=== PATIENT | female | born 1930 | race Caucasian/White ===

== ENCOUNTER 2016-12-29 10:20 | Inpatient (IN) | payer OTHER, BC ==
[2016-12-29 10:37] VITALS: BMI 30.2
[2016-12-29] MEDS ORDERED: SODIUM CHLORIDE 500 ML IV STA ×2 (10:42→16:30)
--- NOTE | 2016-12-29 10:50 | PDOC ---
History of Present Illness - General History Source: Family Exam Limitations: Dementia <NazarioJero - Last Filed: 12/29/16 14:11> <Carmita Wilson - Last Filed: 12/29/16 15:12> - General Chief Complaint: CVA/TIA Stated Complaint: AMS Time Seen by Provider: 12/29/16 10:33 Past History - Past Medical History Cardiac Disorders: Yes CVA: Yes Dementia: Yes HTN: Yes Hypercholesterolemia: Yes - Immunization History Immunization Up to Date: Yes - Psycho/Social/Smoking Cessation Hx Anxiety: No Suicidal Ideation: No Smoking Status: Yes Smoking History: Never smoked Have you smoked in the past 12 months: No Number of Cigarettes Smoked Daily: 0 If you are a former smoker, when did you quit?: long time ago Hx Alcohol Use: No Drug/Substance Use Hx: No Substance Use Type: None <Jero Lange - Last Filed: 12/29/16 14:11> <Carmita Wilson - Last Filed: 12/29/16 15:12> - Past Medical History Allergies/Adverse Reactions: Allergies Allergy/AdvReac Type Severity Reaction Status Date / Time Penicillins Allergy Intermediate Verified 03/16/16 22:35 methylprednisolone acetate Allergy Swelling Verified 03/16/16 22:35 [From Depo-Medrol] ofloxacin [From Floxin] Allergy Verified 03/16/16 22:35 Home Medications: Ambulatory Orders Metoprolol Tartrate [Lopressor -] 25 mg PO BID tablet 04/10/15 Warfarin Na [Coumadin -] 5 mg PO ASDIR 07/26/15 Acetaminophen [Tylenol .Regular Strength -] 650 mg PO Q4H PRN #0 tablet Docusate Sodium [Colace -] 100 mg PO BID PRN #0 capsule 07/31/15 Donepezil HCl [Aricept] 5 mg PO DAILY 30 Days 07/31/15 Olanzapine [Zyprexa -] 5 mg PO HS tablet 07/31/15 Tramadol HCl [Ultram -] 50 mg PO Q6H PRN #20 tablet MDD 400mg 03/19/16 Losartan Potassium 50 mg PO HS 12/29/16 Review of Systems - Review of Systems Able to Perform ROS?: No (dementia) <Jero Lange Last Filed: 12/29/16 14:11> *Physical Exam - Vital Signs Last Vital Signs Temp Pulse Resp BP Pulse Ox 99.3 F 70 20 130/61 98 12/29/16 10:20 12/29/16 10:20 12/29/16 10:20 12/29/16 10:20 12/29/16 10:20 - Physical Exam General Appearance: Yes: Appropriately Dressed. No: Apparent Distress HEENT: positive: Normal Voice Neck: positive: Supple Respiratory/Chest: positive: Lungs Clear. negative: Respiratory Distress Cardiovascular: positive: Regular Rate, S1, S2 Gastrointestinal/Abdominal: positive: Soft. negative: Tender Integumentary: positive: Dry, Warm Neurologic: positive: Alert, Normal Mood/Affect, Other (oriented x 1 and moving all extremities but not following any commands (baseline as per family)) <Jero Lange - Last Filed: 12/29/16 14:11> - Vital Signs Last Vital Signs Temp Pulse Resp BP Pulse Ox 98.2 F 72 16 159/64 99 12/29/16 13:29 12/29/16 13:29 12/29/16 13:29 12/29/16 13:29 12/29/16 13:29 <Carmita Wilson - Last Filed: 12/29/16 15:12> Heart Score/ECG Review - ECG Intrepretation Comment:: 12/29/16 11:16 NSR w/ RBBB, no acute ST-T wave changes <Jero Lange - Last Filed: 12/29/16 14:11> ED Treatment Course - LABORATORY CBC & Chemistry Diagram: 12/29/16 10:53 12/29/16 10:53 - RADIOLOGY Radiology Studies Ordered: Category Date Time Status HEAD CT WITHOUT CONTRAST [CT] Stat CT Scan 12/29/16 10:41 Ordered CHEST X-RAY PORTABLE* [RAD] Stat Radiology 12/29/16 10:41 Ordered <Jero Lange - Last Filed: 12/29/16 14:11> - LABORATORY CBC & Chemistry Diagram: 12/29/16 10:53 12/29/16 10:53 - ADDITIONAL ORDERS Additional order review: Laboratory Results 12/29/16 12/29/16 12:19 10:53 Sodium 139 Potassium 5.0 D Chloride 104 Carbon Dioxide 29 Anion Gap 6 L BUN 20 H D Creatinine 0.8 D Creat Clearance w eGFR > 60 Random Glucose 106 D Calcium 9.2 Total Bilirubin 0.6 D AST 38 H D ALT 21 D Alkaline Phosphatase 84 Creatine Kinase 187 Creatine Kinase Index 0.5 CK-MB (CK-2) < 1.000 Troponin I < 0.02 B-Natriuretic Peptide 2195.43 H Total Protein 7.1 Albumin 3.3 L Lipase 120 Urine Color Yellow Urine Appearance Slcloudy Urine pH 5.0 Ur Specific Preemption 1.025 Urine Protein Negative Urine Glucose (UA) Negative Urine Ketones Negative Urine Blood 2+ H Urine Nitrite Negative Urine Bilirubin Negative Urine Urobilinogen Negative Ur Leukocyte Esterase Negative Urine RBC 8 Urine WBC 2 Ur Epithelial Cells Rare Urine Mucus Rare 12/29/16 10:53 RBC 4.20 MCV 89.4 MCHC 32.8 RDW 14.3 MPV 10.1 Neutrophils % 79.2 D Lymphocytes % 12.1 D Monocytes % 7.2 Eosinophils % 1.0 Basophils % 0.5 - Medications Given in the ED: ED Medications Discontinued Medications Generic Name Dose Route Start Last Admin Trade Name Freq PRN Reason Stop Dose Admin Sodium Chloride 500 mls @ 1,000 mls/hr 12/29/16 10:42 12/29/16 10:45 Normal Saline - IV 12/29/16 11:11 1,000 mls/hr ASDIR STA Administration <Carmita Wilson - Last Filed: 12/29/16 15:12> Medical Decision Making - Medical Decision Making 12/29/16 10:43 86 yo F, history of dementia on Aricept, on zyprexa, oriented to people only, hypertension, heart murmurs, CVA with residual aphasia, afib on coumadin (told last week supratherapeutic on labs and told to reduce dose), PNA, UTI, brought in by family for dizziness with near syncope this am. 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 Pt unable to give hx in ED. Patient moving all extremities in ED but not following any specific commands, which is baseline per family. See exam Near syncope this am Unable to give hx 2/2 dementia Stable w/ clear chest/lungs Moving all extremities but not following commands (baseline per family) Unlikely CVA, r/o ACS vs metabolic vs infectious -ekg -cxr -CT head -labs -anticipate admission 12/29/16 12:16 CT with old L infarct, no acute pathology. CXr unremarkable w/ neg trop. BNP > 2K but no clinical e/o fluid overload. XR w/ atelectatic changes to bases, L>R, unable to r/o small underlying infiltrate. Clinically no concern for PNA as no cough, SOB, CP or fever. Labs wnl. Pt remains stable in ED. Will discus dispo w / PMD 12/29/16 12:19 12/29/16 13:38 Pt well appearing and currently eating. Will discuss case w/ PMD and admit to tele obs for near syncope 12/29/16 14:11 Case d/w hospitalist (covering for hiogi) and pt admitted <Jero Lange - Last Filed: 12/29/16 14:11> *DC/Admit/Observation/Transfer - Discharge Dispostion Admit: Yes <Jero Lange - Last Filed: 12/29/16 14:11> - Attestations Physician Attestion: I reviewed the case with the mid-level practitioner and agree with the mid- level practitioner's assessment, diagnosis and disposition. <Carmita Wilson - Last Filed: 12/29/16 15:12> Diagnosis at time of Disposition: Near syncope - Discharge Dispostion Condition at time of disposition: Stable - Referrals Referrals: Thony Reed MD [Primary Care Provider] -
[2016-12-29 11:06] LABS: MCHC 32.8 g/dl (32.0-36.0)
[2016-12-29 11:11] LABS: BASOPHIL 0.5 % (0-2.0); MCH 29.3 pg (25.7-33.7); MEAN CELL VOLUME 89.4 fl (80-96); MEAN PLT VOLUME 10.1 fl (7.5-11.1); NEUTROPHILS 79.2 % (42.8-82.8); PLATELET COUNT 261 K/MM3 (134-434); RDW 14.3 % (11.6-15.6); WHITE BLOOD COUNT 10.8 K/mm3 (4.0-10.0)
[2016-12-29 11:31] LABS: ALBUMIN 3.3 g/dl (3.4-5.0); ANION GAP 6 (8-16); BILIRUBIN,TOTAL 0.6 mg/dL (0.2-1.0); CALCIUM 9.2 mg/dL (8.5-10.1); CO2 29 mmol/L (21-32); CREATININE 0.8 mg/dL (0.55-1.02); GLUCOSE,RANDOM 106 mg/dL (74-106); SGPT/ALT 21 U/L (12-78); TOT PROT 7.1 g/dl (6.4-8.2)
[2016-12-29 11:32] LABS: ALK PHOS 84 U/L (45-117)
[2016-12-29 11:34] LABS: TROPONIN I < 0.02 ng/ml (0.00-0.05)
[2016-12-29 11:42] LABS: CPK 187 IU/L (26-192); SGOT/AST 38 U/L (15-37)
[2016-12-29 12:34] LABS: URINE APPEARANCE SLCLOUDY; URINE BILIRUBIN NEGATIVE (NEGATIVE); URINE BLOOD 2+ (NEGATIVE); URINE COLOR YELLOW; URINE GLUCOSE (UA) NEGATIVE (NEGATIVE); URINE KETONE NEGATIVE (NEGATIVE); URINE LEUK ESTERASE NEGATIVE (NEGATIVE); URINE NITRITE NEGATIVE (NEGATIVE); URINE PROTEIN NEGATIVE (NEGATIVE); URINE UROBILINOGEN NEGATIVE mg/dL (0.2-1.0)
[2016-12-29 12:36] LABS: URINE MUCUS RARE; URINE RBC 8 /hpf (0-3); URINE WBC 2 /hpf (3-5)
[2016-12-29] MEDS ORDERED: traMADol HCL 50 MG TABLET PO PRN (15:14)
[2016-12-29] MEDS ORDERED: DOCUSATE SODIUM 100 MG CAPSULE (FP) PO PRN (15:14)
[2016-12-29] MEDS ORDERED: DONEPEZIL HCL 10 MG TABLET (FP) PO SCH (15:15)
[2016-12-29] MEDS ORDERED: WARFARIN NA 5 MG TABLET (UD) PO SCH (15:15)
[2016-12-29] MEDS ORDERED: DONEPEZIL HCL 5 MG TABLET (FP) ONE (15:35)
--- NOTE | 2016-12-29 16:16 | HP ---
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 Per daughter and nursing aid at bedside, the patient said she's dizzy and seeing dark while the aid was bathing her. Patient was standing at the sink at that time and the aid immediately sat her on the toilet and the symptom resolved. Per family and aid, patient has trouble finding the right word and residual weakness in all extremities after stroke 2 years ago. Denies chest pain, shortness of breath, body shaking, fever, chills, worsening speech or extremities weakness, facial droop. ER course was notable for: (1) CT shows old infarct (2) Positive orthostatic BP (3) Elevated BNP but clinically euvolumic Recent Travel: Denies PAST MEDICAL HISTORY: As above PAST SURGICAL HISTORY: NONE Social History: Smoking: Denies Alcohol: Denies Drugs: Denies Family History: Non-contributory Allergies Penicillins Allergy (Intermediate, Verified 03/16/16 22:35) methylprednisolone acetate [From Depo-Medrol] Allergy (Verified 03/16/16 22:35) Swelling ofloxacin [From Floxin] Allergy (Verified 03/16/16 22:35) RAPID HEARTBEAT HOME MEDICATIONS: Home Medications Medication Instructions Recorded Metoprolol Tartrate [Lopressor -] 25 mg PO BID tablet 04/10/15 Warfarin Na [Coumadin -] 5 mg PO ASDIR 07/26/15 Acetaminophen [Tylenol .Regular 650 mg PO Q4H PRN #0 tablet 07/31/15 Strength -] Docusate Sodium [Colace -] 100 mg PO BID PRN #0 capsule 07/31/15 Donepezil HCl [Aricept] 5 mg PO DAILY 30 Days 07/31/15 Olanzapine [Zyprexa -] 5 mg PO HS tablet 07/31/15 Tramadol HCl [Ultram -] 50 mg PO Q6H PRN #20 tablet MDD 03/19/16 400mg Losartan Potassium 50 mg PO HS 12/29/16 REVIEW OF SYSTEMS CONSTITUTIONAL: Absent: fever, chills, diaphoresis, generalized weakness, malaise, loss of appetite, weight change HEENT: Absent: rhinorrhea, nasal congestion, throat pain, throat swelling, difficulty swallowing, mouth swelling, ear pain, eye pain, visual changes CARDIOVASCULAR: Absent: chest pain, syncope, palpitations, irregular heart rate, lightheadedness , peripheral edema RESPIRATORY: Absent: cough, shortness of breath, dyspnea with exertion, orthopnea, wheezing, stridor, hemoptysis GASTROINTESTINAL: Absent: abdominal pain, abdominal distension, nausea, vomiting, diarrhea, constipation, melena, hematochezia GENITOURINARY: Absent: dysuria, frequency, urgency, hesitancy, hematuria, flank pain, genital pain MUSCULOSKELETAL: Absent: myalgia, arthralgia, joint swelling, back pain, neck pain SKIN: Absent: rash, itching, pallor HEMATOLOGIC/IMMUNOLOGIC: Absent: easy bleeding, easy bruising, lymphadenopathy, frequent infections ENDOCRINE: Absent: unexplained weight gain, unexplained weight loss, heat intolerance, cold intolerance NEUROLOGIC: dizziness, unsteady gait Absent: headache, focal weakness or paresthesias, , seizure, mental status changes, bladder or bowel incontinence PSYCHIATRIC: Absent: anxiety, depression, suicidal or homicidal ideation, hallucinations. PHYSICAL EXAMINATION Last Vital Signs Temp Pulse Resp BP Pulse Ox 98.2 F 72 16 159/64 99 12/29/16 13:29 12/29/16 13:29 12/29/16 13:29 12/29/16 13:29 12/29/16 13:29 Orthostatic: Supine 147/95, Standing 89/52 GENERAL: Sitting up in bed and smiling, oriented to person only, at baseline mental status, in no acute distress. HEAD: Normal with no signs of trauma. EYES: Pupils equal, round and reactive to light, sclera anicteric, conjunctiva clear. EARS, NOSE, THROAT: oropharynx clear without exudates. Moist mucous membranes. NECK: No JVD, or masses. LUNGS: Poor air entry and diminished breath sounds HEART: RRR, normal S1 and S2 with high grade ejection murmur ABDOMEN: Soft, nontender, not distended, normoactive bowel sounds, no guarding, no rebound, no masses. MUSCULOSKELETAL: Normal range of motion at all joints. No bony deformities or tenderness. No CVA tenderness. EXTREMITIES: warm, No peripheral edema. R heel stage 1 pressure ulcer NEUROLOGICAL: Dyaphasia and unsteady gait. No facial droop. Unable to complete full neuroexam due to pt does not follow commands. 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 Syncope - Likely 2/2 orthostatic hypotension in the setting of severe - Clinically euvolumic - Received 500ml NS bolus * will give addition 500ml NS at slower rate * repeat orthostatic BP after hydration - Fall precaution - PT evaluation - Cardiology consult A-fib - Rate and rythm controlled - Cont. coumadin daily 5mg (half dose on Tuesdays) - Cont. Metoprolol - f/u INR HTN - Positive orthostatic hypotension - Hold cozaar Dementia - Cont. aricept and olanzapine FEN - IVF 72ml/cc - Normal lytes - Soft diet Prophylaxis - DVT: on coumadin - GI: not indicated Dispo - Tele obs Holden Griffiths, Medicine PGY2 Pager: [phone] Visit type - Emergency Visit Emergency Visit: Yes ED Registration Date: 12/29/16 Care time: The patient presented to the Emergency Department on the above date and was hospitalized for further evaluation of their emergent condition. - New Patient This patient is new to me today: Yes Date on this admission: 12/29/16 - Critical Care Critical Care patient: No
[2016-12-29 17:05] LABS: INR 3.88 (0.82-1.09); PROTHROMBIN TIME (PATIENT) 43.9 SEC (9.98-11.88)
--- NOTE | 2016-12-29 18:56 | PN ---
Teaching Attending Note Name of Resident: Holden Griffiths ATTENDING PHYSICIAN STATEMENT I saw and evaluated the patient. I reviewed the resident's note and discussed the case with the resident. I agree with the resident's findings and plan as documented. HPI obtained from daughter present at bedside as pt is a poor historian SUBJECTIVE:86yo F wtih PMH dementia, HTN, severe , CVA with residual expressive aphasia, afib on coumadin presented after pt was c/o dizzyness after taking a bath and pt stepped out of the tub. she sat down at the toilet and symptoms resolved. episode happened again several minutes later while walking which quickly resolved. as per aid she did not fall or hit her head, no LOC, no CP, SOB, fever, chills, weakness, slurrged speech or facial droop unknown when last echo was done OBJECTIVE: Last Vital Signs Temp Pulse Resp BP Pulse Ox 98.4 F 78 16 132/78 98 12/29/16 16:11 12/29/16 16:11 12/29/16 16:11 12/29/16 16:11 12/29/16 16:11 General NAD A&O x1 (self only) CV S1 S2 + 5/6 systolic murmur radiating to the carotids LUngs CTA B/L no wheezing/rales/rhonchi Abdomen soft NT/ND Extremities no pedal edema Neuro CN grossly intact, +expressive apahasia. follows some simple commands. moves all 4 extremities. sensation grossly intact ASSESSMENT AND PLAN: 86yo F wtih PMH dementia, HTN, severe , CVA with residual expressive aphasia, afib on coumadin presented to the ER with near-syncope 1. Near syncope- tele observation. likely due to orthostatic hypotension vs severe . orthostatics +. after 500 cc NS. will give additional 500cc and repeat orthostatics. as per daughter pt opted not to have TAVR procedure as she was asymptomatic. continuous cardiac montoring. cardiac markers Q8H x2 to r/o cardiac etiology although unlikely. check echo and carotid dopplers. Head CT negative for acute pathology. UA negative. cardio consulted 2. dementia- at baseline per daughter. alert, pleasantly confused. does not respond appropriately to questioning. cont aricept and olanzapine 3. Supratherapeutic INR- coumadin 5mg was given here prior to obtaining labs. will hold for now. no signs of bleeding. check INR tomorrow. cont metoprolol 4. HTN- currently normotensive. hold oral antihypertensives. 5. DVT ppx- supratherapeutic INR 6. pt will be transferred under Dr Branch's service in the AM.
[2016-12-29] MEDS: METOPROLOL TARTRATE 25 MG TABLET (FP) PO SCH (21:21)
[2016-12-29] MEDS: OLANZapine 5 MG TABLET PO SCH (21:21)
[2016-12-30 07:10] LABS: MCH 29.5 pg (25.7-33.7); MCHC 33.3 g/dl (32.0-36.0); MEAN CELL VOLUME 88.7 fl (80-96); MEAN PLT VOLUME 9.9 fl (7.5-11.1); PLATELET COUNT 209 K/MM3 (134-434); RDW 13.9 % (11.6-15.6); WHITE BLOOD COUNT 7.4 K/mm3 (4.0-10.0)
[2016-12-30 07:34] LABS: PROTHROMBIN TIME (PATIENT) 49.4 SEC (9.98-11.88)
[2016-12-30 07:37] LABS: ANION GAP 8 (8-16); CALCIUM 9.3 mg/dL (8.5-10.1); CO2 28 mmol/L (21-32)
[2016-12-30 07:41] LABS: CREATININE 0.8 mg/dL (0.55-1.02); GLUCOSE,RANDOM 87 mg/dL (74-106); MAGNESIUM 1.9 mg/dL (1.8-2.4)
[2016-12-30 07:47] LABS: INR 4.36 (0.82-1.09)
[2016-12-30] MEDS ORDERED: PT OWN MED DRAWER 7, Y5N ONE (09:47)
[2016-12-30] MEDS ORDERED: ENOXAPARIN NA (PORCINE) 40 MG/0.4 ML DISP.SYRIN SQ SCH (10:00)
--- NOTE | 2016-12-30 10:38 | CON.CARD ---
Consult Consult Specialty:: Cardiology Referred by:: Dr. Branch Reason for Consultation:: Cardiac evaluation - History of Present Illness History of Present Illness: Patient is an 86 year old female who is well known to our service with underlying history of hypertension, hypercholesterolemia, aortic stenosis, cerebrovascular disease, atrial fibrillation on Coumadin therapy and underlying dementia who presents with episodes of multiple falls and dizziness according to her family. She denies chest pain or palpitations. She denies paroxysmal nocturnal dyspnea or orthopnea. She denies fever or chills. She denies headache or lightheadedness. Patient has trouble finding the right word and complains of generalized weakness. 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 Cardio/Vascular: Yes: AFIB, Aortic Stenosis, HTN, Hyperlipdemia - Past Surgical History Past Surgical History: Yes: None - Alcohol/Substance Use Hx Alcohol Use: No History of Substance Use: reports: None - Smoking History Smoking history: Never smoked Have you smoked in the past 12 months: No Aproximately how many cigarettes per day: 0 If you are a former smoker, when did you quit?: long time ago - Social History Usual Living Arrangement: Alone ADL: Support Services (lives alone) History of Recent Travel: No Home Medications - Allergies Allergies/Adverse Reactions: Allergies Allergy/AdvReac Type Severity Reaction Status Date / Time Penicillins Allergy Intermediate Verified 03/16/16 22:35 methylprednisolone acetate Allergy Swelling Verified 03/16/16 22:35 [From Depo-Medrol] ofloxacin [From Floxin] Allergy Verified 03/16/16 22:35 - Home Medications Home Medications: Ambulatory Orders Metoprolol Tartrate [Lopressor -] 25 mg PO BID tablet 04/10/15 Warfarin Na [Coumadin -] 5 mg PO SUMOWEFRSA 07/26/15 Acetaminophen [Tylenol .Regular Strength -] 650 mg PO Q4H PRN #0 tablet Docusate Sodium [Colace -] 100 mg PO BID PRN #0 capsule 07/31/15 Donepezil HCl [Aricept] 5 mg PO DAILY 30 Days 07/31/15 Olanzapine [Zyprexa -] 5 mg PO HS tablet 07/31/15 Tramadol HCl [Ultram -] 50 mg PO Q6H PRN #20 tablet MDD 400mg 03/19/16 Losartan Potassium 25 mg PO HS 12/29/16 Warfarin Na [Coumadin] 2.5 mg PO TUFR 12/29/16 Review of Systems Unable to obtain ROS, reason: Unable to obtaine Vital Signs: Vital Signs Temperature 98.5 F 12/30/16 06:00 Pulse Rate 72 12/30/16 06:00 Respiratory Rate 18 12/30/16 06:00 Blood Pressure 151/65 12/30/16 06:00 O2 Sat by Pulse Oximetry (%) 95 12/30/16 06:51 Neck: Yes: Supple Respiratory: Yes: Diminished Gastrointestinal: Yes: Normal Bowel Sounds, Soft. No: Tenderness Cardiovascular: Yes: Pulse Irregular JVD: No Carotid Bruit: No PMI: Non-Displaced Heart Sounds: Yes: S1, S2. No: Gallop Murmur: Yes: Systolic Murmur (2-3/6 DAMIEN right intercostal space with mid systolic peaking), Grade 2 Edema: No - Other Data Labs, Other Data: CBC, BMP 12/30/16 05:35 12/30/16 05:35 INR, PTT INR 4.36 (0.82-1.09) H* 12/30/16 05:35 Laboratory Results - last 24 hr 12/30/16 12/30/16 12/30/16 05:35 05:35 05:35 WBC 7.4 D RBC 3.73 Hgb 11.0 D Hct 33.1 MCV 88.7 MCH 29.5 MCHC 33.3 RDW 13.9 Plt Count 209 MPV 9.9 INR 4.36 H* Sodium 143 Potassium 3.7 D Chloride 107 Carbon Dioxide 28 Anion Gap 8 BUN 16 Creatinine 0.8 Random Glucose 87 Calcium 9.3 Magnesium 1.9 Normal sinus rhythm with RBBB Problem List - Problems (1) Atrial fibrillation Code(s): I48.91 - UNSPECIFIED ATRIAL FIBRILLATION Qualifiers: Atrial fibrillation type: paroxysmal Qualified Code(s): I48.0 - Paroxysmal atrial fibrillation (2) CHF (congestive heart failure) Code(s): I50.9 - HEART FAILURE, UNSPECIFIED Qualifiers: Congestive heart failure type: diastolic Congestive heart failure chronicity: acute on chronic Qualified Code(s): I50.33 - Acute on chronic diastolic (congestive) heart failure (3) Cerebrovascular accident (CVA) Code(s): I63.9 - CEREBRAL INFARCTION, UNSPECIFIED Qualifiers: CVA mechanism: unspecified Qualified Code(s): I63.9 - Cerebral infarction, unspecified (4) Coronary artery disease Code(s): I25.10 - ATHSCL HEART DISEASE OF [place] CORONARY ARTERY W/O ANG PCTRS Qualifiers: Coronary Disease-Associated Artery/Lesion type: [place] artery [place] vs. transplanted heart: [place] heart Associated angina: without angina Qualified Code(s): I25.10 - Atherosclerotic heart disease of [place] coronary artery without angina pectoris (5) Diastolic dysfunction without heart failure Code(s): I51.9 - HEART DISEASE, UNSPECIFIED (6) Hyperlipidemia Code(s): E78.5 - HYPERLIPIDEMIA, UNSPECIFIED Qualifiers: Hyperlipidemia type: pure hypercholesterolemia Qualified Code(s): E78.00 - Pure hypercholesterolemia, unspecified; E78.0 - Pure hypercholesterolemia (7) Hypertension Code(s): I10 - ESSENTIAL (PRIMARY) HYPERTENSION Qualifiers: Hypertension type: essential hypertension Qualified Code(s): I10 - Essential (primary) hypertension (8) Severe aortic valve stenosis Code(s): I35.0 - NONRHEUMATIC AORTIC (VALVE) STENOSIS (9) Dementia Code(s): F03.90 - UNSPECIFIED DEMENTIA WITHOUT BEHAVIORAL DISTURBANCE Qualifiers: Dementia type: unspecified type Dementia behavioral disturbance: without behavioral disturbance Qualified Code(s): F03.90 - Unspecified dementia without behavioral disturbance Assessment/Plan 1. Severe aortic valve stenosis - previously had declined TAVR 2. Cerebrovascular disease with history of stroke resulting in right side weakness, expressive aphasia and facial droop 3. Paroxysmal atrial fibrillation now remains in sinus rhythm 4. Hypertension/hypertensive cardiovascular disease 5. Hypercholesterolemia 6. CAD 7. LV diastolic dysfunction PLAN: 1. Continue Metoprolol and Losartan as tolerated 2. Warfarin is held due to supratherapeutic INR - keep INR 2-3 3. Patient had refused TAVR. Repeat transthoracic echocardiography to assess LV/ RV and valvular function 4. Continue Aricept 5. Previously was on Statin - will determine whether she needs lipid lowering therapy Further plans are to follow João Heck MD
[2016-12-30] MEDS: DONEPEZIL HCL 5 MG TABLET (FP) PO SCH (10:48)
[2016-12-30] MEDS: METOPROLOL TARTRATE 25 MG TABLET (FP) PO SCH ×2 (10:48→22:00)
--- NOTE | 2016-12-30 12:09 | PN ---
Progress Note, Physician Chief Complaint: Unable to obtain secondary to dysphasia. Family at bedside and saying Ms Emanuel is looking better. - Current Medication List Current Medications: Active Medications Acetaminophen (Tylenol -) 650 mg PO Q4H PRN PRN Reason: FEVER OR PAIN Docusate Sodium (Colace -) 100 mg PO BID PRN PRN Reason: CONSTIPATION Donepezil HCl (Aricept -) 5 mg PO DAILY [facility] Last Admin: 12/30/16 10:48 Dose: 5 mg Losartan Potassium (Cozaar -) 50 mg PO HS [facility] Metoprolol Tartrate (Lopressor -) 25 mg PO BID [facility] Last Admin: 12/30/16 10:48 Dose: 25 mg Olanzapine (Zyprexa -) 5 mg PO HS [facility] Last Admin: 12/29/16 21:21 Dose: 5 mg Tramadol HCl (Ultram -) 50 mg PO Q6H PRN PRN Reason: PAIN Warfarin Sodium (Coumadin -) 2.5 mg PO Tu@18 ANGIE Warfarin Sodium (Coumadin -) 5 mg PO [email or web address] [facility] - Objective Vital Signs: Vital Signs Temperature 36.9 C 12/30/16 06:00 Pulse Rate 72 12/30/16 06:00 Respiratory Rate 18 12/30/16 06:00 Blood Pressure 151/65 12/30/16 06:00 O2 Sat by Pulse Oximetry (%) 95 12/30/16 06:51 Constitutional: Yes: Well Nourished, No Distress, Calm Cardiovascular: Yes: Regular Rate and Rhythm, Murmur. No: Gallop, Rub Respiratory: Yes: Regular, CTA Bilaterally. No: Rales, Rhonchi, Wheezes Gastrointestinal: Yes: Normal Bowel Sounds, Soft. No: Distention, Tenderness Extremities: Yes: WNL Edema: No Labs: CBC, BMP 12/30/16 05:35 12/30/16 05:35 INR, PTT INR 4.36 (0.82-1.09) H* 12/30/16 05:35 Problem List - Problems (1) Near syncope Assessment/Plan: -patient with near syncope at home -possible orthostatics, but with history of severe could be progression to end stage -carotid ultrasound reviewed -cardiology consulted -s/p rehydration -PT consult Code(s): R55 - SYNCOPE AND COLLAPSE (2) Atrial fibrillation Assessment/Plan: -rate controlled, sounds in sinus rhythm on exam -INR supratherapeutic -hold coumadin, recheck tomorrow Code(s): I48.91 - UNSPECIFIED ATRIAL FIBRILLATION Qualifiers: Atrial fibrillation type: paroxysmal Qualified Code(s): I48.0 - Paroxysmal atrial fibrillation (3) Cerebrovascular accident (CVA) Assessment/Plan: -history of CVA -not acute -continue home regimen Code(s): I63.9 - CEREBRAL INFARCTION, UNSPECIFIED (4) Coronary artery disease Assessment/Plan: -cardiology following -quiescent Code(s): I25.10 - ATHSCL HEART DISEASE OF [place] CORONARY ARTERY W/O ANG PCTRS Qualifiers: (5) Hypertension Assessment/Plan: -continue current regimen -SBP 150s, considering presentation with syncope do not need tight blood pressure control Code(s): I10 - ESSENTIAL (PRIMARY) HYPERTENSION (6) Severe aortic valve stenosis Assessment/Plan: -patient declined TAVR or intervention in the past -d/w family at bedside that syncope may be secondary to progression -if so, can expect this to occur more frequently -also this means end stage which without intervention life expectancy is 6-12 months Code(s): I35.0 - NONRHEUMATIC AORTIC (VALVE) STENOSIS
[2016-12-30] MEDS ORDERED: WARFARIN NA 5 MG TABLET (UD) PO SCH ×2 (18:00)
--- NOTE | 2016-12-30 21:53 | EKG ---
Test Reason : Blood Pressure : / mmHG Vent. Rate : 072 BPM Atrial Rate : 072 BPM P-R Int : 128 ms QRS Dur : 120 ms QT Int : 412 ms P-R-T Axes : 006 -12 -06 degrees QTc Int : 451 ms NORMAL SINUS RHYTHM RIGHT BUNDLE BRANCH BLOCK ABNORMAL ECG WHEN COMPARED WITH ECG OF 17-MAR-2016 00:39, PREMATURE ATRIAL COMPLEXES ARE NO LONGER PRESENT RIGHT BUNDLE BRANCH BLOCK IS NOW PRESENT Confirmed by NICHELLE POZO, DEENA ([id number]) on 12/30/2016 9:52:54 PM Referred By: Confirmed By:DEENA STEWARD MD
[2016-12-30] MEDS: LOSARTAN POTASSIUM 50 MG TABLET (FP) PO SCH (22:00)
[2016-12-30] MEDS: OLANZapine 5 MG TABLET PO SCH (22:00)
[2016-12-30] MEDS: ACETAMINOPHEN 325 MG TABLET (FP) PO PRN (22:00)
[2016-12-31 00:23] LABS: URINE APPEARANCE CLEAR; URINE BILIRUBIN NEGATIVE (NEGATIVE); URINE BLOOD 2+ (NEGATIVE); URINE COLOR LT. YELLOW; URINE GLUCOSE (UA) NEGATIVE (NEGATIVE); URINE KETONE NEGATIVE (NEGATIVE); URINE PROTEIN NEGATIVE (NEGATIVE); URINE UROBILINOGEN 0.2 mg/dL (0.2-1.0)
[2016-12-31 00:39] LABS: URINE NITRITE POSITIVE (NEGATIVE)
[2016-12-31 01:11] LABS: URINE BACTERIA FEW /hpf (NONE SEEN); URINE HYALINE CAST 3 /lpf; URINE MUCUS RARE; URINE RBC 2 /hpf (0-3); URINE WBC 30 /hpf (3-5)
[2016-12-31 08:39] LABS: BASOPHIL 0.6 % (0-2.0); EOSINOPHIL 2.3 % (0-4.5); MCH 29.3 pg (25.7-33.7); MCHC 32.8 g/dl (32.0-36.0); MEAN CELL VOLUME 89.1 fl (80-96); MEAN PLT VOLUME 10.2 fl (7.5-11.1); NEUTROPHILS 67.1 % (42.8-82.8); PLATELET COUNT 219 K/MM3 (134-434); RDW 13.6 % (11.6-15.6); WHITE BLOOD COUNT 9.6 K/mm3 (4.0-10.0)
--- NOTE | 2016-12-31 08:56 | PN ---
Progress Note (short form) - Note Progress Note: Patient seen and examined. Chart reviewed. Patient well known to me from outpatient care. Admitted with pre-syncope in setting of severe and previous embolic CVA. Currently sitting up in bed at baseline mental status with likely mild dementia complicated by expressive aphasia. Denies new chest discomfort or increased dyspnea. Fever noted last PM and O2 saturation fell to the 80s earlier this AM. Currently has O2 saturation of 94 on 2.5l/min nc. Labs, radiologic procedures, informatics consultant and progress notes reviewed. Medications Acetaminophen (Tylenol -) 650 mg PO Q4H PRN PRN Reason: FEVER OR PAIN Last Admin: 12/30/16 22:00 Dose: 650 mg Losartan Potassium (Cozaar -) 50 mg PO HS [facility] Last Admin: 12/30/16 22:00 Dose: 50 mg Olanzapine (Zyprexa -) 5 mg PO HS [facility] Last Admin: 12/30/16 22:00 Dose: 5 mg Metoprolol Tartrate (Lopressor -) 25 mg PO BID [facility] Last Admin: 12/30/16 22:00 Dose: 25 mg Docusate Sodium (Colace -) 100 mg PO BID PRN PRN Reason: CONSTIPATION Tramadol HCl (Ultram -) 50 mg PO Q6H PRN PRN Reason: PAIN Donepezil HCl (Aricept -) 5 mg PO DAILY [facility] Last Admin: 12/30/16 10:48 Dose: 5 mg Selected Entries 12/31/16 12/31/16 06:00 06:43 Temperature 98.5 F Pulse Rate 54 L Respiratory 18 Rate Blood Pressure 157/56 O2 Sat by Pulse 95 Oximetry (%) Oxygen Delivery Room Air Method Laboratory Tests 12/29/16 12/30/16 12/30/16 10:53 05:35 05:35 WBC 7.4 D Hgb 11.0 D Hct 33.1 Plt Count 209 INR Sodium 143 Potassium 3.7 D Chloride 107 Carbon Dioxide 28 BUN 16 Creatinine 0.8 Random Glucose 87 Calcium 9.3 Magnesium 1.9 CK-MB (CK-2) < 1.000 Troponin I < 0.02 B-Natriuretic Peptide 2195.43 H Albumin 3.3 L 12/30/16 12/31/16 05:35 07:00 WBC Hgb Hct Plt Count INR 4.36 H* Pending Sodium Potassium Chloride Carbon Dioxide BUN Creatinine Random Glucose Calcium Magnesium CK-MB (CK-2) Troponin I B-Natriuretic Peptide Albumin Chest Clear No wheeze or rhonchi Cor Slow regular rhythm 3/6 systolic murmur LUSB/RUSB Abd Soft No mass or tenderness BS positive Ext No new edema No phlebitis Neuro Expressive aphasia persists No new focal deficit Telemetry Sinus bradycardia with sinus arrhythmia ECHO Normal LV size and systolic function Mild concentric LVH No WMA Severe with calculated aortic valve area 0.6 cm2 and mean pressure gradient of 54mm Hg Carotid duplex with atherosclerotic disease but no hemodynamically significant stenoses Assessment and Plan Near Syncope Continue assessment Monitor vital signs with orthostatic BPs Increase activity as tolerated Fever Recheck UA with C+S Severe Has refused TAVR in the past Bradyarrhythmia Monitor Remains on metoprolol HTN H/O Monitor HPL Has recently been able to tolerate statins. 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 Expressive aphasia, although improved overall, persists ASHD Stable Cardiologic follow-up Diastolic CHF Stable Elevated INR Etiology unclear Reassess dosage of warfarin Monitor for right sided CHF with passive congestion of the liver Hypoalbuminemia 3.3 Monitor Dementia Mild Diagnosis and progression difficcult to assess in the setting of expressive aphasia Increase activity as tolerated Assess fever.
[2016-12-31 09:16] LABS: ANION GAP 6 (8-16); CO2 32 mmol/L (21-32); CREATININE 0.8 mg/dL (0.55-1.02); GLUCOSE,RANDOM 82 mg/dL (74-106); PHOSPHOROUS 3.2 mg/dL (2.5-4.9)
[2016-12-31 10:16] LABS: INR 3.57 (0.82-1.09); PROTHROMBIN TIME (PATIENT) 40.3 SEC (9.98-11.88)
[2016-12-31] MEDS: DONEPEZIL HCL 5 MG TABLET (FP) PO SCH (10:30)
[2016-12-31] MEDS: METOPROLOL TARTRATE 25 MG TABLET (FP) PO SCH ×2 (10:31→22:41)
--- NOTE | 2016-12-31 10:45 | PN ---
Progress Note, Physician Chief Complaint: Not in distress History of Present Illness: Patient was seen and examined. Awake. Confused. Chart was reviewed - Current Medication List Current Medications: Active Medications Acetaminophen (Tylenol -) 650 mg PO Q4H PRN PRN Reason: FEVER OR PAIN Last Admin: 12/30/16 22:00 Dose: 650 mg Docusate Sodium (Colace -) 100 mg PO BID PRN PRN Reason: CONSTIPATION Donepezil HCl (Aricept -) 5 mg PO DAILY [facility] Last Admin: 12/31/16 10:30 Dose: 5 mg Losartan Potassium (Cozaar -) 50 mg PO HS [facility] Last Admin: 12/30/16 22:00 Dose: 50 mg Metoprolol Tartrate (Lopressor -) 25 mg PO BID [facility] Last Admin: 12/31/16 10:31 Dose: 25 mg Olanzapine (Zyprexa -) 5 mg PO HS [facility] Last Admin: 12/30/16 22:00 Dose: 5 mg Tramadol HCl (Ultram -) 50 mg PO Q6H PRN PRN Reason: PAIN - Objective Vital Signs: Vital Signs Temperature 98.5 F 12/31/16 06:00 Pulse Rate 54 L 12/31/16 06:00 Respiratory Rate 18 12/31/16 06:43 Blood Pressure 157/56 12/31/16 06:00 O2 Sat by Pulse Oximetry (%) 95 12/31/16 06:43 Cardiovascular: Yes: Pulse Irregular, Murmur (2-3/6 DAMIEN right intercostal space and 2/6 SM apex), S1, S2 Respiratory: Yes: Diminished Gastrointestinal: Yes: Normal Bowel Sounds, Soft. No: Tenderness Edema: No Labs: INR, PTT INR 3.57 (0.82-1.09) H 12/31/16 07:00 Problem List - Problems (1) Atrial fibrillation Code(s): I48.91 - UNSPECIFIED ATRIAL FIBRILLATION Qualifiers: Atrial fibrillation type: paroxysmal Qualified Code(s): I48.0 - Paroxysmal atrial fibrillation (2) CHF (congestive heart failure) Code(s): I50.9 - HEART FAILURE, UNSPECIFIED Qualifiers: Congestive heart failure type: diastolic Congestive heart failure chronicity: acute on chronic Qualified Code(s): I50.33 - Acute on chronic diastolic (congestive) heart failure (3) Cerebrovascular accident (CVA) Code(s): I63.9 - CEREBRAL INFARCTION, UNSPECIFIED Qualifiers: CVA mechanism: unspecified Qualified Code(s): I63.9 - Cerebral infarction, unspecified (4) Coronary artery disease Code(s): I25.10 - ATHSCL HEART DISEASE OF [place] CORONARY ARTERY W/O ANG PCTRS Qualifiers: Coronary Disease-Associated Artery/Lesion type: [place] artery [place] vs. transplanted heart: [place] heart Associated angina: without angina Qualified Code(s): I25.10 - Atherosclerotic heart disease of [place] coronary artery without angina pectoris (5) Diastolic dysfunction without heart failure Code(s): I51.9 - HEART DISEASE, UNSPECIFIED (6) Hyperlipidemia Code(s): E78.5 - HYPERLIPIDEMIA, UNSPECIFIED Qualifiers: Hyperlipidemia type: pure hypercholesterolemia Qualified Code(s): E78.00 - Pure hypercholesterolemia, unspecified; E78.0 - Pure hypercholesterolemia (7) Hypertension Code(s): I10 - ESSENTIAL (PRIMARY) HYPERTENSION Qualifiers: Hypertension type: essential hypertension Qualified Code(s): I10 - Essential (primary) hypertension (8) Severe aortic valve stenosis Code(s): I35.0 - NONRHEUMATIC AORTIC (VALVE) STENOSIS (9) Dementia Code(s): F03.90 - UNSPECIFIED DEMENTIA WITHOUT BEHAVIORAL DISTURBANCE Qualifiers: Dementia type: unspecified type Dementia behavioral disturbance: without behavioral disturbance Qualified Code(s): F03.90 - Unspecified dementia without behavioral disturbance Assessment/Plan 1. Severe aortic valve stenosis - previously had declined TAVR 2. Cerebrovascular disease with history of stroke resulting in right side weakness, expressive aphasia and facial droop 3. Paroxysmal atrial fibrillation now remains in sinus rhythm 4. Hypertension/hypertensive cardiovascular disease 5. Hypercholesterolemia 6. CAD 7. LV diastolic dysfunction PLAN: 1. Continue Metoprolol and Losartan as tolerated 2. Warfarin is held due to supratherapeutic INR - keep INR 2-3 3. Patient had refused TAVR. Repeat transthoracic echocardiography to assess LV/ RV and valvular function 4. Continue Aricept 5. Previously was on Statin - will determine whether she needs lipid lowering therapy Further plans are to follow João Heck MD
[2016-12-31] MEDS: ACETAMINOPHEN 325 MG TABLET (FP) PO PRN (15:23)
[2016-12-31] MEDS ORDERED: VANCOMYCIN 1,000 MG in DEXTROSE 5%-WATER - 250 ML IVPB ONE (16:48)
[2016-12-31] MEDS ORDERED: WARFARIN NA 2.5 MG TABLET (FP) PO SCH (18:00)
[2016-12-31] MEDS: AZTREONAM 1 GM in DEXTROSE 5%-WATER - 50 ML IVPB SCH (22:40)
[2016-12-31] MEDS: OLANZapine 5 MG TABLET PO SCH (22:40)
[2016-12-31] MEDS: LOSARTAN POTASSIUM 50 MG TABLET (FP) PO SCH (22:41)
[2017-01-01 07:30] LABS: BASOPHIL 0.3 % (0-2.0); EOSINOPHIL 2.7 % (0-4.5); MCH 29.7 pg (25.7-33.7); MCHC 33.4 g/dl (32.0-36.0); MEAN CELL VOLUME 88.8 fl (80-96); MEAN PLT VOLUME 10.1 fl (7.5-11.1); NEUTROPHILS 65.1 % (42.8-82.8); PLATELET COUNT 205 K/MM3 (134-434); RDW 13.6 % (11.6-15.6); WHITE BLOOD COUNT 8.9 K/mm3 (4.0-10.0)
[2017-01-01 07:45] LABS: INR 2.52 (0.82-1.09); PROTHROMBIN TIME (PATIENT) 28.2 SEC (9.98-11.88)
[2017-01-01 07:56] LABS: ALBUMIN 2.5 g/dl (3.4-5.0); ANION GAP 5 (8-16); CO2 30 mmol/L (21-32); GLUCOSE,RANDOM 92 mg/dL (74-106); MAGNESIUM 1.8 mg/dL (1.8-2.4)
[2017-01-01 07:58] LABS: ALK PHOS 66 U/L (45-117); BILIRUBIN,TOTAL 0.5 mg/dL (0.2-1.0); CREATININE 0.7 mg/dL (0.55-1.02); SGOT/AST 15 U/L (15-37); SGPT/ALT 15 U/L (12-78); TOT PROT 5.8 g/dl (6.4-8.2)
--- NOTE | 2017-01-01 08:56 | PN ---
Progress Note (short form) - Note Progress Note: Patient seen and examined. Chart reviewed. Patient well known to me from outpatient care. Admitted with pre-syncope in setting of severe and previous embolic CVA. Currently sitting up in bed alert and responsive at baseline mental status with likely mild dementia complicated by expressive aphasia. Denies new chest discomfort or increased dyspnea. Fever spike to 102.1 12/30 2200 and 101 yesterday 12/31 at 1400. O2 saturation had fallen to the 80s earlier yesterday AM. Currently has O2 saturation of 95 on Room Air. Labs, radiologic procedures, labor relations consultant and progress notes reviewed. Blood cultures are negative. Urine culture pending. Urinalysis reviewed. Started on Aztreonam for GNR coverage. One dose of Vancomycin also ordered For ID follow-up. Right heel ulcer re-examined. Telemetry reviewed. Remains in sinus rhythm with evidence of sinus arrhythmia. Medications Losartan Potassium (Cozaar -) 50 mg PO HS [facility] Last Admin: 12/31/16 22:41 Dose: 50 mg Donepezil HCl (Aricept -) 5 mg PO DAILY [facility] Last Admin: 12/31/16 10:30 Dose: 5 mg Acetaminophen (Tylenol -) 650 mg PO Q4H PRN PRN Reason: FEVER OR PAIN Last Admin: 12/31/16 15:23 Dose: 650 mg Aztreonam 1 gm/ Dextrose 50 mls @ 100 mls/hr IVPB BID [facility] PRN Reason: Protocol Last Admin: 12/31/16 22:40 Dose: 100 mls/hr Olanzapine (Zyprexa -) 5 mg PO HS [facility] Last Admin: 12/31/16 22:40 Dose: 5 mg Metoprolol Tartrate (Lopressor -) 25 mg PO BID [facility] Last Admin: 12/31/16 22:41 Dose: 25 mg Docusate Sodium (Colace -) 100 mg PO BID PRN PRN Reason: CONSTIPATION Tramadol HCl (Ultram -) 50 mg PO Q6H PRN PRN Reason: PAIN Microbiology 12/30/16 23:30 Blood - Peripheral Venous Blood Culture - Preliminary NO GROWTH OBTAINED AFTER 24 HOURS, INCUBATION TO CONTINUE FOR 4 DAYS. Selected Entries 01/01/17 01/01/17 01:37 05:00 Temperature 98.7 F Pulse Rate 83 Respiratory 18 Rate Blood Pressure 131/55 O2 Sat by Pulse 95 Oximetry (%) Oxygen Delivery Room Air Method Laboratory Tests 01/01/17 01/01/17 01/01/17 05:35 05:35 05:35 WBC 8.9 Hgb 10.9 Hct 32.7 Plt Count 205 INR 2.52 H Sodium 139 Potassium 3.8 Chloride 104 Carbon Dioxide 30 BUN 20 H Creatinine 0.7 Random Glucose 92 Calcium 9.0 Magnesium 1.8 Total Bilirubin 0.5 AST 15 D ALT 15 D Alkaline Phosphatase 66 D Total Protein 5.8 L Albumin 2.5 L D Chest Clear No wheeze or rhonchi Cor Slow regular rhythm 3/6 systolic murmur RUSB Abd Soft No mass or tenderness BS positive Ext No new edema No phlebitis Right heel ulcer with protective dressing Neuro Expressive aphasia persists No new focal deficit Telemetry Sinus bradycardia with sinus arrhythmia ECHO Normal LV size and systolic function Mild concentric LVH No WMA Severe with calculated aortic valve area 0.6 cm2 and mean pressure gradient of 54mm Hg Carotid duplex with atherosclerotic disease but no hemodynamically significant stenoses Assessment and Plan Near Syncope Continue assessment Monitor vital signs with orthostatic BPs Increase activity as tolerated Fever Recheck UA with C+S Empiric antibiotic therapy as ordered Severe Has refused TAVR in the past Bradyarrhythmia Monitor Remains on metoprolol HTN H/O Monitor HPL Has recently been able to tolerate statins. 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 Expressive aphasia, although improved overall, persists ASHD Stable Cardiologic follow-up Diastolic CHF Stable Elevated INR Etiology unclear Reassess dosage of warfarin Monitor for right sided CHF with passive congestion of the liver Level 2.52 today Resume Rx Anemia 10.9/32.7 Monitor Check Fe studies Hypoalbuminemia 3.3>>2.5 Likely multifactorial related to acute/ chronic disease as well as nutritional factors. Monitor Dementia Mild Diagnosis and progression difficult to assess in the setting of expressive aphasia Right Heel Ulcer Local care Increase activity as tolerated Monitor fever.
--- NOTE | 2017-01-01 09:01 | PN ---
Progress Note, Physician Chief Complaint: Not in distress History of Present Illness: Patient was seen and examined. Awake. Confused. Chart was reviewed - Current Medication List Current Medications: Active Medications Acetaminophen (Tylenol -) 650 mg PO Q4H PRN PRN Reason: FEVER OR PAIN Last Admin: 12/31/16 15:23 Dose: 650 mg Bacitracin (Bacitracin -) 1 applic TP BID [facility] Docusate Sodium (Colace -) 100 mg PO BID PRN PRN Reason: CONSTIPATION Donepezil HCl (Aricept -) 5 mg PO DAILY [facility] Last Admin: 12/31/16 10:30 Dose: 5 mg Aztreonam 1 gm/ Dextrose 50 mls @ 100 mls/hr IVPB BID [facility] PRN Reason: Protocol Last Admin: 12/31/16 22:40 Dose: 100 mls/hr Losartan Potassium (Cozaar -) 50 mg PO HS [facility] Last Admin: 12/31/16 22:41 Dose: 50 mg Metoprolol Tartrate (Lopressor -) 25 mg PO BID [facility] Last Admin: 12/31/16 22:41 Dose: 25 mg Olanzapine (Zyprexa -) 5 mg PO HS [facility] Last Admin: 12/31/16 22:40 Dose: 5 mg Tramadol HCl (Ultram -) 50 mg PO Q6H PRN PRN Reason: PAIN - Objective Vital Signs: Vital Signs Temperature 98.7 F 01/01/17 05:00 Pulse Rate 83 01/01/17 05:00 Respiratory Rate 18 01/01/17 05:00 Blood Pressure 131/55 01/01/17 05:00 O2 Sat by Pulse Oximetry (%) 95 01/01/17 01:37 Neck: Yes: Supple Cardiovascular: Yes: Regular Rate and Rhythm, Murmur (2/6 DAMIEN), S1, S2 Respiratory: Yes: Diminished Gastrointestinal: Yes: Normal Bowel Sounds, Soft. No: Tenderness Edema: No Labs: CBC, BMP 01/01/17 05:35 01/01/17 05:35 INR, PTT INR 2.52 (0.82-1.09) H 01/01/17 05:35 Problem List - Problems (1) Atrial fibrillation Code(s): I48.91 - UNSPECIFIED ATRIAL FIBRILLATION Qualifiers: Atrial fibrillation type: paroxysmal Qualified Code(s): I48.0 - Paroxysmal atrial fibrillation (2) CHF (congestive heart failure) Code(s): I50.9 - HEART FAILURE, UNSPECIFIED Qualifiers: Congestive heart failure type: diastolic Congestive heart failure chronicity: acute on chronic Qualified Code(s): I50.33 - Acute on chronic diastolic (congestive) heart failure (3) Cerebrovascular accident (CVA) Code(s): I63.9 - CEREBRAL INFARCTION, UNSPECIFIED Qualifiers: CVA mechanism: unspecified Qualified Code(s): I63.9 - Cerebral infarction, unspecified (4) Coronary artery disease Code(s): I25.10 - ATHSCL HEART DISEASE OF [place] CORONARY ARTERY W/O ANG PCTRS Qualifiers: Coronary Disease-Associated Artery/Lesion type: [place] artery [place] vs. transplanted heart: [place] heart Associated angina: without angina Qualified Code(s): I25.10 - Atherosclerotic heart disease of [place] coronary artery without angina pectoris (5) Diastolic dysfunction without heart failure Code(s): I51.9 - HEART DISEASE, UNSPECIFIED (6) Hyperlipidemia Code(s): E78.5 - HYPERLIPIDEMIA, UNSPECIFIED Qualifiers: Hyperlipidemia type: pure hypercholesterolemia Qualified Code(s): E78.00 - Pure hypercholesterolemia, unspecified; E78.0 - Pure hypercholesterolemia (7) Hypertension Code(s): I10 - ESSENTIAL (PRIMARY) HYPERTENSION Qualifiers: Hypertension type: essential hypertension Qualified Code(s): I10 - Essential (primary) hypertension (8) Severe aortic valve stenosis Code(s): I35.0 - NONRHEUMATIC AORTIC (VALVE) STENOSIS (9) Dementia Code(s): F03.90 - UNSPECIFIED DEMENTIA WITHOUT BEHAVIORAL DISTURBANCE Qualifiers: Dementia type: unspecified type Dementia behavioral disturbance: without behavioral disturbance Qualified Code(s): F03.90 - Unspecified dementia without behavioral disturbance Assessment/Plan 1. Severe aortic valve stenosis - previously had declined TAVR 2. Cerebrovascular disease with history of stroke resulting in right side weakness, expressive aphasia and facial droop 3. Paroxysmal atrial fibrillation now remains in sinus rhythm 4. Hypertension/hypertensive cardiovascular disease 5. Hypercholesterolemia 6. CAD 7. LV diastolic dysfunction PLAN: 1. Continue Metoprolol and Losartan as tolerated 2. Continue Warfarin - keep INR 2-3 3. Patient had refused TAVR. Transthoracic echocardiography with severe noted 4. Continue Aricept 5. Previously was on Statin - will determine whether she needs lipid lowering therapy Further plans are to follow João Heck MD
[2017-01-01] MEDS: DONEPEZIL HCL 5 MG TABLET (FP) PO SCH (09:25)
[2017-01-01] MEDS: METOPROLOL TARTRATE 25 MG TABLET (FP) PO SCH ×2 (09:25→23:01)
[2017-01-01] MEDS: BACITRACIN 15 GM TUBE TOPICAL OINTMENT TP SCH ×2 (09:25→22:55)
[2017-01-01] MEDS: AZTREONAM 1 GM in DEXTROSE 5%-WATER - 50 ML IVPB SCH ×2 (09:25→23:00)
--- NOTE | 2017-01-01 09:34 | PN ---
Progress Note (short form) - Note Progress Note: ID consult dictated 86 year old female pmh dementia, CVA lives at home, brought to ED 12/29 for near syncope has had intermittent fever as high as 102 since admission she is a poor historian she was started on vancomycin and azactam last night (penicillin, quinolone allergy) fever suspected UTI multiple antibiotics allergies continue azactam (urine culture with GNR) superficial heel ulcer- no associated cellulitis dementia CVA near syncope severe aortic stenosis f/u cultures Problem List - Problems (1) Fever Code(s): R50.9 - FEVER, UNSPECIFIED (2) UTI (urinary tract infection) Code(s): N39.0 - URINARY TRACT INFECTION, SITE NOT SPECIFIED (3) Allergy to multiple antibiotics Code(s): Z88.1 - ALLERGY STATUS TO OTHER ANTIBIOTIC AGENTS STATUS (4) Near syncope Code(s): R55 - SYNCOPE AND COLLAPSE (5) Severe aortic valve stenosis Code(s): I35.0 - NONRHEUMATIC AORTIC (VALVE) STENOSIS (6) Dementia Code(s): F03.90 - UNSPECIFIED DEMENTIA WITHOUT BEHAVIORAL DISTURBANCE Qualifiers: Dementia type: unspecified type Dementia behavioral disturbance: without behavioral disturbance Qualified Code(s): F03.90 - Unspecified dementia without behavioral disturbance
[2017-01-01] MEDS: ACETAMINOPHEN 325 MG TABLET (FP) PO PRN (14:49)
[2017-01-01] MEDS: WARFARIN NA 2 MG TABLET (UD) PO SCH ×2 (18:15→18:42)
--- NOTE | 2017-01-01 18:53 | CONS ---
DATE OF CONSULTATION: DATE OF DICTATION: 01/01/2017 INFECTIOUS DISEASE CONSULTATION REQUESTING PHYSICIAN: Rangel Branch M.D. CONSULTING PHYSICIAN: Nory Horn M.D. HISTORY OF PRESENT ILLNESS: This is an 86-year-old woman with past medical history of dementia. She has had a stroke with weakness and expressive aphasia. She has a history of severe aortic stenosis as well. She was admitted from home with dizziness and near syncope. After admission, she had fever as high as 102 in the hospital, and we were asked to see her for fever evaluation. She had labs drawn that showed an admission white count of 10.8, a urinalysis with 30 white cells, a chest x-ray that shows no active pulmonary disease. She is a very poor historian and is resting comfortably with no complaints. PAST MEDICAL HISTORY: Notable for dementia. She has a history of hypertension. She has had a CVA in the past. She has a history of severe aortic stenosis. She has never had surgery before and per cardiology notes has declined TAVR. She is allergic to PENICILLIN, DEPO-MEDROL, OFLOXACIN, nature of the allergies is not known, and patient is unable to elucidate. SOCIAL HISTORY: She lives at home. 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 Again, it is unclear how ambulatory she is or whether she uses any assist devices. FAMILY HISTORY: Not available. MEDICATION: At home include metoprolol, Coumadin, Colace, Aricept, Zyprexa, Ultram, and losartan. She has a history of atrial fibrillation as well and is on Coumadin. REVIEW OF SYSTEMS: She denies chest pain, nausea, vomiting, diarrhea, dysuria, abdominal pains, but as stated before, she is a poor historian. PHYSICAL EXAMINATION: Vital signs: Temperature 98.7, T-max was 101 yesterday, her pulse is 83, blood pressure is 131/55, respiratory rate 18. HEENT: Normocephalic. Eyes are anicteric. Neck: Supple. Lungs: Diminished breath sounds at the bases. Heart: Regular rate and rhythm. She has a 3/6 systolic ejection murmur. Abdomen: Soft, nontender. No CVA or suprapubic discomfort. Extremities: Without edema. She has no phlebitis. Neurologic: She is alert. She has expressive aphasia. LABORATORY: Notable for white count of 8.9, hemoglobin 10.9, platelets 205, INR 2.5, BUN and creatinine are 20 and 0.7 with normal LFTs. Urinalysis has 30 white cells, nitrite positive, and urine culture is growing lactose fermenting gram negative. Blood cultures drawn on admission are pending. She was given a dose of vancomycin and started on Azactam last night. IMPRESSION: In summary, this is an 86-year-old woman with fevers, suspected urinary tract infection, multiple antibiotic allergies. I would recommended we continue Azactam if the urine culture has gram-negative rods. She has a superficial heel ulcer on her right foot with no associated cellulitis. I doubt this is the source of her infection. She has stable dementia, history of CVA, near syncope with severe aortic stenosis. Would follow up her cultures and continue Azactam at this time. Further recommendations to follow. Adelina [id number]
[2017-01-01] MEDS ORDERED: PT OWN MED DRAWER 7, Y5N ONE (22:58)
[2017-01-01] MEDS: LOSARTAN POTASSIUM 50 MG TABLET (FP) PO SCH (23:01)
[2017-01-01] MEDS: OLANZapine 5 MG TABLET PO SCH (23:01)
[2017-01-02 07:26] LABS: BASOPHIL 0.7 % (0-2.0); EOSINOPHIL 3.1 % (0-4.5); MCH 29.3 pg (25.7-33.7); MCHC 33.1 g/dl (32.0-36.0); MEAN CELL VOLUME 88.7 fl (80-96); MEAN PLT VOLUME 10.2 fl (7.5-11.1); NEUTROPHILS 61.9 % (42.8-82.8); PLATELET COUNT 214 K/MM3 (134-434); RDW 13.6 % (11.6-15.6); WHITE BLOOD COUNT 8.7 K/mm3 (4.0-10.0)
[2017-01-02 07:34] LABS: INR 1.79 (0.82-1.09); PROTHROMBIN TIME (PATIENT) 19.9 SEC (9.98-11.88)
[2017-01-02 07:57] LABS: ALBUMIN 2.4 g/dl (3.4-5.0); ANION GAP 6 (8-16); CALCIUM 8.8 mg/dL (8.5-10.1); CO2 30 mmol/L (21-32); GLUCOSE,RANDOM 89 mg/dL (74-106)
[2017-01-02 08:05] LABS: ALK PHOS 72 U/L (45-117); BILIRUBIN,TOTAL 0.5 mg/dL (0.2-1.0); CREATININE 0.7 mg/dL (0.55-1.02); FERRITIN 155.681 ng/ml (6.9-282.5); SGOT/AST 20 U/L (15-37); SGPT/ALT 19 U/L (12-78); TOT PROT 5.7 g/dl (6.4-8.2)
--- NOTE | 2017-01-02 08:24 | PN ---
Progress Note (short form) - Note Progress Note: ID Afebrile now IN NAD Aler confused Antibiotics: AZTREONAM Selected Entries 01/02/17 05:00 Temperature 98.7 F Pulse Rate 67 Respiratory 18 Rate Blood Pressure 141/64 Laboratory Tests 01/02/17 01/02/17 05:35 05:35 WBC 8.7 Hgb 10.5 L Hct 31.9 L Plt Count 214 BUN 25 H D Creatinine 0.7 Microbiology 12/29/16 12:19 Urine - Urine - Catheterized Urine Culture - Final Contaminated: Please Repeat 12/30/16 23:30 Urine - Urine Clean Catch Urine Culture - Preliminary Lactose Fermenting Neg Bacilli Lactose Fermenting Neg Bacilli#2 12/30/16 23:30 Blood - Peripheral Venous Blood Culture - Preliminary NO GROWTH OBTAINED AFTER 48 HOURS, INCUBATION TO CONTINUE FOR 3 DAYS. Assessment Fever with GNB urinary infection and history of many drug allergies Plan Continue current antibiotic for now pending c/s [place] POZO
[2017-01-02] MEDS: AZTREONAM 1 GM in DEXTROSE 5%-WATER - 50 ML IVPB SCH ×2 (09:59→22:59)
[2017-01-02] MEDS: DONEPEZIL HCL 5 MG TABLET (FP) PO SCH (09:59)
[2017-01-02] MEDS: BACITRACIN 15 GM TUBE TOPICAL OINTMENT TP SCH ×2 (10:00→22:59)
[2017-01-02] MEDS: METOPROLOL TARTRATE 25 MG TABLET (FP) PO SCH ×2 (10:00→22:59)
--- NOTE | 2017-01-02 10:25 | PN ---
Progress Note, Physician Chief Complaint: Not in distress Confused with underlying organic brain syndrome/dementia History of Present Illness: Patient was seen and examined. Awake. Confused. Chart was reviewed - Current Medication List Current Medications: Active Medications Acetaminophen (Tylenol -) 650 mg PO Q4H PRN PRN Reason: FEVER OR PAIN Last Admin: 01/01/17 14:49 Dose: 650 mg Bacitracin (Bacitracin -) 1 applic TP BID [facility] Last Admin: 01/02/17 10:00 Dose: 1 applic Docusate Sodium (Colace -) 100 mg PO BID PRN PRN Reason: CONSTIPATION Donepezil HCl (Aricept -) 5 mg PO DAILY [facility] Last Admin: 01/02/17 09:59 Dose: 5 mg Aztreonam 1 gm/ Dextrose 50 mls @ 100 mls/hr IVPB BID [facility] PRN Reason: Protocol Last Admin: 01/02/17 09:59 Dose: 100 mls/hr Losartan Potassium (Cozaar -) 50 mg PO HS [facility] Last Admin: 01/01/17 23:01 Dose: 50 mg Metoprolol Tartrate (Lopressor -) 25 mg PO BID [facility] Last Admin: 01/02/17 10:00 Dose: 25 mg Olanzapine (Zyprexa -) 5 mg PO HS [facility] Last Admin: 01/01/17 23:01 Dose: 5 mg Warfarin Sodium (Coumadin -) 4 mg PO DAILY@1800 [facility] Last Admin: 01/01/17 18:42 Dose: Not Given - Objective Vital Signs: Vital Signs Temperature 98.7 F 01/02/17 05:00 Pulse Rate 67 01/02/17 05:00 Respiratory Rate 18 01/02/17 05:00 Blood Pressure 141/64 01/02/17 05:00 O2 Sat by Pulse Oximetry (%) 95 01/02/17 05:00 Neck: Yes: Supple Cardiovascular: Yes: Regular Rate and Rhythm, Murmur (2/6 DAMIEN right intercostal space and 2/6 SM LSB and apex), S1, S2 Respiratory: Yes: Diminished Gastrointestinal: Yes: Normal Bowel Sounds, Soft. No: Tenderness Edema: No Labs: CBC, BMP 01/02/17 05:35 01/02/17 05:35 INR, PTT INR 1.79 (0.82-1.09) H 01/02/17 05:35 Problem List - Problems (1) Atrial fibrillation Code(s): I48.91 - UNSPECIFIED ATRIAL FIBRILLATION Qualifiers: Atrial fibrillation type: paroxysmal Qualified Code(s): I48.0 - Paroxysmal atrial fibrillation (2) CHF (congestive heart failure) Code(s): I50.9 - HEART FAILURE, UNSPECIFIED Qualifiers: Congestive heart failure type: diastolic Congestive heart failure chronicity: acute on chronic Qualified Code(s): I50.33 - Acute on chronic diastolic (congestive) heart failure (3) Cerebrovascular accident (CVA) Code(s): I63.9 - CEREBRAL INFARCTION, UNSPECIFIED Qualifiers: CVA mechanism: unspecified Qualified Code(s): I63.9 - Cerebral infarction, unspecified (4) Coronary artery disease Code(s): I25.10 - ATHSCL HEART DISEASE OF [place] CORONARY ARTERY W/O ANG PCTRS Qualifiers: Coronary Disease-Associated Artery/Lesion type: [place] artery [place] vs. transplanted heart: [place] heart Associated angina: without angina Qualified Code(s): I25.10 - Atherosclerotic heart disease of [place] coronary artery without angina pectoris (5) Diastolic dysfunction without heart failure Code(s): I51.9 - HEART DISEASE, UNSPECIFIED (6) Hyperlipidemia Code(s): E78.5 - HYPERLIPIDEMIA, UNSPECIFIED Qualifiers: Hyperlipidemia type: pure hypercholesterolemia Qualified Code(s): E78.00 - Pure hypercholesterolemia, unspecified; E78.0 - Pure hypercholesterolemia (7) Hypertension Code(s): I10 - ESSENTIAL (PRIMARY) HYPERTENSION Qualifiers: Hypertension type: essential hypertension Qualified Code(s): I10 - Essential (primary) hypertension (8) Severe aortic valve stenosis Code(s): I35.0 - NONRHEUMATIC AORTIC (VALVE) STENOSIS (9) Dementia Code(s): F03.90 - UNSPECIFIED DEMENTIA WITHOUT BEHAVIORAL DISTURBANCE Qualifiers: Dementia type: unspecified type Dementia behavioral disturbance: without behavioral disturbance Qualified Code(s): F03.90 - Unspecified dementia without behavioral disturbance Assessment/Plan 1. Severe aortic valve stenosis - previously had declined TAVR 2. Cerebrovascular disease with history of stroke resulting in right side weakness, expressive aphasia and facial droop 3. Paroxysmal atrial fibrillation now remains in sinus rhythm [id number] score of 8 4. Hypertension/hypertensive cardiovascular disease 5. Hypercholesterolemia 6. CAD 7. 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 Continue Metoprolol and Losartan as tolerated 2. Continue Warfarin - keep INR 2-3 3. Patient had refused TAVR. Transthoracic echocardiography with severe noted 4. Continue Aricept 5. Previously was on Statin - will determine whether she needs lipid lowering therapy 6. Continue to optimize medical therapy Further plans are to follow. She may be transferred to floor care João Heck MD
--- NOTE | 2017-01-02 12:05 | PN ---
Progress Note, Physician Chief Complaint: Unable to obtain secondary to dysphasia. Patient appears lethargic on exam. RN states patient was moved yesterday and decompensated, became agitated and confused. Appears better today. - Current Medication List Current Medications: Active Medications Acetaminophen (Tylenol -) 650 mg PO Q4H PRN PRN Reason: FEVER OR PAIN Last Admin: 01/01/17 14:49 Dose: 650 mg Bacitracin (Bacitracin -) 1 applic TP BID [facility] Last Admin: 01/02/17 10:00 Dose: 1 applic Docusate Sodium (Colace -) 100 mg PO BID PRN PRN Reason: CONSTIPATION Donepezil HCl (Aricept -) 5 mg PO DAILY [facility] Last Admin: 01/02/17 09:59 Dose: 5 mg Aztreonam 1 gm/ Dextrose 50 mls @ 100 mls/hr IVPB BID [facility] PRN Reason: Protocol Last Admin: 01/02/17 09:59 Dose: 100 mls/hr Losartan Potassium (Cozaar -) 50 mg PO [facility] Last Admin: 01/01/17 23:01 Dose: 50 mg Metoprolol Tartrate (Lopressor -) 25 mg PO BID [facility] Last Admin: 01/02/17 10:00 Dose: 25 mg Olanzapine (Zyprexa -) 5 mg PO HS [facility] Last Admin: 01/01/17 23:01 Dose: 5 mg Warfarin Sodium (Coumadin -) 4 mg PO DAILY@1800 [facility] Last Admin: 01/01/17 18:42 Dose: Not Given - Objective Vital Signs: Vital Signs Temperature 36.6 C 01/02/17 09:00 Pulse Rate 69 01/02/17 09:00 Respiratory Rate 18 01/02/17 09:00 Blood Pressure 144/64 01/02/17 09:00 O2 Sat by Pulse Oximetry (%) 95 01/02/17 10:00 Constitutional: Yes: Well Nourished, No Distress, Calm Cardiovascular: Yes: Pulse Irregular. No: Tachycardia, Gallop, Murmur, Rub Respiratory: Yes: Regular, CTA Bilaterally. No: Rales, Rhonchi, Wheezes Gastrointestinal: Yes: Normal Bowel Sounds, Soft. No: Distention, Tenderness Extremities: Yes: WNL Edema: No Labs: CBC, BMP 01/02/17 05:35 01/02/17 05:35 INR, PTT INR 1.79 (0.82-1.09) H 01/02/17 05:35 Problem List - Problems (1) Near syncope Code(s): R55 - SYNCOPE AND COLLAPSE (2) Atrial fibrillation Code(s): I48.91 - UNSPECIFIED ATRIAL FIBRILLATION Qualifiers: Atrial fibrillation type: paroxysmal Qualified Code(s): I48.0 - Paroxysmal atrial fibrillation (3) Cerebrovascular accident (CVA) Code(s): I63.9 - CEREBRAL INFARCTION, UNSPECIFIED Qualifiers: CVA mechanism: unspecified Qualified Code(s): I63.9 - Cerebral infarction, unspecified (4) Coronary artery disease Code(s): I25.10 - ATHSCL HEART DISEASE OF [place] CORONARY ARTERY W/O ANG PCTRS Qualifiers: Coronary Disease-Associated Artery/Lesion type: [place] artery [place] vs. transplanted heart: [place] heart Associated angina: without angina Qualified Code(s): I25.10 - Atherosclerotic heart disease of [place] coronary artery without angina pectoris (5) Hypertension Code(s): I10 - ESSENTIAL (PRIMARY) HYPERTENSION Qualifiers: Hypertension type: essential hypertension Qualified Code(s): I10 - Essential (primary) hypertension (6) Severe aortic valve stenosis Code(s): I35.0 - NONRHEUMATIC AORTIC (VALVE) STENOSIS (7) UTI (urinary tract infection) Code(s): N39.0 - URINARY TRACT INFECTION, SITE NOT SPECIFIED Assessment/Plan (1) Near syncope Assessment/Plan: -PT following -currently resolved Code(s): R55 - SYNCOPE AND COLLAPSE (2) Atrial fibrillation Assessment/Plan: -INR subtherapeutic, unable to give coumadin yesterday secondary to agitation -give coumadin today -recheck INR in am Code(s): I48.91 - UNSPECIFIED ATRIAL FIBRILLATION Qualifiers: Atrial fibrillation type: paroxysmal Qualified Code(s): I48.0 - Paroxysmal atrial fibrillation (3) Cerebrovascular accident (CVA) Assessment/Plan: -history of CVA -not acute -continue home regimen -had decompensation of mental status secondary to room change -will not transfer off telemetry today secondary to mental status is stable Code(s): I63.9 - CEREBRAL INFARCTION, UNSPECIFIED (4) Coronary artery disease Assessment/Plan: -cardiology following -quiescent Code(s): I25.10 - ATHSCL HEART DISEASE OF [place] CORONARY ARTERY W/O ANG PCTRS Qualifiers: (5) Hypertension Assessment/Plan: -continue current regimen Code(s): I10 - ESSENTIAL (PRIMARY) HYPERTENSION (6) Severe aortic valve stenosis Assessment/Plan: -cardiology following -patient refused TAVR Code(s): I35.0 - NONRHEUMATIC AORTIC (VALVE) STENOSIS (7) UTI -appreciate ID assistance -continue aztreonam, sensitive -defer duration to ID
[2017-01-02] MEDS: WARFARIN NA 2 MG TABLET (UD) PO SCH (17:34)
[2017-01-02] MEDS ORDERED: PT OWN MED DRAWER 7, Y5N ONE (22:29)
[2017-01-02] MEDS: OLANZapine 5 MG TABLET PO SCH (22:58)
[2017-01-02] MEDS: LOSARTAN POTASSIUM 50 MG TABLET (FP) PO SCH (22:59)
[2017-01-03 06:06] LABS: SERUM IRON 20 ug/dL (27-139); TOTAL IRON BINDING CAPACITY 187 ug/dL (250-450); UIBC 167 ug/dL (118-369)
[2017-01-03 08:13] LABS: BASOPHIL 0.6 % (0-2.0); EOSINOPHIL 2.9 % (0-4.5); MCH 29.8 pg (25.7-33.7); MCHC 33.5 g/dl (32.0-36.0); MEAN CELL VOLUME 88.9 fl (80-96); MEAN PLT VOLUME 10.3 fl (7.5-11.1); NEUTROPHILS 56.2 % (42.8-82.8); PLATELET COUNT 215 K/MM3 (134-434); RDW 13.6 % (11.6-15.6); WHITE BLOOD COUNT 8.7 K/mm3 (4.0-10.0)
[2017-01-03 08:42] LABS: ANION GAP 5 (8-16); CALCIUM 9.5 mg/dL (8.5-10.1); CO2 30 mmol/L (21-32); GLUCOSE,RANDOM 86 mg/dL (74-106); MAGNESIUM 2.2 mg/dL (1.8-2.4)
[2017-01-03 08:44] LABS: CREATININE 0.9 mg/dL (0.55-1.02); PHOSPHOROUS 3.8 mg/dL (2.5-4.9)
[2017-01-03 08:47] LABS: INR 1.5 (0.82-1.09); PROTHROMBIN TIME (PATIENT) 16.6 SEC (9.98-11.88)
[2017-01-03] MEDS: METOPROLOL TARTRATE 25 MG TABLET (FP) PO SCH ×2 (09:38→21:17)
[2017-01-03] MEDS: DONEPEZIL HCL 5 MG TABLET (FP) PO SCH (09:39)
[2017-01-03] MEDS: BACITRACIN 15 GM TUBE TOPICAL OINTMENT TP SCH ×2 (09:39→21:17)
[2017-01-03] MEDS: AZTREONAM 1 GM in DEXTROSE 5%-WATER - 50 ML IVPB SCH ×2 (09:39→21:18)
--- NOTE | 2017-01-03 10:01 | CONSULT ---
Consult - text type - Consultation Consultation Note: Neurology History of Present Illness 86 yo F, history of dementia on Aricept, on zyprexa, oriented to people only per notes as her baseline, hypertension, heart murmurs, CVA with residual aphasia, afib on coumadin (told last week supratherapeutic on labs and told to reduce dose), PNA, UTI, brought in by family for dizziness with near syncope. cloak room attendant reported that patient awoke and was at baseline until shortly after 9 AM of morning of admission when while given patient a bath, patient complained of feeling "faint" and appeared "to be falling backwards" but did not fall, hit head or had loss of consciousness. She was brought to the hospital and admitted. CT head completed and did not show acute changes. Carotid Doppler also reviewed and with moderate disease but no hemodynamically significant stenosis. On admission found to have urinary tract infection and I was consulted for altered mental status and evaluate her cognition given her ongoing Dementia diagnosis. The patient is limited in her responses and is not able to tell me location, date, name of President. It seems her baseline is of already progressed Dementia and superimposed UTI also may be playing a role. Past History - Past Medical History Cardiac Disorders: Yes CVA: Yes Dementia: Yes HTN: Yes Hypercholesterolemia: Yes - Immunization History Immunization Up to Date: Yes - Psycho/Social/Smoking Cessation Hx Anxiety: No Suicidal Ideation: No Smoking Status: Yes Smoking History: Never smoked Have you smoked in the past 12 months: No Number of Cigarettes Smoked Daily: 0 If you are a former smoker, when did you quit?: long time ago Hx Alcohol Use: No Drug/Substance Use Hx: No Substance Use Type: None - Past Medical History Allergies/Adverse Reactions: Allergies Allergy/AdvReac Type Severity Reaction Status Date / Time Penicillins Allergy Intermediate Verified 03/16/16 22:35 methylprednisolone acetate Allergy Swelling Verified 03/16/16 22:35 [From Depo-Medrol] ofloxacin [From Floxin] Allergy Verified 03/16/16 22:35 Active Medications Acetaminophen (Tylenol -) 650 mg PO Q4H PRN PRN Reason: FEVER OR PAIN Last Admin: 01/01/17 14:49 Dose: 650 mg Bacitracin (Bacitracin -) 1 applic TP BID [facility] Last Admin: 01/03/17 09:39 Dose: 1 applic Docusate Sodium (Colace -) 100 mg PO BID PRN PRN Reason: CONSTIPATION Donepezil HCl (Aricept -) 5 mg PO DAILY [facility] Last Admin: 01/03/17 09:39 Dose: 5 mg Aztreonam 1 gm/ Dextrose 50 mls @ 100 mls/hr IVPB BID [facility] PRN Reason: Protocol Last Admin: 01/03/17 09:39 Dose: 100 mls/hr Losartan Potassium (Cozaar -) 50 mg PO HS [facility] Last Admin: 01/02/17 22:59 Dose: 50 mg Metoprolol Tartrate (Lopressor -) 25 mg PO BID [facility] Last Admin: 01/03/17 09:38 Dose: 25 mg Olanzapine (Zyprexa -) 5 mg PO HS [facility] Last Admin: 01/02/17 22:58 Dose: 5 mg Warfarin Sodium (Coumadin -) 6 mg PO DAILY@1800 [facility] REVIEW OF SYSTEMS CONSTITUTIONAL: Absent: fever, chills, diaphoresis, generalized weakness, malaise, loss of appetite, weight change HEENT: Absent: rhinorrhea, nasal congestion, throat pain, throat swelling, difficulty swallowing, mouth swelling, ear pain, eye pain, visual changes CARDIOVASCULAR: Absent: chest pain, syncope, palpitations, irregular heart rate, lightheadedness , peripheral edema RESPIRATORY: Absent: cough, shortness of breath, dyspnea with exertion, orthopnea, wheezing, stridor, hemoptysis GASTROINTESTINAL: Absent: abdominal pain, abdominal distension, nausea, vomiting, diarrhea, constipation, melena, hematochezia GENITOURINARY: Absent: dysuria, frequency, urgency, hesitancy, hematuria, flank pain, genital pain MUSCULOSKELETAL: Absent: myalgia, arthralgia, joint swelling, back pain, neck pain SKIN: Absent: rash, itching, pallor HEMATOLOGIC/IMMUNOLOGIC: Absent: easy bleeding, easy bruising, lymphadenopathy, frequent infections ENDOCRINE: Absent: unexplained weight gain, unexplained weight loss, heat intolerance, cold intolerance NEUROLOGIC: dizziness, unsteady gait Absent: headache, focal weakness or paresthesias, , seizure, mental status changes, bladder or bowel incontinence PSYCHIATRIC: Absent: anxiety, depression, suicidal or homicidal ideation, hallucinations. *Physical Exam Vital Signs Temperature 98.2 F 01/03/17 09:00 Pulse Rate 62 01/03/17 09:00 Respiratory Rate 16 01/03/17 09:00 Blood Pressure 158/56 01/03/17 09:00 O2 Sat by Pulse Oximetry (%) 94 L 01/02/17 22:00 - Physical Exam GENERAL: Sitting up in bed and smiling, oriented to person only, at baseline mental status, in no acute distress. HEAD: Normal with no signs of trauma. EYES: Pupils equal, round and reactive to light, sclera anicteric, conjunctiva clear. EARS, NOSE, THROAT: oropharynx clear without exudates. Moist mucous membranes. NECK: No JVD, or masses. LUNGS: Poor air entry and diminished breath sounds HEART: RRR, normal S1 and S2 with high grade ejection murmur ABDOMEN: Soft, nontender, not distended, normoactive bowel sounds, no guarding, no rebound, no masses. MUSCULOSKELETAL: Normal range of motion at all joints. No bony deformities or tenderness. No CVA tenderness. EXTREMITIES: warm, No peripheral edema. R heel stage 1 pressure ulcer NEUROLOGICAL: Dyaphasia and tangential speech. CN grossly intact, No facial droop. Unable to complete confrontation testing, but moving ext grossly, sensory intact. Gait deferred CBCD WBC 8.7 K/mm3 (4.0-10.0) 01/03/17 06:00 RBC 3.50 M/mm3 (3.60-5.2) L 01/03/17 06:00 Hgb 10.4 GM/dL (10.7-15.3) L 01/03/17 06:00 Hct 31.2 % (32.4-45.2) L 01/03/17 06:00 MCV 88.9 fl (80-96) 01/03/17 06:00 MCHC 33.5 g/dl (32.0-36.0) 01/03/17 06:00 RDW 13.6 % (11.6-15.6) 01/03/17 06:00 Plt Count 215 K/MM3 (134-434) 01/03/17 06:00 MPV 10.3 fl (7.5-11.1) 01/03/17 06:00 CMP Sodium 139 mmol/L (136-145) 01/03/17 06:00 Potassium 4.0 mmol/L (3.5-5.1) 01/03/17 06:00 Chloride 104 mmol/L (98-107) 01/03/17 06:00 Carbon Dioxide 30 mmol/L (21-32) 01/03/17 06:00 Anion Gap 5 (8-16) L 01/03/17 06:00 BUN 33 mg/dL (7-18) H D 01/03/17 06:00 Creatinine 0.9 mg/dL (0.55-1.02) D 01/03/17 06:00 Creat Clearance w eGFR > 60 (>60) 01/02/17 05:35 Calcium 9.5 mg/dL (8.5-10.1) 01/03/17 06:00 Total Bilirubin 0.5 mg/dL (0.2-1.0) 01/02/17 05:35 AST 20 U/L (15-37) D 01/02/17 05:35 ALT 19 U/L (12-78) D 01/02/17 05:35 Alkaline Phosphatase 72 U/L (45-117) 01/02/17 05:35 Total Protein 5.7 g/dl (6.4-8.2) L 01/02/17 05:35 Albumin 2.4 g/dl (3.4-5.0) L 01/02/17 05:35 Medical Decision Making 86 yo F, history of dementia on Aricept, on zyprexa, oriented to people only per notes as her baseline, hypertension, heart murmurs, CVA with residual aphasia, afib on coumadin (told last week supratherapeutic on labs and told to reduce dose), PNA, UTI, brought in by family for dizziness with near syncope. cloak room attendant reported that patient awoke and was at baseline until shortly after 9 AM of morning of admission when while given patient a bath, patient complained of feeling "faint" and appeared "to be falling backwards" but did not fall, hit head or had loss of consciousness. She was brought to the hospital and admitted. CT head completed and did not show acute changes. Carotid Doppler also reviewed and with moderate disease but no hemodynamically significant stenosis. Baseline is of already progressed Dementia and superimposed UTI also may be playing a role. Can continue aricept, would not want to change medication regiment now considering superimposed infection Would be good to see patient in office after stabilization and discharge and closer to baseline Continue ongoing mgmt of infection Monitor BP, maintain normotensive range Monitor Lytes, continue hydration DVT ppx
--- NOTE | 2017-01-03 10:55 | PN ---
Progress Note (short form) - Note Progress Note: alert, less confused resting comfortably expressive aphasia Vital Signs Period Temp Pulse Resp BP Sys/Maynard Pulse Ox Last 24 Hr 98 F-101.3 F 50-97 16-20 118-160/48-82 94 cor-rrr llungs clear abd soft,nt ext no edema heel ulcer no erythema CBC, BMP 01/03/17 06:00 01/03/17 06:00 Microbiology 12/30/16 23:30 Blood - Peripheral Venous Blood Culture - Preliminary NO GROWTH OBTAINED AFTER 72 HOURS, INCUBATION TO CONTINUE FOR 2 DAYS. 12/30/16 23:30 Urine - Urine Clean Catch Urine Culture - Final Escherichia Coli Klebsiella Pneumoniae 12/29/16 12:19 Urine - Urine - Catheterized Urine Culture - Final Contaminated: Please Repeat a/p fever-recurrent, would reculture for fever greater then 100.5 renal/bladder sonogram UTI- continue azactaim day #3 multiple antibiotics allergies superficial heel ulcer- no associated cellulitis dementia CVA near syncope severe aortic stenosis Problem List - Problems (1) Fever Code(s): R50.9 - FEVER, UNSPECIFIED (2) UTI (urinary tract infection) Code(s): N39.0 - URINARY TRACT INFECTION, SITE NOT SPECIFIED (3) Allergy to multiple antibiotics Code(s): Z88.1 - ALLERGY STATUS TO OTHER ANTIBIOTIC AGENTS STATUS (4) Near syncope Code(s): R55 - SYNCOPE AND COLLAPSE (5) Severe aortic valve stenosis Code(s): I35.0 - NONRHEUMATIC AORTIC (VALVE) STENOSIS (6) Dementia Code(s): F03.90 - UNSPECIFIED DEMENTIA WITHOUT BEHAVIORAL DISTURBANCE Qualifiers: Dementia type: unspecified type Dementia behavioral disturbance: without behavioral disturbance Qualified Code(s): F03.90 - Unspecified dementia without behavioral disturbance
--- NOTE | 2017-01-03 11:33 | PN ---
Progress Note, Physician History of Present Illness: Sensorium improved, more interactive. - Current Medication List Current Medications: Active Medications Acetaminophen (Tylenol -) 650 mg PO Q4H PRN PRN Reason: FEVER OR PAIN Last Admin: 01/01/17 14:49 Dose: 650 mg Bacitracin (Bacitracin -) 1 applic TP BID [facility] Last Admin: 01/03/17 09:39 Dose: 1 applic Docusate Sodium (Colace -) 100 mg PO BID PRN PRN Reason: CONSTIPATION Donepezil HCl (Aricept -) 5 mg PO DAILY [facility] Last Admin: 01/03/17 09:39 Dose: 5 mg Aztreonam 1 gm/ Dextrose 50 mls @ 100 mls/hr IVPB BID [facility] PRN Reason: Protocol Last Admin: 01/03/17 09:39 Dose: 100 mls/hr Losartan Potassium (Cozaar -) 50 mg PO HS [facility] Last Admin: 01/02/17 22:59 Dose: 50 mg Metoprolol Tartrate (Lopressor -) 25 mg PO BID [facility] Last Admin: 01/03/17 09:38 Dose: 25 mg Olanzapine (Zyprexa -) 5 mg PO HS [facility] Last Admin: 01/02/17 22:58 Dose: 5 mg Warfarin Sodium (Coumadin -) 6 mg PO DAILY@1800 [facility] - Objective Vital Signs: Vital Signs Temperature 98.2 F 01/03/17 09:00 Pulse Rate 62 01/03/17 09:00 Respiratory Rate 16 01/03/17 09:00 Blood Pressure 158/56 01/03/17 09:00 O2 Sat by Pulse Oximetry (%) 94 L 01/02/17 22:00 Constitutional: Yes: No Distress, Calm, Thin Neck: Yes: Supple Cardiovascular: Yes: Regular Rate and Rhythm, Murmur (2/6 SM) Respiratory: Yes: Regular, Diminished Gastrointestinal: Yes: Normal Bowel Sounds, Soft Edema: No Labs: CBC, BMP 01/03/17 06:00 01/03/17 06:00 INR, PTT INR 1.50 (0.82-1.09) H 01/03/17 06:00 Problem List - Problems (1) Allergy to multiple antibiotics Code(s): Z88.1 - ALLERGY STATUS TO OTHER ANTIBIOTIC AGENTS STATUS (2) Dementia Code(s): F03.90 - UNSPECIFIED DEMENTIA WITHOUT BEHAVIORAL DISTURBANCE Qualifiers: Dementia type: unspecified type Dementia behavioral disturbance: without behavioral disturbance Qualified Code(s): F03.90 - Unspecified dementia without behavioral disturbance (3) Near syncope Code(s): R55 - SYNCOPE AND COLLAPSE (4) Anticoagulated on Coumadin Code(s): Z51.81 - ENCOUNTER FOR THERAPEUTIC DRUG LEVEL MONITORING Z79.01 - TELEPHONE APPOINTMENT CLERK (CURRENT) USE OF ANTICOAGULANTS (5) Atrial fibrillation Code(s): I48.91 - UNSPECIFIED ATRIAL FIBRILLATION Qualifiers: Atrial fibrillation type: paroxysmal Qualified Code(s): I48.0 - Paroxysmal atrial fibrillation (6) Cerebrovascular accident (CVA) Code(s): I63.9 - CEREBRAL INFARCTION, UNSPECIFIED Qualifiers: CVA mechanism: unspecified Qualified Code(s): I63.9 - Cerebral infarction, unspecified (7) Coronary artery disease Code(s): I25.10 - ATHSCL HEART DISEASE OF [place] CORONARY ARTERY W/O ANG PCTRS Qualifiers: Coronary Disease-Associated Artery/Lesion type: [place] artery [place] vs. transplanted heart: [place] heart Associated angina: without angina Qualified Code(s): I25.10 - Atherosclerotic heart disease of [place] coronary artery without angina pectoris (8) Diastolic dysfunction without heart failure Code(s): I51.9 - HEART DISEASE, UNSPECIFIED (9) Fever Code(s): R50.9 - FEVER, UNSPECIFIED (10) Hyperlipidemia Code(s): E78.5 - HYPERLIPIDEMIA, UNSPECIFIED Qualifiers: Hyperlipidemia type: pure hypercholesterolemia Qualified Code(s): E78.00 - Pure hypercholesterolemia, unspecified; E78.0 - Pure hypercholesterolemia (11) Hypertension Code(s): I10 - ESSENTIAL (PRIMARY) HYPERTENSION Qualifiers: Hypertension type: essential hypertension Qualified Code(s): I10 - Essential (primary) hypertension (12) Severe aortic valve stenosis Code(s): I35.0 - NONRHEUMATIC AORTIC (VALVE) STENOSIS (13) UTI (urinary tract infection) Code(s): N39.0 - URINARY TRACT INFECTION, SITE NOT SPECIFIED Qualifiers: Urinary tract infection type: site unspecified Hematuria presence: without hematuria Qualified Code(s): N39.0 - Urinary tract infection, site not specified Assessment/Plan 1. Severe aortic valve stenosis - previously had declined TAVR 2. Cerebrovascular disease with history of stroke resulting in right side weakness, expressive aphasia and facial droop 3. Paroxysmal atrial fibrillation now remains in sinus rhythm [id number] score of 8 4. Hypertension/hypertensive cardiovascular disease 5. Hypercholesterolemia 6. CAD 7. LV diastolic dysfunction 8. Organic brain syndrome and dementia 9. Polymicrobial UTI PLAN: 1. Continue Metoprolol 25 bid and Losartan 50 qhs as tolerated 2. Continue Warfarin - keep INR 2-3 3. Patient had refused TAVR. Transthoracic echocardiography with severe noted 4. Continue Aricept 5 qhs 5. Previously was on Statin - check lipid panel 6. Continue to optimize medical therapy 7. Complete abx course per ID, f/u renal u/s
--- NOTE | 2017-01-03 11:34 | PN ---
Progress Note, Physician - Current Medication List Current Medications: Active Medications Acetaminophen (Tylenol -) 650 mg PO Q4H PRN PRN Reason: FEVER OR PAIN Last Admin: 01/01/17 14:49 Dose: 650 mg Bacitracin (Bacitracin -) 1 applic TP BID [facility] Last Admin: 01/03/17 09:39 Dose: 1 applic Docusate Sodium (Colace -) 100 mg PO BID PRN PRN Reason: CONSTIPATION Donepezil HCl (Aricept -) 5 mg PO DAILY [facility] Last Admin: 01/03/17 09:39 Dose: 5 mg Aztreonam 1 gm/ Dextrose 50 mls @ 100 mls/hr IVPB BID [facility] PRN Reason: Protocol Last Admin: 01/03/17 09:39 Dose: 100 mls/hr Losartan Potassium (Cozaar -) 50 mg PO HS [facility] Last Admin: 01/02/17 22:59 Dose: 50 mg Metoprolol Tartrate (Lopressor -) 25 mg PO BID [facility] Last Admin: 01/03/17 09:38 Dose: 25 mg Olanzapine (Zyprexa -) 5 mg PO HS [facility] Last Admin: 01/02/17 22:58 Dose: 5 mg Warfarin Sodium (Coumadin -) 6 mg PO DAILY@1800 [facility] - Objective Vital Signs: Vital Signs Temperature 36.8 C 01/03/17 09:00 Pulse Rate 62 01/03/17 09:00 Respiratory Rate 16 01/03/17 09:00 Blood Pressure 158/56 01/03/17 09:00 O2 Sat by Pulse Oximetry (%) 94 L 01/02/17 22:00 Labs: CBC, BMP 01/03/17 06:00 01/03/17 06:00 INR, PTT INR 1.50 (0.82-1.09) H 01/03/17 06:00 Problem List - Problems (1) Near syncope Code(s): R55 - SYNCOPE AND COLLAPSE (2) Atrial fibrillation Code(s): I48.91 - UNSPECIFIED ATRIAL FIBRILLATION Qualifiers: Atrial fibrillation type: paroxysmal Qualified Code(s): I48.0 - Paroxysmal atrial fibrillation (3) Cerebrovascular accident (CVA) Code(s): I63.9 - CEREBRAL INFARCTION, UNSPECIFIED Qualifiers: CVA mechanism: unspecified Qualified Code(s): I63.9 - Cerebral infarction, unspecified (4) Coronary artery disease Code(s): I25.10 - ATHSCL HEART DISEASE OF [place] CORONARY ARTERY W/O ANG PCTRS Qualifiers: Coronary Disease-Associated Artery/Lesion type: [place] artery [place] vs. transplanted heart: [place] heart Associated angina: without angina Qualified Code(s): I25.10 - Atherosclerotic heart disease of [place] coronary artery without angina pectoris (5) Hypertension Code(s): I10 - ESSENTIAL (PRIMARY) HYPERTENSION Qualifiers: Hypertension type: essential hypertension Qualified Code(s): I10 - Essential (primary) hypertension (6) Severe aortic valve stenosis Code(s): I35.0 - NONRHEUMATIC AORTIC (VALVE) STENOSIS (7) UTI (urinary tract infection) Code(s): N39.0 - URINARY TRACT INFECTION, SITE NOT SPECIFIED
--- NOTE | 2017-01-03 11:37 | PN ---
Progress Note, Physician Chief Complaint: Patient much more alert today. Unable to obtain subjective but awake and conversing. - Current Medication List Current Medications: Active Medications Acetaminophen (Tylenol -) 650 mg PO Q4H PRN PRN Reason: FEVER OR PAIN Last Admin: 01/01/17 14:49 Dose: 650 mg Bacitracin (Bacitracin -) 1 applic TP BID [facility] Last Admin: 01/03/17 09:39 Dose: 1 applic Docusate Sodium (Colace -) 100 mg PO BID PRN PRN Reason: CONSTIPATION Donepezil HCl (Aricept -) 5 mg PO DAILY [facility] Last Admin: 01/03/17 09:39 Dose: 5 mg Aztreonam 1 gm/ Dextrose 50 mls @ 100 mls/hr IVPB BID [facility] PRN Reason: Protocol Last Admin: 01/03/17 09:39 Dose: 100 mls/hr Losartan Potassium (Cozaar -) 50 mg PO HS [facility] Last Admin: 01/02/17 22:59 Dose: 50 mg Metoprolol Tartrate (Lopressor -) 25 mg PO BID [facility] Last Admin: 01/03/17 09:38 Dose: 25 mg Olanzapine (Zyprexa -) 5 mg PO HS [facility] Last Admin: 01/02/17 22:58 Dose: 5 mg Warfarin Sodium (Coumadin -) 6 mg PO DAILY@1800 [facility] - Objective Vital Signs: Vital Signs Temperature 36.8 C 01/03/17 09:00 Pulse Rate 62 01/03/17 09:00 Respiratory Rate 16 01/03/17 09:00 Blood Pressure 158/56 01/03/17 09:00 O2 Sat by Pulse Oximetry (%) 94 L 01/02/17 22:00 Constitutional: Yes: Well Nourished, No Distress, Calm Cardiovascular: Yes: Pulse Irregular, Murmur. No: Gallop, Rub Respiratory: Yes: Regular, CTA Bilaterally. No: Rales, Rhonchi, Wheezes Gastrointestinal: Yes: Normal Bowel Sounds, Soft. No: Distention, Tenderness Extremities: Yes: WNL Edema: No Labs: CBC, BMP 01/03/17 06:00 01/03/17 06:00 INR, PTT INR 1.50 (0.82-1.09) H 01/03/17 06:00 Problem List - Problems (1) Near syncope Code(s): R55 - SYNCOPE AND COLLAPSE (2) Atrial fibrillation Code(s): I48.91 - UNSPECIFIED ATRIAL FIBRILLATION Qualifiers: Qualified Code(s): I48.0 - Paroxysmal atrial fibrillation (3) Cerebrovascular accident (CVA) Code(s): I63.9 - CEREBRAL INFARCTION, UNSPECIFIED Qualifiers: Qualified Code(s): I63.9 - Cerebral infarction, unspecified (4) Coronary artery disease Code(s): I25.10 - ATHSCL HEART DISEASE OF [place] CORONARY ARTERY W/O ANG PCTRS Qualifiers: Qualified Code(s): I25.10 - Atherosclerotic heart disease of [place] coronary artery without angina pectoris (5) Hypertension Code(s): I10 - ESSENTIAL (PRIMARY) HYPERTENSION Qualifiers: Qualified Code(s): I10 - Essential (primary) hypertension (6) Severe aortic valve stenosis Code(s): I35.0 - NONRHEUMATIC AORTIC (VALVE) STENOSIS (7) UTI (urinary tract infection) Code(s): N39.0 - URINARY TRACT INFECTION, SITE NOT SPECIFIED Assessment/Plan (1) Near syncope Assessment/Plan: -PT following -currently resolved Code(s): R55 - SYNCOPE AND COLLAPSE (2) Atrial fibrillation Assessment/Plan: -INR remains subtherapeutic -increase coumadin today -recheck in am -rate controlled Code(s): I48.91 - UNSPECIFIED ATRIAL FIBRILLATION Qualifiers: Atrial fibrillation type: paroxysmal Qualified Code(s): I48.0 - Paroxysmal atrial fibrillation (3) Cerebrovascular accident (CVA) Assessment/Plan: -history of CVA -not acute -continue home regimen -mental status much improved, with delirium yesterday -recommend not moving rooms secondary to decompensation of mental status Code(s): I63.9 - CEREBRAL INFARCTION, UNSPECIFIED (4) Coronary artery disease Assessment/Plan: -cardiology following -quiescent Code(s): I25.10 - ATHSCL HEART DISEASE OF [place] CORONARY ARTERY W/O ANG PCTRS Qualifiers: (5) Hypertension Assessment/Plan: -continue current regimen Code(s): I10 - ESSENTIAL (PRIMARY) HYPERTENSION (6) Severe aortic valve stenosis Assessment/Plan: -cardiology following -patient refused TAVR Code(s): I35.0 - NONRHEUMATIC AORTIC (VALVE) STENOSIS (7) UTI -ID following -continue aztreonam -had fever last night -follow up renal ultrasound Dispo -when ready for discharge, will need SNF
[2017-01-03] MEDS: WARFARIN NA 3 MG TABLET PO SCH (17:20)
[2017-01-03] MEDS ORDERED: PT OWN MED DRAWER 7, Y5N ONE (21:12)
[2017-01-03] MEDS: OLANZapine 5 MG TABLET PO SCH (21:17)
[2017-01-03] MEDS: LOSARTAN POTASSIUM 50 MG TABLET (FP) PO SCH (21:17)
[2017-01-04 07:33] LABS: BASOPHIL 0.9 % (0-2.0); EOSINOPHIL 3.4 % (0-4.5); MCH 29.5 pg (25.7-33.7); MCHC 33.2 g/dl (32.0-36.0); MEAN CELL VOLUME 88.8 fl (80-96); MEAN PLT VOLUME 10.2 fl (7.5-11.1); NEUTROPHILS 55.4 % (42.8-82.8); PLATELET COUNT 238 K/MM3 (134-434); RDW 13.7 % (11.6-15.6); WHITE BLOOD COUNT 6.9 K/mm3 (4.0-10.0)
[2017-01-04 07:59] LABS: ANION GAP 9 (8-16); CALCIUM 8.9 mg/dL (8.5-10.1); CO2 28 mmol/L (21-32); GLUCOSE,RANDOM 94 mg/dL (74-106); MAGNESIUM 2.2 mg/dL (1.8-2.4)
[2017-01-04 08:00] LABS: CREATININE 0.7 mg/dL (0.55-1.02); PHOSPHOROUS 2.4 mg/dL (2.5-4.9)
[2017-01-04 08:04] LABS: CHOLESTEROL 175 mg/dL (50-200); INR 1.94 (0.82-1.09); PROTHROMBIN TIME (PATIENT) 21.6 SEC (9.98-11.88)
[2017-01-04] MEDS ORDERED: PT OWN MED DRAWER 7, Y5N ONE ×2 (09:56→22:05)
[2017-01-04] MEDS: METOPROLOL TARTRATE 25 MG TABLET (FP) PO SCH ×2 (10:02→22:14)
[2017-01-04] MEDS: AZTREONAM 1 GM in DEXTROSE 5%-WATER - 50 ML IVPB SCH ×2 (10:02→22:13)
[2017-01-04] MEDS: BACITRACIN 15 GM TUBE TOPICAL OINTMENT TP SCH ×2 (10:02→22:13)
[2017-01-04] MEDS: DONEPEZIL HCL 5 MG TABLET (FP) PO SCH (10:02)
--- NOTE | 2017-01-04 11:59 | PN ---
Progress Note (short form) - Note Progress Note: Neurology History of Present Illness 86 yo F, history of dementia on Aricept, on zyprexa, oriented to people only per notes as her baseline, hypertension, heart murmurs, CVA with residual aphasia, afib on coumadin (told last week supratherapeutic on labs and told to reduce dose), PNA, UTI, brought in by family for dizziness with near syncope. lounge car attendant reported that patient awoke and was at baseline until shortly after 9 AM of morning of admission when while given patient a bath, patient complained of feeling "faint" and appeared "to be falling backwards" but did not fall, hit head or had loss of consciousness. She was brought to the hospital and admitted. CT head completed and did not show acute changes. Carotid Doppler also reviewed and with moderate disease but no hemodynamically significant stenosis. On admission found to have urinary tract infection and I was consulted for altered mental status and evaluate her cognition given her ongoing Dementia diagnosis. The patient is limited in her responses and is not able to tell me location, date, name of President. It seems her baseline is of already progressed Dementia and superimposed UTI also may be playing a role. No significant neurologic events overnight and patient resting in bed comfortably. On Aztreonam and slightly more responsive today. Donepezil was continued at 5mg dose, did not make adjustment to this. Active Medications Acetaminophen (Tylenol -) 650 mg PO Q4H PRN PRN Reason: FEVER OR PAIN Last Admin: 01/01/17 14:49 Dose: 650 mg Bacitracin (Bacitracin -) 1 applic TP BID [facility] Last Admin: 01/04/17 10:02 Dose: 1 applic Docusate Sodium (Colace -) 100 mg PO BID PRN PRN Reason: CONSTIPATION Donepezil HCl (Aricept -) 5 mg PO DAILY [facility] Last Admin: 01/04/17 10:02 Dose: 5 mg Aztreonam 1 gm/ Dextrose 50 mls @ 100 mls/hr IVPB BID [facility] PRN Reason: Protocol Last Admin: 01/04/17 10:02 Dose: 100 mls/hr Losartan Potassium (Cozaar -) 50 mg PO HS [facility] Last Admin: 01/03/17 21:17 Dose: 50 mg Metoprolol Tartrate (Lopressor -) 25 mg PO BID [facility] Last Admin: 01/04/17 10:02 Dose: 25 mg Olanzapine (Zyprexa -) 5 mg PO HS [facility] Last Admin: 01/03/17 21:17 Dose: 5 mg Warfarin Sodium (Coumadin -) 6 mg PO DAILY@1800 [facility] Last Admin: 01/03/17 17:20 Dose: 6 mg *Physical Exam Last Vital Signs Temp Pulse Resp BP Pulse Ox 98.6 F 89 18 139/56 98 01/04/17 10:00 01/04/17 10:00 01/04/17 10:00 01/04/17 10:00 01/04/17 09:00 - Physical Exam GENERAL: Sitting up in bed and smiling, oriented to person only, at baseline mental status, in no acute distress. HEAD: Normal with no signs of trauma. EYES: Pupils equal, round and reactive to light, sclera anicteric, conjunctiva clear. EARS, NOSE, THROAT: oropharynx clear without exudates. Moist mucous membranes. NECK: No JVD, or masses. LUNGS: Poor air entry and diminished breath sounds HEART: RRR, normal S1 and S2 with high grade ejection murmur ABDOMEN: Soft, nontender, not distended, normoactive bowel sounds, no guarding, no rebound, no masses. MUSCULOSKELETAL: Normal range of motion at all joints. No bony deformities or tenderness. No CVA tenderness. EXTREMITIES: warm, No peripheral edema. R heel stage 1 pressure ulcer NEUROLOGICAL: Dyaphasia and tangential speech. CN grossly intact, No facial droop. Unable to complete confrontation testing, but moving ext grossly, sensory intact. Gait deferred CBCD WBC 6.9 K/mm3 (4.0-10.0) 01/04/17 05:48 RBC 3.49 M/mm3 (3.60-5.2) L 01/04/17 05:48 Hgb 10.3 GM/dL (10.7-15.3) L 01/04/17 05:48 Hct 31.0 % (32.4-45.2) L 01/04/17 05:48 MCV 88.8 fl (80-96) 01/04/17 05:48 MCHC 33.2 g/dl (32.0-36.0) 01/04/17 05:48 RDW 13.7 % (11.6-15.6) 01/04/17 05:48 Plt Count 238 K/MM3 (134-434) 01/04/17 05:48 MPV 10.2 fl (7.5-11.1) 01/04/17 05:48 CMP Sodium 141 mmol/L (136-145) 01/04/17 05:48 Potassium 4.0 mmol/L (3.5-5.1) 01/04/17 05:48 Chloride 104 mmol/L (98-107) 01/04/17 05:48 Carbon Dioxide 28 mmol/L (21-32) 01/04/17 05:48 Anion Gap 9 (8-16) 01/04/17 05:48 BUN 32 mg/dL (7-18) H 01/04/17 05:48 Creatinine 0.7 mg/dL (0.55-1.02) D 01/04/17 05:48 Creat Clearance w eGFR > 60 (>60) 01/02/17 05:35 Calcium 8.9 mg/dL (8.5-10.1) 01/04/17 05:48 Total Bilirubin 0.5 mg/dL (0.2-1.0) 01/02/17 05:35 AST 20 U/L (15-37) D 01/02/17 05:35 ALT 19 U/L (12-78) D 01/02/17 05:35 Alkaline Phosphatase 72 U/L (45-117) 01/02/17 05:35 Total Protein 5.7 g/dl (6.4-8.2) L 01/02/17 05:35 Albumin 2.4 g/dl (3.4-5.0) L 01/02/17 05:35 Medical Decision Making 86 yo F, history of dementia on Aricept, on zyprexa, oriented to people only per notes as her baseline, hypertension, heart murmurs, CVA with residual aphasia, afib on coumadin (told last week supratherapeutic on labs and told to reduce dose), PNA, UTI, brought in by family for dizziness with near syncope. lounge car attendant reported that patient awoke and was at baseline until shortly after 9 AM of morning of admission when while given patient a bath, patient complained of feeling "faint" and appeared "to be falling backwards" but did not fall, hit head or had loss of consciousness. She was brought to the hospital and admitted. CT head completed and did not show acute changes. Carotid Doppler also reviewed and with moderate disease but no hemodynamically significant stenosis. Baseline is of already progressed Dementia and superimposed UTI also may be playing a role. Can continue aricept, would not want to change medication regiment now considering superimposed infection Would be good to see patient in office after stabilization and discharge and closer to baseline Continue ongoing mgmt of infection Monitor BP, maintain normotensive range Monitor Lytes, continue hydration Continue monitoring mental status IV/PO hydration DVT ppx
--- NOTE | 2017-01-04 15:06 | PN ---
Progress Note (short form) - Note Progress Note: alert, less confused resting comfortably expressive aphasia Vital Signs Period Temp Pulse Resp BP Sys/Maynard Pulse Ox Last 24 Hr 97.5 F-99.5 F 67-101 18-20 118-143/56-80 93-98 cor-rrr lung clear abd soft,nt ext no edema heel ulcer is clean CBC, BMP 01/04/17 05:48 01/04/17 05:48 Microbiology 12/30/16 23:30 Blood - Peripheral Venous Blood Culture - Preliminary NO GROWTH OBTAINED AFTER 96 HOURS, INCUBATION TO CONTINUE FOR 1 DAYS. 12/30/16 23:30 Urine - Urine Clean Catch Urine Culture - Final Escherichia Coli Klebsiella Pneumoniae 12/29/16 12:19 Urine - Urine - Catheterized Urine Culture - Final Contaminated: Please Repeat a/p fever-recurrent, would reculture for fever greater then 100.5 renal/bladder sonogram-with left hydornephrosis UTI- continue azactaim day #4 multiple antibiotics allergies superficial heel ulcer- no associated cellulitis dementia CVA near syncope severe aortic stenosis suggest urology consult for hydronephrosis Problem List - Problems (1) Fever Code(s): R50.9 - FEVER, UNSPECIFIED (2) UTI (urinary tract infection) Code(s): N39.0 - URINARY TRACT INFECTION, SITE NOT SPECIFIED Qualifiers: Urinary tract infection type: site unspecified Hematuria presence: without hematuria Qualified Code(s): N39.0 - Urinary tract infection, site not specified; R31.9 - Hematuria, unspecified (3) Allergy to multiple antibiotics Code(s): Z88.1 - ALLERGY STATUS TO OTHER ANTIBIOTIC AGENTS STATUS (4) Near syncope Code(s): R55 - SYNCOPE AND COLLAPSE (5) Severe aortic valve stenosis Code(s): I35.0 - NONRHEUMATIC AORTIC (VALVE) STENOSIS (6) Dementia Code(s): F03.90 - UNSPECIFIED DEMENTIA WITHOUT BEHAVIORAL DISTURBANCE Qualifiers: Dementia type: unspecified type Dementia behavioral disturbance: without behavioral disturbance Qualified Code(s): F03.90 - Unspecified dementia without behavioral disturbance
--- NOTE | 2017-01-04 16:06 | PN ---
Physical Exam: SUBJECTIVE: Patient seen and examined. Her mentation has improved throughout the day per senior staff specialized employment. OBJECTIVE: Vital Signs Period Temp Pulse Resp BP Sys/Maynard Pulse Ox Last 24 Hr 97.5 F-99.5 F 67-101 18-20 116-143/49-80 93-98 PE Neuro: alert, awake, cn 2-12 Pulm: Clear anteriorly CV: s1 s2 regular rate, 3/6 systolic murmur Abd: s nd nt +bs Ext: R heel wound, dressed, no edema noted Laboratory Results - last 24 hr 01/04/17 01/04/17 01/04/17 05:48 05:48 05:48 WBC 6.9 RBC 3.49 L Hgb 10.3 L Hct 31.0 L MCV 88.8 MCH 29.5 MCHC 33.2 RDW 13.7 Plt Count 238 MPV 10.2 Neutrophils % 55.4 Lymphocytes % 25.7 Monocytes % 14.6 H Eosinophils % 3.4 Basophils % 0.9 PT with INR 21.60 H INR 1.94 H Sodium 141 Potassium 4.0 Chloride 104 Carbon Dioxide 28 Anion Gap 9 BUN 32 H Creatinine 0.7 D Random Glucose 94 Calcium 8.9 Phosphorus 2.4 L D Magnesium 2.2 Triglycerides Cholesterol Total LDL Cholesterol HDL Cholesterol 01/04/17 05:48 WBC RBC Hgb Hct MCV MCH MCHC RDW Plt Count MPV Neutrophils % Lymphocytes % Monocytes % Eosinophils % Basophils % PT with INR INR Sodium Potassium Chloride Carbon Dioxide Anion Gap BUN Creatinine Random Glucose Calcium Phosphorus Magnesium Triglycerides 79 D Cholesterol 175 Total LDL Cholesterol 105 H HDL Cholesterol 47 D Active Medications Generic Name Dose Route Start Last Admin Trade Name Aquilesq PRN Reason Stop Dose Admin Acetaminophen 650 mg 12/29/16 15:14 01/01/17 14:49 Tylenol - PO 650 mg Q4H PRN Administration FEVER OR PAIN Bacitracin 1 applic 01/01/17 10:00 01/04/17 10:02 Bacitracin - TP 1 applic BID [facility] Administration Docusate Sodium 100 mg 12/29/16 15:14 Colace - PO BID PRN CONSTIPATION Donepezil HCl 5 mg 12/29/16 15:39 01/04/17 10:02 Aricept - PO 5 mg DAILY [facility] Administration Aztreonam 1 gm/ Dextrose 50 mls @ 100 mls/hr 12/31/16 22:00 01/04/17 10:02 IVPB 100 mls/hr BID [facility] Administration Protocol Losartan Potassium 50 mg 12/29/16 22:00 01/03/17 21:17 Cozaar - PO 50 mg HS [facility] Administration Metoprolol Tartrate 25 mg 12/29/16 22:00 01/04/17 10:02 Lopressor - PO 25 mg BID [facility] Administration Olanzapine 5 mg 12/29/16 22:00 01/03/17 21:17 Zyprexa - PO 5 mg HS [facility] Administration Warfarin Sodium 6 mg 01/03/17 18:00 01/03/17 17:20 Coumadin - PO 6 mg DAILY@1800 [facility] Administration Assessment: 86 year old female with PMH dementia, HTN, severe , CVA with residual expressive aphasia, afib on coumadin admitted with near-syncope episode Plan: 1. UTI - Continue aztreonam day 4 - Renal US mod L renal hydronephrosis - Urology consult placed 2. Near syncope - Resolved - PT following 3. Atrial fibrillation - INR nearing therapeutic level - Dose coumadin 6mg today - INR in AM 4. Cerebrovascular accident (CVA), chronic - History of CVA - Continue home regimen - Recommend not moving rooms secondary to decompensation of mental status 5. Coronary artery disease - Metoprolol 25mg BID - Cozaar 50mg HS 6. Hypertension - At goal - Meds above 7. Severe aortic valve stenosis -Cardiology following - Patient refused TAVR Dispo - Discharge to [facility] possibly Friday Visit type - Emergency Visit Emergency Visit: Yes ED Registration Date: 12/31/16 Care time: The patient presented to the Emergency Department on the above date and was hospitalized for further evaluation of their emergent condition. - New Patient This patient is new to me today: Yes Date on this admission: 01/04/17 - Critical Care Critical Care patient: No
[2017-01-04] MEDS: WARFARIN NA 3 MG TABLET PO SCH (17:15)
[2017-01-04] MEDS: FERROUS SO4 325 MG TABLET (FP) PO SCH (17:15)
[2017-01-04] MEDS: DOCUSATE SODIUM 100 MG CAPSULE (FP) PO SCH (22:14)
[2017-01-04] MEDS: LOSARTAN POTASSIUM 50 MG TABLET (FP) PO SCH (22:14)
[2017-01-04] MEDS: OLANZapine 5 MG TABLET PO SCH (22:14)
[2017-01-04] MEDS: NAPH,MB-DB/K PH,MBDB POWDER PACKET PO SCH (22:15)
[2017-01-05 08:23] LABS: ANION GAP 5 (8-16); CO2 32 mmol/L (21-32); GLUCOSE,RANDOM 88 mg/dL (74-106)
[2017-01-05 08:24] LABS: CREATININE 0.6 mg/dL (0.55-1.02); PHOSPHOROUS 3.2 mg/dL (2.5-4.9)
[2017-01-05] MEDS ORDERED: PT OWN MED DRAWER 7, Y5N ONE ×3 (09:37→21:09)
--- NOTE | 2017-01-05 09:39 | CON.GU ---
Consult Consult Specialty:: Referred by:: medicine Reason for Consultation:: hydronephrosis - History of Present Illness Chief Complaint: hydronephrosis History of Present Illness: 86 year old female with incidentally found left hydronephrosis on US. She denies any prior history. She has generalized back pain. Overall renal function is normal - History Source History Provided By: Patient, Medical Record - Past Medical History [employer]: Yes: CVA Cardio/Vascular: Yes: AFIB, Aortic Stenosis, HTN, Hyperlipdemia Renal/: No: Renal Failure, Renal Inusuff, BPH, Cancer, Hematuria, Hemodialysis , Neurogenic Bladder, Renal Calculi, UTI, Other - Past Surgical History Past Surgical History: Yes: None - Alcohol/Substance Use Hx Alcohol Use: No History of Substance Use: reports: None - Smoking History Smoking history: Never smoked Have you smoked in the past 12 months: No Aproximately how many cigarettes per day: 0 If you are a former smoker, when did you quit?: long time ago - Social History Usual Living Arrangement: Alone ADL: Support Services (lives alone) History of Recent Travel: No Home Medications - Allergies Allergies/Adverse Reactions: Allergies Allergy/AdvReac Type Severity Reaction Status Date / Time Penicillins Allergy Intermediate Verified 03/16/16 22:35 methylprednisolone acetate Allergy Swelling Verified 03/16/16 22:35 [From Depo-Medrol] ofloxacin [From Floxin] Allergy Verified 03/16/16 22:35 - Home Medications Home Medications: Ambulatory Orders Metoprolol Tartrate [Lopressor -] 25 mg PO BID tablet 04/10/15 Warfarin Na [Coumadin -] 5 mg PO SUMOWEFRSA 07/26/15 Acetaminophen [Tylenol .Regular Strength -] 650 mg PO Q4H PRN #0 tablet Docusate Sodium [Colace -] 100 mg PO BID PRN #0 capsule 07/31/15 Donepezil HCl [Aricept] 5 mg PO DAILY 30 Days 07/31/15 Olanzapine [Zyprexa -] 5 mg PO HS tablet 07/31/15 Tramadol HCl [Ultram -] 50 mg PO Q6H PRN #20 tablet MDD 400mg 03/19/16 Losartan Potassium 25 mg PO HS 12/29/16 Warfarin Na [Coumadin] 2.5 mg PO TUFR 12/29/16 Review of Systems - Review of Systems Genitourinary: reports: Flank Pain Physical Exam- Vital Signs: Vital Signs Temperature 98.4 F 01/05/17 05:54 Pulse Rate 75 01/05/17 05:54 Respiratory Rate 18 01/05/17 05:54 Blood Pressure 126/75 01/05/17 05:54 O2 Sat by Pulse Oximetry (%) 96 01/04/17 22:00 Renal/: No: Bladder Distention, CVA Tenderness - Left, CVA Tenderness - Right , [place] Present, Hematuria Labs: CBC, BMP 01/04/17 05:48 01/05/17 05:45 Imaging - Results Ultrasound: Report Reviewed Problem List - Problems (1) Hydronephrosis, left Assessment/Plan: recommend CT scan to evaluate for distal ureteral obstruction Code(s): N13.30 - UNSPECIFIED HYDRONEPHROSIS
--- NOTE | 2017-01-05 09:55 | PN ---
Progress Note, Physician History of Present Illness: Lethargic yet arousable. - Current Medication List Current Medications: Active Medications Acetaminophen (Tylenol -) 650 mg PO Q4H PRN PRN Reason: FEVER OR PAIN Last Admin: 01/01/17 14:49 Dose: 650 mg Ascorbic Acid (Vitamin C -) 500 mg PO DAILY [facility] Bacitracin (Bacitracin -) 1 applic TP BID [facility] Last Admin: 01/04/17 22:13 Dose: 1 applic Docusate Sodium (Colace -) 100 mg PO BID [facility] Last Admin: 01/04/17 22:14 Dose: 100 mg Donepezil HCl (Aricept -) 5 mg PO DAILY [facility] Last Admin: 01/04/17 10:02 Dose: 5 mg Ferrous Sulfate (Feosol -) 325 mg PO TIDCM [facility] Last Admin: 01/04/17 17:15 Dose: 325 mg Aztreonam 1 gm/ Dextrose 50 mls @ 100 mls/hr IVPB BID [facility] PRN Reason: Protocol Last Admin: 01/04/17 22:13 Dose: 100 mls/hr Losartan Potassium (Cozaar -) 50 mg PO [facility] Last Admin: 01/04/17 22:14 Dose: 50 mg Metoprolol Tartrate (Lopressor -) 25 mg PO BID [facility] Last Admin: 01/04/17 22:14 Dose: 25 mg Olanzapine (Zyprexa -) 5 mg PO HS [facility] Last Admin: 01/04/17 22:14 Dose: 5 mg Potassium Phos/Sodium Phos (Phos-Nak Packet -) 1 packet PO BID [facility] Last Admin: 01/04/17 22:15 Dose: 1 packet Warfarin Sodium (Coumadin -) 6 mg PO DAILY@1800 [facility] Last Admin: 01/04/17 17:15 Dose: 6 mg - Objective Vital Signs: Vital Signs Temperature 98.4 F 01/05/17 05:54 Pulse Rate 75 01/05/17 05:54 Respiratory Rate 18 01/05/17 05:54 Blood Pressure 126/75 01/05/17 05:54 O2 Sat by Pulse Oximetry (%) 96 01/04/17 22:00 Constitutional: Yes: No Distress, Calm Neck: Yes: Supple Cardiovascular: Yes: Regular Rate and Rhythm, Murmur (2/6 SM) Respiratory: Yes: Regular, Diminished Gastrointestinal: Yes: Normal Bowel Sounds, Soft Edema: No Labs: CBC, BMP 01/04/17 05:48 01/05/17 05:45 INR, PTT INR 1.94 (0.82-1.09) H 01/04/17 05:48 - ....Imaging Ultrasound: Report Reviewed (Mild-moderate left hydronephrosis) EKG: Report Reviewed (Tele: SR) Problem List - Problems (1) Allergy to multiple antibiotics Code(s): Z88.1 - ALLERGY STATUS TO OTHER ANTIBIOTIC AGENTS STATUS (2) Dementia Code(s): F03.90 - UNSPECIFIED DEMENTIA WITHOUT BEHAVIORAL DISTURBANCE Qualifiers: Dementia type: unspecified type Dementia behavioral disturbance: without behavioral disturbance Qualified Code(s): F03.90 - Unspecified dementia without behavioral disturbance (3) Near syncope Code(s): R55 - SYNCOPE AND COLLAPSE (4) Anticoagulated on Coumadin Code(s): Z51.81 - ENCOUNTER FOR THERAPEUTIC DRUG LEVEL MONITORING Z79.01 - CUSTODIAL (CURRENT) USE OF ANTICOAGULANTS (5) Atrial fibrillation Code(s): I48.91 - UNSPECIFIED ATRIAL FIBRILLATION Qualifiers: Atrial fibrillation type: paroxysmal Qualified Code(s): I48.0 - Paroxysmal atrial fibrillation (6) Cerebrovascular accident (CVA) Code(s): I63.9 - CEREBRAL INFARCTION, UNSPECIFIED Qualifiers: CVA mechanism: unspecified Qualified Code(s): I63.9 - Cerebral infarction, unspecified (7) Coronary artery disease Code(s): I25.10 - ATHSCL HEART DISEASE OF [place] CORONARY ARTERY W/O ANG PCTRS Qualifiers: Coronary Disease-Associated Artery/Lesion type: [place] artery [place] vs. transplanted heart: [place] heart Associated angina: without angina Qualified Code(s): I25.10 - Atherosclerotic heart disease of [place] coronary artery without angina pectoris (8) Diastolic dysfunction without heart failure Code(s): I51.9 - HEART DISEASE, UNSPECIFIED (9) Fever Code(s): R50.9 - FEVER, UNSPECIFIED (10) Hyperlipidemia Code(s): E78.5 - HYPERLIPIDEMIA, UNSPECIFIED Qualifiers: Hyperlipidemia type: pure hypercholesterolemia Qualified Code(s): E78.00 - Pure hypercholesterolemia, unspecified; E78.0 - Pure hypercholesterolemia (11) Hypertension Code(s): I10 - ESSENTIAL (PRIMARY) HYPERTENSION Qualifiers: Hypertension type: essential hypertension Qualified Code(s): I10 - Essential (primary) hypertension (12) Severe aortic valve stenosis Code(s): I35.0 - NONRHEUMATIC AORTIC (VALVE) STENOSIS (13) UTI (urinary tract infection) Code(s): N39.0 - URINARY TRACT INFECTION, SITE NOT SPECIFIED Qualifiers: Urinary tract infection type: site unspecified Hematuria presence: without hematuria Qualified Code(s): N39.0 - Urinary tract infection, site not specified; R31.9 - Hematuria, unspecified Assessment/Plan 1. Severe aortic valve stenosis - previously had declined TAVR 2. Cerebrovascular disease with history of stroke resulting in right side weakness, expressive aphasia and facial droop 3. Paroxysmal atrial fibrillation now remains in sinus rhythm [id number] score of 8 4. Hypertension/hypertensive cardiovascular disease 5. Hypercholesterolemia 6. CAD 7. LV diastolic dysfunction 8. Organic brain syndrome and dementia 9. Polymicrobial UTI 10. Left hydronephrosis PLAN: 1. Continue Metoprolol 25 bid and Losartan 50 qhs as tolerated 2. Continue Warfarin - keep INR 2-3 3. Patient had refused TAVR. Transthoracic echocardiography with severe noted 4. Continue Aricept 5 qhs 5. Start Crestor 5 qd 6. Complete abx course per ID, f/u pelvic CT to r/o distal ureteral obstruction
--- NOTE | 2017-01-05 10:00 | PN ---
Physical Exam: SUBJECTIVE: Patient seen and examined. She is confused today with incomprehensible speech, mostly sleeping. Family at bedside, no fevers recorded. OBJECTIVE: Vital Signs Period Temp Pulse Resp BP Sys/Maynard Pulse Ox Last 24 Hr 98.2 F-99.0 F 72-108 18-18 103-141/49-88 96 PE Neuro: alert, awake, cn 2-12 Pulm: Clear anteriorly CV: s1 s2 regular rate, 3/6 systolic murmur Abd: s nd nt +bs Ext: R heel wound, dressed, no edema noted Laboratory Results - last 24 hr 01/05/17 05:45 Sodium 139 Potassium 4.1 Chloride 102 Carbon Dioxide 32 Anion Gap 5 L BUN 27 H Creatinine 0.6 Random Glucose 88 Calcium 9.0 Phosphorus 3.2 D Active Medications Generic Name Dose Route Start Last Admin Trade Name Freq PRN Reason Stop Dose Admin Acetaminophen 650 mg 12/29/16 15:14 01/01/17 14:49 Tylenol - PO 650 mg Q4H PRN Administration FEVER OR PAIN Ascorbic Acid 500 mg 01/05/17 10:00 Vitamin C - PO DAILY ANGIE Bacitracin 1 applic 01/01/17 10:00 01/04/17 22:13 Bacitracin - TP 1 applic BID [facility] Administration Docusate Sodium 100 mg 01/04/17 22:00 01/04/17 22:14 Colace - PO 100 mg BID [facility] Administration Donepezil HCl 5 mg 12/29/16 15:39 01/04/17 10:02 Aricept - PO 5 mg DAILY [facility] Administration Ferrous Sulfate 325 mg 01/04/17 17:30 01/04/17 17:15 Feosol - PO 325 mg TIDCM ANGIE Administration Aztreonam 1 gm/ Dextrose 50 mls @ 100 mls/hr 12/31/16 22:00 01/04/17 22:13 IVPB 100 mls/hr BID [facility]GIE Administration Protocol Losartan Potassium 50 mg 12/29/16 22:00 01/04/17 22:14 Cozaar - PO 50 mg HS [facility]IE Administration Metoprolol Tartrate 25 mg 12/29/16 22:00 01/04/17 22:14 Lopressor - PO 25 mg BID [facility] Administration Olanzapine 5 mg 12/29/16 22:00 01/04/17 22:14 Zyprexa - PO 5 mg HS [facility]GIE Administration Potassium Phos/Sodium Phos 1 packet 01/04/17 22:00 01/04/17 22:15 Phos-Nak Packet - PO 1 packet BID [facility] Administration Rosuvastatin Calcium 5 mg 01/05/17 22:00 Crestor - PO HS ANGIE Warfarin Sodium 6 mg 01/03/17 18:00 01/04/17 17:15 Coumadin - PO 6 mg DAILY@1800 ANGIE Administration Microbiology 12/30/16 23:30 Blood - Peripheral Venous Blood Culture - Final NO GROWTH AFTER 5 DAYS INCUBATION 12/30/16 23:30 Urine - Urine Clean Catch Urine Culture - Final Escherichia Coli Klebsiella Pneumoniae 12/29/16 12:19 Urine - Urine - Catheterized Urine Culture - Final Contaminated: Please Repeat Assessment: 86 year old female with PMH dementia, HTN, severe , CVA with residual expressive aphasia, afib on coumadin admitted with near-syncope episode Plan: 1. Polymicrobial UTI - Continue aztreonam day 5 - CTAP to eval for distal ureteral obstruction 2. Near syncope - Resolved 3. Atrial fibrillation, rate controlled - INR therapeutic today - Decrease coumadin 5mg tonight 4. Cerebrovascular accident (CVA), chronic - History of CVA - Continue home regimen - Recommend not moving rooms secondary to decompensation of mental status 5. Coronary artery disease - Metoprolol 25mg BID - Cozaar 50mg HS 6. HLD - Lipid panel noted - Start low dose crestor 5mg HS 7. Hypertension - At goal - Meds above 8. Severe aortic valve stenosis - Cardiology following - Patient refused TAVR 9. Iron deficiency anemia - Started ferrous sulfate TID; continue - Vit C daily 10. Hypophosphatemia - Resolved, stop k phos Dispo - Accepted to [facility] Visit type - Emergency Visit Emergency Visit: Yes ED Registration Date: 12/31/16 Care time: The patient presented to the Emergency Department on the above date and was hospitalized for further evaluation of their emergent condition. - New Patient This patient is new to me today: No - Critical Care Critical Care patient: No
[2017-01-05] MEDS: METOPROLOL TARTRATE 25 MG TABLET (FP) PO SCH ×3 (10:23→21:07)
[2017-01-05] MEDS: ASCORBIC ACID 500 MG TABLET (FP) PO SCH ×2 (10:23→10:41)
[2017-01-05] MEDS: DONEPEZIL HCL 5 MG TABLET (FP) PO SCH ×2 (10:23→10:40)
[2017-01-05] MEDS: DOCUSATE SODIUM 100 MG CAPSULE (FP) PO SCH ×3 (10:23→21:07)
[2017-01-05] MEDS: FERROUS SO4 325 MG TABLET (FP) PO SCH ×4 (10:24→18:25)
[2017-01-05] MEDS: NAPH,MB-DB/K PH,MBDB POWDER PACKET PO SCH ×2 (10:24→10:41)
[2017-01-05 10:31] LABS: BASOPHIL 0.5 % (0-2.0); EOSINOPHIL 2.4 % (0-4.5); MCH 29.3 pg (25.7-33.7); MCHC 33.1 g/dl (32.0-36.0); MEAN CELL VOLUME 88.6 fl (80-96); MEAN PLT VOLUME 10.1 fl (7.5-11.1); NEUTROPHILS 55.6 % (42.8-82.8); PLATELET COUNT 240 K/MM3 (134-434); RDW 13.7 % (11.6-15.6); WHITE BLOOD COUNT 7.2 K/mm3 (4.0-10.0)
[2017-01-05 10:48] LABS: INR 2.44 (0.82-1.09); PROTHROMBIN TIME (PATIENT) 27.3 SEC (9.98-11.88)
[2017-01-05] MEDS ORDERED: WARFARIN NA 5 MG TABLET (UD) PO SCH (12:12)
[2017-01-05] MEDS: AZTREONAM 1 GM in DEXTROSE 5%-WATER - 50 ML IVPB SCH ×2 (12:13→21:10)
[2017-01-05] MEDS: BACITRACIN 15 GM TUBE TOPICAL OINTMENT TP SCH ×3 (13:09→21:07)
--- NOTE | 2017-01-05 14:45 | PN ---
Progress Note (short form) - Note Progress Note: alert, less confused NAD expressive aphasia Vital Signs Period Temp Pulse Resp BP Sys/Maynard Pulse Ox Last 24 Hr 97.9 F-99.0 F 74-108 18-18 103-141/62-88 96 cor-rrr lungs clear abd soft,nt ext no edema CBC, BMP 01/05/17 06:18 01/05/17 05:45 Microbiology 12/30/16 23:30 Blood - Peripheral Venous Blood Culture - Final NO GROWTH AFTER 5 DAYS INCUBATION 12/30/16 23:30 Urine - Urine Clean Catch Urine Culture - Final Escherichia Coli Klebsiella Pneumoniae 12/29/16 12:19 Urine - Urine - Catheterized Urine Culture - Final Contaminated: Please Repeat a/p fever-recurrent, would reculture for fever greater then 100.5 renal/bladder sonogram-with left hydornephrosis-for ct scan UTI- continue azactaim day #5 multiple antibiotics allergies superficial heel ulcer- no associated cellulitis dementia CVA near syncope severe aortic stenosis Problem List - Problems (1) Fever Code(s): R50.9 - FEVER, UNSPECIFIED (2) UTI (urinary tract infection) Code(s): N39.0 - URINARY TRACT INFECTION, SITE NOT SPECIFIED Qualifiers: Urinary tract infection type: site unspecified Hematuria presence: without hematuria Qualified Code(s): N39.0 - Urinary tract infection, site not specified; R31.9 - Hematuria, unspecified (3) Allergy to multiple antibiotics Code(s): Z88.1 - ALLERGY STATUS TO OTHER ANTIBIOTIC AGENTS STATUS (4) Near syncope Code(s): R55 - SYNCOPE AND COLLAPSE (5) Severe aortic valve stenosis Code(s): I35.0 - NONRHEUMATIC AORTIC (VALVE) STENOSIS (6) Dementia Code(s): F03.90 - UNSPECIFIED DEMENTIA WITHOUT BEHAVIORAL DISTURBANCE Qualifiers: Dementia type: unspecified type Dementia behavioral disturbance: without behavioral disturbance Qualified Code(s): F03.90 - Unspecified dementia without behavioral disturbance
[2017-01-05] MEDS: OLANZapine 5 MG TABLET PO SCH (21:07)
[2017-01-05] MEDS: LOSARTAN POTASSIUM 50 MG TABLET (FP) PO SCH (21:07)
[2017-01-05] MEDS: ROSUVASTATIN CA 5 MG TABLET (FP) PO SCH (21:10)
[2017-01-06 07:27] LABS: BASOPHIL 0.6 % (0-2.0); EOSINOPHIL 2.4 % (0-4.5); MCH 29.3 pg (25.7-33.7); MCHC 32.9 g/dl (32.0-36.0); MEAN CELL VOLUME 89.2 fl (80-96); MEAN PLT VOLUME 9.8 fl (7.5-11.1); NEUTROPHILS 52.9 % (42.8-82.8); PLATELET COUNT 296 K/MM3 (134-434); RDW 13.5 % (11.6-15.6); WHITE BLOOD COUNT 7.3 K/mm3 (4.0-10.0)
[2017-01-06 07:36] LABS: INR 3.12 (0.82-1.09); PROTHROMBIN TIME (PATIENT) 35.1 SEC (9.98-11.88)
[2017-01-06 07:59] LABS: ANION GAP 5 (8-16); CALCIUM 9.2 mg/dL (8.5-10.1); CO2 31 mmol/L (21-32); CREATININE 0.7 mg/dL (0.55-1.02); GLUCOSE,RANDOM 87 mg/dL (74-106)
[2017-01-06] MEDS: FERROUS SO4 325 MG TABLET (FP) PO SCH ×2 (08:01→10:19)
--- NOTE | 2017-01-06 08:45 | PN ---
Progress Note (short form) - Note Progress Note: Patient seen and examined. Chart reviewed. Patient well known to me from outpatient care. Admitted with pre-syncope in setting of severe and previous embolic CVA. Currently sitting up in bed alert and responsive at baseline mental status with likely mild dementia complicated by expressive aphasia, and previously this admission by systemic effects of UTI with associated "Toxic- Metabolic" encephalopathy Currently denies new chest discomfort or increased dyspnea. No recent fever spike or O2 desaturation Labs, radiologic procedures , data integrity consultant and progress notes reviewed. Blood cultures are negative. Urine culture with 2 GNRs (see below) Continues on Aztreonam. Right heel ulcer bandaged No associated cellulitis. Telemetry reviewed. Remains in sinus rhythm with evidence of sinus arrhythmia. Left sided hydronephrosis to be evaluated with CT scan as per urology suggestion. Continue Physical Therapy for strengthening. Medications Losartan Potassium (Cozaar -) 50 mg PO HS [facility] Last Admin: 01/05/17 21:07 Dose: 50 mg Warfarin Sodium (Coumadin -) 5 mg PO DAILY@1800 [facility] Last Admin: 01/05/17 18:25 Dose: 5 mg Acetaminophen (Tylenol -) 650 mg PO Q4H PRN PRN Reason: FEVER OR PAIN Last Admin: 01/01/17 14:49 Dose: 650 mg Aztreonam 1 gm/ Dextrose 50 mls @ 100 mls/hr IVPB BID [facility] PRN Reason: Protocol Last Admin: 01/05/17 21:10 Dose: 100 mls/hr Bacitracin (Bacitracin -) 1 applic TP BID [facility] Last Admin: 01/05/17 21:07 Dose: 1 applic Olanzapine (Zyprexa -) 5 mg PO [facility] Last Admin: 01/05/17 21:07 Dose: 5 mg Metoprolol Tartrate (Lopressor -) 25 mg PO BID [facility] Last Admin: 01/05/17 21:07 Dose: 25 mg Docusate Sodium (Colace -) 100 mg PO BID [facility] Last Admin: 01/05/17 21:07 Dose: 100 mg Rosuvastatin Calcium (Crestor -) 5 mg PO HS [facility] Last Admin: 01/05/17 21:10 Dose: 5 mg Ferrous Sulfate (Feosol -) 325 mg PO TIDCM [facility] Last Admin: 01/06/17 08:01 Dose: 325 mg Donepezil HCl (Aricept -) 5 mg PO DAILY [facility] Last Admin: 01/05/17 10:40 Dose: Not Given Ascorbic Acid (Vitamin C -) 500 mg PO DAILY [facility] Last Admin: 01/05/17 10:41 Dose: Not Given Microbiology 12/30/16 23:30 Urine - Urine Clean Catch Urine Culture - Final Escherichia Coli Klebsiella Pneumoniae Selected Entries 01/05/17 01/06/17 22:00 06:00 Temperature 98.6 F Pulse Rate 94 H Respiratory 18 Rate Blood Pressure 137/60 O2 Sat by Pulse 96 Oximetry (%) Oxygen Delivery Room Air Method Laboratory Tests 01/02/17 01/02/17 01/06/17 05:35 05:35 05:35 WBC 7.3 Hgb 11.3 Hct 34.5 Plt Count 296 D INR Sodium Potassium Chloride Carbon Dioxide Anion Gap BUN Creatinine Random Glucose Calcium Iron 20 L TIBC 187 L Iron Saturation 11 L Ferritin 155.681 Albumin 2.4 L 01/06/17 01/06/17 05:35 05:35 WBC Hgb Hct Plt Count INR 3.12 H Sodium 137 Potassium 4.3 Chloride 101 Carbon Dioxide 31 Anion Gap 5 L BUN 23 H Creatinine 0.7 Random Glucose 87 Calcium 9.2 Iron TIBC Iron Saturation Ferritin Albumin Chest Clear No wheeze or rhonchi Cor Slow regular rhythm 3/6 systolic murmur RUSB Abd Soft No mass or tenderness BS positive Ext No new edema No phlebitis Right heel ulcer with gauze dressing Neuro Expressive aphasia persists No new focal deficit Telemetry Sinus bradycardia with sinus arrhythmia ECHO Normal LV size and systolic function Mild concentric LVH No WMA Severe with calculated aortic valve area 0.6 cm2 and mean pressure gradient of 54mm Hg Carotid duplex with atherosclerotic disease but no hemodynamically significant stenoses Assessment and Plan Near Syncope Continue assessment Monitor vital signs with orthostatic BPs Increase activity as tolerated Fever/UTI with E Coli and Klebsiella species Continue antibiotic therapy as ordered ID follow-up Severe Has refused TAVR in the past Weakness Continue Physical Therapy for gait training and strengthening Bradyarrhythmia Monitor Remains on metoprolol HTN H/O Monitor HPL Has recently been able to tolerate statins. Long h/o hypercholesterolemia and intolerance of therapy AFIb By history Currently remains in a sinus rhythm/sinus arrhythmia Continue warfarin CVA Likely previous embolic left cerebral CVA, occurring along with newly diagnosed AFib Right sided weakness has improved. Expressive aphasia, although improved overall, persists ASHD Stable Cardiologic follow-up Diastolic CHF Stable Elevated INR Reassess dosage of warfarin Anemia 10.9/32.7>>11.3/34.5 Fe studies are consistent with an anemia of chronic/acute disease with inappropriately low TIBC. Cannot rule out concomitant Fe deficiency in this setting Hypoalbuminemia 3.3>>2.5>>2.4 Likely multifactorial related to acute/ chronic disease as well as nutritional factors. Monitor Dementia Mild Diagnosis and progression difficult to assess in the setting of expressive aphasia Right Heel Ulcer Local care Hydronephrosis Left sided For CT scan Urologic follow-up Increase activity as tolerated with physical therapy SNF/Rehab transfer when stable
--- NOTE | 2017-01-06 09:43 | PN ---
Progress Note, Physician History of Present Illness: Episodes of rapid paroxysmal afib, denies chest pain or dyspnea. - Current Medication List Current Medications: Active Medications Acetaminophen (Tylenol -) 650 mg PO Q4H PRN PRN Reason: FEVER OR PAIN Last Admin: 01/01/17 14:49 Dose: 650 mg Ascorbic Acid (Vitamin C -) 500 mg PO DAILY [facility] Last Admin: 01/05/17 10:41 Dose: Not Given Bacitracin (Bacitracin -) 1 applic TP BID [facility] Last Admin: 01/05/17 21:07 Dose: 1 applic Docusate Sodium (Colace -) 100 mg PO BID [facility] Last Admin: 01/05/17 21:07 Dose: 100 mg Donepezil HCl (Aricept -) 5 mg PO DAILY [facility] Last Admin: 01/05/17 10:40 Dose: Not Given Ferrous Sulfate (Feosol -) 325 mg PO DAILY [facility] Aztreonam 1 gm/ Dextrose 50 mls @ 100 mls/hr IVPB BID [facility] PRN Reason: Protocol Last Admin: 01/05/17 21:10 Dose: 100 mls/hr Losartan Potassium (Cozaar -) 50 mg PO [facility] Last Admin: 01/05/17 21:07 Dose: 50 mg Metoprolol Tartrate (Lopressor -) 25 mg PO BID [facility] Last Admin: 01/05/17 21:07 Dose: 25 mg Olanzapine (Zyprexa -) 5 mg PO HS [facility] Last Admin: 01/05/17 21:07 Dose: 5 mg Rosuvastatin Calcium (Crestor -) 5 mg PO [facility] Last Admin: 01/05/17 21:10 Dose: 5 mg Warfarin Sodium (Coumadin -) 4 mg PO DAILY@1800 [facility] - Objective Vital Signs: Vital Signs Temperature 98.6 F 01/06/17 06:00 Pulse Rate 94 H 01/06/17 06:00 Respiratory Rate 18 01/06/17 06:00 Blood Pressure 137/60 01/06/17 06:00 O2 Sat by Pulse Oximetry (%) 96 01/05/17 22:00 Constitutional: Yes: No Distress, Calm, Thin Neck: Yes: Supple Cardiovascular: Yes: Regular Rate and Rhythm, Murmur (2/6 SM) Respiratory: Yes: Regular, Diminished Gastrointestinal: Yes: Normal Bowel Sounds, Soft Edema: No Labs: CBC, BMP 01/06/17 05:35 01/06/17 05:35 INR, PTT INR 3.12 (0.82-1.09) H 01/06/17 05:35 - ....Imaging EKG: Report Reviewed (Tele: Rapid JOSE ANGEL) Problem List - Problems (1) Allergy to multiple antibiotics Code(s): Z88.1 - ALLERGY STATUS TO OTHER ANTIBIOTIC AGENTS STATUS (2) Dementia Code(s): F03.90 - UNSPECIFIED DEMENTIA WITHOUT BEHAVIORAL DISTURBANCE Qualifiers: Dementia type: unspecified type Dementia behavioral disturbance: without behavioral disturbance Qualified Code(s): F03.90 - Unspecified dementia without behavioral disturbance (3) Near syncope Code(s): R55 - SYNCOPE AND COLLAPSE (4) Anticoagulated on Coumadin Code(s): Z51.81 - ENCOUNTER FOR THERAPEUTIC DRUG LEVEL MONITORING Z79.01 - SHELTER (CURRENT) USE OF ANTICOAGULANTS (5) Atrial fibrillation Code(s): I48.91 - UNSPECIFIED ATRIAL FIBRILLATION Qualifiers: Atrial fibrillation type: paroxysmal Qualified Code(s): I48.0 - Paroxysmal atrial fibrillation (6) Cerebrovascular accident (CVA) Code(s): I63.9 - CEREBRAL INFARCTION, UNSPECIFIED Qualifiers: CVA mechanism: unspecified Qualified Code(s): I63.9 - Cerebral infarction, unspecified (7) Coronary artery disease Code(s): I25.10 - ATHSCL HEART DISEASE OF [place] CORONARY ARTERY W/O ANG PCTRS Qualifiers: Coronary Disease-Associated Artery/Lesion type: [place] artery [place] vs. transplanted heart: [place] heart Associated angina: without angina Qualified Code(s): I25.10 - Atherosclerotic heart disease of [place] coronary artery without angina pectoris (8) Diastolic dysfunction without heart failure Code(s): I51.9 - HEART DISEASE, UNSPECIFIED (9) Hyperlipidemia Code(s): E78.5 - HYPERLIPIDEMIA, UNSPECIFIED Qualifiers: Hyperlipidemia type: pure hypercholesterolemia Qualified Code(s): E78.00 - Pure hypercholesterolemia, unspecified; E78.0 - Pure hypercholesterolemia (10) Hypertension Code(s): I10 - ESSENTIAL (PRIMARY) HYPERTENSION Qualifiers: Hypertension type: essential hypertension Qualified Code(s): I10 - Essential (primary) hypertension (11) Severe aortic valve stenosis Code(s): I35.0 - NONRHEUMATIC AORTIC (VALVE) STENOSIS (12) UTI (urinary tract infection) Code(s): N39.0 - URINARY TRACT INFECTION, SITE NOT SPECIFIED Qualifiers: Urinary tract infection type: site unspecified Hematuria presence: without hematuria Qualified Code(s): N39.0 - Urinary tract infection, site not specified; R31.9 - Hematuria, unspecified Assessment/Plan 1. Severe aortic valve stenosis - previously had declined TAVR 2. Cerebrovascular disease with history of stroke resulting in right side weakness, expressive aphasia and facial droop 3. Paroxysmal atrial fibrillation now remains in sinus rhythm [id number] score of 8 4. Hypertension/hypertensive cardiovascular disease 5. Hypercholesterolemia 6. CAD 7. LV diastolic dysfunction 8. Organic brain syndrome and dementia 9. Polymicrobial UTI 10. Left hydronephrosis PLAN: 1. Increase Metoprolol 50 bid and continue Losartan 50 qhs and Crestor 5 qhs as tolerated 2. Continue Warfarin - keep INR 2-3 3. Patient had refused TAVR. Transthoracic echocardiography with severe noted 4. Continue Aricept 5 qhs 5. Complete abx course per ID, f/u pelvic CT to r/o distal ureteral obstruction
--- NOTE | 2017-01-06 09:57 | PN ---
Progress Note (short form) - Note Progress Note: Neurology History of Present Illness 86 yo F, history of dementia on Aricept, on zyprexa, oriented to people only per notes as her baseline, hypertension, heart murmurs, CVA with residual aphasia, afib on coumadin (told last week supratherapeutic on labs and told to reduce dose), PNA, UTI, brought in by family for dizziness with near syncope. popped corn oven attendant reported that patient awoke and was at baseline until shortly after 9 AM of morning of admission when while given patient a bath, patient complained of feeling "faint" and appeared "to be falling backwards" but did not fall, hit head or had loss of consciousness. She was brought to the hospital and admitted. CT head completed and did not show acute changes. Carotid Doppler also reviewed and with moderate disease but no hemodynamically significant stenosis. On admission found to have urinary tract infection and I was consulted for altered mental status and evaluate her cognition given her ongoing Dementia diagnosis. The patient remains limited in her responses and is not able to tell me location , date, name of President. It seems her baseline is of already progressed Dementia and superimposed UTI also may be playing a role. No significant neurologic improvement with treatment of UTI. On Aztreonam without new neurologic events. Active Medications Acetaminophen (Tylenol -) 650 mg PO Q4H PRN PRN Reason: FEVER OR PAIN Last Admin: 01/01/17 14:49 Dose: 650 mg Ascorbic Acid (Vitamin C -) 500 mg PO DAILY [facility] Last Admin: 01/05/17 10:41 Dose: Not Given Bacitracin (Bacitracin -) 1 applic TP BID [facility] Last Admin: 01/05/17 21:07 Dose: 1 applic Docusate Sodium (Colace -) 100 mg PO BID [facility] Last Admin: 01/05/17 21:07 Dose: 100 mg Donepezil HCl (Aricept -) 5 mg PO DAILY [facility] Last Admin: 01/05/17 10:40 Dose: Not Given Ferrous Sulfate (Feosol -) 325 mg PO DAILY [facility] Aztreonam 1 gm/ Dextrose 50 mls @ 100 mls/hr IVPB BID [facility] PRN Reason: Protocol Last Admin: 01/05/17 21:10 Dose: 100 mls/hr Losartan Potassium (Cozaar -) 50 mg PO HS [facility] Last Admin: 01/05/17 21:07 Dose: 50 mg Metoprolol Tartrate (Lopressor -) 50 mg PO BID [facility] Olanzapine (Zyprexa -) 5 mg PO HS [facility] Last Admin: 01/05/17 21:07 Dose: 5 mg Rosuvastatin Calcium (Crestor -) 5 mg PO HS [facility] Last Admin: 01/05/17 21:10 Dose: 5 mg Warfarin Sodium (Coumadin -) 4 mg PO DAILY@1800 [facility] *Physical Exam Last Vital Signs Temp Pulse Resp BP Pulse Ox 98.6 F 94 H 18 137/60 96 01/06/17 06:00 01/06/17 06:00 01/06/17 06:00 01/06/17 06:00 01/05/17 22:00 - Physical Exam GENERAL: Sitting up in bed and smiling, oriented to person only, at baseline mental status, in no acute distress. HEAD: Normal with no signs of trauma. EYES: Pupils equal, round and reactive to light, sclera anicteric, conjunctiva clear. EARS, NOSE, THROAT: oropharynx clear without exudates. Moist mucous membranes. NECK: No JVD, or masses. LUNGS: Poor air entry and diminished breath sounds HEART: RRR, normal S1 and S2 with high grade ejection murmur ABDOMEN: Soft, nontender, not distended, normoactive bowel sounds, no guarding, no rebound, no masses. MUSCULOSKELETAL: Normal range of motion at all joints. No bony deformities or tenderness. No CVA tenderness. EXTREMITIES: warm, No peripheral edema. R heel stage 1 pressure ulcer NEUROLOGICAL: Dyaphasia and tangential speech. CN grossly intact, No facial droop. Unable to complete confrontation testing, but moving ext grossly, sensory intact. Gait deferred CBCD WBC 7.3 K/mm3 (4.0-10.0) 01/06/17 05:35 RBC 3.86 M/mm3 (3.60-5.2) 01/06/17 05:35 Hgb 11.3 GM/dL (10.7-15.3) 01/06/17 05:35 Hct 34.5 % (32.4-45.2) 01/06/17 05:35 MCV 89.2 fl (80-96) 01/06/17 05:35 MCHC 32.9 g/dl (32.0-36.0) 01/06/17 05:35 RDW 13.5 % (11.6-15.6) 01/06/17 05:35 Plt Count 296 K/MM3 (134-434) D 01/06/17 05:35 MPV 9.8 fl (7.5-11.1) 01/06/17 05:35 CMP Sodium 137 mmol/L (136-145) 01/06/17 05:35 Potassium 4.3 mmol/L (3.5-5.1) 01/06/17 05:35 Chloride 101 mmol/L (98-107) 01/06/17 05:35 Carbon Dioxide 31 mmol/L (21-32) 01/06/17 05:35 Anion Gap 5 (8-16) L 01/06/17 05:35 BUN 23 mg/dL (7-18) H 01/06/17 05:35 Creatinine 0.7 mg/dL (0.55-1.02) 01/06/17 05:35 Creat Clearance w eGFR > 60 (>60) 01/02/17 05:35 Calcium 9.2 mg/dL (8.5-10.1) 01/06/17 05:35 Total Bilirubin 0.5 mg/dL (0.2-1.0) 01/02/17 05:35 AST 20 U/L (15-37) D 01/02/17 05:35 ALT 19 U/L (12-78) D 01/02/17 05:35 Alkaline Phosphatase 72 U/L (45-117) 01/02/17 05:35 Total Protein 5.7 g/dl (6.4-8.2) L 01/02/17 05:35 Albumin 2.4 g/dl (3.4-5.0) L 01/02/17 05:35 Medical Decision Making 86 yo F, history of dementia on Aricept, on zyprexa, oriented to people only per notes as her baseline, hypertension, heart murmurs, CVA with residual aphasia, afib on coumadin (told last week supratherapeutic on labs and told to reduce dose), PNA, UTI, brought in by family for dizziness with near syncope. popped corn oven attendant reported that patient awoke and was at baseline until shortly after 9 AM of morning of admission when while given patient a bath, patient complained of feeling "faint" and appeared "to be falling backwards" but did not fall, hit head or had loss of consciousness. She was brought to the hospital and admitted. CT head completed and did not show acute changes. Carotid Doppler also reviewed and with moderate disease but no hemodynamically significant stenosis. Baseline is of already progressed Dementia and superimposed UTI also may be playing a role. Can continue aricept, would not want to change medication regiment now considering superimposed infection Would be good to see patient in office after stabilization and discharge and closer to baseline Continue ongoing mgmt of infection Monitor BP, maintain normotensive range Monitor Lytes, continue hydration Continue monitoring mental status IV/PO hydration DVT ppx
[2017-01-06] MEDS ORDERED: PT OWN MED DRAWER 7, Y5N ONE ×2 (10:17→22:24)
[2017-01-06] MEDS: ASCORBIC ACID 500 MG TABLET (FP) PO SCH (10:18)
[2017-01-06] MEDS: DONEPEZIL HCL 5 MG TABLET (FP) PO SCH (10:18)
[2017-01-06] MEDS: DOCUSATE SODIUM 100 MG CAPSULE (FP) PO SCH ×2 (10:18→22:29)
[2017-01-06] MEDS: METOPROLOL TARTRATE 50 MG TABLET (FP) PO SCH ×2 (10:18→22:48)
[2017-01-06] MEDS: BACITRACIN 15 GM TUBE TOPICAL OINTMENT TP SCH ×2 (10:22→22:29)
[2017-01-06] MEDS: AZTREONAM 1 GM in DEXTROSE 5%-WATER - 50 ML IVPB SCH ×2 (10:32→22:29)
--- NOTE | 2017-01-06 13:36 | PN ---
Progress Note (short form) - Note Progress Note: alert, sitting in solarium with daughter NAD expressive aphasia Vital Signs Period Temp Pulse Resp BP Sys/Maynard Pulse Ox Last 24 Hr 98.1 F-99 F 80-109 18-18 115-156/60-77 96-97 cor-rrr lungs clear abd soft,nt ext no edema CBC, BMP 01/06/17 05:35 01/06/17 05:35 Microbiology 12/30/16 23:30 Blood - Peripheral Venous Blood Culture - Final NO GROWTH AFTER 5 DAYS INCUBATION 12/30/16 23:30 Urine - Urine Clean Catch Urine Culture - Final Escherichia Coli Klebsiella Pneumoniae 12/29/16 12:19 Urine - Urine - Catheterized Urine Culture - Final Contaminated: Please Repeat a/p fever-resolved would reculture for fever greater then 100.5 renal/bladder sonogram-with left hyrornephrosis-for ct scan UTI- continue azactaim day #6 multiple antibiotics allergies superficial heel ulcer- no associated cellulitis dementia CVA near syncope severe aortic stenosis if ct unremarkable would complete 7 days azactaim and d/c antiibiotics d/w daughter at bedside Problem List - Problems (1) Fever Code(s): R50.9 - FEVER, UNSPECIFIED (2) UTI (urinary tract infection) Code(s): N39.0 - URINARY TRACT INFECTION, SITE NOT SPECIFIED Qualifiers: Urinary tract infection type: site unspecified Hematuria presence: without hematuria Qualified Code(s): N39.0 - Urinary tract infection, site not specified; R31.9 - Hematuria, unspecified (3) Allergy to multiple antibiotics Code(s): Z88.1 - ALLERGY STATUS TO OTHER ANTIBIOTIC AGENTS STATUS (4) Near syncope Code(s): R55 - SYNCOPE AND COLLAPSE (5) Severe aortic valve stenosis Code(s): I35.0 - NONRHEUMATIC AORTIC (VALVE) STENOSIS (6) Dementia Code(s): F03.90 - UNSPECIFIED DEMENTIA WITHOUT BEHAVIORAL DISTURBANCE Qualifiers: Dementia type: unspecified type Dementia behavioral disturbance: without behavioral disturbance Qualified Code(s): F03.90 - Unspecified dementia without behavioral disturbance
[2017-01-06] MEDS ORDERED: WARFARIN NA 2 MG TABLET (UD) PO SCH (18:00)
[2017-01-06] MEDS: OLANZapine 5 MG TABLET PO SCH (22:29)
[2017-01-06] MEDS: LOSARTAN POTASSIUM 50 MG TABLET (FP) PO SCH (22:29)
[2017-01-06] MEDS: ROSUVASTATIN CA 5 MG TABLET (FP) PO SCH ×2 (22:47→22:50)
[2017-01-07 08:01] LABS: BASOPHIL 0.8 % (0-2.0); EOSINOPHIL 3.4 % (0-4.5); MCH 29.4 pg (25.7-33.7); MCHC 33.1 g/dl (32.0-36.0); MEAN CELL VOLUME 88.6 fl (80-96); MEAN PLT VOLUME 9.7 fl (7.5-11.1); NEUTROPHILS 56.8 % (42.8-82.8); PLATELET COUNT 295 K/MM3 (134-434); RDW 13.4 % (11.6-15.6)
[2017-01-07 08:05] LABS: INR 2.94 (0.82-1.09); PROTHROMBIN TIME (PATIENT) 33.1 SEC (9.98-11.88)
[2017-01-07 08:08] LABS: ALBUMIN 2.3 g/dl (3.4-5.0); ANION GAP 5 (8-16); BILIRUBIN,TOTAL 0.3 mg/dL (0.2-1.0); CALCIUM 9.1 mg/dL (8.5-10.1); CO2 33 mmol/L (21-32); CREATININE 0.7 mg/dL (0.55-1.02); GLUCOSE,RANDOM 86 mg/dL (74-106); SGOT/AST 26 U/L (15-37); SGPT/ALT 33 U/L (12-78); TOT PROT 6.2 g/dl (6.4-8.2)
[2017-01-07 08:09] LABS: ALK PHOS 97 U/L (45-117)
--- NOTE | 2017-01-07 08:37 | PN ---
Progress Note (short form) - Note Progress Note: CT scan shows parapelvic cysts, no evidence of hydronephrosis or obstruction No intervention necessary reconsult prn
[2017-01-07 09:42] VITALS: BP 134/61; PULSE 97; TEMP 97.9
[2017-01-07] MEDS: ASCORBIC ACID 500 MG TABLET (FP) PO SCH (10:19)
[2017-01-07] MEDS: DOCUSATE SODIUM 100 MG CAPSULE (FP) PO SCH (10:19)
[2017-01-07] MEDS: METOPROLOL TARTRATE 50 MG TABLET (FP) PO SCH (10:19)
[2017-01-07] MEDS: AZTREONAM 1 GM in DEXTROSE 5%-WATER - 50 ML IVPB SCH (10:19)
[2017-01-07] MEDS: DONEPEZIL HCL 5 MG TABLET (FP) PO SCH (10:19)
[2017-01-07] MEDS: FERROUS SO4 325 MG TABLET (FP) PO SCH (10:19)
[2017-01-07] MEDS: BACITRACIN 15 GM TUBE TOPICAL OINTMENT TP SCH (10:19)
--- NOTE | 2017-01-07 10:48 | PN ---
Progress Note, Physician Chief Complaint: Not in distress Confused with underlying organic brain syndrome/dementia Monitor reveals sinus rhythm History of Present Illness: Patient was seen and examined. Awake. Confused. Chart was reviewed Denies chest pain or SOB - Current Medication List Current Medications: Active Medications Acetaminophen (Tylenol -) 650 mg PO Q4H PRN PRN Reason: FEVER OR PAIN Last Admin: 01/01/17 14:49 Dose: 650 mg Ascorbic Acid (Vitamin C -) 500 mg PO DAILY [facility] Last Admin: 01/07/17 10:19 Dose: 500 mg Bacitracin (Bacitracin -) 1 applic TP BID [facility] Last Admin: 01/07/17 10:19 Dose: 1 applic Docusate Sodium (Colace -) 100 mg PO BID [facility] Last Admin: 01/07/17 10:19 Dose: 100 mg Donepezil HCl (Aricept -) 5 mg PO DAILY [facility] Last Admin: 01/07/17 10:19 Dose: 5 mg Ferrous Sulfate (Feosol -) 325 mg PO DAILY [facility] Last Admin: 01/07/17 10:19 Dose: 325 mg Aztreonam 1 gm/ Dextrose 50 mls @ 100 mls/hr IVPB BID [facility] PRN Reason: Protocol Last Admin: 01/07/17 10:19 Dose: 100 mls/hr Losartan Potassium (Cozaar -) 50 mg PO HS [facility] Last Admin: 01/06/17 22:29 Dose: 50 mg Metoprolol Tartrate (Lopressor -) 50 mg PO BID [facility] Last Admin: 01/07/17 10:19 Dose: 50 mg Olanzapine (Zyprexa -) 5 mg PO HS [facility] Last Admin: 01/06/17 22:29 Dose: 5 mg Rosuvastatin Calcium (Crestor -) 5 mg PO HS [facility] Last Admin: 01/06/17 22:50 Dose: Not Given Warfarin Sodium (Coumadin -) 4 mg PO DAILY@1800 [facility] Last Admin: 01/06/17 17:25 Dose: Not Given - Objective Vital Signs: Vital Signs Temperature 97.9 F 01/07/17 09:42 Pulse Rate 97 H 01/07/17 09:42 Respiratory Rate 20 01/07/17 09:42 Blood Pressure 134/61 01/07/17 09:42 O2 Sat by Pulse Oximetry (%) 95 01/06/17 22:00 Neck: Yes: Supple Cardiovascular: Yes: Regular Rate and Rhythm, Murmur (2/6 DAMIEN), S1, S2 Respiratory: Yes: CTA Bilaterally Gastrointestinal: Yes: Normal Bowel Sounds, Soft. No: Tenderness Edema: No Labs: CBC, BMP 01/07/17 05:35 01/07/17 05:35 INR, PTT INR 2.94 (0.82-1.09) H 01/07/17 05:35 Problem List - Problems (1) Atrial fibrillation Code(s): I48.91 - UNSPECIFIED ATRIAL FIBRILLATION Qualifiers: Atrial fibrillation type: paroxysmal Qualified Code(s): I48.0 - Paroxysmal atrial fibrillation (2) CHF (congestive heart failure) Code(s): I50.9 - HEART FAILURE, UNSPECIFIED Qualifiers: Congestive heart failure type: diastolic Congestive heart failure chronicity: acute on chronic Qualified Code(s): I50.33 - Acute on chronic diastolic (congestive) heart failure (3) Cerebrovascular accident (CVA) Code(s): I63.9 - CEREBRAL INFARCTION, UNSPECIFIED Qualifiers: CVA mechanism: unspecified Qualified Code(s): I63.9 - Cerebral infarction, unspecified (4) Coronary artery disease Code(s): I25.10 - ATHSCL HEART DISEASE OF [place] CORONARY ARTERY W/O ANG PCTRS Qualifiers: Coronary Disease-Associated Artery/Lesion type: [place] artery [place] vs. transplanted heart: [place] heart Associated angina: without angina Qualified Code(s): I25.10 - Atherosclerotic heart disease of [place] coronary artery without angina pectoris (5) Diastolic dysfunction without heart failure Code(s): I51.9 - HEART DISEASE, UNSPECIFIED (6) Hyperlipidemia Code(s): E78.5 - HYPERLIPIDEMIA, UNSPECIFIED Qualifiers: Hyperlipidemia type: pure hypercholesterolemia Qualified Code(s): E78.00 - Pure hypercholesterolemia, unspecified; E78.0 - Pure hypercholesterolemia (7) Hypertension Code(s): I10 - ESSENTIAL (PRIMARY) HYPERTENSION Qualifiers: Hypertension type: essential hypertension Qualified Code(s): I10 - Essential (primary) hypertension (8) Severe aortic valve stenosis Code(s): I35.0 - NONRHEUMATIC AORTIC (VALVE) STENOSIS (9) Dementia Code(s): F03.90 - UNSPECIFIED DEMENTIA WITHOUT BEHAVIORAL DISTURBANCE Qualifiers: Dementia type: unspecified type Dementia behavioral disturbance: without behavioral disturbance Qualified Code(s): F03.90 - Unspecified dementia without behavioral disturbance Assessment/Plan 1. Severe aortic valve stenosis - previously had declined TAVR 2. Cerebrovascular disease with history of stroke resulting in right side weakness, expressive aphasia and facial droop 3. Paroxysmal atrial fibrillation now remains in sinus rhythm [id number] score of 8 4. Hypertension/hypertensive cardiovascular disease 5. Hypercholesterolemia 6. CAD 7. 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 Continue Metoprolol and Losartan as tolerated 2. Continue Warfarin - keep INR 2-3 3. Patient had refused TAVR. Transthoracic echocardiography with severe noted 4. Continue Aricept 5. Continue Crestor 6. Continue to optimize medical therapy Further plans are to follow. João Heck MD
--- NOTE | 2017-01-07 11:43 | DS ---
Physical Examination Vital Signs: Vital Signs Temperature 36.6 C 01/07/17 09:42 Pulse Rate 97 H 01/07/17 09:42 Respiratory Rate 20 01/07/17 09:42 Blood Pressure 134/61 01/07/17 09:42 O2 Sat by Pulse Oximetry (%) 95 01/06/17 22:00 Constitutional: Yes: Well Nourished, No Distress, Calm Cardiovascular: Yes: Pulse Irregular, Murmur. No: Tachycardia, Gallop, Rub Respiratory: Yes: Regular, CTA Bilaterally. No: Rales, Rhonchi, Wheezes Gastrointestinal: Yes: Normal Bowel Sounds, Soft. No: Distention, Tenderness Extremities: Yes: WNL Edema: No Labs: CBC, BMP 01/07/17 05:35 01/07/17 05:35 Discharge Summary Reason For Visit: NEAR SYNCOPE Current Active Problems Allergy to multiple antibiotics (Acute) Dementia (Acute) Hydronephrosis, left (Acute) Near syncope (Acute) Hospital Course: (1) Near syncope Code(s): R55 - SYNCOPE AND COLLAPSE (2) Atrial fibrillation Code(s): I48.91 - UNSPECIFIED ATRIAL FIBRILLATION Qualifiers: Qualified Code(s): I48.0 - Paroxysmal atrial fibrillation (3) Cerebrovascular accident (CVA) Code(s): I63.9 - CEREBRAL INFARCTION, UNSPECIFIED Qualifiers: Qualified Code(s): I63.9 - Cerebral infarction, unspecified (4) Coronary artery disease Code(s): I25.10 - ATHSCL HEART DISEASE OF [place] CORONARY ARTERY W/O ANG PCTRS Qualifiers: Qualified Code(s): I25.10 - Atherosclerotic heart disease of [place] coronary artery without angina pectoris (5) Hypertension Code(s): I10 - ESSENTIAL (PRIMARY) HYPERTENSION Qualifiers: Qualified Code(s): I10 - Essential (primary) hypertension (6) Severe aortic valve stenosis Code(s): I35.0 - NONRHEUMATIC AORTIC (VALVE) STENOSIS (7) UTI (urinary tract infection) Code(s): N39.0 - URINARY TRACT INFECTION, SITE NOT SPECIFIED Ms Emanuel is a very pleasant 86 year old female with history of aphasia secondary to CVA who comes in with near syncope and was found to have a UTI. She was first admitted under observation for near syncope, this is most likely secondary to her severe aortic stenosis. However she made her wishes known prior to her CVA that she did not desire to have a TAVR and her family was made aware this hospital stay that she could be entering end stage aortic stenosis. While here she was found to have a UTI but has multiple drug allergies. She was seen by ID and started on aztreonam. She received a full course of aztreonam while here. She had afib with tachycardia and was followed by cardiology. Her metoprolol was increased and this controlled her heart rate. She is therapeutic on her coumadin and safe for discharge to SNF for PT 38 minutes spent in preparation of this discharge Condition: Stable - Instructions Diet, Activity, Other Instructions: soft diet. Up with assistance, further activity per PT at SNF. FALL RISK PRECAUTIONS AT SNF SINCE PATIENT IS THERAPEUTIC ON COUMADIN AND AT RISK FOR FALLS/SYNCOPE SECONDARY TO AORTIC STENOSIS. Referrals: Thony Reed MD [Primary Care Provider] - Disposition: [facility] - Home Medications Comprehensive Discharge Medication List: Ambulatory Orders Warfarin Na [Coumadin -] 5 mg PO SUMOWEFRSA 07/26/15 Acetaminophen [Tylenol .Regular Strength -] 650 mg PO Q4H PRN #0 tablet Docusate Sodium [Colace -] 100 mg PO BID PRN #0 capsule 07/31/15 Olanzapine [Zyprexa -] 5 mg PO HS tablet 07/31/15 Warfarin Na [Coumadin -] 2.5 mg PO TUFR 12/29/16 Ascorbic Acid [Vitamin C -] 500 mg PO DAILY tablet 01/07/17 Bacitracin - [Bacitracin Topical Ointment -] 1 applic TP BID tube 01/07/17 Donepezil HCl [Aricept -] 5 mg PO DAILY tablet 01/07/17 Ferrous Sulfate [Feosol] 325 mg PO DAILY tablet 01/07/17 Losartan Potassium [Cozaar -] 50 mg PO HS tablet 01/07/17 Metoprolol Tartrate [Lopressor -] 50 mg PO BID tablet 01/07/17 Rosuvastatin [Crestor -] 5 mg PO HS tablet 01/07/17
== END 2017-01-07 15:03 | DRG 307 ==
LOC: JER 10:20 → JERBED 14:10 → J4W 18:12 → OBSVTOIN 12-31 09:21 → J4W 01-01 18:15
PROVIDERS: ADMIT Internal Medicine; ATTEND Internal Medicine
DX: I35.0 Nonrheumatic aortic (valve) stenosis (principal); J98.11 Atelectasis; N39.0 Urinary tract infection, site not specified; N13.30 Unspecified hydronephrosis; R47.01 Aphasia; F03.90 Unspecified dementia, unspecified severity, without behavioral disturbance, psychotic disturbance, mood disturbance, and anxiety; E78.00 Pure hypercholesterolemia, unspecified; I69.320 Aphasia following cerebral infarction; R55 Syncope and collapse; I95.1 Orthostatic hypotension; R50.9 Fever, unspecified; I48.0 Paroxysmal atrial fibrillation; I11.0 Hypertensive heart disease with heart failure; I50.9 Heart failure, unspecified; D50.8 Other iron deficiency anemias; B96.89 Other specified bacterial agents as the cause of diseases classified elsewhere; I25.10 Atherosclerotic heart disease of native coronary artery without angina pectoris; E88.09 Other disorders of plasma-protein metabolism, not elsewhere classified; I35.1 Nonrheumatic aortic (valve) insufficiency; L89.612 Pressure ulcer of right heel, stage 2; Z88.1 Allergy status to other antibiotic agents; E83.39 Other disorders of phosphorus metabolism; N94.89 Other specified conditions associated with female genital organs and menstrual cycle; Z79.01 Long term (current) use of anticoagulants
CPT/HCPCS: 36415; 70450-TC; 71010-TC; 74176-TC; 76775-TC; 80048; 80053; 80061; 81003; 81015; 82553; 82728; 83540; 83550; 83690; 83721; 83735; 83880; 84100; 84484; 85025; 85027; 85610; 87040; 87086; 87186; 93005; 93010; 93306-TC; 93880-TC; 97116-GP; 97161-GP; 99285-25; G0378

== ENCOUNTER 2017-02-06 08:40 | Inpatient (IN) | payer OTHER, BC ==
[2017-02-06] MEDS ORDERED: SODIUM CHLORIDE 1,000 ML IV STA (09:13)
[2017-02-06 09:20] VITALS: BMI 27.1
[2017-02-06 09:47] LABS: BASOPHIL 0.3 % (0-2.0); EOSINOPHIL 0.3 % (0-4.5); MCH 28.8 pg (25.7-33.7); MCHC 32.9 g/dl (32.0-36.0); MEAN CELL VOLUME 87.5 fl (80-96); MEAN PLT VOLUME 10.2 fl (7.5-11.1); NEUTROPHILS 78.8 % (42.8-82.8); PLATELET COUNT 199 K/MM3 (134-434); RDW 14.2 % (11.6-15.6); WHITE BLOOD COUNT 9.9 K/mm3 (4.0-10.0)
[2017-02-06 09:49] LABS: URINE APPEARANCE TURBID; URINE BILIRUBIN NEGATIVE (NEGATIVE); URINE BLOOD 2+ (NEGATIVE); URINE COLOR YELLOW; URINE GLUCOSE (UA) NEGATIVE (NEGATIVE); URINE KETONE TRACE (NEGATIVE); URINE NITRITE POSITIVE (NEGATIVE); URINE UROBILINOGEN NEGATIVE mg/dL (0.2-1.0)
[2017-02-06 09:51] LABS: URINE PROTEIN 2+ (NEGATIVE)
[2017-02-06 09:55] LABS: URINE BACTERIA MODERATE /hpf (NONE SEEN); URINE MUCUS RARE; URINE RBC 21 /hpf (0-3); URINE WBC 3353 /hpf (3-5)
[2017-02-06] MEDS ORDERED: AZTREONAM 1 GM in DEXTROSE 5%-WATER - 50 ML IVPB ONE (09:56)
[2017-02-06 10:06] LABS: INR 2.88 (0.82-1.09); PROTHROMBIN TIME (PATIENT) 32.5 SEC (9.98-11.88)
[2017-02-06 10:09] LABS: ACTIVATED PTT 44.3 SECONDS (26.9-34.4)
[2017-02-06 10:15] LABS: ALBUMIN 2.7 g/dl (3.4-5.0); ANION GAP 9 (8-16); BILIRUBIN,TOTAL 0.5 mg/dL (0.2-1.0); CALCIUM 8.6 mg/dL (8.5-10.1); CO2 26 mmol/L (21-32); CREATININE 0.8 mg/dL (0.55-1.02); GLUCOSE,RANDOM 102 mg/dL (74-106); SGOT/AST 30 U/L (15-37); SGPT/ALT 30 U/L (12-78); TOT PROT 6.4 g/dl (6.4-8.2)
[2017-02-06 10:19] LABS: ALK PHOS 93 U/L (45-117); CPK 34 IU/L (26-192); TROPONIN I 0.06 ng/ml (0.00-0.05)
--- NOTE | 2017-02-06 10:24 | PDOC ---
*Physical Exam - Vital Signs Last Vital Signs Temp Pulse Resp BP Pulse Ox 101.4 F H 134 H 16 112/69 96 02/06/17 09:00 02/06/17 09:52 02/06/17 09:52 02/06/17 09:52 02/06/17 09:52 02/06/17 11:05 Vitals: Triage Vital signs reviewed General Appearance: no acute distress, well nourished well developed, Head: Atraumatic, Neck: Supple;No Nucal rigidity Chest Wall: Nontender Cardiac: Regular rate and rhythym Lungs: Clear to auscultation bilateral, good air movement bilaterally, Abdomen: Soft, non distended, normal bowel sounds, non tender to palpation Extremities: Full range of motion to all extremities, no cyanosis, clubbing, or edema Skin: Warm and dry, no rashes or lesions, no rash, no petechiae] - Physical Exam Comments: 02/06/17 10:23 Vitals: Triage Vital signs reviewed General Appearance: no acute distress, well nourished well developed, Head: Atraumatic, Neck: Supple;No Nucal rigidity Chest Wall: Nontender Cardiac: Regular rate and rhythym Lungs: Clear to auscultation bilateral, good air movement bilaterally, Abdomen: Soft, non distended, normal bowel sounds, non tender to palpation Extremities: Full range of motion to all extremities, no cyanosis, clubbing, or edema Skin: Warm and dry, no rashes or lesions, no rash, no petechiae Psych: normal mood, normal affect ED Treatment Course - LABORATORY CBC & Chemistry Diagram: 02/06/17 09:00 02/06/17 09:00 - ADDITIONAL ORDERS Additional order review: Laboratory Results 02/06/17 02/06/17 02/06/17 09:13 09:00 09:00 Sodium 138 Potassium 3.8 Chloride 103 Carbon Dioxide 26 D Anion Gap 9 BUN 28 H Creatinine 0.8 Creat Clearance w eGFR > 60 Random Glucose 102 Lactic Acid 1.2 Calcium 8.6 Total Bilirubin 0.5 D AST 30 ALT 30 Alkaline Phosphatase 93 Creatine Kinase 34 Troponin I 0.06 H Total Protein 6.4 Albumin 2.7 L Urine Color Yellow Urine Appearance Turbid Urine pH 5.0 Urine Protein 2+ H Urine Glucose (UA) Negative Urine Ketones Trace H Urine Blood 2+ H Urine Nitrite Positive Urine Bilirubin Negative Urine Urobilinogen Negative Urine RBC 21 Urine WBC 3353 Urine Bacteria Moderate Urine Mucus Rare 02/06/17 09:00 Influenza Types A,B Antigen ([place]) - Final Nasopharyngeal Swab - Final 02/06/17 09:00 RBC 3.59 L MCV 87.5 MCHC 32.9 RDW 14.2 MPV 10.2 Neutrophils % 78.8 D Lymphocytes % 9.2 D Monocytes % 11.4 H Eosinophils % 0.3 D Basophils % 0.3 - Medications Given in the ED: ED Medications Discontinued Medications Generic Name Dose Route Start Last Admin Trade Name Freq PRN Reason Stop Dose Admin Sodium Chloride 1,000 mls @ 1,000 mls/hr 02/06/17 09:13 02/06/17 09:40 Normal Saline - IV 02/06/17 10:12 1,000 mls/hr ASDIR STA Administration Progress Note - Progress Note Progress Note: 86 years POSITIVE urinalysis for UTI with Sirs criteria. We will hydrate antibiotics and admit for further management Medical Decision Making - Medical Decision Making 02/06/17 11:05 86 years old presents to the emergency department with fever A. fib with RVR borderline low blood pressure. IV fluids ordered. On laboratory analysis urinalysis positive. Given multiple ALLERGIES Aztreonam ordered. *DC/Admit/Observation/Transfer Diagnosis at time of Disposition: Sepsis, UTI (urinary tract infection) - Referrals Referrals: Thony Reed MD [Primary Care Provider] -
--- NOTE | 2017-02-06 10:53 | PDOC ---
History of Present Illness - General Chief Complaint: SIRS, Suspected/Possible Stated Complaint: FEVER Time Seen by Provider: 02/06/17 09:06 History Source: Patient, Detention Records, Other (daughter) Exam Limitations: No Limitations - History of Present Illness Initial Comments: 02/06/17 10:05 86 yr old female presents to ED with complaints of fever, chills and weakness. Patient is a [facility] a [facility] who had a recorded temperature of 102.2 and administer Tylenol. Patient arrives tachycardic and a blood pressure of 104/57. Patient had septic workup initiated. Patient has no complaints at this time. Patient does have history of A. fib currently on Coumadin. Patient also with recent UTI last month. 02/06/17 10:57 Timing/Duration: unsure Severity: moderate Associated Symptoms: reports: fever/chills, weakness Past History - Travel Traveled outside of the country in the last 30 days: No Close contact w/someone who was outside of country & ill: No - Past Medical History Allergies/Adverse Reactions: Allergies Allergy/AdvReac Type Severity Reaction Status Date / Time Penicillins Allergy Intermediate Verified 02/06/17 09:22 methylprednisolone acetate Allergy Swelling Verified 02/06/17 09:22 [From Depo-Medrol] ofloxacin [From Floxin] Allergy Verified 02/06/17 09:22 Home Medications: Ambulatory Orders Olanzapine [Zyprexa -] 5 mg PO HS tablet 07/31/15 Ascorbic Acid [Vitamin C -] 500 mg PO DAILY tablet 01/07/17 Donepezil HCl [Aricept -] 5 mg PO DAILY tablet 01/07/17 Ferrous Sulfate [Feosol] 325 mg PO DAILY tablet 01/07/17 Metoprolol Tartrate [Lopressor -] 50 mg PO BID tablet 01/07/17 Acetaminophen [Tylenol .Regular Strength -] 650 mg PO BID 02/06/17 Acetaminophen [Tylenol] 650 mg PO QID PRN 02/06/17 Docusate Sodium [Colace -] 200 mg PO BID 02/06/17 Escitalopram Oxalate [Lexapro -] 5 mg PO DAILY 02/06/17 Hypromellose 0.5% Opth Soln [Artificial Tears] 1 drop OU BID 02/06/17 Losartan Potassium [Cozaar] 50 mg PO HS 02/06/17 Polyethylene Glycol 3350 [Miralax (For Daily Use) -] 17 gm PO DAILY 02/06/17 Simvastatin [Zocor -] 20 mg PO HS 02/06/17 Warfarin Sodium [Coumadin] 3 mg PO DAILY 02/06/17 Cardiac Disorders: Yes CVA: Yes Dementia: Yes HTN: Yes Hypercholesterolemia: Yes - Immunization History Immunization Up to Date: Yes - Suicide/Smoking/Psychosocial Hx Smoking Status: Yes Smoking History: Never smoked Have you smoked in the past 12 months: No Number of Cigarettes Smoked Daily: 0 If you are a former smoker, when did you quit?: long time ago Hx Alcohol Use: No Drug/Substance Use Hx: No Substance Use Type: None Patient Lives Alone: No Lives with[facility]in: [facility] Review of Systems - Review of Systems Able to Perform ROS?: No Is the patient limited Bulgarian proficient: No Constitutional: Yes: Fever, Weakness HEENTM: No: Symptoms Reported Respiratory: No: Symptoms reported Cardiac (ROS): No: Symptoms Reported ABD/GI: No: Symptoms Reported : No: Symptoms Reported Musculoskeletal: No: Symptoms Reported Integumentary: No: Symptoms Reported Neurological: No: Symptoms reported Hematologic/Lymphatic: No: Symptoms Reported *Physical Exam - Vital Signs Last Vital Signs Temp Pulse Resp BP Pulse Ox 101.4 F H 134 H 16 112/69 96 02/06/17 09:00 02/06/17 09:52 02/06/17 09:52 02/06/17 09:52 02/06/17 09:52 - Physical Exam General Appearance: Yes: Nourished, Appropriately Dressed. No: Apparent Distress HEENT: positive: EOMI, JONNA, Pharynx Normal. negative: Pale Conjunctivae Neck: positive: Supple Respiratory/Chest: positive: Lungs Clear, Normal Breath Sounds. negative: Respiratory Distress, Accessory Muscle Use Cardiovascular: positive: Regular Rhythm, Tachycardia. negative: Murmur Gastrointestinal/Abdominal: positive: Soft. negative: Tenderness Extremity: positive: Normal Capillary Refill. negative: Pedal Edema Integumentary: positive: Normal Color, Dry, Warm Neurologic: positive: Motor Strength 5/5 Heart Score/ECG Review - ECG Impressions Tachycardia: Afib w/rapid Vent rate (Rate 136.) ED Treatment Course - LABORATORY CBC & Chemistry Diagram: 02/06/17 09:00 02/06/17 09:00 - ADDITIONAL ORDERS Additional order review: Laboratory Results 02/06/17 02/06/17 02/06/17 09:13 09:00 09:00 WBC RBC Hgb Hct MCV MCH MCHC RDW Plt Count MPV Neutrophils % Lymphocytes % Monocytes % Eosinophils % Basophils % PT with INR INR PTT (Actin FS) Sodium 138 Potassium 3.8 Chloride 103 Carbon Dioxide 26 D Anion Gap 9 BUN 28 H Creatinine 0.8 Creat Clearance w eGFR > 60 Random Glucose 102 Lactic Acid 1.2 Calcium 8.6 Total Bilirubin 0.5 D AST 30 ALT 30 Alkaline Phosphatase 93 Creatine Kinase 34 Troponin I 0.06 H Total Protein 6.4 Albumin 2.7 L Urine Color Yellow Urine Appearance Turbid Urine pH 5.0 Urine Protein 2+ H Urine Glucose (UA) Negative Urine Ketones Trace H Urine Blood 2+ H Urine Nitrite Positive Urine Bilirubin Negative Urine Urobilinogen Negative Urine RBC 21 Urine WBC 3353 Urine Bacteria Moderate Urine Mucus Rare 02/06/17 02/06/17 09:00 09:00 WBC 9.9 D RBC 3.59 L Hgb 10.3 L Hct 31.4 L MCV 87.5 MCH 28.8 MCHC 32.9 RDW 14.2 Plt Count 199 D MPV 10.2 Neutrophils % 78.8 D Lymphocytes % 9.2 D Monocytes % 11.4 H Eosinophils % 0.3 D Basophils % 0.3 PT with INR 32.50 H INR 2.88 H PTT (Actin FS) 44.3 H Sodium Potassium Chloride Carbon Dioxide Anion Gap BUN Creatinine Creat Clearance w eGFR Random Glucose Lactic Acid Calcium Total Bilirubin AST ALT Alkaline Phosphatase Creatine Kinase Troponin I Total Protein Albumin Urine Color Urine Appearance Urine pH Urine Protein Urine Glucose (UA) Urine Ketones Urine Blood Urine Nitrite Urine Bilirubin Urine Urobilinogen Urine RBC Urine WBC Urine Bacteria Urine Mucus 02/06/17 09:00 Influenza Types A,B Antigen ([place]) - Final Nasopharyngeal Swab - Final 02/06/17 09:00 RBC 3.59 L MCV 87.5 MCHC 32.9 RDW 14.2 MPV 10.2 Neutrophils % 78.8 D Lymphocytes % 9.2 D Monocytes % 11.4 H Eosinophils % 0.3 D Basophils % 0.3 - RADIOLOGY Radiology Studies Ordered: Category Date Time Status CHEST X-RAY PORTABLE* [RAD] Stat Radiology 02/06/17 09:13 Completed - Medications Given in the ED: ED Medications Discontinued Medications Generic Name Dose Route Start Last Admin Trade Name Freq PRN Reason Stop Dose Admin Sodium Chloride 1,000 mls @ 1,000 mls/hr 02/06/17 09:13 02/06/17 09:40 Normal Saline - IV 02/06/17 10:12 1,000 mls/hr ASDIR STA Administration Medical Decision Making - Medical Decision Making 02/06/17 10:00 Patient here for evaluation of fever, weakness and was tachycardic upon arrival. Patient ordered for septic workup. Urine was obtained via straight catheterization. Influenza ordered. Patient last month was admitted for urinary tract infection and was treated with azactam as recommendations from Dr. Horn. 02/06/17 11:02 Laboratory Tests 02/06/17 02/06/17 02/06/17 09:00 09:00 09:00 WBC 9.9 D Hgb 10.3 L Hct 31.4 L MCV 87.5 Plt Count 199 D Neutrophils % 78.8 D Monocytes % 11.4 H PT with INR 32.50 H INR 2.88 H PTT (Actin FS) 44.3 H Sodium 138 Potassium 3.8 Chloride 103 Carbon Dioxide 26 D Anion Gap 9 BUN 28 H Creatinine 0.8 Random Glucose 102 Lactic Acid Calcium 8.6 Total Bilirubin 0.5 D AST 30 ALT 30 Troponin I 0.06 H Albumin 2.7 L Urine Ketones Urine Blood Urine Nitrite Ur Leukocyte Esterase Urine RBC Urine WBC 02/06/17 02/06/17 09:00 09:13 WBC Hgb Hct MCV Plt Count Neutrophils % Monocytes % PT with INR INR PTT (Actin FS) Sodium Potassium Chloride Carbon Dioxide Anion Gap BUN Creatinine Random Glucose Lactic Acid 1.2 Calcium Total Bilirubin AST ALT Troponin I Albumin Urine Ketones Trace H Urine Blood 2+ H Urine Nitrite Positive Ur Leukocyte Esterase Pending Urine RBC 21 Urine WBC 3353 influenza negative. patient admitted to Dr. Branch, med surg unit *DC/Admit/Observation/Transfer Diagnosis at time of Disposition: Sepsis, UTI (urinary tract infection) - Discharge Dispostion Admit: Yes - Referrals Referrals: Thony Reed MD [Primary Care Provider] -
[2017-02-06] MEDS ORDERED: ONDANSETRON 4 MG/2 ML VIAL IVPUSH PRN (10:58)
--- NOTE | 2017-02-06 11:02 | HP ---
Admitting History and Physical - Primary Care Physician PCP: Thony Reed - Admission Chief Complaint: unable to obtain History of Present Illness: Ms Emanuel is a very pleasant 86 year old female who [facility] with [facility]vers and concern for sepsis. She is s/p stroke with aphasia, and while she can communicate she cannot give a history. She complains of her back hurting secondary to the bed and that she wants to get up. Otherwise history and review of systems is unobtainable. However daughter is at the bedside and gives history. She says that Ms Emanuel was doing well at the SNF. She was walking with a walker with the hopes that she would be released this week. However earlier this week she began to get very weak. She also began to have fevers and because of this she was brought in for further evaluation. 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 Cardiovascular: Yes: AFIB, Aortic Stenosis, HTN, Hyperlipdemia - Past Surgical History Past Surgical History: Yes: None - Smoking History Smoking history: Never smoked Have you smoked in the past 12 months: No Aproximately how many cigarettes per day: 0 If you are a former smoker, when did you quit?: long time ago - Alcohol/Substance Use Hx Alcohol Use: No History of Substance Use: reports: None - Social History Usual Living Arrangement: Yes: With Child ADL: Support Services (lives alone) History of Recent Travel: No Home Medications - Allergies Allergies/Adverse Reactions: Allergies Allergy/AdvReac Type Severity Reaction Status Date / Time Penicillins Allergy Intermediate Verified 02/06/17 09:22 methylprednisolone acetate Allergy Swelling Verified 02/06/17 09:22 [From Depo-Medrol] ofloxacin [From Floxin] Allergy Verified 02/06/17 09:22 - Home Medications Home Medications: Ambulatory Orders Olanzapine [Zyprexa -] 5 mg PO HS tablet 07/31/15 Ascorbic Acid [Vitamin C -] 500 mg PO DAILY tablet 01/07/17 Donepezil HCl [Aricept -] 5 mg PO DAILY tablet 01/07/17 Ferrous Sulfate [Feosol] 325 mg PO DAILY tablet 01/07/17 Metoprolol Tartrate [Lopressor -] 50 mg PO BID tablet 01/07/17 Acetaminophen [Tylenol .Regular Strength -] 650 mg PO BID 02/06/17 Acetaminophen [Tylenol] 650 mg PO QID PRN 02/06/17 Docusate Sodium [Colace -] 200 mg PO BID 02/06/17 Escitalopram Oxalate [Lexapro -] 5 mg PO DAILY 02/06/17 Hypromellose 0.5% Opth Soln [Artificial Tears] 1 drop OU BID 02/06/17 Losartan Potassium [Cozaar] 50 mg PO HS 02/06/17 Polyethylene Glycol 3350 [Miralax (For Daily Use) -] 17 gm PO DAILY 02/06/17 Simvastatin [Zocor -] 20 mg PO HS 02/06/17 Warfarin Sodium [Coumadin] 3 mg PO DAILY 02/06/17 Family Disease History - Family Disease History Family History: Unremarkable Review of Systems Unable to obtain ROS, reason: old CVA Physical Examination Vital Signs: Vital Signs Temperature 38.6 C H 02/06/17 09:00 Pulse Rate 134 H 02/06/17 09:52 Respiratory Rate 16 02/06/17 09:52 Blood Pressure 112/69 02/06/17 09:52 O2 Sat by Pulse Oximetry (%) 96 02/06/17 09:52 Constitutional: Yes: Well Nourished, No Distress, Calm Eyes: Yes: Conjunctiva Clear, EOM Intact, PERRL HENT: Yes: Atraumatic, Normocephalic Cardiovascular: Yes: Tachycardia, Pulse Irregular, Murmur. No: Gallop, Rub Respiratory: Yes: Regular, CTA Bilaterally. No: Rales, Rhonchi, Wheezes Gastrointestinal: Yes: Normal Bowel Sounds, Soft. No: Distention, Tenderness Extremities: Yes: Other (R heel ulcer) Edema: No Labs: CBC, BMP 02/06/17 09:00 02/06/17 09:00 Imaging - Results Chest X-ray: Report Reviewed, Image Reviewed Problem List - Problems (1) Sepsis Assessment/Plan: -secondary to UTI, bacteria pending -admit to telemetry secondary to tachycardia -hydration for sepsis -received aztreonam in the ED, was on last time -ID consulted for antibiotics Code(s): A41.9 - SEPSIS, UNSPECIFIED ORGANISM (2) UTI (urinary tract infection) Assessment/Plan: -recurrent -? secondary to wearing diapers -admit to telemetry -follow up blood and urine cultures -ID as above Code(s): N39.0 - URINARY TRACT INFECTION, SITE NOT SPECIFIED Qualifiers: Urinary tract infection type: acute cystitis Hematuria presence: without hematuria Qualified Code(s): N30.00 - Acute cystitis without hematuria; N30.00 - Acute cystitis without hematuria (3) Atrial fibrillation Assessment/Plan: -with rvr -secondary to sepsis -will continue metoprolol at this time -hydration -cardiology consult -continue coumadin, daily INR Code(s): I48.91 - UNSPECIFIED ATRIAL FIBRILLATION Qualifiers: Atrial fibrillation type: chronic Qualified Code(s): I48.2 - Chronic atrial fibrillation; I48.2 - Chronic atrial fibrillation; I48.2 - Chronic atrial fibrillation; I48.2 - Chronic atrial fibrillation (4) Cerebrovascular accident (CVA) Assessment/Plan: -chronic -with aphasia Code(s): I63.9 - CEREBRAL INFARCTION, UNSPECIFIED Qualifiers: CVA mechanism: unspecified Qualified Code(s): I63.9 - Cerebral infarction, unspecified; I63.9 - Cerebral infarction, unspecified; I63.9 - Cerebral infarction, unspecified; I63.9 - Cerebral infarction, unspecified (5) Diastolic dysfunction without heart failure Assessment/Plan: -not in exacerbation -holding diuretics currently Code(s): I51.9 - HEART DISEASE, UNSPECIFIED (6) Hyperlipidemia Assessment/Plan: -continue lipitor Code(s): E78.5 - HYPERLIPIDEMIA, UNSPECIFIED Qualifiers: Hyperlipidemia type: pure hypercholesterolemia Qualified Code(s): E78.00 - Pure hypercholesterolemia, unspecified; E78.00 - Pure hypercholesterolemia, unspecified; E78.00 - Pure hypercholesterolemia, unspecified; E78.0 - Pure hypercholesterolemia (7) Hypertension Assessment/Plan: -continue cozaar with hold parameters Code(s): I10 - ESSENTIAL (PRIMARY) HYPERTENSION Qualifiers: Hypertension type: essential hypertension Qualified Code(s): I10 - Essential (primary) hypertension; I10 - Essential (primary) hypertension; I10 - Essential (primary) hypertension (8) Severe aortic valve stenosis Assessment/Plan: -patient declined TAVR in past -at risk for sudden , patient and family aware Code(s): I35.0 - NONRHEUMATIC AORTIC (VALVE) STENOSIS
[2017-02-06] MEDS: SODIUM CHLORIDE 1,000 ML IV SCH (11:06)
--- NOTE | 2017-02-06 11:31 | CON.CARD ---
Consult Consult Specialty:: Cardiology Referred by:: Salvador Branch MD Reason for Consultation:: , Afib - History of Present Illness Chief Complaint: Fever History of Present Illness: Patient is an 86 year old female with history of hypertension, hypercholesterolemia, aortic stenosis declining TAVR, cerebrovascular disease, atrial fibrillation on Coumadin therapy and underlying dementia, recent e. coli and Klebsiella UTI who presents with complaints of fever, chills and weakness, temperature of 102.2 and tachycardia, septic workup initiated. Patient has no complaints at this time. 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 Cardio/Vascular: Yes: AFIB, Aortic Stenosis, HTN, Hyperlipdemia - Past Surgical History Past Surgical History: Yes: None - Alcohol/Substance Use Hx Alcohol Use: No History of Substance Use: reports: None - Smoking History Smoking history: Never smoked Have you smoked in the past 12 months: No Aproximately how many cigarettes per day: 0 If you are a former smoker, when did you quit?: long time ago - Social History Usual Living Arrangement: Alone ADL: Support Services (lives alone) History of Recent Travel: No Home Medications - Allergies Allergies/Adverse Reactions: Allergies Allergy/AdvReac Type Severity Reaction Status Date / Time Penicillins Allergy Intermediate Verified 02/06/17 09:22 methylprednisolone acetate Allergy Swelling Verified 02/06/17 09:22 [From Depo-Medrol] ofloxacin [From Floxin] Allergy Verified 02/06/17 09:22 - Home Medications Home Medications: Ambulatory Orders Olanzapine [Zyprexa -] 5 mg PO HS tablet 07/31/15 Ascorbic Acid [Vitamin C -] 500 mg PO DAILY tablet 01/07/17 Donepezil HCl [Aricept -] 5 mg PO DAILY tablet 01/07/17 Ferrous Sulfate [Feosol] 325 mg PO DAILY tablet 01/07/17 Metoprolol Tartrate [Lopressor -] 50 mg PO BID tablet 01/07/17 Acetaminophen [Tylenol .Regular Strength -] 650 mg PO BID 02/06/17 Acetaminophen [Tylenol] 650 mg PO QID PRN 02/06/17 Docusate Sodium [Colace -] 200 mg PO BID 02/06/17 Escitalopram Oxalate [Lexapro -] 5 mg PO DAILY 02/06/17 Hypromellose 0.5% Opth Soln [Artificial Tears] 1 drop OU BID 02/06/17 Losartan Potassium [Cozaar] 50 mg PO HS 02/06/17 Polyethylene Glycol 3350 [Miralax (For Daily Use) -] 17 gm PO DAILY 02/06/17 Simvastatin [Zocor -] 20 mg PO HS 02/06/17 Warfarin Sodium [Coumadin] 3 mg PO DAILY 02/06/17 Review of Systems Unable to obtain ROS, reason: Dementia Vital Signs: Vital Signs Temperature 101.4 F H 02/06/17 09:00 Pulse Rate 116 H 02/06/17 11:12 Respiratory Rate 18 02/06/17 11:12 Blood Pressure 103/63 02/06/17 11:12 O2 Sat by Pulse Oximetry (%) 100 02/06/17 11:12 Constitutional: Yes: No Distress, Calm Neck: Yes: Supple Respiratory: Yes: Regular, Diminished Gastrointestinal: Yes: Normal Bowel Sounds, Soft Cardiovascular: Yes: Tachycardia JVD: No Carotid Bruit: No Heart Sounds: Yes: S1, S2 Murmur: Yes: Systolic Murmur, Grade 2 Edema: No - Other Data Labs, Other Data: INR, PTT INR 2.88 (0.82-1.09) H 02/06/17 09:00 ST @ 104 RBBB Ejection Fraction %: LVEF > or = 40 % Imaging - Results Chest X-ray: Report Reviewed (NAD) Problem List - Problems (1) Dementia Code(s): F03.90 - UNSPECIFIED DEMENTIA WITHOUT BEHAVIORAL DISTURBANCE Qualifiers: Dementia type: unspecified type Dementia behavioral disturbance: without behavioral disturbance Qualified Code(s): F03.90 - Unspecified dementia without behavioral disturbance; F03.90 - Unspecified dementia without behavioral disturbance; F03.90 - Unspecified dementia without behavioral disturbance (2) UTI (urinary tract infection) Code(s): N39.0 - URINARY TRACT INFECTION, SITE NOT SPECIFIED Qualifiers: Urinary tract infection type: site unspecified Hematuria presence: without hematuria Qualified Code(s): N39.0 - Urinary tract infection, site not specified; N39.0 - Urinary tract infection, site not specified; R31.9 - Hematuria, unspecified; R31.9 - Hematuria, unspecified (3) Anticoagulated on Coumadin Code(s): Z51.81 - ENCOUNTER FOR THERAPEUTIC DRUG LEVEL MONITORING Z79.01 - 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 (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) USE OF ANTICOAGULANTS (4) Atrial fibrillation Code(s): I48.91 - UNSPECIFIED ATRIAL FIBRILLATION Qualifiers: Atrial fibrillation type: paroxysmal Qualified Code(s): I48.0 - Paroxysmal atrial fibrillation; I48.0 - Paroxysmal atrial fibrillation; I48.0 - Paroxysmal atrial fibrillation; I48.0 - Paroxysmal atrial fibrillation (5) Cerebrovascular accident (CVA) Code(s): I63.9 - CEREBRAL INFARCTION, UNSPECIFIED Qualifiers: CVA mechanism: unspecified Qualified Code(s): I63.9 - Cerebral infarction, unspecified; I63.9 - Cerebral infarction, unspecified; I63.9 - Cerebral infarction, unspecified; I63.9 - Cerebral infarction, unspecified (6) Coronary artery disease Code(s): I25.10 - ATHSCL HEART DISEASE OF [place] CORONARY ARTERY W/O ANG PCTRS Qualifiers: Coronary Disease-Associated Artery/Lesion type: [place] artery [place] vs. transplanted heart: [place] heart Associated angina: without angina Qualified Code(s): I25.10 - Atherosclerotic heart disease of [place] coronary artery without angina pectoris; I25.10 - Atherosclerotic heart disease of [place] coronary artery without angina pectoris; I25.10 - Atherosclerotic heart disease of [place] coronary artery without angina pectoris (7) Diastolic dysfunction without heart failure Code(s): I51.9 - HEART DISEASE, UNSPECIFIED (8) Fever Code(s): R50.9 - FEVER, UNSPECIFIED Qualifiers: Fever type: unspecified Qualified Code(s): R50.9 - Fever, unspecified; R50.9 - Fever, unspecified (9) Hyperlipidemia Code(s): E78.5 - HYPERLIPIDEMIA, UNSPECIFIED Qualifiers: Hyperlipidemia type: pure hypercholesterolemia Qualified Code(s): E78.00 - Pure hypercholesterolemia, unspecified; E78.00 - Pure hypercholesterolemia, unspecified; E78.00 - Pure hypercholesterolemia, unspecified; E78.0 - Pure hypercholesterolemia (10) Hypertension Code(s): I10 - ESSENTIAL (PRIMARY) HYPERTENSION Qualifiers: Hypertension type: essential hypertension Qualified Code(s): I10 - Essential (primary) hypertension; I10 - Essential (primary) hypertension; I10 - Essential (primary) hypertension (11) Severe aortic valve stenosis Code(s): I35.0 - NONRHEUMATIC AORTIC (VALVE) STENOSIS Assessment/Plan 12/20/2016 Echo: Normal LV size and fxn with mild cLVH, mild LAE, mild MR, TR, AR , OR severe MG 54 mmHg, HERLINDA 0.6 cm^2 1. Fever, sepsis source 2. Severe aortic valve stenosis - previously had declined TAVR 3. Cerebrovascular disease with history of stroke resulting in right side weakness, expressive aphasia and facial droop 4. Paroxysmal atrial fibrillation now remains in sinus rhythm [id number] score of 8 with therapeutic INR 5. Hypertension/hypertensive cardiovascular disease 6. Hypercholesterolemia 7. CAD 8. 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 Empiric abx course per C&S 2. Continue Metoprolol 50 bid and Losartan 50 qd as tolerated 3. Continue Warfarin - keep INR 2-3 4. Patient had previously refused TAVR. Transthoracic echocardiography with severe noted 5. Change Zocor 20 qhs to Lipitor 20 qhs formulary compliance 6. Thank you for consultative opportunity
--- NOTE | 2017-02-06 12:31 | CONSULT ---
Consultation: CONSULT REQUEST: INFECTIOUS DISEASE HISTORY OF PRESENT ILLNESS: Pt is an 86yo F with PMHx of Afib (on Coumadin), Severe Aortic Stenosis, CVA with expressive aphasia, prior UTI treated in [facility] last month, who presented to the ER from [facility] due to fevers/chills. Much of the history was obtained from her daughter who is at bedside. Pt is at [facility] at [facility] [[email or web address] receiving physical therapy and daughter notes that she had been weak and more confused for the past couple of days. Today the NH noted rigors and fevers (T 102.2). The patient denies headaches, URI sx, CP, SOB, cough, diarrhea, constipation, but attests to dysuria (unable to say how long). Pt was last seen in the hospital 1 month ago for near syncopal episode and found to have UTI (earl-sensitive E.coli and Klebsiella) at that time, treated with Aztreonam (due to Penicillin allergy) . She denies recent instrumentation or incontinence. Daughter states that patient uses diaper in the [place], and not allowed to walk to bathroom on her own. In the ER, the patient was febrile (T 101.4), normotensive, in rapid Afib (HR 134). UA showed >3,000 WBC and moderate bacteria. In addition to rate controlling medications, she was given Aztreonam 1g x1. Home Medication List Medication Instructions Recorded Confirmed Type Acetaminophen [Tylenol .Regular 650 mg PO BID 02/06/17 02/06/17 History Strength -] Acetaminophen [Tylenol] 650 mg PO QID PRN 02/06/17 02/06/17 History Docusate Sodium [Colace -] 200 mg PO BID 02/06/17 02/06/17 History Escitalopram Oxalate [Lexapro -] 5 mg PO DAILY 02/06/17 02/06/17 History Hypromellose 0.5% Opth Soln 1 drop OU BID 02/06/17 02/06/17 History [Artificial Tears] Losartan Potassium [Cozaar] 50 mg PO HS 02/06/17 02/06/17 History Polyethylene Glycol 3350 [Miralax 17 gm PO DAILY 02/06/17 02/06/17 History (For Daily Use) -] Simvastatin [Zocor -] 20 mg PO HS 02/06/17 02/06/17 History Warfarin Sodium [Coumadin] 3 mg PO DAILY 02/06/17 02/06/17 History REVIEW OF SYSTEMS: See HPI, difficult to assess due to expressive aphasia and dementia PHYSICAL EXAMINATION Vital Signs Temperature 101.4 F H 02/06/17 09:00 Pulse Rate 116 H 02/06/17 11:12 Respiratory Rate 18 02/06/17 11:12 Blood Pressure 103/63 02/06/17 11:12 O2 Sat by Pulse Oximetry (%) 100 02/06/17 11:12 GEN: Awake, alert, expressive aphasia, difficult to assess orientation due to daughter filling in answers HEENT: CHERYLRRENITA EOMi CV: S1, S2, irregularly irregular rhythm, 4/6 systolic murmur best herd in RUSB LUNG: Bibasilar crackles ABD: Soft, uncomfortable to palpation in suprapubic region, no flank tenderness MSK: No edema, no erythema Active Medications Generic Name Dose Route Start Last Admin Trade Name Freq PRN Reason Stop Dose Admin Acetaminophen 650 mg 02/06/17 10:58 Tylenol - PO Q4H PRN FEVER OR PAIN Ascorbic Acid 500 mg 02/07/17 10:00 Vitamin C - PO DAILY ANGIE Donepezil HCl 5 mg 02/07/17 10:00 Aricept - PO DAILY ANGIE Ferrous Sulfate 325 mg 02/07/17 10:00 Feosol - PO DAILY ANGIE Sodium Chloride 1,000 mls @ 75 mls/hr 02/06/17 11:00 02/06/17 11:06 Normal Saline - IV 75 mls/hr ASDIR ANGIE Administration Lactobacillus Acidophilus 1 tab 02/07/17 10:00 Bacid - PO DAILY ANGIE Losartan Potassium 50 mg 02/06/17 22:00 Cozaar - PO HS ANGIE Metoprolol Tartrate 50 mg 02/06/17 22:00 Lopressor - PO BID ANGIE Non-Formulary Medication 5 mg 02/07/17 10:00 Escitalopram Oxalate [Lexapro -] PO DAILY ANGIE Non-Formulary Medication 1 drop 02/06/17 22:00 Hypromellose 0.5% Opth Soln [Artificial Tears] OU BID ANGIE Non-Formulary Medication 20 mg 02/06/17 22:00 Simvastatin PO HS ANGIE Olanzapine 5 mg 02/06/17 22:00 Zyprexa - PO HS ANGIE Ondansetron HCl 4 mg 02/06/17 10:58 Zofran Injection IVPUSH Q6H PRN NAUSEA Polyethylene Glycol 17 gm 02/07/17 10:00 Miralax (For Daily Use) - PO DAILY [facility] Warfarin Sodium 3 mg 02/07/17 10:00 Coumadin - PO DAILY ANGIE CBC, BMP 02/06/17 09:00 02/06/17 09:00 Microbiology 02/06/17 09:00 Nasopharyngeal Swab Influenza Types A,B Antigen ([place]) - Final NEGATIVE 12/30/16 23:30 Urine - Urine Clean Catch Urine Culture - Final (PRIOR CULTURES) Escherichia Coli Klebsiella Pneumoniae ASSESSMENT/PLAN: Pt is an 86yo F with PMHx of Afib (on Coumadin), Severe Aortic Stenosis, CVA with expressive aphasia, prior UTI treated in [facility] last month, who presented to the ER from [facility] due to fevers/chills. She was found to have +UA and suprapubic tenderness, consistent with UTI. #UTI - Likely contributed by wearing diaper in [place] - S/p Aztreonam 1g, though pen allergic, has taken Cephalosporin in past with no reaction, will start Cefepime 1g Q8H - F/u urine culture - No concern for pyelo ethan Discussed w/ Dr Horn. Will follow. Igor Gallo MD - PGY1 Infectious Disease Visit type - Emergency Visit Emergency Visit: No - New Patient This patient is new to me today: No - Critical Care Critical Care patient: No
--- NOTE | 2017-02-06 12:59 | EKG ---
Test Reason : Blood Pressure : / mmHG Vent. Rate : 136 BPM Atrial Rate : 166 BPM P-R Int : 000 ms QRS Dur : 120 ms QT Int : 326 ms P-R-T Axes : 000 019 -22 degrees QTc Int : 490 ms ATRIAL FIBRILLATION WITH RAPID VENTRICULAR RESPONSE RIGHT BUNDLE BRANCH BLOCK T WAVE ABNORMALITY, CONSIDER INFERIOR ISCHEMIA ABNORMAL ECG WHEN COMPARED WITH ECG OF 29-DEC-2016 10:38, ATRIAL FIBRILLATION HAS REPLACED SINUS RHYTHM VENT. RATE HAS INCREASED BY [address] NOW DEPRESSED IN ANTEROLATERAL LEADS Confirmed by CATALINA GIBBS MD ([id number]) on 02/06/2017 12:58:41 PM Referred By: Confirmed By:CATALINA GIBBS MD
[2017-02-06 13:36] LABS: VENOUS BLOOD GAS HCO3 22.9 meq/L (19-25); VENOUS PH 7.49 (7.32-7.42)
[2017-02-06] MEDS ORDERED: CEFEPIME HCL 1 GM VIAL (RESTRICTED TO ID) IVPB SCH (15:15)
--- NOTE | 2017-02-06 15:17 | PN ---
Teaching Attending Note Name of Resident: Igor Gallo ATTENDING PHYSICIAN STATEMENT I saw and evaluated the patient. I reviewed the resident's note and discussed the case with the resident. I agree with the resident's findings and plan as documented. SUBJECTIVE: sent with fever from SNF +pyuria OBJECTIVE: Vital Signs Period Temp Pulse Resp BP Sys/Maynard Pulse Ox Last 24 Hr 101.4 F 116-135 16-18 103-112/57-69 96-100 cor-rrr lungs clear abd soft, nt right heel with soft callus CBC, BMP 02/06/17 09:00 02/06/17 09:00 ASSESSMENT AND PLAN: fever uti pen /quinolone allergies recent azactam Problem List - Problems (1) Fever Code(s): R50.9 - FEVER, UNSPECIFIED Qualifiers: Fever type: unspecified Qualified Code(s): R50.9 - Fever, unspecified; R50.9 - Fever, unspecified (2) UTI (urinary tract infection) Code(s): N39.0 - URINARY TRACT INFECTION, SITE NOT SPECIFIED Qualifiers: Urinary tract infection type: acute cystitis Hematuria presence: without hematuria Qualified Code(s): N30.00 - Acute cystitis without hematuria; N30.00 - Acute cystitis without hematuria (3) Allergy to multiple antibiotics Code(s): Z88.1 - ALLERGY STATUS TO OTHER ANTIBIOTIC AGENTS STATUS
[2017-02-06 15:31] LABS: URINE LEUK ESTERASE 3+ (NEGATIVE)
[2017-02-06] MEDS ORDERED: CEFEPIME 100 ML IVPB ONE ×2 (16:45→16:51)
[2017-02-06] MEDS ORDERED: CEFEPIME 1 GM in DEXTROSE 5%-WATER - 100 ML IVPB SCH ×2 (16:45→17:00)
[2017-02-06] MEDS ORDERED: VANCOMYCIN 1 GRAM (PRE-DOCKED) 1,000 MG/250 ML BAG IVPB SCH ×2 (17:00)
[2017-02-06] MEDS: ATORVASTATIN CA 10 MG TABLET (FP) PO SCH (22:02)
[2017-02-06] MEDS: LOSARTAN POTASSIUM 50 MG TABLET (FP) PO SCH (22:02)
[2017-02-06] MEDS: METOPROLOL TARTRATE 50 MG TABLET (FP) PO SCH (22:02)
[2017-02-06] MEDS: ARTIFICIAL TEARS (POLYVINYL ALCOHOL 1.4%) OPTH DROPS OU SCH (22:02)
[2017-02-06] MEDS: OLANZapine 5 MG TABLET PO SCH (22:40)
[2017-02-07] MEDS: SODIUM CHLORIDE 1,000 ML IV SCH ×2 (03:11→16:30)
[2017-02-07] MEDS: CEFEPIME 1 GM in DEXTROSE 5%-WATER - 100 ML IVPB SCH ×2 (05:35→17:06)
[2017-02-07 06:51] LABS: MCH 28.9 pg (25.7-33.7); MCHC 33.2 g/dl (32.0-36.0); MEAN CELL VOLUME 87.1 fl (80-96); MEAN PLT VOLUME 10.3 fl (7.5-11.1); PLATELET COUNT 175 K/MM3 (134-434); RDW 13.8 % (11.6-15.6); WHITE BLOOD COUNT 10.8 K/mm3 (4.0-10.0)
[2017-02-07 07:01] LABS: ANION GAP 8 (8-16); CO2 27 mmol/L (21-32); CREATININE 0.6 mg/dL (0.55-1.02); GLUCOSE,RANDOM 106 mg/dL (74-106); MAGNESIUM 1.8 mg/dL (1.8-2.4); PHOSPHOROUS 2.5 mg/dL (2.5-4.9)
[2017-02-07 07:02] LABS: INR 2.8 (0.82-1.09); PROTHROMBIN TIME (PATIENT) 31.6 SEC (9.98-11.88)
[2017-02-07] MEDS ORDERED: PT OWN MED DRAWER 7, Y5N ONE ×3 (09:37→21:22)
[2017-02-07] MEDS: ARTIFICIAL TEARS (POLYVINYL ALCOHOL 1.4%) OPTH DROPS OU SCH ×2 (09:40→21:24)
[2017-02-07] MEDS: DONEPEZIL HCL 5 MG TABLET (FP) PO SCH (09:40)
[2017-02-07] MEDS: ASCORBIC ACID 500 MG TABLET (FP) PO SCH (09:40)
[2017-02-07] MEDS: METOPROLOL TARTRATE 50 MG TABLET (FP) PO SCH ×2 (09:40→21:25)
[2017-02-07] MEDS: FERROUS SO4 325 MG TABLET (FP) PO SCH (09:40)
[2017-02-07] MEDS: LACTOBACILLUS ACIDOPHILUS 1 EACH TAB (FP) PO SCH (09:40)
[2017-02-07] MEDS: ESCITALOPRAM OXALATE 10 MG TABLET (FP) PO SCH (09:40)
[2017-02-07] MEDS: POLYETHYLENE GLYCOL 3350 119 GM BTL PO SCH (09:41)
--- NOTE | 2017-02-07 10:41 | PN ---
Progress Note, Physician History of Present Illness: Afebrile, tachycardia resolved, sensorium improved. - Current Medication List Current Medications: Active Medications Acetaminophen (Tylenol -) 650 mg PO Q4H PRN PRN Reason: FEVER OR PAIN Artificial Tears (Artificial Tears) 1 drop OU BID [facility] Last Admin: 02/07/17 09:40 Dose: 1 drop Ascorbic Acid (Vitamin C -) 500 mg PO DAILY [facility] Last Admin: 02/07/17 09:40 Dose: 500 mg Atorvastatin Calcium (Lipitor -) 10 mg PO HS [facility] Last Admin: 02/06/17 22:02 Dose: 10 mg Donepezil HCl (Aricept -) 5 mg PO DAILY [facility] Last Admin: 02/07/17 09:40 Dose: 5 mg Escitalopram Oxalate (Lexapro -) 5 mg PO DAILY [facility] Last Admin: 02/07/17 09:40 Dose: 5 mg Ferrous Sulfate (Feosol -) 325 mg PO DAILY [facility] Last Admin: 02/07/17 09:40 Dose: 325 mg Sodium Chloride (Normal Saline -) 1,000 mls @ 75 mls/hr IV ASDIR [facility] Last Admin: 02/07/17 03:11 Dose: 75 mls/hr Cefepime HCl 1 gm/ Dextrose 100 mls @ 200 mls/hr IVPB BID@06,18 [facility] Last Admin: 02/07/17 05:35 Dose: 200 mls/hr Lactobacillus Acidophilus (Bacid -) 1 tab PO DAILY [facility] Last Admin: 02/07/17 09:40 Dose: 1 tab Losartan Potassium (Cozaar -) 50 mg PO HS [facility] Last Admin: 02/06/17 22:02 Dose: 50 mg Metoprolol Tartrate (Lopressor -) 50 mg PO BID [facility] Last Admin: 02/07/17 09:40 Dose: 50 mg Olanzapine (Zyprexa -) 5 mg PO HS [facility] Last Admin: 02/06/17 22:40 Dose: 5 mg Ondansetron HCl (Zofran Injection) 4 mg IVPUSH Q6H PRN PRN Reason: NAUSEA Polyethylene Glycol (Miralax (For Daily Use) -) 17 gm PO DAILY [facility] Last Admin: 02/07/17 09:41 Dose: 17 grams Vancomycin HCl (Vancomycin (Pre-Docked)) 1,000 mg IVPB DAILY [facility] PRN Reason: Protocol Last Admin: 02/06/17 17:50 Dose: 1,000 mg Warfarin Sodium (Coumadin -) 3 mg PO DAILY@1800 ANGIE - Objective Vital Signs: Vital Signs Temperature 98.4 F 02/07/17 09:33 Pulse Rate 64 02/07/17 09:33 Respiratory Rate 18 02/07/17 09:33 Blood Pressure 119/55 02/07/17 09:33 O2 Sat by Pulse Oximetry (%) 94 L 02/06/17 21:00 Constitutional: Yes: No Distress, Calm Neck: Yes: Supple Cardiovascular: Yes: Regular Rate and Rhythm, Murmur (2/6 SM) Respiratory: Yes: Regular, Diminished Gastrointestinal: Yes: Normal Bowel Sounds, Soft, Abdomen, Obese Edema: Yes Edema: LLE: Trace, RLE: Trace Labs: CBC, BMP 02/07/17 05:45 02/07/17 05:45 INR, PTT INR 2.80 (0.82-1.09) H 02/07/17 05:45 Problem List - Problems (1) Dementia Code(s): F03.90 - UNSPECIFIED DEMENTIA WITHOUT BEHAVIORAL DISTURBANCE Qualifiers: Dementia type: unspecified type Dementia behavioral disturbance: without behavioral disturbance Qualified Code(s): F03.90 - Unspecified dementia without behavioral disturbance; F03.90 - Unspecified dementia without behavioral disturbance; F03.90 - Unspecified dementia without behavioral disturbance (2) UTI (urinary tract infection) Code(s): N39.0 - URINARY TRACT INFECTION, SITE NOT SPECIFIED Qualifiers: Urinary tract infection type: acute cystitis Hematuria presence: without hematuria Qualified Code(s): N30.00 - Acute cystitis without hematuria; N30.00 - Acute cystitis without hematuria (3) Anticoagulated on Coumadin Code(s): Z51.81 - ENCOUNTER FOR THERAPEUTIC DRUG LEVEL MONITORING Z79.01 - LEAD POURER (CURRENT) USE OF ANTICOAGULANTS (4) Atrial fibrillation Code(s): I48.91 - UNSPECIFIED ATRIAL FIBRILLATION Qualifiers: Atrial fibrillation type: chronic Qualified Code(s): I48.2 - Chronic atrial fibrillation; I48.2 - Chronic atrial fibrillation; I48.2 - Chronic atrial fibrillation; I48.2 - Chronic atrial fibrillation (5) Cerebrovascular accident (CVA) Code(s): I63.9 - CEREBRAL INFARCTION, UNSPECIFIED Qualifiers: CVA mechanism: unspecified Qualified Code(s): I63.9 - Cerebral infarction, unspecified; I63.9 - Cerebral infarction, unspecified; I63.9 - Cerebral infarction, unspecified; I63.9 - Cerebral infarction, unspecified (6) Coronary artery disease Code(s): I25.10 - ATHSCL HEART DISEASE OF [place] CORONARY ARTERY W/O ANG PCTRS Qualifiers: Coronary Disease-Associated Artery/Lesion type: [place] artery Tribe vs. transplanted heart: [place] heart Associated angina: without angina Qualified Code(s): I25.10 - Atherosclerotic heart disease of [place] coronary artery without angina pectoris; I25.10 - Atherosclerotic heart disease of [place] coronary artery without angina pectoris; I25.10 - Atherosclerotic heart disease of [place] coronary artery without angina pectoris (7) Diastolic dysfunction without heart failure Code(s): I51.9 - HEART DISEASE, UNSPECIFIED (8) Fever Code(s): R50.9 - FEVER, UNSPECIFIED Qualifiers: Fever type: unspecified Qualified Code(s): R50.9 - Fever, unspecified; R50.9 - Fever, unspecified (9) Hyperlipidemia Code(s): E78.5 - HYPERLIPIDEMIA, UNSPECIFIED Qualifiers: Hyperlipidemia type: pure hypercholesterolemia Qualified Code(s): E78.00 - Pure hypercholesterolemia, unspecified; E78.00 - Pure hypercholesterolemia, unspecified; E78.00 - Pure hypercholesterolemia, unspecified; E78.0 - Pure hypercholesterolemia (10) Hypertension Code(s): I10 - ESSENTIAL (PRIMARY) HYPERTENSION Qualifiers: Hypertension type: essential hypertension Qualified Code(s): I10 - Essential (primary) hypertension; I10 - Essential (primary) hypertension; I10 - Essential (primary) hypertension (11) Severe aortic valve stenosis Code(s): I35.0 - NONRHEUMATIC AORTIC (VALVE) STENOSIS Assessment/Plan 12/20/2016 Echo: Normal LV size and fxn with mild cLVH, mild LAE, mild MR, TR, AR , TN severe MG 54 mmHg, HERLINDA 0.6 cm^2 1. Fever, sepsis source LFGNB improving 2. Severe aortic valve stenosis - previously had declined TAVR 3. Cerebrovascular disease with history of stroke resulting in right side weakness, expressive aphasia and facial droop 4. Paroxysmal atrial fibrillation now remains in sinus rhythm [id number] score of 8 with therapeutic INR 5. Hypertension/hypertensive cardiovascular disease 6. Hypercholesterolemia 7. CAD 8. 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 Empiric abx course per C&S 2. Continue Metoprolol 50 bid, Lipitor 10 qhs and Losartan 50 qd as tolerated 3. Continue Warfarin - keep INR 2-3 4. Patient had previously refused TAVR. Transthoracic echocardiography with severe noted
--- NOTE | 2017-02-07 10:59 | PN ---
Physical Exam: SUBJECTIVE: Patient seen and examined. Doing fin this AM. Denies fevers, chills , CP, SOB. OBJECTIVE: Vital Signs Period Temp Pulse Resp BP Sys/Maynard Pulse Ox Last 24 Hr 98.0 F-99.5 F 61-116 16-20 103-136/55-90 93-100 GEN: Awake, alert, expressive aphasia HEENT: PERRLA, EOMi CV: S1, S2, irregularly irregular rhythm, 4/6 systolic murmur best herd in RUSB LUNG: Bibasilar crackles ABD: Soft, nontender palpation in suprapubic region, no flank tenderness MSK: No edema, no erythema Active Medications Generic Name Dose Route Start Last Admin Trade Name Freq PRN Reason Stop Dose Admin Acetaminophen 650 mg 02/06/17 10:58 Tylenol - PO Q4H PRN FEVER OR PAIN Artificial Tears 1 drop 02/06/17 22:00 02/07/17 09:40 Artificial Tears OU 1 drop BID ANGIE Administration Ascorbic Acid 500 mg 02/07/17 10:00 02/07/17 09:40 Vitamin C - PO 500 mg DAILY ANGIE Administration Atorvastatin Calcium 10 mg 02/06/17 22:00 02/06/17 22:02 Lipitor - PO 10 mg HS ANGIE Administration Donepezil HCl 5 mg 02/07/17 10:00 02/07/17 09:40 Aricept - PO 5 mg DAILY ANGIE Administration Escitalopram Oxalate 5 mg 02/07/17 10:00 02/07/17 09:40 Lexapro - PO 5 mg DAILY ANGIE Administration Ferrous Sulfate 325 mg 02/07/17 10:00 02/07/17 09:40 Feosol - PO 325 mg DAILY ANGIE Administration Sodium Chloride 1,000 mls @ 75 mls/hr 02/06/17 11:00 02/07/17 03:11 Normal Saline - IV 75 mls/hr ASDIR ANGIE Administration Cefepime HCl 1 gm/ Dextrose 100 mls @ 200 mls/hr 02/07/17 06:00 02/07/17 05:35 IVPB 200 mls/hr BID@06,18 ANGIE Administration Lactobacillus Acidophilus 1 tab 02/07/17 10:00 02/07/17 09:40 Bacid - PO 1 tab DAILY ANGIE Administration Losartan Potassium 50 mg 02/06/17 22:00 02/06/17 22:02 Cozaar - PO 50 mg HS ANGIE Administration Metoprolol Tartrate 50 mg 02/06/17 22:00 02/07/17 09:40 Lopressor - PO 50 mg BID ANGIE Administration Olanzapine 5 mg 02/06/17 22:00 02/06/17 22:40 Zyprexa - PO 5 mg HS ANGIE Administration Ondansetron HCl 4 mg 02/06/17 10:58 Zofran Injection IVPUSH Q6H PRN NAUSEA Polyethylene Glycol 17 gm 02/07/17 10:00 02/07/17 09:41 Miralax (For Daily Use) - PO 17 grams DAILY ANGIE Administration Vancomycin HCl 1,000 mg 02/06/17 17:00 02/06/17 17:50 Vancomycin (Pre-Docked) IVPB 1,000 mg DAILY ANGIE Administration Protocol Warfarin Sodium 3 mg 02/07/17 18:00 Coumadin - PO DAILY@1800 [facility] CBC, BMP 02/07/17 05:45 02/07/17 05:45 Microbiology 02/06/17 09:00 Nasopharyngeal Swab Influenza Types A,B Antigen ([place]) - Final 02/06/17 09:00 Nasopharyngeal Swab - Final 02/06/17 09:13 Urine - Urine - Catheterized Urine Culture - Preliminary Lactose Fermenting Neg Bacilli 02/06/17 09:13 Blood - Peripheral Venous Blood Culture - Preliminary NO GROWTH OBTAINED AFTER 24 HOURS, INCUBATION TO CONTINUE FOR 4 DAYS. 02/06/17 09:00 Blood - Peripheral Venous Blood Culture - Preliminary NO GROWTH OBTAINED AFTER 24 HOURS, INCUBATION TO CONTINUE FOR 4 DAYS. ASSESSMENT/PLAN: Pt is an 86yo F with PMHx of Afib (on Coumadin), Severe Aortic Stenosis, CVA with expressive aphasia, prior UTI treated in [facility] last month, who presented to the ER from [facility] due to fevers/chills. She was found to have +UA and suprapubic tenderness, consistent with UTI. #UTI - Defervesced - Ucx showing LFGNB >100k CFU - Continue Cefepime 1g Q8H - No concern for pyelo ethan Discussed w/ Dr Horn. Will follow. Igor Gallo MD - PGY1 Infectious Disease Visit type - Emergency Visit Emergency Visit: No - New Patient This patient is new to me today: No - Critical Care Critical Care patient: No - Discharge Referral Referred to [facility] Med P.C.: No
--- NOTE | 2017-02-07 12:34 | PN ---
Teaching Attending Note Name of Resident: Igor Gallo ATTENDING PHYSICIAN STATEMENT I saw and evaluated the patient. I reviewed the resident's note and discussed the case with the resident. I agree with the resident's findings and plan as documented. SUBJECTIVE: alert no complaints OBJECTIVE: Vital Signs Period Temp Pulse Resp BP Sys/Maynard Pulse Ox Last 24 Hr 98.0 F-98.6 F 61-79 16-20 115-136/55-90 93-98 cor-rrr lungs clear abd soft,nt ext no edema CBC, BMP 02/07/17 05:45 02/07/17 05:45 Microbiology 02/06/17 09:13 Blood - Peripheral Venous Blood Culture - Preliminary NO GROWTH OBTAINED AFTER 24 HOURS, INCUBATION TO CONTINUE FOR 4 DAYS. 02/06/17 09:13 Urine - Urine - Catheterized Urine Culture - Preliminary Lactose Fermenting Neg Bacilli 02/06/17 09:00 Blood - Peripheral Venous Blood Culture - Preliminary NO GROWTH OBTAINED AFTER 24 HOURS, INCUBATION TO CONTINUE FOR 4 DAYS. 02/06/17 09:00 Nasopharyngeal Swab Influenza Types A,B Antigen ([place]) - Final 02/06/17 09:00 Nasopharyngeal Swab - Final ASSESSMENT AND PLAN: fevers resolved UTI- continue cefepime f/u cultures history of pcn and oflox allergies
--- NOTE | 2017-02-07 13:25 | PN ---
Progress Note, Physician Chief Complaint: Ms Emanuel says she is feeling better today. Unable to obtain further subjective secondary to aphasia but looks improved. - Current Medication List Current Medications: Active Medications Acetaminophen (Tylenol -) 650 mg PO Q4H PRN PRN Reason: FEVER OR PAIN Artificial Tears (Artificial Tears) 1 drop OU BID [facility] Last Admin: 02/07/17 09:40 Dose: 1 drop Ascorbic Acid (Vitamin C -) 500 mg PO DAILY [facility] Last Admin: 02/07/17 09:40 Dose: 500 mg Atorvastatin Calcium (Lipitor -) 10 mg PO HS [facility] Last Admin: 02/06/17 22:02 Dose: 10 mg Donepezil HCl (Aricept -) 5 mg PO DAILY [facility] Last Admin: 02/07/17 09:40 Dose: 5 mg Escitalopram Oxalate (Lexapro -) 5 mg PO DAILY [facility] Last Admin: 02/07/17 09:40 Dose: 5 mg Ferrous Sulfate (Feosol -) 325 mg PO DAILY [facility] Last Admin: 02/07/17 09:40 Dose: 325 mg Sodium Chloride (Normal Saline -) 1,000 mls @ 75 mls/hr IV ASDIR [facility] Last Admin: 02/07/17 03:11 Dose: 75 mls/hr Cefepime HCl 1 gm/ Dextrose 100 mls @ 200 mls/hr IVPB BID@06,18 [facility] Last Admin: 02/07/17 05:35 Dose: 200 mls/hr Lactobacillus Acidophilus (Bacid -) 1 tab PO DAILY [facility] Last Admin: 02/07/17 09:40 Dose: 1 tab Losartan Potassium (Cozaar -) 50 mg PO HS [facility] Last Admin: 02/06/17 22:02 Dose: 50 mg Metoprolol Tartrate (Lopressor -) 50 mg PO BID [facility] Last Admin: 02/07/17 09:40 Dose: 50 mg Olanzapine (Zyprexa -) 5 mg PO HS [facility] Last Admin: 02/06/17 22:40 Dose: 5 mg Ondansetron HCl (Zofran Injection) 4 mg IVPUSH Q6H PRN PRN Reason: NAUSEA Polyethylene Glycol (Miralax (For Daily Use) -) 17 gm PO DAILY [facility] Last Admin: 02/07/17 09:41 Dose: 17 grams Warfarin Sodium (Coumadin -) 3 mg PO DAILY@1800 [facility] - Objective Vital Signs: Vital Signs Temperature 36.9 C 02/07/17 09:33 Pulse Rate 64 02/07/17 09:33 Respiratory Rate 18 02/07/17 09:33 Blood Pressure 119/55 02/07/17 09:33 O2 Sat by Pulse Oximetry (%) 94 L 02/06/17 21:00 Constitutional: Yes: Well Nourished, No Distress, Calm Cardiovascular: Yes: Regular Rate and Rhythm, Murmur. No: Gallop, Rub Respiratory: Yes: Regular, CTA Bilaterally. No: Rales, Rhonchi, Wheezes Gastrointestinal: Yes: Normal Bowel Sounds, Soft. No: Distention, Tenderness Extremities: Yes: WNL Edema: No Labs: CBC, BMP 02/07/17 05:45 02/07/17 05:45 INR, PTT INR 2.80 (0.82-1.09) H 02/07/17 05:45 Problem List - Problems (1) Sepsis Code(s): A41.9 - SEPSIS, UNSPECIFIED ORGANISM (2) UTI (urinary tract infection) Code(s): N39.0 - URINARY TRACT INFECTION, SITE NOT SPECIFIED Qualifiers: Urinary tract infection type: acute cystitis Hematuria presence: without hematuria Qualified Code(s): N30.00 - Acute cystitis without hematuria; N30.00 - Acute cystitis without hematuria (3) Atrial fibrillation Code(s): I48.91 - UNSPECIFIED ATRIAL FIBRILLATION Qualifiers: Atrial fibrillation type: chronic Qualified Code(s): I48.2 - Chronic atrial fibrillation; I48.2 - Chronic atrial fibrillation; I48.2 - Chronic atrial fibrillation; I48.2 - Chronic atrial fibrillation (4) Cerebrovascular accident (CVA) Code(s): I63.9 - CEREBRAL INFARCTION, UNSPECIFIED Qualifiers: CVA mechanism: unspecified Qualified Code(s): I63.9 - Cerebral infarction, unspecified; I63.9 - Cerebral infarction, unspecified; I63.9 - Cerebral infarction, unspecified; I63.9 - Cerebral infarction, unspecified (5) Diastolic dysfunction without heart failure Code(s): I51.9 - HEART DISEASE, UNSPECIFIED (6) Hyperlipidemia Code(s): E78.5 - HYPERLIPIDEMIA, UNSPECIFIED Qualifiers: Hyperlipidemia type: pure hypercholesterolemia Qualified Code(s): E78.00 - Pure hypercholesterolemia, unspecified; E78.00 - Pure hypercholesterolemia, unspecified; E78.00 - Pure hypercholesterolemia, unspecified; E78.0 - Pure hypercholesterolemia (7) Hypertension Code(s): I10 - ESSENTIAL (PRIMARY) HYPERTENSION Qualifiers: Hypertension type: essential hypertension Qualified Code(s): I10 - Essential (primary) hypertension; I10 - Essential (primary) hypertension; I10 - Essential (primary) hypertension (8) Severe aortic valve stenosis Code(s): I35.0 - NONRHEUMATIC AORTIC (VALVE) STENOSIS Assessment/Plan (1) Sepsis Assessment/Plan: -appreciate ID assistance -improving with antibiotics and IVF Code(s): A41.9 - SEPSIS, UNSPECIFIED ORGANISM (2) UTI (urinary tract infection) Assessment/Plan: -recurrent -? secondary to wearing diapers -urine cultures growing gram negative rods -on cefepime per ID Code(s): N39.0 - URINARY TRACT INFECTION, SITE NOT SPECIFIED Qualifiers: Urinary tract infection type: acute cystitis Hematuria presence: without hematuria Qualified Code(s): N30.00 - Acute cystitis without hematuria; N30.00 - Acute cystitis without hematuria (3) Atrial fibrillation Assessment/Plan: -in sinus rhythm -appreciate cardiology assistance -continue metoprolol and coumadin Code(s): I48.91 - UNSPECIFIED ATRIAL FIBRILLATION Qualifiers: Atrial fibrillation type: chronic Qualified Code(s): I48.2 - Chronic atrial fibrillation; I48.2 - Chronic atrial fibrillation; I48.2 - Chronic atrial fibrillation; I48.2 - Chronic atrial fibrillation (4) Cerebrovascular accident (CVA) Assessment/Plan: -chronic -with aphasia Code(s): I63.9 - CEREBRAL INFARCTION, UNSPECIFIED Qualifiers: CVA mechanism: unspecified Qualified Code(s): I63.9 - Cerebral infarction, unspecified; I63.9 - Cerebral infarction, unspecified; I63.9 - Cerebral infarction, unspecified; I63.9 - Cerebral infarction, unspecified (5) Diastolic dysfunction without heart failure Assessment/Plan: -not in exacerbation -holding diuretics currently -possibly restart over the weekend Code(s): I51.9 - HEART DISEASE, UNSPECIFIED (6) Hyperlipidemia Assessment/Plan: -continue lipitor Code(s): E78.5 - HYPERLIPIDEMIA, UNSPECIFIED Qualifiers: Hyperlipidemia type: pure hypercholesterolemia Qualified Code(s): E78.00 - Pure hypercholesterolemia, unspecified; E78.00 - Pure hypercholesterolemia, unspecified; E78.00 - Pure hypercholesterolemia, unspecified; E78.0 - Pure hypercholesterolemia (7) Hypertension Assessment/Plan: -continue cozaar with hold parameters Code(s): I10 - ESSENTIAL (PRIMARY) HYPERTENSION Qualifiers: Hypertension type: essential hypertension Qualified Code(s): I10 - Essential (primary) hypertension; I10 - Essential (primary) hypertension; I10 - Essential (primary) hypertension (8) Severe aortic valve stenosis Assessment/Plan: -patient declined TAVR in past -at risk for sudden , patient and family aware Code(s): I35.0 - NONRHEUMATIC AORTIC (VALVE) STENOSIS
[2017-02-07] MEDS: WARFARIN NA 3 MG TABLET PO SCH (17:06)
[2017-02-07] MEDS: ACETAMINOPHEN 325 MG TABLET (FP) PO PRN (17:54)
[2017-02-07] MEDS ORDERED: VANCOMYCIN 1,000 MG in DEXTROSE 5%-WATER - 250 ML IVPB SCH (18:00)
[2017-02-07] MEDS: LOSARTAN POTASSIUM 50 MG TABLET (FP) PO SCH (21:25)
[2017-02-07] MEDS: OLANZapine 5 MG TABLET PO SCH (21:25)
[2017-02-07] MEDS: ATORVASTATIN CA 10 MG TABLET (FP) PO SCH (21:25)
[2017-02-08] MEDS: CEFEPIME 1 GM in DEXTROSE 5%-WATER - 100 ML IVPB SCH ×2 (05:27→17:04)
[2017-02-08] MEDS: ACETAMINOPHEN 325 MG TABLET (FP) PO PRN (05:32)
[2017-02-08] MEDS: SODIUM CHLORIDE 1,000 ML IV SCH ×3 (06:21→19:57)
[2017-02-08 08:44] LABS: INR 3.09 (0.82-1.09); PROTHROMBIN TIME (PATIENT) 34.9 SEC (9.98-11.88)
[2017-02-08 08:46] LABS: BASOPHIL 0.5 % (0-2.0); EOSINOPHIL 0.8 % (0-4.5); MCH 28.7 pg (25.7-33.7); MCHC 32.4 g/dl (32.0-36.0); MEAN CELL VOLUME 88.8 fl (80-96); MEAN PLT VOLUME 10.3 fl (7.5-11.1); NEUTROPHILS 77.1 % (42.8-82.8); PLATELET COUNT 182 K/MM3 (134-434); WHITE BLOOD COUNT 11.4 K/mm3 (4.0-10.0)
[2017-02-08 09:23] LABS: ANION GAP 9 (8-16); CO2 23 mmol/L (21-32); CREATININE 0.6 mg/dL (0.55-1.02); GLUCOSE,RANDOM 122 mg/dL (74-106); MAGNESIUM 1.8 mg/dL (1.8-2.4)
[2017-02-08] MEDS ORDERED: PT OWN MED DRAWER 7, Y5N ONE ×2 (10:19→16:28)
[2017-02-08] MEDS: LACTOBACILLUS ACIDOPHILUS 1 EACH TAB (FP) PO SCH (10:24)
--- NOTE | 2017-02-08 10:24 | PN ---
Progress Note, Physician History of Present Illness: No acute distress Not verbally responsive Low grade temp BC (-) Urine LF - Current Medication List Current Medications: Active Medications Acetaminophen (Tylenol -) 650 mg PO Q4H PRN PRN Reason: FEVER OR PAIN Last Admin: 02/08/17 05:32 Dose: 650 mg Artificial Tears (Artificial Tears) 1 drop OU BID [facility] Last Admin: 02/07/17 21:24 Dose: 1 drop Ascorbic Acid (Vitamin C -) 500 mg PO DAILY [facility] Last Admin: 02/07/17 09:40 Dose: 500 mg Atorvastatin Calcium (Lipitor -) 10 mg PO HS [facility] Last Admin: 02/07/17 21:25 Dose: 10 mg Donepezil HCl (Aricept -) 5 mg PO DAILY [facility] Last Admin: 02/07/17 09:40 Dose: 5 mg Escitalopram Oxalate (Lexapro -) 5 mg PO DAILY [facility] Last Admin: 02/07/17 09:40 Dose: 5 mg Ferrous Sulfate (Feosol -) 325 mg PO DAILY [facility] Last Admin: 02/07/17 09:40 Dose: 325 mg Sodium Chloride (Normal Saline -) 1,000 mls @ 75 mls/hr IV ASDIR [facility] Last Admin: 02/08/17 06:21 Dose: 75 mls/hr Cefepime HCl 1 gm/ Dextrose 100 mls @ 200 mls/hr IVPB BID@06,18 [facility] Last Admin: 02/08/17 05:27 Dose: 200 mls/hr Lactobacillus Acidophilus (Bacid -) 1 tab PO DAILY [facility] Last Admin: 02/07/17 09:40 Dose: 1 tab Losartan Potassium (Cozaar -) 50 mg PO HS [facility] Last Admin: 02/07/17 21:25 Dose: 50 mg Metoprolol Tartrate (Lopressor -) 50 mg PO BID [facility] Last Admin: 02/07/17 21:25 Dose: 50 mg Olanzapine (Zyprexa -) 5 mg PO HS [facility] Last Admin: 02/07/17 21:25 Dose: 5 mg Ondansetron HCl (Zofran Injection) 4 mg IVPUSH Q6H PRN PRN Reason: NAUSEA Polyethylene Glycol (Miralax (For Daily Use) -) 17 gm PO DAILY [facility] Last Admin: 02/07/17 09:41 Dose: 17 grams Warfarin Sodium (Coumadin -) 3 mg PO DAILY@1800 [facility] Last Admin: 02/07/17 17:06 Dose: 3 mg - Objective Vital Signs: Vital Signs Temperature 99.2 F 02/08/17 06:33 Pulse Rate 78 02/08/17 06:00 Respiratory Rate 18 02/08/17 06:00 Blood Pressure 140/65 02/08/17 06:00 O2 Sat by Pulse Oximetry (%) 98 02/07/17 20:08 Constitutional: Yes: No Distress, Obese Eyes: Yes: Conjunctiva Clear Cardiovascular: Yes: Regular Rate and Rhythm, Murmur, S1, S2 Respiratory: Yes: Diminished Gastrointestinal: Yes: Normal Bowel Sounds, Soft. No: Tenderness Edema: Yes Labs: CBC, BMP 02/08/17 06:00 02/08/17 06:00 INR, PTT INR 3.09 (0.82-1.09) H 02/08/17 06:00 Assessment/Plan Low grade fever UTI S/P CVA PCN/FQ allergies Await urine c/s Continue cefepime
[2017-02-08] MEDS: FERROUS SO4 325 MG TABLET (FP) PO SCH (10:25)
[2017-02-08] MEDS: DONEPEZIL HCL 5 MG TABLET (FP) PO SCH (10:25)
[2017-02-08] MEDS: ASCORBIC ACID 500 MG TABLET (FP) PO SCH (10:25)
[2017-02-08] MEDS: METOPROLOL TARTRATE 50 MG TABLET (FP) PO SCH ×2 (10:25→22:03)
[2017-02-08] MEDS: POLYETHYLENE GLYCOL 3350 119 GM BTL PO SCH (10:26)
[2017-02-08] MEDS: ESCITALOPRAM OXALATE 10 MG TABLET (FP) PO SCH (10:26)
--- NOTE | 2017-02-08 11:02 | PN ---
Progress Note (short form) - Note Progress Note: Chief Complaint: Events noted, notes reviewed, denies any chest pain or dyspnea , expressive aphasia is persistent History of Present Illness: Seen and examined. Events noted, notes reviewed, denies any chest pain or dyspnea, expressive aphasia is persistent Medications: Current Medications Acetaminophen (Tylenol -) 650 mg PO Q4H PRN PRN Reason: FEVER OR PAIN Last Admin: 02/08/17 05:32 Dose: 650 mg Artificial Tears (Artificial Tears) 1 drop OU BID [facility] Last Admin: 02/07/17 21:24 Dose: 1 drop Ascorbic Acid (Vitamin C -) 500 mg PO DAILY [facility] Last Admin: 02/08/17 10:25 Dose: 500 mg Atorvastatin Calcium (Lipitor -) 10 mg PO HS [facility] Last Admin: 02/07/17 21:25 Dose: 10 mg Donepezil HCl (Aricept -) 5 mg PO DAILY [facility] Last Admin: 02/08/17 10:25 Dose: 5 mg Escitalopram Oxalate (Lexapro -) 5 mg PO DAILY [facility] Last Admin: 02/08/17 10:26 Dose: 5 mg Ferrous Sulfate (Feosol -) 325 mg PO DAILY [facility] Last Admin: 02/08/17 10:25 Dose: 325 mg Sodium Chloride (Normal Saline -) 1,000 mls @ 75 mls/hr IV ASDIR [facility] Last Admin: 02/08/17 06:21 Dose: 75 mls/hr Cefepime HCl 1 gm/ Dextrose 100 mls @ 200 mls/hr IVPB BID@06,18 [facility] Last Admin: 02/08/17 05:27 Dose: 200 mls/hr Lactobacillus Acidophilus (Bacid -) 1 tab PO DAILY [facility] Last Admin: 02/08/17 10:24 Dose: 1 tab Losartan Potassium (Cozaar -) 50 mg PO HS [facility] Last Admin: 02/07/17 21:25 Dose: 50 mg Metoprolol Tartrate (Lopressor -) 50 mg PO BID [facility] Last Admin: 02/08/17 10:25 Dose: 50 mg Olanzapine (Zyprexa -) 5 mg PO HS [facility] Last Admin: 02/07/17 21:25 Dose: 5 mg Ondansetron HCl (Zofran Injection) 4 mg IVPUSH Q6H PRN PRN Reason: NAUSEA Polyethylene Glycol (Miralax (For Daily Use) -) 17 gm PO DAILY [facility] Last Admin: 02/08/17 10:26 Dose: 17 grams Warfarin Sodium (Coumadin -) 3 mg PO DAILY@1800 [facility] Last Admin: 02/07/17 17:06 Dose: 3 mg Vital Signs: Last Vital Signs Temp Pulse Resp BP Pulse Ox 99.2 F 78 18 140/65 98 02/08/17 06:33 02/08/17 06:00 02/08/17 06:00 02/08/17 06:00 02/07/17 20:08 Intake & Output 02/05/17 02/06/17 02/07/17 02/08/17 23:59 23:59 23:59 23:59 Intake Total 600 2190 700 Balance 600 2190 700 Weight 148 lb Constitutional: No Distress, Calm Neck: Supple Negative JVD No Bruit Respiratory: Clear to A&P Bilaterally Cardiovascular: S1 S2 Regular Rate and Rhythm Grade 3/6 DAMIEN Gastrointestinal: Soft Benign Normal Bowel Sounds Ext: No Edema Labs: CBC, BMP 02/08/17 06:00 02/08/17 06:00 INR, PTT INR 3.09 (0.82-1.09) H 02/08/17 06:00 Assessment/Plan ASSESSMENT: 1. Uro-sepsis, resolving 2. Severe/critical aortic valve stenosis, previously declined TAVR 3. CAD angina pectoris, stable 4. LV diastolic dysfunction with chronic class I NYHA classification LV failure , compensated/euvolemic 5. Paroxysmal atrial fibrillation currently in sinus rhythm [id number] score of 8 with therapeutic INR 6. History of cerebro-vascular disease with with residual deficit 7. Hypertension/hypertensive cardiovascular disease 8. Hypercholesterolemia 9. Anemia PLAN: 1. Antibiotics as per the primary team 2. Continue Lopressor 3. Continue Losartan 4. Continue Lipitor 5. Continue Coumadin and maintain INR 2-3 with close monitoring of CBC Pam Pulliam M.D.
[2017-02-08] MEDS: ARTIFICIAL TEARS (POLYVINYL ALCOHOL 1.4%) OPTH DROPS OU SCH ×2 (11:41→22:03)
--- NOTE | 2017-02-08 13:32 | PN ---
Progress Note, Physician Chief Complaint: No new complaints, sleeping comfortably History of Present Illness: 86 yrs old with sever , Chronic Afib , HYN, CAd admitted with UTI Grew E Colli , pansensistive - Current Medication List Current Medications: Active Medications Acetaminophen (Tylenol -) 650 mg PO Q4H PRN PRN Reason: FEVER OR PAIN Last Admin: 02/08/17 05:32 Dose: 650 mg Artificial Tears (Artificial Tears) 1 drop OU BID [facility] Last Admin: 02/07/17 21:24 Dose: 1 drop Ascorbic Acid (Vitamin C -) 500 mg PO DAILY [facility] Last Admin: 02/08/17 10:25 Dose: 500 mg Atorvastatin Calcium (Lipitor -) 10 mg PO HS [facility] Last Admin: 02/07/17 21:25 Dose: 10 mg Donepezil HCl (Aricept -) 5 mg PO DAILY [facility] Last Admin: 02/08/17 10:25 Dose: 5 mg Escitalopram Oxalate (Lexapro -) 5 mg PO DAILY [facility] Last Admin: 02/08/17 10:26 Dose: 5 mg Ferrous Sulfate (Feosol -) 325 mg PO DAILY [facility] Last Admin: 02/08/17 10:25 Dose: 325 mg Sodium Chloride (Normal Saline -) 1,000 mls @ 75 mls/hr IV ASDIR [facility] Last Admin: 02/08/17 11:32 Dose: Not Given Cefepime HCl 1 gm/ Dextrose 100 mls @ 200 mls/hr IVPB BID@06,18 [facility] Last Admin: 02/08/17 05:27 Dose: 200 mls/hr Lactobacillus Acidophilus (Bacid -) 1 tab PO DAILY [facility] Last Admin: 02/08/17 10:24 Dose: 1 tab Losartan Potassium (Cozaar -) 50 mg PO HS [facility] Last Admin: 02/07/17 21:25 Dose: 50 mg Metoprolol Tartrate (Lopressor -) 50 mg PO BID [facility] Last Admin: 02/08/17 10:25 Dose: 50 mg Olanzapine (Zyprexa -) 5 mg PO HS [facility] Last Admin: 02/07/17 21:25 Dose: 5 mg Ondansetron HCl (Zofran Injection) 4 mg IVPUSH Q6H PRN PRN Reason: NAUSEA Polyethylene Glycol (Miralax (For Daily Use) -) 17 gm PO DAILY [facility] Last Admin: 02/08/17 10:26 Dose: 17 grams Warfarin Sodium (Coumadin -) 3 mg PO DAILY@1800 [facility] Last Admin: 02/07/17 17:06 Dose: 3 mg - Objective Vital Signs: Vital Signs Temperature 99.2 F 02/08/17 06:33 Pulse Rate 78 02/08/17 06:00 Respiratory Rate 18 02/08/17 06:00 Blood Pressure 140/65 02/08/17 06:00 O2 Sat by Pulse Oximetry (%) 98 02/07/17 20:08 Elderly F feels weak not in distress , oriented to self HEENT: Mm dry no anemia, PERRLA EOMI NECK: No JVD No Bruit CHEST: CTA B/L CVs: S1S2 Irregular DAMIEN at base ABD: No distention, non tender Bs + EXT: Trace edema feet, no calf tenderness Pulses + ACTIVATED 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 Code(s): N39.0 - URINARY TRACT INFECTION, SITE NOT SPECIFIED Qualifiers: Urinary tract infection type: acute cystitis Hematuria presence: without hematuria Qualified Code(s): N30.00 - Acute cystitis without hematuria; N30.00 - Acute cystitis without hematuria (2) Dementia Assessment/Plan: Chronic no active issue Code(s): F03.90 - UNSPECIFIED DEMENTIA WITHOUT BEHAVIORAL DISTURBANCE Qualifiers: Dementia type: unspecified type Dementia behavioral disturbance: without behavioral disturbance Qualified Code(s): F03.90 - Unspecified dementia without behavioral disturbance; F03.90 - Unspecified dementia without behavioral disturbance; F03.90 - Unspecified dementia without behavioral disturbance (3) Coronary artery disease Assessment/Plan: Stable cont current management F/U Cardiology recommendations. Code(s): I25.10 - ATHSCL HEART DISEASE OF [place] CORONARY ARTERY W/O ANG PCTRS Qualifiers: Coronary Disease-Associated Artery/Lesion type: [place] artery [place] vs. transplanted heart: [place] heart Associated angina: without angina Qualified Code(s): I25.10 - Atherosclerotic heart disease of [place] coronary artery without angina pectoris; I25.10 - Atherosclerotic heart disease of [place] coronary artery without angina pectoris; I25.10 - Atherosclerotic heart disease of [place] coronary artery without angina pectoris (4) Severe aortic valve stenosis Assessment/Plan: Hemodynamically compensated Code(s): I35.0 - NONRHEUMATIC AORTIC (VALVE) STENOSIS (5) Diastolic dysfunction without heart failure Assessment/Plan: Stable cont current management. Code(s): I51.9 - HEART DISEASE, UNSPECIFIED (6) Atrial fibrillation Assessment/Plan: High [id number] on AC F/U INR rate controlled Code(s): I48.91 - UNSPECIFIED ATRIAL FIBRILLATION Qualifiers: Atrial fibrillation type: chronic Qualified Code(s): I48.2 - Chronic atrial fibrillation; I48.2 - Chronic atrial fibrillation; I48.2 - Chronic atrial fibrillation; I48.2 - Chronic atrial fibrillation
[2017-02-08] MEDS: WARFARIN NA 3 MG TABLET PO SCH (17:03)
[2017-02-08] MEDS: LOSARTAN POTASSIUM 50 MG TABLET (FP) PO SCH (22:03)
[2017-02-08] MEDS: ATORVASTATIN CA 10 MG TABLET (FP) PO SCH (22:03)
[2017-02-08] MEDS: OLANZapine 5 MG TABLET PO SCH (22:28)
[2017-02-09] MEDS: CEFEPIME 1 GM in DEXTROSE 5%-WATER - 100 ML IVPB SCH ×2 (05:30→17:29)
[2017-02-09 08:47] LABS: BASOPHIL 0.5 % (0-2.0); MCH 28.9 pg (25.7-33.7); MCHC 32.8 g/dl (32.0-36.0); MEAN PLT VOLUME 9.8 fl (7.5-11.1); NEUTROPHILS 69.5 % (42.8-82.8); PLATELET COUNT 183 K/MM3 (134-434); RDW 13.7 % (11.6-15.6); WHITE BLOOD COUNT 7.5 K/mm3 (4.0-10.0)
[2017-02-09 09:07] LABS: INR 3.64 (0.82-1.09); PROTHROMBIN TIME (PATIENT) 41.1 SEC (9.98-11.88)
[2017-02-09 09:19] LABS: ANION GAP 10 (8-16); CALCIUM 8.3 mg/dL (8.5-10.1); CO2 23 mmol/L (21-32); CREATININE 0.6 mg/dL (0.55-1.02); GLUCOSE,RANDOM 88 mg/dL (74-106)
[2017-02-09] MEDS ORDERED: PT OWN MED DRAWER 7, Y5N ONE ×3 (09:24→22:23)
[2017-02-09] MEDS: LACTOBACILLUS ACIDOPHILUS 1 EACH TAB (FP) PO SCH (09:30)
[2017-02-09] MEDS: ASCORBIC ACID 500 MG TABLET (FP) PO SCH (09:30)
[2017-02-09] MEDS: DONEPEZIL HCL 5 MG TABLET (FP) PO SCH (09:30)
[2017-02-09] MEDS: FERROUS SO4 325 MG TABLET (FP) PO SCH (09:30)
[2017-02-09] MEDS: METOPROLOL TARTRATE 50 MG TABLET (FP) PO SCH ×2 (09:30→22:34)
[2017-02-09] MEDS: ESCITALOPRAM OXALATE 10 MG TABLET (FP) PO SCH (09:30)
[2017-02-09] MEDS: ARTIFICIAL TEARS (POLYVINYL ALCOHOL 1.4%) OPTH DROPS OU SCH ×2 (09:31→22:35)
[2017-02-09] MEDS: POLYETHYLENE GLYCOL 3350 119 GM BTL PO SCH (09:31)
--- NOTE | 2017-02-09 10:43 | PN ---
Progress Note (short form) - Note Progress Note: Chief Complaint: Events noted, notes reviewed, denies any chest pain or dyspnea , expressive aphasia is persistent History of Present Illness: Seen and examined. Events noted, notes reviewed, denies any chest pain or dyspnea, expressive aphasia is persistent Medications: Current Medications Acetaminophen (Tylenol -) 650 mg PO Q4H PRN PRN Reason: FEVER OR PAIN Last Admin: 02/08/17 05:32 Dose: 650 mg Artificial Tears (Artificial Tears) 1 drop OU BID [facility] Last Admin: 02/09/17 09:31 Dose: 1 drop Ascorbic Acid (Vitamin C -) 500 mg PO DAILY [facility] Last Admin: 02/09/17 09:30 Dose: 500 mg Atorvastatin Calcium (Lipitor -) 10 mg PO HS [facility] Last Admin: 02/08/17 22:03 Dose: 10 mg Donepezil HCl (Aricept -) 5 mg PO DAILY [facility] Last Admin: 02/09/17 09:30 Dose: 5 mg Escitalopram Oxalate (Lexapro -) 5 mg PO DAILY [facility] Last Admin: 02/09/17 09:30 Dose: 5 mg Ferrous Sulfate (Feosol -) 325 mg PO DAILY [facility] Last Admin: 02/09/17 09:30 Dose: 325 mg Sodium Chloride (Normal Saline -) 1,000 mls @ 75 mls/hr IV ASDIR [facility] Last Admin: 02/08/17 19:57 Dose: 75 mls/hr Cefepime HCl 1 gm/ Dextrose 100 mls @ 200 mls/hr IVPB BID@06,18 [facility] Last Admin: 02/09/17 05:30 Dose: 200 mls/hr Lactobacillus Acidophilus (Bacid -) 1 tab PO DAILY [facility] Last Admin: 02/09/17 09:30 Dose: 1 tab Losartan Potassium (Cozaar -) 50 mg PO HS [facility] Last Admin: 02/08/17 22:03 Dose: 50 mg Metoprolol Tartrate (Lopressor -) 50 mg PO BID [facility] Last Admin: 02/09/17 09:30 Dose: 50 mg Olanzapine (Zyprexa -) 5 mg PO HS [facility] Last Admin: 02/08/17 22:28 Dose: 5 mg Ondansetron HCl (Zofran Injection) 4 mg IVPUSH Q6H PRN PRN Reason: NAUSEA Polyethylene Glycol (Miralax (For Daily Use) -) 17 gm PO DAILY [facility] Last Admin: 02/09/17 09:31 Dose: 17 grams Warfarin Sodium (Coumadin -) 3 mg PO DAILY@1800 [facility] Last Admin: 02/08/17 17:03 Dose: 3 mg Vital Signs: Last Vital Signs Temp Pulse Resp BP Pulse Ox 97.9 F 61 18 112/54 99 02/09/17 10:00 02/09/17 10:00 02/09/17 10:00 02/09/17 10:00 02/09/17 09:00 Intake & Output 02/06/17 02/07/17 02/08/17 02/09/17 23:59 23:59 23:59 23:59 Intake Total 600 2190 1300 1000 Balance 600 2190 1300 1000 Weight 148 lb Constitutional: No Distress, Calm Neck: Supple Negative JVD No Bruit Respiratory: Clear to A&P Bilaterally Cardiovascular: S1 S2 Regular Rate and Rhythm Grade 3/6 DAMIEN Gastrointestinal: Soft Benign Normal Bowel Sounds Ext: No Edema Labs: CBC, BMP 02/09/17 08:35 02/09/17 08:35 INR, PTT INR 3.64 (0.82-1.09) H 02/09/17 08:35 Assessment/Plan ASSESSMENT: 1. Uro-sepsis, resolving 2. Severe/critical aortic valve stenosis, previously declined TAVR 3. CAD angina pectoris, stable 4. LV diastolic dysfunction with chronic class I NYHA classification LV failure , compensated/euvolemic 5. Paroxysmal atrial fibrillation currently in sinus rhythm [id number] score of 8 with supra-therapeutic INR 6. History of cerebro-vascular disease with with residual deficit, expressive aphasia 7. Hypertension/hypertensive cardiovascular disease 8. Hypercholesterolemia 9. Anemia PLAN: 1. Antibiotics as per the primary team 2. Continue Lopressor 3. Continue Losartan 4. Continue Lipitor 5. Continue Coumadin and maintain INR 2-3 with close monitoring of CBC, hold today Pam Pulliam M.D.
[2017-02-09] MEDS: SODIUM CHLORIDE 1,000 ML IV SCH ×2 (12:00→23:31)
[2017-02-09] MEDS: WARFARIN NA 3 MG TABLET PO SCH (17:04)
[2017-02-09] MEDS: OLANZapine 5 MG TABLET PO SCH (22:35)
[2017-02-09] MEDS: ATORVASTATIN CA 10 MG TABLET (FP) PO SCH (22:35)
[2017-02-09] MEDS: LOSARTAN POTASSIUM 50 MG TABLET (FP) PO SCH (22:35)
--- NOTE | 2017-02-09 23:45 | PN ---
Progress Note, Physician Chief Complaint: No new complaints, sleeping comfortably History of Present Illness: 86 yrs old with sever , Chronic Afib , HYN, CAd admitted with UTI Grew E Colli , pansensistive - Current Medication List Current Medications: Active Medications Acetaminophen (Tylenol -) 650 mg PO Q4H PRN PRN Reason: FEVER OR PAIN Last Admin: 02/08/17 05:32 Dose: 650 mg Artificial Tears (Artificial Tears) 1 drop OU BID [facility] Last Admin: 02/09/17 22:35 Dose: 1 drop Ascorbic Acid (Vitamin C -) 500 mg PO DAILY [facility] Last Admin: 02/09/17 09:30 Dose: 500 mg Atorvastatin Calcium (Lipitor -) 10 mg PO HS [facility] Last Admin: 02/09/17 22:35 Dose: 10 mg Donepezil HCl (Aricept -) 5 mg PO DAILY [facility] Last Admin: 02/09/17 09:30 Dose: 5 mg Escitalopram Oxalate (Lexapro -) 5 mg PO DAILY [facility] Last Admin: 02/09/17 09:30 Dose: 5 mg Ferrous Sulfate (Feosol -) 325 mg PO DAILY [facility] Last Admin: 02/09/17 09:30 Dose: 325 mg Sodium Chloride (Normal Saline -) 1,000 mls @ 75 mls/hr IV ASDIR [facility] Last Admin: 02/09/17 23:31 Dose: 75 mls/hr Cefepime HCl 1 gm/ Dextrose 100 mls @ 200 mls/hr IVPB BID@06,18 [facility] Last Admin: 02/09/17 17:29 Dose: 200 mls/hr Lactobacillus Acidophilus (Bacid -) 1 tab PO DAILY [facility] Last Admin: 02/09/17 09:30 Dose: 1 tab Losartan Potassium (Cozaar -) 50 mg PO HS [facility] Last Admin: 02/09/17 22:35 Dose: 50 mg Metoprolol Tartrate (Lopressor -) 50 mg PO BID [facility] Last Admin: 02/09/17 22:34 Dose: 50 mg Olanzapine (Zyprexa -) 5 mg PO HS [facility] Last Admin: 02/09/17 22:35 Dose: 5 mg Ondansetron HCl (Zofran Injection) 4 mg IVPUSH Q6H PRN PRN Reason: NAUSEA Polyethylene Glycol (Miralax (For Daily Use) -) 17 gm PO DAILY [facility] Last Admin: 02/09/17 09:31 Dose: 17 grams Warfarin Sodium (Coumadin -) 3 mg PO DAILY@1800 [facility] Last Admin: 02/09/17 17:04 Dose: Not Given - Objective Vital Signs: Vital Signs Temperature 98.6 F 02/09/17 20:46 Pulse Rate 69 02/09/17 20:46 Respiratory Rate 20 02/09/17 21:00 Blood Pressure 128/49 02/09/17 20:46 O2 Sat by Pulse Oximetry (%) 95 02/09/17 21:00 Elderly F feels weak not in distress , oriented to self HEENT: Mm dry no anemia, PERRLA EOMI NECK: No JVD No Bruit CHEST: CTA B/L CVs: S1S2 Irregular DAMIEN at base ABD: No distention, non tender Bs + EXT: Trace edema feet, no calf tenderness Pulses + 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 Code(s): N39.0 - URINARY TRACT INFECTION, SITE NOT SPECIFIED Qualifiers: Urinary tract infection type: acute cystitis Hematuria presence: without hematuria Qualified Code(s): N30.00 - Acute cystitis without hematuria; N30.00 - Acute cystitis without hematuria (2) Dementia Assessment/Plan: Chronic no active issue Code(s): F03.90 - UNSPECIFIED DEMENTIA WITHOUT BEHAVIORAL DISTURBANCE Qualifiers: Dementia type: unspecified type Dementia behavioral disturbance: without behavioral disturbance Qualified Code(s): F03.90 - Unspecified dementia without behavioral disturbance; F03.90 - Unspecified dementia without behavioral disturbance; F03.90 - Unspecified dementia without behavioral disturbance (3) Coronary artery disease Assessment/Plan: Stable cont current management F/U Cardiology recommendations. Code(s): I25.10 - ATHSCL HEART DISEASE OF [place] CORONARY ARTERY W/O ANG PCTRS Qualifiers: Coronary Disease-Associated Artery/Lesion type: [place] artery [place] vs. transplanted heart: [place] heart Associated angina: without angina Qualified Code(s): I25.10 - Atherosclerotic heart disease of [place] coronary artery without angina pectoris; I25.10 - Atherosclerotic heart disease of [place] coronary artery without angina pectoris; I25.10 - Atherosclerotic heart disease of [place] coronary artery without angina pectoris (4) Severe aortic valve stenosis Assessment/Plan: Hemodynamically compensated Code(s): I35.0 - NONRHEUMATIC AORTIC (VALVE) STENOSIS (5) Diastolic dysfunction without heart failure Assessment/Plan: Stable cont current management. Code(s): I51.9 - HEART DISEASE, UNSPECIFIED (6) Atrial fibrillation Assessment/Plan: High [id number] on AC F/U INR rate controlled Code(s): I48.91 - UNSPECIFIED ATRIAL FIBRILLATION Qualifiers: Atrial fibrillation type: chronic Qualified Code(s): I48.2 - Chronic atrial fibrillation; I48.2 - Chronic atrial fibrillation; I48.2 - Chronic atrial fibrillation; I48.2 - Chronic atrial fibrillation
[2017-02-10] MEDS ORDERED: PT OWN MED DRAWER 7, Y5N ONE ×3 (05:22→21:58)
[2017-02-10] MEDS: CEFEPIME 1 GM in DEXTROSE 5%-WATER - 100 ML IVPB SCH (05:25)
[2017-02-10 08:05] LABS: BASOPHIL 0.4 % (0-2.0); EOSINOPHIL 1.9 % (0-4.5); MCHC 33.5 g/dl (32.0-36.0); MEAN CELL VOLUME 86.7 fl (80-96); MEAN PLT VOLUME 9.5 fl (7.5-11.1); NEUTROPHILS 65.8 % (42.8-82.8); PLATELET COUNT 211 K/MM3 (134-434); WHITE BLOOD COUNT 7.2 K/mm3 (4.0-10.0)
[2017-02-10 08:34] LABS: ANION GAP 7 (8-16); CALCIUM 8.1 mg/dL (8.5-10.1); CO2 24 mmol/L (21-32); CREATININE 0.5 mg/dL (0.55-1.02); GLUCOSE,RANDOM 99 mg/dL (74-106)
[2017-02-10] MEDS: ESCITALOPRAM OXALATE 10 MG TABLET (FP) PO SCH ×3 (10:38→14:17)
[2017-02-10] MEDS: ASCORBIC ACID 500 MG TABLET (FP) PO SCH ×3 (10:38→14:16)
[2017-02-10] MEDS: FERROUS SO4 325 MG TABLET (FP) PO SCH ×3 (10:38→14:17)
[2017-02-10] MEDS: LACTOBACILLUS ACIDOPHILUS 1 EACH TAB (FP) PO SCH ×3 (10:38→14:17)
[2017-02-10] MEDS: DONEPEZIL HCL 5 MG TABLET (FP) PO SCH ×3 (10:38→14:16)
[2017-02-10] MEDS: ARTIFICIAL TEARS (POLYVINYL ALCOHOL 1.4%) OPTH DROPS OU SCH ×3 (10:39→22:01)
[2017-02-10] MEDS: POLYETHYLENE GLYCOL 3350 119 GM BTL PO SCH ×3 (10:39→14:17)
[2017-02-10] MEDS: METOPROLOL TARTRATE 50 MG TABLET (FP) PO SCH ×4 (10:39→22:00)
--- NOTE | 2017-02-10 10:40 | PN ---
Progress Note, Physician History of Present Illness: Afebrile, sensorium improved. - Current Medication List Current Medications: Active Medications Acetaminophen (Tylenol -) 650 mg PO Q4H PRN PRN Reason: FEVER OR PAIN Last Admin: 02/08/17 05:32 Dose: 650 mg Artificial Tears (Artificial Tears) 1 drop OU BID [facility] Last Admin: 02/10/17 10:39 Dose: 1 drop Ascorbic Acid (Vitamin C -) 500 mg PO DAILY [facility] Last Admin: 02/10/17 10:38 Dose: 500 mg Atorvastatin Calcium (Lipitor -) 10 mg PO HS [facility] Last Admin: 02/09/17 22:35 Dose: 10 mg Donepezil HCl (Aricept -) 5 mg PO DAILY [facility] Last Admin: 02/10/17 10:38 Dose: 5 mg Escitalopram Oxalate (Lexapro -) 5 mg PO DAILY [facility] Last Admin: 02/10/17 10:38 Dose: 5 mg Ferrous Sulfate (Feosol -) 325 mg PO DAILY [facility] Last Admin: 02/10/17 10:38 Dose: 325 mg Sodium Chloride (Normal Saline -) 1,000 mls @ 75 mls/hr IV ASDIR [facility] Last Admin: 02/09/17 23:31 Dose: 75 mls/hr Cefepime HCl 1 gm/ Dextrose 100 mls @ 200 mls/hr IVPB BID@06,18 [facility] Last Admin: 02/10/17 05:25 Dose: 200 mls/hr Lactobacillus Acidophilus (Bacid -) 1 tab PO DAILY [facility] Last Admin: 02/10/17 10:38 Dose: 1 tab Losartan Potassium (Cozaar -) 50 mg PO HS [facility] Last Admin: 02/09/17 22:35 Dose: 50 mg Metoprolol Tartrate (Lopressor -) 50 mg PO BID [facility] Last Admin: 02/10/17 10:39 Dose: 50 mg Olanzapine (Zyprexa -) 5 mg PO HS [facility] Last Admin: 02/09/17 22:35 Dose: 5 mg Ondansetron HCl (Zofran Injection) 4 mg IVPUSH Q6H PRN PRN Reason: NAUSEA Polyethylene Glycol (Miralax (For Daily Use) -) 17 gm PO DAILY [facility] Last Admin: 02/10/17 10:39 Dose: 17 grams Warfarin Sodium (Coumadin -) 3 mg PO DAILY@1800 [facility] Last Admin: 02/09/17 17:04 Dose: Not Given - Objective Vital Signs: Vital Signs Temperature 98.0 F 02/10/17 08:00 Pulse Rate 66 02/10/17 08:00 Respiratory Rate 18 02/10/17 08:00 Blood Pressure 128/62 02/10/17 08:00 O2 Sat by Pulse Oximetry (%) 95 02/09/17 21:00 Constitutional: Yes: No Distress, Calm Neck: Yes: Supple Cardiovascular: Yes: Regular Rate and Rhythm, Murmur (2/6 SM) Respiratory: Yes: Regular, Diminished Gastrointestinal: Yes: Normal Bowel Sounds, Soft Edema: No Labs: CBC, BMP 02/10/17 07:35 02/10/17 07:35 INR, PTT INR 3.64 (0.82-1.09) H 02/09/17 08:35 Problem List - Problems (1) Dementia Code(s): F03.90 - UNSPECIFIED DEMENTIA WITHOUT BEHAVIORAL DISTURBANCE Qualifiers: Dementia type: unspecified type Dementia behavioral disturbance: without behavioral disturbance Qualified Code(s): F03.90 - Unspecified dementia without behavioral disturbance; F03.90 - Unspecified dementia without behavioral disturbance; F03.90 - Unspecified dementia without behavioral disturbance (2) UTI (urinary tract infection) Code(s): N39.0 - URINARY TRACT INFECTION, SITE NOT SPECIFIED Qualifiers: Urinary tract infection type: acute cystitis Hematuria presence: without hematuria Qualified Code(s): N30.00 - Acute cystitis without hematuria; N30.00 - Acute cystitis without hematuria (3) Anticoagulated on Coumadin Code(s): Z51.81 - ENCOUNTER FOR THERAPEUTIC DRUG LEVEL MONITORING Z79.01 - SAFE DEPOSIT ATTENDANT (CURRENT) USE OF ANTICOAGULANTS (4) Atrial fibrillation Code(s): I48.91 - UNSPECIFIED ATRIAL FIBRILLATION Qualifiers: Atrial fibrillation type: chronic Qualified Code(s): I48.2 - Chronic atrial fibrillation; I48.2 - Chronic atrial fibrillation; I48.2 - Chronic atrial fibrillation; I48.2 - Chronic atrial fibrillation (5) Cerebrovascular accident (CVA) Code(s): I63.9 - CEREBRAL INFARCTION, UNSPECIFIED Qualifiers: CVA mechanism: unspecified Qualified Code(s): I63.9 - Cerebral infarction, unspecified; I63.9 - Cerebral infarction, unspecified; I63.9 - Cerebral infarction, unspecified; I63.9 - Cerebral infarction, unspecified (6) Coronary artery disease Code(s): I25.10 - ATHSCL HEART DISEASE OF [place] CORONARY ARTERY W/O ANG PCTRS Qualifiers: Coronary Disease-Associated Artery/Lesion type: [place] artery [place] vs. transplanted heart: [place] heart Associated angina: without angina Qualified Code(s): I25.10 - Atherosclerotic heart disease of [place] coronary artery without angina pectoris; I25.10 - Atherosclerotic heart disease of [place] coronary artery without angina pectoris; I25.10 - Atherosclerotic heart disease of [place] coronary artery without angina pectoris (7) Diastolic dysfunction without heart failure Code(s): I51.9 - HEART DISEASE, UNSPECIFIED (8) Hyperlipidemia Code(s): E78.5 - HYPERLIPIDEMIA, UNSPECIFIED Qualifiers: Hyperlipidemia type: pure hypercholesterolemia Qualified Code(s): E78.00 - Pure hypercholesterolemia, unspecified; E78.00 - Pure hypercholesterolemia, unspecified; E78.00 - Pure hypercholesterolemia, unspecified; E78.0 - Pure hypercholesterolemia (9) Hypertension Code(s): I10 - ESSENTIAL (PRIMARY) HYPERTENSION Qualifiers: Hypertension type: essential hypertension Qualified Code(s): I10 - Essential (primary) hypertension; I10 - Essential (primary) hypertension; I10 - Essential (primary) hypertension (10) Severe aortic valve stenosis Code(s): I35.0 - NONRHEUMATIC AORTIC (VALVE) STENOSIS Assessment/Plan 12/20/2016 Echo: Normal LV size and fxn with mild cLVH, mild LAE, mild MR, TR, AR , ME severe MG 54 mmHg, HERLINDA 0.6 cm^2 1. Sepsis source with earl-sensitive e. coli improving 2. Severe aortic valve stenosis - previously had declined TAVR 3. Cerebrovascular disease with history of stroke resulting in right side weakness, expressive aphasia and facial droop 4. Paroxysmal atrial fibrillation now remains in sinus rhythm [id number] score of 8 with therapeutic INR 5. Hypertension/hypertensive cardiovascular disease 6. Hypercholesterolemia 7. CAD 8. LV diastolic dysfunction 9. Organic brain syndrome and dementia 10. Anemia PLAN: 1. Narrow abx spectrum per C&S, currently on Cefepime 2. Continue Metoprolol 50 bid, Lipitor 10 qhs and Losartan 50 qd as tolerated 3. Continue Warfarin - keep INR 2-3 4. Patient had previously refused TAVR. Transthoracic echocardiography with severe noted
--- NOTE | 2017-02-10 12:21 | PN ---
Progress Note, Physician Chief Complaint: Ms Emanuel says she is feeling good today. Denies cp, sob, n/v. - Current Medication List Current Medications: Active Medications Acetaminophen (Tylenol -) 650 mg PO Q4H PRN PRN Reason: FEVER OR PAIN Last Admin: 02/08/17 05:32 Dose: 650 mg Artificial Tears (Artificial Tears) 1 drop OU BID [facility] Last Admin: 02/10/17 10:56 Dose: Not Given Ascorbic Acid (Vitamin C -) 500 mg PO DAILY [facility] Last Admin: 02/10/17 10:56 Dose: Not Given Atorvastatin Calcium (Lipitor -) 10 mg PO HS [facility] Last Admin: 02/09/17 22:35 Dose: 10 mg Donepezil HCl (Aricept -) 5 mg PO DAILY [facility] Last Admin: 02/10/17 10:55 Dose: Not Given Escitalopram Oxalate (Lexapro -) 5 mg PO DAILY [facility] Last Admin: 02/10/17 10:56 Dose: Not Given Ferrous Sulfate (Feosol -) 325 mg PO DAILY [facility] Last Admin: 02/10/17 10:56 Dose: Not Given Sodium Chloride (Normal Saline -) 1,000 mls @ 75 mls/hr IV ASDIR [facility] Last Admin: 02/09/17 23:31 Dose: 75 mls/hr Lactobacillus Acidophilus (Bacid -) 1 tab PO DAILY [facility] Last Admin: 02/10/17 10:56 Dose: Not Given Losartan Potassium (Cozaar -) 50 mg PO HS [facility] Last Admin: 02/09/17 22:35 Dose: 50 mg Metoprolol Tartrate (Lopressor -) 50 mg PO BID [facility] Last Admin: 02/10/17 10:56 Dose: Not Given Olanzapine (Zyprexa -) 5 mg PO HS [facility] Last Admin: 02/09/17 22:35 Dose: 5 mg Ondansetron HCl (Zofran Injection) 4 mg IVPUSH Q6H PRN PRN Reason: NAUSEA Polyethylene Glycol (Miralax (For Daily Use) -) 17 gm PO DAILY [facility] Last Admin: 02/10/17 10:56 Dose: Not Given Warfarin Sodium (Coumadin -) 3 mg PO DAILY@1800 [facility] Last Admin: 02/09/17 17:04 Dose: Not Given - Objective Vital Signs: Vital Signs Temperature 36.7 C 02/10/17 08:00 Pulse Rate 66 02/10/17 08:00 Respiratory Rate 18 02/10/17 08:00 Blood Pressure 128/62 02/10/17 08:00 O2 Sat by Pulse Oximetry (%) 95 02/09/17 21:00 Constitutional: Yes: Well Nourished, No Distress, Calm Cardiovascular: Yes: Regular Rate and Rhythm, Murmur. No: Gallop, Rub Respiratory: Yes: Regular, CTA Bilaterally. No: Rales, Rhonchi, Wheezes Gastrointestinal: Yes: Normal Bowel Sounds, Soft. No: Distention, Tenderness Extremities: Yes: WNL Edema: No Labs: CBC, BMP 02/10/17 07:35 02/10/17 07:35 INR, PTT INR 3.64 (0.82-1.09) H 02/09/17 08:35 Problem List - Problems (1) Sepsis Code(s): A41.9 - SEPSIS, UNSPECIFIED ORGANISM (2) UTI (urinary tract infection) Code(s): N39.0 - URINARY TRACT INFECTION, SITE NOT SPECIFIED Qualifiers: Urinary tract infection type: acute cystitis Hematuria presence: without hematuria Qualified Code(s): N30.00 - Acute cystitis without hematuria; N30.00 - Acute cystitis without hematuria (3) Atrial fibrillation Code(s): I48.91 - UNSPECIFIED ATRIAL FIBRILLATION Qualifiers: Atrial fibrillation type: chronic Qualified Code(s): I48.2 - Chronic atrial fibrillation; I48.2 - Chronic atrial fibrillation; I48.2 - Chronic atrial fibrillation; I48.2 - Chronic atrial fibrillation (4) Cerebrovascular accident (CVA) Code(s): I63.9 - CEREBRAL INFARCTION, UNSPECIFIED Qualifiers: CVA mechanism: unspecified Qualified Code(s): I63.9 - Cerebral infarction, unspecified; I63.9 - Cerebral infarction, unspecified; I63.9 - Cerebral infarction, unspecified; I63.9 - Cerebral infarction, unspecified (5) Diastolic dysfunction without heart failure Code(s): I51.9 - HEART DISEASE, UNSPECIFIED (6) Hyperlipidemia Code(s): E78.5 - HYPERLIPIDEMIA, UNSPECIFIED Qualifiers: Hyperlipidemia type: pure hypercholesterolemia Qualified Code(s): E78.00 - Pure hypercholesterolemia, unspecified; E78.00 - Pure hypercholesterolemia, unspecified; E78.00 - Pure hypercholesterolemia, unspecified; E78.0 - Pure hypercholesterolemia (7) Hypertension Code(s): I10 - ESSENTIAL (PRIMARY) HYPERTENSION Qualifiers: Hypertension type: essential hypertension Qualified Code(s): I10 - Essential (primary) hypertension; I10 - Essential (primary) hypertension; I10 - Essential (primary) hypertension (8) Severe aortic valve stenosis Code(s): I35.0 - NONRHEUMATIC AORTIC (VALVE) STENOSIS Assessment/Plan (1) Sepsis Assessment/Plan: -appreciate ID assistance -resolved Code(s): A41.9 - SEPSIS, UNSPECIFIED ORGANISM (2) UTI (urinary tract infection) Assessment/Plan: -recurrent -? secondary to wearing diapers -growing pansensitive e coli -change to oral keflex today Code(s): N39.0 - URINARY TRACT INFECTION, SITE NOT SPECIFIED Qualifiers: Urinary tract infection type: acute cystitis Hematuria presence: without hematuria Qualified Code(s): N30.00 - Acute cystitis without hematuria; N30.00 - Acute cystitis without hematuria (3) Atrial fibrillation Assessment/Plan: -in sinus rhythm -appreciate cardiology assistance -continue metoprolol -hold coumadin secondary to supratherapeutic INR Code(s): I48.91 - UNSPECIFIED ATRIAL FIBRILLATION Qualifiers: Atrial fibrillation type: chronic Qualified Code(s): I48.2 - Chronic atrial fibrillation; I48.2 - Chronic atrial fibrillation; I48.2 - Chronic atrial fibrillation; I48.2 - Chronic atrial fibrillation (4) Cerebrovascular accident (CVA) Assessment/Plan: -chronic -with aphasia Code(s): I63.9 - CEREBRAL INFARCTION, UNSPECIFIED Qualifiers: CVA mechanism: unspecified Qualified Code(s): I63.9 - Cerebral infarction, unspecified; I63.9 - Cerebral infarction, unspecified; I63.9 - Cerebral infarction, unspecified; I63.9 - Cerebral infarction, unspecified (5) Diastolic dysfunction without heart failure Assessment/Plan: -not in exacerbation -stop IVF today Code(s): I51.9 - HEART DISEASE, UNSPECIFIED (6) Hyperlipidemia Assessment/Plan: -continue lipitor Code(s): E78.5 - HYPERLIPIDEMIA, UNSPECIFIED Qualifiers: Hyperlipidemia type: pure hypercholesterolemia Qualified Code(s): E78.00 - Pure hypercholesterolemia, unspecified; E78.00 - Pure hypercholesterolemia, unspecified; E78.00 - Pure hypercholesterolemia, unspecified; E78.0 - Pure hypercholesterolemia (7) Hypertension Assessment/Plan: -continue cozaar with hold parameters Code(s): I10 - ESSENTIAL (PRIMARY) HYPERTENSION Qualifiers: Hypertension type: essential hypertension Qualified Code(s): I10 - Essential (primary) hypertension; I10 - Essential (primary) hypertension; I10 - Essential (primary) hypertension (8) Severe aortic valve stenosis Assessment/Plan: -patient declined TAVR in past -at risk for sudden , patient and family aware Code(s): I35.0 - NONRHEUMATIC AORTIC (VALVE) STENOSIS
--- NOTE | 2017-02-10 12:25 | PN ---
Progress Note (short form) - Note Progress Note: no complaints no fevers Vital Signs Period Temp Pulse Resp BP Sys/Maynard Pulse Ox Last 24 Hr 98.0 F-99.3 F 60-69 18-21 119-128/49-64 95 cor-rrr lungs clear abd soft,nt ext no edema CBC, BMP 02/10/17 07:35 02/10/17 07:35 Microbiology 02/06/17 09:13 Blood - Peripheral Venous Blood Culture - Preliminary NO GROWTH OBTAINED AFTER 96 HOURS, INCUBATION TO CONTINUE FOR 1 DAYS. 02/06/17 09:00 Blood - Peripheral Venous Blood Culture - Preliminary NO GROWTH OBTAINED AFTER 96 HOURS, INCUBATION TO CONTINUE FOR 1 DAYS. 02/06/17 09:13 Urine - Urine - Catheterized Urine Culture - Final Escherichia Coli 02/06/17 09:00 Nasopharyngeal Swab Influenza Types A,B Antigen ([place]) - Final 02/06/17 09:00 Nasopharyngeal Swab - Final a.o Ecoli uti day #4 cefepime can switch to po keflex 500 bid bid pen allergy- tolerates cephalosporins would complete 10 days total d/w Dr Branch please call Problem List - Problems (1) Fever Code(s): R50.9 - FEVER, UNSPECIFIED Qualifiers: Fever type: unspecified Qualified Code(s): R50.9 - Fever, unspecified; R50.9 - Fever, unspecified (2) UTI (urinary tract infection) Code(s): N39.0 - URINARY TRACT INFECTION, SITE NOT SPECIFIED Qualifiers: Urinary tract infection type: acute cystitis Hematuria presence: without hematuria Qualified Code(s): N30.00 - Acute cystitis without hematuria; N30.00 - Acute cystitis without hematuria (3) Allergy to multiple antibiotics Code(s): Z88.1 - ALLERGY STATUS TO OTHER ANTIBIOTIC AGENTS STATUS
[2017-02-10 12:47] LABS: INR 3.62 (0.82-1.09); PROTHROMBIN TIME (PATIENT) 40.9 SEC (9.98-11.88)
[2017-02-10] MEDS: OLANZapine 5 MG TABLET PO SCH (22:00)
[2017-02-10] MEDS: LOSARTAN POTASSIUM 50 MG TABLET (FP) PO SCH (22:00)
[2017-02-10] MEDS: ATORVASTATIN CA 10 MG TABLET (FP) PO SCH (22:00)
[2017-02-10] MEDS: CEPHALEXIN MONOHYDRATE 500 MG CAPSULE (UD) PO SCH (22:00)
[2017-02-11 06:45] LABS: BASOPHIL 0.5 % (0-2.0); EOSINOPHIL 2.5 % (0-4.5); MCH 28.9 pg (25.7-33.7); MCHC 33.2 g/dl (32.0-36.0); MEAN PLT VOLUME 9.3 fl (7.5-11.1); NEUTROPHILS 64.1 % (42.8-82.8); PLATELET COUNT 228 K/MM3 (134-434)
[2017-02-11 07:06] LABS: ANION GAP 9 (8-16); CALCIUM 8.1 mg/dL (8.5-10.1); CO2 26 mmol/L (21-32); CREATININE 0.4 mg/dL (0.55-1.02); GLUCOSE,RANDOM 87 mg/dL (74-106); MAGNESIUM 1.8 mg/dL (1.8-2.4); PHOSPHOROUS 2.2 mg/dL (2.5-4.9)
[2017-02-11 07:07] LABS: INR 2.65 (0.82-1.09)
[2017-02-11] MEDS ORDERED: PT OWN MED DRAWER 7, Y5N ONE (09:42)
[2017-02-11] MEDS: ESCITALOPRAM OXALATE 10 MG TABLET (FP) PO SCH (09:47)
[2017-02-11] MEDS: ASCORBIC ACID 500 MG TABLET (FP) PO SCH (09:47)
[2017-02-11] MEDS: LACTOBACILLUS ACIDOPHILUS 1 EACH TAB (FP) PO SCH (09:47)
[2017-02-11] MEDS: METOPROLOL TARTRATE 50 MG TABLET (FP) PO SCH (09:47)
[2017-02-11] MEDS: DONEPEZIL HCL 5 MG TABLET (FP) PO SCH (09:47)
[2017-02-11] MEDS: FERROUS SO4 325 MG TABLET (FP) PO SCH (09:47)
[2017-02-11] MEDS: POLYETHYLENE GLYCOL 3350 119 GM BTL PO SCH (09:48)
[2017-02-11] MEDS: ARTIFICIAL TEARS (POLYVINYL ALCOHOL 1.4%) OPTH DROPS OU SCH (09:48)
[2017-02-11] MEDS: CEPHALEXIN MONOHYDRATE 500 MG CAPSULE (UD) PO SCH (09:48)
--- NOTE | 2017-02-11 10:16 | PN ---
Progress Note, Physician Chief Complaint: Events noted Not in distress History of Present Illness: Patient was seen and examined. Awake and alert. Chart was reviewed Denies chest pain, SOB or palpitations - Current Medication List Current Medications: Active Medications Acetaminophen (Tylenol -) 650 mg PO Q4H PRN PRN Reason: FEVER OR PAIN Last Admin: 02/08/17 05:32 Dose: 650 mg Artificial Tears (Artificial Tears) 1 drop OU BID [facility] Last Admin: 02/11/17 09:48 Dose: 1 drop Ascorbic Acid (Vitamin C -) 500 mg PO DAILY [facility] Last Admin: 02/11/17 09:47 Dose: 500 mg Atorvastatin Calcium (Lipitor -) 10 mg PO HS [facility] Last Admin: 02/10/17 22:00 Dose: 10 mg Cephalexin HCl (Keflex -) 500 mg PO BID [facility] Last Admin: 02/11/17 09:48 Dose: 500 mg Donepezil HCl (Aricept -) 5 mg PO DAILY [facility] Last Admin: 02/11/17 09:47 Dose: 5 mg Escitalopram Oxalate (Lexapro -) 5 mg PO DAILY [facility] Last Admin: 02/11/17 09:47 Dose: 5 mg Ferrous Sulfate (Feosol -) 325 mg PO DAILY [facility] Last Admin: 02/11/17 09:47 Dose: 325 mg Lactobacillus Acidophilus (Bacid -) 1 tab PO DAILY [facility] Last Admin: 02/11/17 09:47 Dose: 1 tab Losartan Potassium (Cozaar -) 50 mg PO HS [facility] Last Admin: 02/10/17 22:00 Dose: 50 mg Metoprolol Tartrate (Lopressor -) 50 mg PO BID [facility] Last Admin: 02/11/17 09:47 Dose: 50 mg Olanzapine (Zyprexa -) 5 mg PO HS [facility] Last Admin: 02/10/17 22:00 Dose: 5 mg Ondansetron HCl (Zofran Injection) 4 mg IVPUSH Q6H PRN PRN Reason: NAUSEA Polyethylene Glycol (Miralax (For Daily Use) -) 17 gm PO DAILY [facility] Last Admin: 02/11/17 09:48 Dose: 17 grams Warfarin Sodium (Coumadin -) 3 mg PO DAILY@1800 [facility] Last Admin: 02/09/17 17:04 Dose: Not Given - Objective Vital Signs: Vital Signs Temperature 97.8 F 02/11/17 03:00 Pulse Rate 80 02/11/17 03:00 Respiratory Rate 18 02/11/17 03:00 Blood Pressure 133/72 02/11/17 03:00 O2 Sat by Pulse Oximetry (%) 96 02/10/17 22:00 Neck: Yes: Supple Cardiovascular: Yes: Regular Rate and Rhythm, Murmur (Soft SM), S1, S2 Respiratory: Yes: CTA Bilaterally Gastrointestinal: Yes: Normal Bowel Sounds, Soft. No: Tenderness Edema: No Labs: CBC, BMP 02/11/17 05:40 02/11/17 05:40 INR, PTT INR 2.65 (0.82-1.09) H 02/11/17 05:40 Problem List - Problems (1) Sepsis Code(s): A41.9 - SEPSIS, UNSPECIFIED ORGANISM Qualifiers: Sepsis type: sepsis due to unspecified organism Qualified Code(s): A41.9 - Sepsis, unspecified organism; A41.9 - Sepsis, unspecified organism; A41.9 - Sepsis, unspecified organism (2) UTI (urinary tract infection) Code(s): N39.0 - URINARY TRACT INFECTION, SITE NOT SPECIFIED Qualifiers: Urinary tract infection type: acute cystitis Hematuria presence: without hematuria Qualified Code(s): N30.00 - Acute cystitis without hematuria; N30.00 - Acute cystitis without hematuria (3) Atrial fibrillation Code(s): I48.91 - UNSPECIFIED ATRIAL FIBRILLATION Qualifiers: Atrial fibrillation type: chronic Qualified Code(s): I48.2 - Chronic atrial fibrillation; I48.2 - Chronic atrial fibrillation; I48.2 - Chronic atrial fibrillation; I48.2 - Chronic atrial fibrillation (4) Cerebrovascular accident (CVA) Code(s): I63.9 - CEREBRAL INFARCTION, UNSPECIFIED Qualifiers: CVA mechanism: unspecified Qualified Code(s): I63.9 - Cerebral infarction, unspecified; I63.9 - Cerebral infarction, unspecified; I63.9 - Cerebral infarction, unspecified; I63.9 - Cerebral infarction, unspecified (5) Coronary artery disease Code(s): I25.10 - ATHSCL HEART DISEASE OF [place] CORONARY ARTERY W/O ANG PCTRS Qualifiers: Coronary Disease-Associated Artery/Lesion type: [place] artery [place] vs. transplanted heart: [place] heart Associated angina: without angina Qualified Code(s): I25.10 - Atherosclerotic heart disease of [place] coronary artery without angina pectoris; I25.10 - Atherosclerotic heart disease of [place] coronary artery without angina pectoris; I25.10 - Atherosclerotic heart disease of [place] coronary artery without angina pectoris (6) Diastolic dysfunction without heart failure Code(s): I51.9 - HEART DISEASE, UNSPECIFIED (7) Hyperlipidemia Code(s): E78.5 - HYPERLIPIDEMIA, UNSPECIFIED Qualifiers: Hyperlipidemia type: pure hypercholesterolemia Qualified Code(s): E78.00 - Pure hypercholesterolemia, unspecified; E78.00 - Pure hypercholesterolemia, unspecified; E78.00 - Pure hypercholesterolemia, unspecified; E78.0 - Pure hypercholesterolemia (8) Hypertension Code(s): I10 - ESSENTIAL (PRIMARY) HYPERTENSION Qualifiers: Hypertension type: essential hypertension Qualified Code(s): I10 - Essential (primary) hypertension; I10 - Essential (primary) hypertension; I10 - Essential (primary) hypertension (9) Severe aortic valve stenosis Code(s): I35.0 - NONRHEUMATIC AORTIC (VALVE) STENOSIS Assessment/Plan 1. Sepsis source 2. Severe aortic valve stenosis - previously had declined TAVR 3. Cerebrovascular disease with history of stroke resulting in right side weakness - expressive aphasia and facial droop 4. Paroxysmal atrial fibrillation now remains in sinus rhythm [id number] score of 8 5. Hypertension/hypertensive cardiovascular disease 6. Hypercholesterolemia 7. CAD 8. LV diastolic dysfunction 9. Organic brain syndrome and dementia 10. Anemia PLAN: 1. Continue antibiotic coverage 2. Continue Metoprolol 50 bid, Lipitor 10 qhs and Losartan 50 qd as tolerated 3. Continue Warfarin - keep INR 2-3 4. Patient had previously refused TAVR. Further plans to follow João Heck MD
--- NOTE | 2017-02-11 13:39 | DS ---
Physical Examination Vital Signs: Vital Signs Temperature 36.6 C 02/11/17 03:00 Pulse Rate 80 02/11/17 03:00 Respiratory Rate 18 02/11/17 03:00 Blood Pressure 133/72 02/11/17 03:00 O2 Sat by Pulse Oximetry (%) 95 02/11/17 09:00 Constitutional: Yes: Well Nourished, No Distress, Calm Cardiovascular: Yes: Regular Rate and Rhythm, Murmur. No: Gallop, Rub Respiratory: Yes: Regular, CTA Bilaterally. No: Rales, Rhonchi, Wheezes Gastrointestinal: Yes: Normal Bowel Sounds, Soft. No: Distention, Tenderness Extremities: Yes: WNL Edema: No Labs: CBC, BMP 02/11/17 05:40 02/11/17 05:40 Discharge Summary Reason For Visit: UTI,SEPSIS Current Active Problems Allergy to multiple antibiotics (Acute) Dementia (Acute) Hydronephrosis, left (Acute) Near syncope (Acute) Sepsis (Acute) UTI (urinary tract infection) (Acute) Hospital Course: (1) Sepsis Code(s): A41.9 - SEPSIS, UNSPECIFIED ORGANISM (2) UTI (urinary tract infection) Code(s): N39.0 - URINARY TRACT INFECTION, SITE NOT SPECIFIED Qualifiers: Urinary tract infection type: acute cystitis Hematuria presence: without hematuria Qualified Code(s): N30.00 - Acute cystitis without hematuria; N30.00 - Acute cystitis without hematuria (3) Atrial fibrillation Code(s): I48.91 - UNSPECIFIED ATRIAL FIBRILLATION Qualifiers: Atrial fibrillation type: chronic Qualified Code(s): I48.2 - Chronic atrial fibrillation; I48.2 - Chronic atrial fibrillation; I48.2 - Chronic atrial fibrillation; I48.2 - Chronic atrial fibrillation (4) Cerebrovascular accident (CVA) Code(s): I63.9 - CEREBRAL INFARCTION, UNSPECIFIED Qualifiers: CVA mechanism: unspecified Qualified Code(s): I63.9 - Cerebral infarction, unspecified; I63.9 - Cerebral infarction, unspecified; I63.9 - Cerebral infarction, unspecified; I63.9 - Cerebral infarction, unspecified (5) Diastolic dysfunction without heart failure Code(s): I51.9 - HEART DISEASE, UNSPECIFIED (6) Hyperlipidemia Code(s): E78.5 - HYPERLIPIDEMIA, UNSPECIFIED Qualifiers: Hyperlipidemia type: pure hypercholesterolemia Qualified Code(s): E78.00 - Pure hypercholesterolemia, unspecified; E78.00 - Pure hypercholesterolemia, unspecified; E78.00 - Pure hypercholesterolemia, unspecified; E78.0 - Pure hypercholesterolemia (7) Hypertension Code(s): I10 - ESSENTIAL (PRIMARY) HYPERTENSION Qualifiers: Hypertension type: essential hypertension Qualified Code(s): I10 - Essential (primary) hypertension; I10 - Essential (primary) hypertension; I10 - Essential (primary) hypertension (8) Severe aortic valve stenosis Code(s): I35.0 - NONRHEUMATIC AORTIC (VALVE) STENOSIS Ms Emanuel is a very pleasant 86 year old female who presented to the hospital with sepsis secondary to UTI. She was admitted to the hospital and was started on broad spectrum antibiotics, when the urine culture presented and showed pansensitive e coli she was transitioned over to oral keflex. She improved significantly and is now stable for discharge back to SNF to continue physical therapy 31 minutes spent in preparation of this discharge Condition: Good - Instructions Diet, Activity, Other Instructions: regular diet. Up with assistance, further activity per PT at SNF Referrals: Thony Reed MD [Primary Care Provider] - [facility] - Home Medications Comprehensive Discharge Medication List: Ambulatory Orders Olanzapine [Zyprexa -] 5 mg PO HS tablet 07/31/15 Ascorbic Acid [Vitamin C -] 500 mg PO DAILY tablet 01/07/17 Donepezil HCl [Aricept -] 5 mg PO DAILY tablet 01/07/17 Ferrous Sulfate [Feosol] 325 mg PO DAILY tablet 01/07/17 Metoprolol Tartrate [Lopressor -] 50 mg PO BID tablet 01/07/17 Acetaminophen [Tylenol .Regular Strength -] 650 mg PO BID 02/06/17 Acetaminophen [Tylenol] 650 mg PO QID PRN 02/06/17 Docusate Sodium [Colace -] 200 mg PO BID 02/06/17 Escitalopram Oxalate [Lexapro -] 5 mg PO DAILY 02/06/17 Hypromellose 0.5% Opth Soln [Artificial Tears] 1 drop OU BID 02/06/17 Losartan Potassium [Cozaar] 50 mg PO HS 02/06/17 Polyethylene Glycol 3350 [Miralax 119 gm Btl -] 17 gm PO DAILY 02/06/17 Simvastatin [Zocor -] 20 mg PO HS 02/06/17 Warfarin Sodium [Coumadin] 3 mg PO DAILY 02/06/17 Cephalexin Monohydrate [Keflex -] 500 mg PO BID 5 Days 02/11/17 Lactobacillus Acidophilus [Bacid -] 1 tab PO DAILY tab 02/11/17
[2017-02-11 15:05] VITALS: BP 120/54; PULSE 67; TEMP 98
[2017-02-11] MEDS: WARFARIN NA 3 MG TABLET PO SCH (18:27)
== END 2017-02-11 18:57 | DRG 872 ==
LOC: JER 08:40 → JERBED 10:54 → J6S 18:37
PROVIDERS: ADMIT Internal Medicine; ATTEND Internal Medicine
DX: A41.9 Sepsis, unspecified organism (principal); N39.0 Urinary tract infection, site not specified; I25.110 Atherosclerotic heart disease of native coronary artery with unstable angina pectoris; N13.39 Other hydronephrosis; E78.5 Hyperlipidemia, unspecified; I35.0 Nonrheumatic aortic (valve) stenosis; I69.320 Aphasia following cerebral infarction; L89.611 Pressure ulcer of right heel, stage 1; B96.29 Other Escherichia coli [E. coli] as the cause of diseases classified elsewhere; F03.90 Unspecified dementia, unspecified severity, without behavioral disturbance, psychotic disturbance, mood disturbance, and anxiety; I48.0 Paroxysmal atrial fibrillation; I11.9 Hypertensive heart disease without heart failure; D64.9 Anemia, unspecified; Z79.01 Long term (current) use of anticoagulants; Z88.1 Allergy status to other antibiotic agents
CPT/HCPCS: 36415; 71010-TC; 80048; 80053; 81003; 81015; 82550; 82803; 83605; 83735; 84100; 84484; 85025; 85027; 85610; 85730; 86850; 86900; 86901; 87040; 87086; 87186; 87804; 93005; 93010; 97116-GP; 97161-GP; 99283-25

== ENCOUNTER 2017-09-06 19:33 | Inpatient (IN) | payer OTHER, BC ==
--- NOTE | 2017-09-06 19:49 | PDOC ---
History of Present Illness - General History Source: Patient Exam Limitations: No Limitations - History of Present Illness Initial Comments: 09/06/17 21:19 Patient is a 86 year old female with a significant past medical history of stroke, AFIB on Coumadin, Aortic Stenosis, HTN, Hyperlipidemia, CVA, cerebrovascular disease who presents to the ED with complaints of left hip pain , s/p fall that occurred just prior to ED pain. As per patient's daughter, patient was attempting to walk out of home while wearing socks when she lost her balance causing her to slip as fall on the floor. As per administrator of home health, patient' s fall was unwitnessed, and is unsure if the patient hit her head, but states she was conscious when she was found. Denies chest pain, Sob. Denies nausea, vomiting. Denies contact with sick individuals, out of state travelling. Denies fevers, chills. Denies any other symptoms. 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 No smoking, No alcohol. No illicit drugs Surgical history: Right leg surgery, Jerardo placed. PMD: Dr. Reed <Molina Parson - Last Filed: 09/06/17 22:09> <Mary Lou Connelly - Last Filed: 09/07/17 05:12> - General Chief Complaint: Injury Stated Complaint: FALL Time Seen by Provider: 09/06/17 19:49 Past History <Molina Parson - Last Filed: 09/06/17 22:09> - Past Medical History Cardiac Disorders: Yes CVA: Yes Dementia: Yes HTN: Yes Hypercholesterolemia: Yes - Immunization History Immunization Up to Date: Yes - Suicide/Smoking/Psychosocial Hx Smoking Status: Yes Smoking History: Never smoked Have you smoked in the past 12 months: No Number of Cigarettes Smoked Daily: 0 If you are a former smoker, when did you quit?: long time ago Hx Alcohol Use: No Drug/Substance Use Hx: No Substance Use Type: None <Mary Lou Connelly - Last Filed: 09/07/17 05:12> - Past Medical History Allergies/Adverse Reactions: Allergies Allergy/AdvReac Type Severity Reaction Status Date / Time Penicillins Allergy Intermediate Verified 09/06/17 20:03 methylprednisolone acetate Allergy Swelling Verified 09/06/17 20:03 [From Depo-Medrol] ofloxacin [From Floxin] Allergy Verified 09/06/17 20:03 Home Medications: Ambulatory Orders Olanzapine [Zyprexa -] 5 mg PO HS tablet 07/31/15 Donepezil HCl [Aricept -] 5 mg PO DAILY tablet 01/07/17 Metoprolol Tartrate [Lopressor -] 50 mg PO BID tablet 01/07/17 Acetaminophen [Tylenol .Regular Strength -] 650 mg PO BID 02/06/17 Acetaminophen [Tylenol] 650 mg PO QID PRN 02/06/17 Escitalopram Oxalate [Lexapro -] 5 mg PO DAILY 02/06/17 Hypromellose 0.5% Opth Soln [Artificial Tears] 1 drop OU BID 02/06/17 Losartan Potassium [Cozaar] 50 mg PO HS 02/06/17 Polyethylene Glycol 3350 [Miralax 119 gm Btl -] 17 gm PO DAILY 02/06/17 Simvastatin [Zocor -] 20 mg PO HS 02/06/17 Warfarin Sodium [Coumadin] 4 mg PO DAILY 02/06/17 Hydrochlorothiazide 12.5 mg PO DAILY 09/06/17 Review of Systems - Review of Systems Able to Perform ROS?: Yes Comments:: 09/06/17 21:19 GENERAL/CONSTITUTIONAL: No fever or chills. No weakness. HEAD, EYES, EARS, NOSE AND THROAT: No change in vision. No ear pain or discharge. No sore throat. CARDIOVASCULAR: No chest pain or shortness of breath. RESPIRATORY: No cough, wheezing, or hemoptysis. GASTROINTESTINAL: No nausea, vomiting, diarrhea or constipation. GENITOURINARY: No dysuria, frequency, or change in urination. MUSCULOSKELETAL: +Left hip pain. No joint or muscle swelling.. No neck or back pain. SKIN: No rash NEUROLOGIC: No headache, vertigo, loss of consciousness, or change in strength/ sensation. ENDOCRINE: No increased thirst. No abnormal weight change. HEMATOLOGIC/LYMPHATIC: No anemia, easy bleeding, or history of blood clots. ALLERGIC/IMMUNOLOGIC: No hives or skin allergy. <Molina Parson - Last Filed: 09/06/17 22:09> *Physical Exam - Vital Signs Last Vital Signs Temp Pulse Resp BP Pulse Ox 96.8 F L 63 19 174/71 97 09/06/17 19:52 09/06/17 19:52 09/06/17 19:52 09/06/17 19:52 09/06/17 19:52 - Physical Exam Comments: 09/06/17 21:19 GENERAL: +Aphasic Awake, alert, and fully oriented, in no acute distress HEAD: No signs of trauma EYES: PERRLA, EOMI, sclera anicteric, conjunctiva clear ENT: Auricles normal inspection, hearing grossly normal, nares patent, oropharynx clear without exudates. Moist mucosa NECK: Normal ROM, supple, no lymphadenopathy, JVD, or masses LUNGS: Breath sounds equal, clear to auscultation bilaterally. No wheezes, and no crackles HEART: +Systolic murmur. Regular rate and rhythm, normal S1 and S2, rubs or gallops ABDOMEN: +Left lower quadrant tenderness. Soft, nontender, normoactive bowel sounds. No guarding, no rebound. No masses EXTREMITIES: +Left leg shortening. +Left hip tenderness with minimal movement of leg. Normal range of motion, no edema. No clubbing or cyanosis. No cords, erythema, or tenderness NEUROLOGICAL: +Slightly confused. +AAOx1. Cranial nerves II through XII grossly intact. Normal speech, SKIN: Warm, Dry, normal turgor, no rashes or lesions noted. <Molina Parson - Last Filed: 09/06/17 22:09> Heart Score/ECG Review - ECG Intrepretation Comment:: 09/06/17 22:09 Completed @21:29:04 Normal sinus rhythm with sinus arrythmia Right bundle branch block Abnormal ECG Vent. rate 70 bpm WV interval 142 ms QRS duration 128 ms <Molina Parson - Last Filed: 09/06/17 22:09> ED Treatment Course - LABORATORY CBC & Chemistry Diagram: 09/06/17 20:54 09/06/17 20:54 - ADDITIONAL ORDERS Additional order review: 09/06/17 20:54 RBC 3.96 D MCV 84.9 MCHC 32.7 RDW 15.6 D MPV 9.5 Neutrophils % 77.2 D Lymphocytes % 13.1 D Monocytes % 7.3 Eosinophils % 1.9 Basophils % 0.5 <Molina Parson - Last Filed: 09/06/17 22:09> - LABORATORY CBC & Chemistry Diagram: 09/06/17 20:54 09/06/17 20:54 <Mary Lou Connelly - Last Filed: 09/07/17 05:12> Medical Decision Making - Medical Decision Making 09/06/17 20:38 Pt was agitated at home today; trying to leave the house. She has a hx of stroke and apahasia. She lives with a HHAide; her daughter visits daily; today daughter didn't visit, and mom fell; Pt likely broke her left hip. Left leg is shortened and pain with movement. 09/06/17 20:52 Pt is on coumadin for her aortic valve. PMD Rosch. We will contact him, once we get XR on patient. 09/06/17 21:37 Pt has a left hip intertrochanteric fracture 09/06/17 21:38 INR is 2.35 09/07/17 05:11 Ortho consult requested thru computer. Dr. Mchugh's PA aware of the patient. Pt admitted to PMD's covering service. <Mary Lou Connelly - Last Filed: 09/07/17 05:12> *DC/Admit/Observation/Transfer - Attestations Scribe Attestion: 09/06/17 21:20 Documentation prepared by Molina Parson, acting as medical physics professor for Mary Lou Connelly MD. <Molina Parson - Last Filed: 09/06/17 22:09> - Discharge Dispostion Decision to Admit order: Yes <Mary Lou Connelly - Last Filed: 09/07/17 05:12> Diagnosis at time of Disposition: Intertrochanteric fracture of left hip - Discharge Dispostion Condition at time of disposition: Guarded
[2017-09-06] MEDS ORDERED: morphine CARPU-JECT 2 MG/1 ML DISP.SYRIN IVPUSH ONE (20:46)
[2017-09-06 21:04] LABS: BASO % 0.5 % (0-2.0); EOS % 1.9 % (0-4.5); HEMATOCRIT 33.6 % (32.4-45.2); LYMPH % 13.1 % (8-40); MCH 27.7 pg (25.7-33.7); MCHC 32.7 g/dl (32.0-36.0); MEAN CELL VOLUME 84.9 fl (80-96); MEAN PLT VOLUME 9.5 fl (7.5-11.1); MONO % 7.3 % (3.8-10.2); NEUT % 77.2 % (42.8-82.8); PLATELET COUNT 208 K/MM3 (134-434); RBC 3.96 M/mm3 (3.60-5.2); RDW 15.6 % (11.6-15.6); WHITE BLOOD COUNT 9.1 K/mm3 (4.0-10.0)
[2017-09-06 21:17] LABS: INR 2.35 (0.82-1.09); PROTHROMBIN TIME (PATIENT) 26.6 SEC (9.7-13.0)
[2017-09-06] MEDS ORDERED: morphine SULFATE 4 MG/ML VIAL ONE (21:17)
[2017-09-06 21:26] LABS: ALBUMIN 3.2 g/dl (3.4-5.0); ALK PHOS 103 U/L (45-117); ANION GAP 3 (8-16); BILIRUBIN,TOTAL 0.2 mg/dL (0.2-1.0); BLOOD UREA NITROGEN 28 mg/dL (7-18); CALCIUM 8.6 mg/dL (8.5-10.1); CHLORIDE 106 mmol/L (98-107); CO2 32 mmol/L (21-32); CREATININE 1.2 mg/dL (0.55-1.02); GLUCOSE,RANDOM 154 mg/dL (74-106); POTASSIUM 4.4 mmol/L (3.5-5.1); SGOT/AST 19 U/L (15-37); SGPT/ALT 17 U/L (12-78); SODIUM 141 mmol/L (136-145); TOT PROT 6.9 g/dl (6.4-8.2)
[2017-09-07] MEDS ORDERED: ACETAMINOPHEN 325 MG TABLET (FP) PO PRN (00:21)
[2017-09-07] MEDS ORDERED: morphine CARPU-JECT 2 MG/1 ML DISP.SYRIN IVPUSH PRN (00:23)
[2017-09-07 07:19] LABS: ANION GAP 6 (8-16); BLOOD UREA NITROGEN 24 mg/dL (7-18); CALCIUM 8.7 mg/dL (8.5-10.1); CHLORIDE 107 mmol/L (98-107); CO2 30 mmol/L (21-32); GLUCOSE,RANDOM 108 mg/dL (74-106); POTASSIUM 4.2 mmol/L (3.5-5.1); SGPT/ALT 16 U/L (12-78); SODIUM 143 mmol/L (136-145)
[2017-09-07 07:21] LABS: ALK PHOS 88 U/L (45-117); BILIRUBIN,TOTAL 0.5 mg/dL (0.2-1.0); CREATININE 0.9 mg/dL (0.55-1.02); SGOT/AST 16 U/L (15-37); TOT PROT 6.4 g/dl (6.4-8.2)
[2017-09-07 07:32] LABS: INR 2.73 (0.82-1.09); PROTHROMBIN TIME (PATIENT) 30.8 SEC (9.7-13.0)
[2017-09-07 07:34] LABS: BASO % 0.4 % (0-2.0); EOS % 0.2 % (0-4.5); HEMATOCRIT 30.6 % (32.4-45.2); HEMOGLOBIN 10.1 GM/dL (10.7-15.3); LYMPH % 18.2 % (8-40); MCH 28.1 pg (25.7-33.7); MCHC 33.1 g/dl (32.0-36.0); MEAN CELL VOLUME 84.8 fl (80-96); MONO % 11.7 % (3.8-10.2); NEUT % 69.5 % (42.8-82.8); PLATELET COUNT 209 K/MM3 (134-434); RBC 3.61 M/mm3 (3.60-5.2); WHITE BLOOD COUNT 7.5 K/mm3 (4.0-10.0)
[2017-09-07] MEDS: ESCITALOPRAM OXALATE 10 MG TABLET (FP) PO SCH (09:45)
[2017-09-07] MEDS: METOPROLOL TARTRATE 50 MG TABLET (FP) PO SCH ×2 (09:45→21:06)
[2017-09-07] MEDS: HYDROCHLOROTHIAZIDE 12.5 MG CAPSULE (FP) PO SCH (09:46)
[2017-09-07] MEDS: ARTIFICIAL TEARS (POLYVINYL ALCOHOL 1.4%) OPTH DROPS OU SCH ×2 (09:47→21:06)
[2017-09-07] MEDS: POLYETHYLENE GLYCOL 3350 119 GM BTL PO SCH (10:51)
--- NOTE | 2017-09-07 11:07 | HP ---
Admitting History and Physical - Admission Chief Complaint: fall History of Present Illness: 86 yo female, had fallen at home and having left leg pain. Found to have left hip fracture on xray in ED. This mornign c/o some pain in leg when she moves, otherwise no complaints. 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 Cardiovascular: Yes: AFIB, Aortic Stenosis, HTN, Hyperlipdemia ...: No - Past Surgical History Additional Past Surgical History: ORIF right femur - Smoking History Smoking history: Never smoked Have you smoked in the past 12 months: No Aproximately how many cigarettes per day: 0 If you are a former smoker, when did you quit?: long time ago - Alcohol/Substance Use Hx Alcohol Use: No History of Substance Use: reports: None - Social History ADL: Support Services (lives alone) History of Recent Travel: No Home Medications - Allergies Allergies/Adverse Reactions: Allergies Allergy/AdvReac Type Severity Reaction Status Date / Time Penicillins Allergy Intermediate Verified 09/06/17 20:03 methylprednisolone acetate Allergy Swelling Verified 09/06/17 20:03 [From Depo-Medrol] ofloxacin [From Floxin] Allergy Verified 09/06/17 20:03 - Home Medications Home Medications: Ambulatory Orders Olanzapine [Zyprexa -] 5 mg PO HS tablet 07/31/15 Donepezil HCl [Aricept -] 5 mg PO DAILY tablet 01/07/17 Metoprolol Tartrate [Lopressor -] 50 mg PO BID tablet 01/07/17 Acetaminophen [Tylenol .Regular Strength -] 650 mg PO BID 02/06/17 Acetaminophen [Tylenol] 650 mg PO QID PRN 02/06/17 Escitalopram Oxalate [Lexapro -] 5 mg PO DAILY 02/06/17 Hypromellose 0.5% Opth Soln [Artificial Tears] 1 drop OU BID 02/06/17 Losartan Potassium [Cozaar] 50 mg PO HS 02/06/17 Polyethylene Glycol 3350 [Miralax 119 gm Btl -] 17 gm PO DAILY 02/06/17 Simvastatin [Zocor -] 20 mg PO HS 02/06/17 Warfarin Sodium [Coumadin] 4 mg PO DAILY 02/06/17 Hydrochlorothiazide 12.5 mg PO DAILY 09/06/17 Family Disease History - Family Disease History Family History: Unremarkable Review of Systems - Review of Systems Constitutional: denies: Loss of Appetite, Weakness Eyes: reports: No Symptoms HENT: denies: Difficult Swallowing, Throat Pain Neck: denies: Decreased ROM, Pain on Movement, Tenderness Cardiovascular: denies: Chest Pain, Palpitations Respiratory: denies: Cough, SOB, Wheezing Gastrointestinal: denies: Abdominal Pain, Constipation, Diarrhea, Nausea, Vomiting Genitourinary: denies: Burning, Discharge, Dysuria Neurological: reports: Pre-Existing Deficit (prior aphasia from CVA) Physical Examination Vital Signs: Vital Signs Temperature 98.2 F 09/07/17 06:00 Pulse Rate 78 09/07/17 06:00 Respiratory Rate 20 09/07/17 06:00 Blood Pressure 142/59 09/07/17 06:00 O2 Sat by Pulse Oximetry (%) 98 09/07/17 00:23 Constitutional: Yes: No Distress, Calm HENT: Yes: Atraumatic, Normocephalic Neck: Yes: Supple, Trachea Midline Cardiovascular: Yes: Pulse Irregular, S1, S2 Respiratory: Yes: Regular, CTA Bilaterally. No: Rales, Rhonchi, Wheezes Gastrointestinal: Yes: Normal Bowel Sounds, Soft. No: Distention, Tenderness Musculoskeletal: Yes: Other (left hip tender to palpation) Edema: Yes Edema: LLE: Trace, RLE: Trace Neurological: Yes: Alert Labs: CBC, BMP 09/07/17 06:45 09/07/17 06:45 Imaging - Results Chest X-ray: Report Reviewed (large heart, coarse calcifications, no acute chages from prior) X-ray: Report Reviewed (left hip: acute intertrochanteric fracture) Problem List - Problems (1) Intertrochanteric fracture of left hip Assessment/Plan: -ortho to consult -pain control Code(s): S72.142A - DISPLACED INTERTROCHANTERIC FRACTURE OF LEFT FEMUR, INIT (2) Severe aortic valve stenosis Assessment/Plan: -cardio consult, as higher risk post-surgical cardio event with severe Code(s): I35.0 - NONRHEUMATIC AORTIC (VALVE) STENOSIS (3) Atrial fibrillation Assessment/Plan: -on coumadin -holding as may need surgery Code(s): I48.91 - UNSPECIFIED ATRIAL FIBRILLATION Qualifiers: Atrial fibrillation type: chronic Qualified Code(s): I48.2 - Chronic atrial fibrillation (4) Cerebrovascular accident (CVA) Assessment/Plan: -stable Code(s): I63.9 - CEREBRAL INFARCTION, UNSPECIFIED Qualifiers: CVA mechanism: unspecified Qualified Code(s): I63.9 - Cerebral infarction, unspecified (5) Coronary artery disease Assessment/Plan: -on statin, Bblocker, ARB (not on ASA as on AC) Code(s): I25.10 - ATHSCL HEART DISEASE OF [place] CORONARY ARTERY W/O ANG PCTRS Qualifiers: Coronary Disease-Associated Artery/Lesion type: [place] artery [place] vs. transplanted heart: [place] heart Associated angina: without angina Qualified Code(s): I25.10 - Atherosclerotic heart disease of [place] coronary artery without angina pectoris (6) Hyperlipidemia Assessment/Plan: -on statin Code(s): E78.5 - HYPERLIPIDEMIA, UNSPECIFIED Qualifiers: Hyperlipidemia type: pure hypercholesterolemia Qualified Code(s): E78.00 - Pure hypercholesterolemia, unspecified (7) Hypertension Assessment/Plan: -on lopressor, cozaar, HCTZ Code(s): I10 - ESSENTIAL (PRIMARY) HYPERTENSION Qualifiers: Hypertension type: essential hypertension Qualified Code(s): I10 - Essential (primary) hypertension
--- NOTE | 2017-09-07 15:19 | CON.ORTH ---
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 Cardio/Vascular: Yes: AFIB, Aortic Stenosis, HTN, Hyperlipdemia ...: No - Past Surgical History Past Surgical History: Yes: None - Alcohol/Substance Use Hx Alcohol Use: No History of Substance Use: reports: None - Smoking History Smoking history: Never smoked Have you smoked in the past 12 months: No Aproximately how many cigarettes per day: 0 If you are a former smoker, when did you quit?: long time ago - Social History Usual Living Arrangement: Alone ADL: Support Services (lives alone) History of Recent Travel: No Home Medications - Allergies Allergies/Adverse Reactions: Allergies Allergy/AdvReac Type Severity Reaction Status Date / Time Penicillins Allergy Intermediate Verified 09/06/17 20:03 methylprednisolone acetate Allergy Swelling Verified 09/06/17 20:03 [From Depo-Medrol] ofloxacin [From Floxin] Allergy Verified 09/06/17 20:03 - Home Medications Home Medications: Ambulatory Orders Olanzapine [Zyprexa -] 5 mg PO HS tablet 07/31/15 Donepezil HCl [Aricept -] 5 mg PO DAILY tablet 01/07/17 Metoprolol Tartrate [Lopressor -] 50 mg PO BID tablet 01/07/17 Acetaminophen [Tylenol .Regular Strength -] 650 mg PO BID 02/06/17 Acetaminophen [Tylenol] 650 mg PO QID PRN 02/06/17 Escitalopram Oxalate [Lexapro -] 5 mg PO DAILY 02/06/17 Hypromellose 0.5% Opth Soln [Artificial Tears] 1 drop OU BID 02/06/17 Losartan Potassium [Cozaar] 50 mg PO HS 02/06/17 Polyethylene Glycol 3350 [Miralax 119 gm Btl -] 17 gm PO DAILY 02/06/17 Simvastatin [Zocor -] 20 mg PO HS 02/06/17 Warfarin Sodium [Coumadin] 4 mg PO DAILY 02/06/17 Hydrochlorothiazide 12.5 mg PO DAILY 09/06/17 Physical Exam for Ortho Vital Signs: Vital Signs Temperature 98.2 F 09/07/17 09:00 Pulse Rate 78 09/07/17 09:00 Respiratory Rate 20 09/07/17 09:00 Blood Pressure 148/60 09/07/17 09:00 O2 Sat by Pulse Oximetry (%) 98 09/07/17 00:23 Labs: CBC, BMP 09/07/17 06:45 09/07/17 06:45 INR, PTT INR 2.73 (0.82-1.09) H 09/07/17 06:45 - Lower Extremity Hip: Yes: Left, Decreased ROM, Leg Externally Rotated, Leg Shortened, Pain, Swelling, Other (nvi) Imaging - Results X-ray: Report Reviewed, Image Reviewed Assessment/Plan 86 year old female with a significant past medical history of stroke, AFIB on Coumadin, Aortic Stenosis, HTN, Hyperlipidemia, CVA, cerebrovascular disease who presented to the ED with complaints of left hip pain, s/p fall. a/p- left displaced IT fx Risks and benefits were d/w pt and daughter in detail will need Left IM gamma nail needs medical/cardio clearance INR needs to be 1.3 or lower Hold Coumadin OR once cleared and INR to 1.3 Tentatively for Friday d/w Dr. Espinosa
[2017-09-07] MEDS: OLANZapine 5 MG TABLET PO SCH (21:05)
[2017-09-07] MEDS: ATORVASTATIN CA 10 MG TABLET (FP) PO SCH (21:06)
[2017-09-07] MEDS: DONEPEZIL HCL 5 MG TABLET (FP) PO SCH (21:06)
[2017-09-07] MEDS: LOSARTAN POTASSIUM 50 MG TABLET (FP) PO SCH (21:06)
[2017-09-08 08:43] LABS: BASO % 0.4 % (0-2.0); EOS % 0.6 % (0-4.5); HEMATOCRIT 32.2 % (32.4-45.2); HEMOGLOBIN 10.8 GM/dL (10.7-15.3); MCH 28.4 pg (25.7-33.7); MCHC 33.7 g/dl (32.0-36.0); MEAN CELL VOLUME 84.2 fl (80-96); MEAN PLT VOLUME 9.5 fl (7.5-11.1); MONO % 10.7 % (3.8-10.2); NEUT % 75.3 % (42.8-82.8); PLATELET COUNT 181 K/MM3 (134-434); RBC 3.82 M/mm3 (3.60-5.2); RDW 15.2 % (11.6-15.6); WHITE BLOOD COUNT 8.8 K/mm3 (4.0-10.0)
[2017-09-08 08:54] LABS: INR 2.47 (0.82-1.09); PROTHROMBIN TIME (PATIENT) 27.9 SEC (9.7-13.0)
[2017-09-08 09:18] LABS: CHLORIDE 104 mmol/L (98-107); POTASSIUM 3.9 mmol/L (3.5-5.1); SODIUM 139 mmol/L (136-145)
[2017-09-08 09:32] LABS: ALK PHOS 87 U/L (45-117); ANION GAP 5 (8-16); BILIRUBIN,TOTAL 0.8 mg/dL (0.2-1.0); BLOOD UREA NITROGEN 20 mg/dL (7-18); CALCIUM 8.6 mg/dL (8.5-10.1); CO2 30 mmol/L (21-32); CREATININE 0.9 mg/dL (0.55-1.02); GLUCOSE,RANDOM 99 mg/dL (74-106); SGOT/AST 17 U/L (15-37); SGPT/ALT 14 U/L (12-78); TOT PROT 6.4 g/dl (6.4-8.2)
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
[2017-09-08] MEDS: POLYETHYLENE GLYCOL 3350 119 GM BTL PO SCH ×2 (11:00→11:11)
[2017-09-08] MEDS ORDERED: PT OWN MED DRAWER 7, Y5N ONE ×2 (11:02→20:54)
[2017-09-08] MEDS: ESCITALOPRAM OXALATE 10 MG TABLET (FP) PO SCH (11:07)
[2017-09-08] MEDS: HYDROCHLOROTHIAZIDE 12.5 MG CAPSULE (FP) PO SCH (11:07)
[2017-09-08] MEDS: METOPROLOL TARTRATE 50 MG TABLET (FP) PO SCH ×2 (11:08→22:25)
[2017-09-08] MEDS: ARTIFICIAL TEARS (POLYVINYL ALCOHOL 1.4%) OPTH DROPS OU SCH ×3 (11:09→22:40)
--- NOTE | 2017-09-08 11:26 | PN ---
Progress Note (short form) - Note Progress Note: Ortho Pt seen and examined s/p left IT fx Selected Entries 09/08/17 08:51 Temperature 98.1 F Pulse Rate 81 Respiratory 18 Rate Blood Pressure 179/82 Laboratory Tests 09/08/17 09/08/17 08:00 08:00 WBC 8.8 Hgb 10.8 Hct 32.2 L Plt Count 181 PT with INR 27.90 H INR 2.47 H PE- LLE shortened and ER, + ttp, decr rom, nvi a/p OR tentatively for wed pending clearance INR needs to around 1.3 surgical clearance pain control d/w Dr. Espinosa
--- NOTE | 2017-09-08 13:02 | CON.CARD ---
Consult Consult Specialty:: Cardiology Referred by:: Dr. Thony Reed Reason for Consultation:: Cardiac evaluation - History of Present Illness Chief Complaint: Hip fracture History of Present Illness: Patient is an 86 year old female with underlying history of hypertension, hypercholesterolemia, aortic stenosis declined TAVR in the past, cerebrovascular disease, atrial fibrillation and underlying organic brain/ dementia who presents with left hip pain s/p fall. She was reported to have lost balance and slipped on the floor. She has a left hip fracture currently awaiting further surgical intervention. History of obtained from previous record as patient is not able to give any history. She does not appear to be having chest pain, shortness of breath or palpitations. Denies fever or chills. Denies headache or dizziness. - History Source History Provided By: Medical Record Limitations to Obtaining History: Dementia - Past Medical History VP TRAINING: Yes: CVA Cardio/Vascular: Yes: AFIB, Aortic Stenosis, HTN, Hyperlipdemia ...: No - Past Surgical History Past Surgical History: Yes: None - Alcohol/Substance Use Hx Alcohol Use: No History of Substance Use: reports: None - Smoking History Smoking history: Never smoked Have you smoked in the past 12 months: No Aproximately how many cigarettes per day: 0 If you are a former smoker, when did you quit?: long time ago - Social History Usual Living Arrangement: Alone ADL: Support Services (lives alone) History of Recent Travel: No Home Medications - Allergies Allergies/Adverse Reactions: Allergies Allergy/AdvReac Type Severity Reaction Status Date / Time Penicillins Allergy Intermediate Verified 09/06/17 20:03 methylprednisolone acetate Allergy Swelling Verified 09/06/17 20:03 [From Depo-Medrol] ofloxacin [From Floxin] Allergy Verified 09/06/17 20:03 - Home Medications Home Medications: Ambulatory Orders Olanzapine [Zyprexa -] 5 mg PO HS tablet 07/31/15 Donepezil HCl [Aricept -] 5 mg PO DAILY tablet 01/07/17 Metoprolol Tartrate [Lopressor -] 50 mg PO BID tablet 01/07/17 Acetaminophen [Tylenol .Regular Strength -] 650 mg PO BID 02/06/17 Acetaminophen [Tylenol] 650 mg PO QID PRN 02/06/17 Escitalopram Oxalate [Lexapro -] 5 mg PO DAILY 02/06/17 Hypromellose 0.5% Opth Soln [Artificial Tears] 1 drop OU BID 02/06/17 Losartan Potassium [Cozaar] 50 mg PO HS 02/06/17 Polyethylene Glycol 3350 [Miralax 119 gm Btl -] 17 gm PO DAILY 02/06/17 Simvastatin [Zocor -] 20 mg PO HS 02/06/17 Warfarin Sodium [Coumadin] 4 mg PO DAILY 02/06/17 Hydrochlorothiazide 12.5 mg PO DAILY 09/06/17 Review of Systems Unable to obtain ROS, reason: Difficult to obtain Vital Signs: Vital Signs Temperature 98.1 F 09/08/17 08:51 Pulse Rate 81 09/08/17 08:51 Respiratory Rate 18 09/08/17 08:51 Blood Pressure 179/82 09/08/17 08:51 O2 Sat by Pulse Oximetry (%) 96 09/07/17 21:00 HENT: Yes: Atraumatic Neck: Yes: Supple Respiratory: Yes: Diminished Gastrointestinal: Yes: Normal Bowel Sounds, Soft Cardiovascular: Yes: Regular Rate and Rhythm JVD: No Carotid Bruit: No PMI: Non-Displaced Heart Sounds: Yes: S1, S2 Murmur: Yes: Systolic Murmur, Grade 2 Edema: No - Other Data Labs, Other Data: CBC, BMP 09/08/17 08:00 09/08/17 08:00 INR, PTT INR 2.47 (0.82-1.09) H 09/08/17 08:00 Imaging - Results Chest X-ray: Report Reviewed (Atelectasis) X-ray: Report Reviewed (Left hip fracture) Problem List - Problems (1) Intertrochanteric fracture of left hip Code(s): S72.142A - DISPLACED INTERTROCHANTERIC FRACTURE OF LEFT FEMUR, INIT (2) Atrial fibrillation Code(s): I48.91 - UNSPECIFIED ATRIAL FIBRILLATION Qualifiers: Atrial fibrillation type: chronic Qualified Code(s): I48.2 - Chronic atrial fibrillation (3) CHF (congestive heart failure) Code(s): I50.9 - HEART FAILURE, UNSPECIFIED Qualifiers: Qualified Code(s): I50.33 - Acute on chronic diastolic (congestive) heart failure (4) Cerebrovascular accident (CVA) Code(s): I63.9 - CEREBRAL INFARCTION, UNSPECIFIED Qualifiers: CVA mechanism: unspecified Qualified Code(s): I63.9 - Cerebral infarction, unspecified (5) Coronary artery disease Code(s): I25.10 - ATHSCL HEART DISEASE OF [place] CORONARY ARTERY W/O ANG PCTRS Qualifiers: Coronary Disease-Associated Artery/Lesion type: [place] artery [place] vs. transplanted heart: [place] heart Associated angina: without angina Qualified Code(s): I25.10 - Atherosclerotic heart disease of [place] coronary artery without angina pectoris (6) Dementia Code(s): F03.90 - UNSPECIFIED DEMENTIA WITHOUT BEHAVIORAL DISTURBANCE Qualifiers: Dementia type: unspecified type Dementia behavioral disturbance: without behavioral disturbance Qualified Code(s): F03.90 - Unspecified dementia without behavioral disturbance (7) Diastolic dysfunction without heart failure Code(s): I51.9 - HEART DISEASE, UNSPECIFIED (8) Hyperlipidemia Code(s): E78.5 - HYPERLIPIDEMIA, UNSPECIFIED Qualifiers: Hyperlipidemia type: pure hypercholesterolemia Qualified Code(s): E78.00 - Pure hypercholesterolemia, unspecified (9) Hypertension Code(s): I10 - ESSENTIAL (PRIMARY) HYPERTENSION Qualifiers: Hypertension type: essential hypertension Qualified Code(s): I10 - Essential (primary) hypertension (10) Severe aortic valve stenosis Code(s): I35.0 - NONRHEUMATIC AORTIC (VALVE) STENOSIS Assessment/Plan 1. Left hip fracture s/p fall 2. Severe - previously declined TAVR 3. Cerebrovascular disease 4. PAF [id number] score of 8 5. HTN/HCVD 6. Hypercholesterolemia 7. CAD 8. LV diastolic dysfunction 9. Organic brain syndrome/dementia PLAN: 1. No absolute contraindication in proceeding with hip surgery in view of absence of ischemic symptoms, decompensated congestive heart failure or malignant arrhythmia although she is at an increased cardiac risk based on her co-morbidities 2. Warfarin held. Monitor INR. Proceed with surgery when INR normalizes 3. Continue Metoprolol and Losartan 4. Continue statin Further plans are to follow João Heck MD
[2017-09-08] MEDS: ATORVASTATIN CA 10 MG TABLET (FP) PO SCH (22:24)
[2017-09-08] MEDS: DONEPEZIL HCL 5 MG TABLET (FP) PO SCH (22:24)
[2017-09-08] MEDS: OLANZapine 5 MG TABLET PO SCH (22:25)
[2017-09-08] MEDS: LOSARTAN POTASSIUM 50 MG TABLET (FP) PO SCH (22:25)
--- NOTE | 2017-09-09 00:28 | EKG ---
Test Reason : Blood Pressure : / mmHG Vent. Rate : 070 BPM Atrial Rate : 070 BPM P-R Int : 142 ms QRS Dur : 128 ms QT Int : 440 ms P-R-T Axes : 010 000 006 degrees QTc Int : 475 ms NORMAL SINUS RHYTHM WITH SINUS ARRHYTHMIA RIGHT BUNDLE BRANCH BLOCK ABNORMAL ECG WHEN COMPARED WITH ECG OF 06-FEB-2017 08:56, SINUS RHYTHM HAS REPLACED ATRIAL FIBRILLATION VENT. RATE HAS DECREASED BY 66 BPM Confirmed by NICHELLE POZO, DEENA ([id number]) on 09/09/2017 12:27:48 AM Referred By: Confirmed By:DEENA STEWARD MD
[2017-09-09 07:55] LABS: BASO % 0.6 % (0-2.0); EOS % 1.3 % (0-4.5); HEMOGLOBIN 10.7 GM/dL (10.7-15.3); LYMPH % 17.2 % (8-40); MCH 28.2 pg (25.7-33.7); MCHC 33.3 g/dl (32.0-36.0); MEAN CELL VOLUME 84.7 fl (80-96); MEAN PLT VOLUME 9.6 fl (7.5-11.1); MONO % 15.8 % (3.8-10.2); NEUT % 65.1 % (42.8-82.8); PLATELET COUNT 190 K/MM3 (134-434); RBC 3.78 M/mm3 (3.60-5.2); RDW 14.9 % (11.6-15.6); WHITE BLOOD COUNT 8.5 K/mm3 (4.0-10.0)
[2017-09-09 08:00] LABS: INR 1.76 (0.82-1.09); PROTHROMBIN TIME (PATIENT) 19.9 SEC (9.7-13.0)
[2017-09-09 08:17] LABS: CHLORIDE 102 mmol/L (98-107); POTASSIUM 3.7 mmol/L (3.5-5.1); SODIUM 138 mmol/L (136-145)
[2017-09-09 09:16] LABS: BLOOD UREA NITROGEN 20 mg/dL (7-18); GLUCOSE,RANDOM 102 mg/dL (74-106)
[2017-09-09 09:17] LABS: ALBUMIN 2.9 g/dl (3.4-5.0); ALK PHOS 85 U/L (45-117); ANION GAP 6 (8-16); BILIRUBIN,TOTAL 1.1 mg/dL (0.2-1.0); CALCIUM 8.6 mg/dL (8.5-10.1); CO2 30 mmol/L (21-32); MAGNESIUM 1.9 mg/dL (1.8-2.4); SGOT/AST 20 U/L (15-37); SGPT/ALT 15 U/L (12-78); TOT PROT 6.3 g/dl (6.4-8.2)
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
[2017-09-09] MEDS: ARTIFICIAL TEARS (POLYVINYL ALCOHOL 1.4%) OPTH DROPS OU SCH ×2 (10:45→22:43)
[2017-09-09] MEDS: HYDROCHLOROTHIAZIDE 12.5 MG CAPSULE (FP) PO SCH (10:50)
[2017-09-09] MEDS: ESCITALOPRAM OXALATE 10 MG TABLET (FP) PO SCH (10:50)
[2017-09-09] MEDS: METOPROLOL TARTRATE 50 MG TABLET (FP) PO SCH ×2 (10:51→22:43)
[2017-09-09] MEDS: POLYETHYLENE GLYCOL 3350 119 GM BTL PO SCH (10:53)
[2017-09-09 11:03] VITALS: BMI 33.7
[2017-09-09] MEDS ORDERED: ACETAMINOPHEN 325 MG TABLET (FP) PO PRN (12:26)
[2017-09-09] MEDS: DOCUSATE NA 100 MG/10 ML UNIT-DOSE CUPS PO SCH (16:29)
--- NOTE | 2017-09-09 17:25 | PN ---
Progress Note, Physician Chief Complaint: Not in distress, but underlying dementia History of Present Illness: Patient was seen and examined. Awake. Chart was reviewed Denies chest pain, SOB or palpitations - Current Medication List Current Medications: Active Medications Acetaminophen (Tylenol -) 650 mg PO Q6H PRN PRN Reason: FEVER Artificial Tears (Artificial Tears) 1 drop OU BID [facility] Last Admin: 09/09/17 10:45 Dose: 1 drop Atorvastatin Calcium (Lipitor -) 10 mg PO HS [facility] Last Admin: 09/08/17 22:24 Dose: 10 mg Docusate Sodium (Colace Liquid -) 100 mg PO DAILY [facility] Last Admin: 09/09/17 16:29 Dose: 100 mg Donepezil HCl (Aricept -) 5 mg PO [facility] Last Admin: 09/08/17 22:24 Dose: 5 mg Escitalopram Oxalate (Lexapro -) 5 mg PO DAILY [facility] Last Admin: 09/09/17 10:50 Dose: Not Given Hydrochlorothiazide (Hctz -) 12.5 mg PO DAILY [facility] Last Admin: 09/09/17 10:50 Dose: Not Given Losartan Potassium (Cozaar -) 50 mg PO [facility] Last Admin: 09/08/17 22:25 Dose: 50 mg Metoprolol Tartrate (Lopressor -) 50 mg PO BID [facility] Last Admin: 09/09/17 10:51 Dose: Not Given Morphine Sulfate (Morphine Injection -) 2 mg IVPUSH Q4H PRN PRN Reason: PAIN LEVEL 4 - 6 Last Admin: 09/07/17 10:24 Dose: 2 mg Olanzapine (Zyprexa -) 5 mg PO [facility] Last Admin: 09/08/17 22:25 Dose: 5 mg - Objective Vital Signs: Vital Signs Temperature 98.1 F 09/09/17 14:21 Pulse Rate 88 09/09/17 14:21 Respiratory Rate 20 09/09/17 14:21 Blood Pressure 128/83 09/09/17 14:21 O2 Sat by Pulse Oximetry (%) 93 L 09/08/17 21:00 Eyes: Yes: PERRL HENT: Yes: Atraumatic Neck: Yes: Supple Cardiovascular: Yes: Regular Rate and Rhythm, Murmur (DAMIEN), S1, S2 Respiratory: Yes: CTA Bilaterally Gastrointestinal: Yes: Normal Bowel Sounds, Soft. No: Tenderness Edema: No Labs: CBC, BMP 09/09/17 07:00 09/09/17 07:00 INR, PTT INR 1.76 (0.82-1.09) H 09/09/17 07:00 Problem List - Problems (1) Intertrochanteric fracture of left hip Code(s): S72.142A - DISPLACED INTERTROCHANTERIC FRACTURE OF LEFT FEMUR, INIT (2) Atrial fibrillation Code(s): I48.91 - UNSPECIFIED ATRIAL FIBRILLATION Qualifiers: Atrial fibrillation type: chronic Qualified Code(s): I48.2 - Chronic atrial fibrillation (3) CHF (congestive heart failure) Code(s): I50.9 - HEART FAILURE, UNSPECIFIED (4) Cerebrovascular accident (CVA) Code(s): I63.9 - CEREBRAL INFARCTION, UNSPECIFIED Qualifiers: CVA mechanism: unspecified Qualified Code(s): I63.9 - Cerebral infarction, unspecified (5) Coronary artery disease Code(s): I25.10 - ATHSCL HEART DISEASE OF [place] CORONARY ARTERY W/O ANG PCTRS Qualifiers: Coronary Disease-Associated Artery/Lesion type: [place] artery [place] vs. transplanted heart: [place] heart Associated angina: without angina Qualified Code(s): I25.10 - Atherosclerotic heart disease of [place] coronary artery without angina pectoris (6) Dementia Code(s): F03.90 - UNSPECIFIED DEMENTIA WITHOUT BEHAVIORAL DISTURBANCE Qualifiers: Dementia type: unspecified type Dementia behavioral disturbance: without behavioral disturbance Qualified Code(s): F03.90 - Unspecified dementia without behavioral disturbance (7) Diastolic dysfunction without heart failure Code(s): I51.9 - HEART DISEASE, UNSPECIFIED (8) Hyperlipidemia Code(s): E78.5 - HYPERLIPIDEMIA, UNSPECIFIED Qualifiers: Hyperlipidemia type: pure hypercholesterolemia Qualified Code(s): E78.00 - Pure hypercholesterolemia, unspecified (9) Hypertension Code(s): I10 - ESSENTIAL (PRIMARY) HYPERTENSION Qualifiers: Hypertension type: essential hypertension Qualified Code(s): I10 - Essential (primary) hypertension (10) Severe aortic valve stenosis Code(s): I35.0 - NONRHEUMATIC AORTIC (VALVE) STENOSIS Assessment/Plan 1. Left hip fracture s/p fall 2. Severe - previously declined TAVR 3. Cerebrovascular disease 4. PAF [id number] score of 8 5. HTN/HCVD 6. Hypercholesterolemia 7. CAD 8. LV diastolic dysfunction 9. Organic brain syndrome/dementia PLAN: 1. No absolute contraindication in proceeding with hip surgery in view of absence of ischemic symptoms, decompensated congestive heart failure or malignant arrhythmia although she is at an increased cardiac risk based on her co-morbidities 2. Warfarin held. Monitor INR. Proceed with surgery when INR normalizes 3. Continue Metoprolol and Losartan 4. Continue Atorvastatin Further plans are to follow João Heck MD
--- NOTE | 2017-09-09 17:48 | PN ---
Progress Note (short form) - Note Progress Note: Ortho OR tomorrow for left IM gamma nail if INR trends to around 1.3 a/p NPO after midnight OR tomorrow if INR ok d/w Dr. Espinosa
[2017-09-09] MEDS: OLANZapine 5 MG TABLET PO SCH (22:43)
[2017-09-09] MEDS: ATORVASTATIN CA 10 MG TABLET (FP) PO SCH (22:43)
[2017-09-09] MEDS: LOSARTAN POTASSIUM 50 MG TABLET (FP) PO SCH (22:43)
[2017-09-09] MEDS: DONEPEZIL HCL 5 MG TABLET (FP) PO SCH (22:43)
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
[2017-09-10 09:35] LABS: BASO % 0.3 % (0-2.0); EOS % 0.4 % (0-4.5); HEMATOCRIT 33.3 % (32.4-45.2); HEMOGLOBIN 10.9 GM/dL (10.7-15.3); LYMPH % 10.8 % (8-40); MCH 27.7 pg (25.7-33.7); MCHC 32.8 g/dl (32.0-36.0); MEAN CELL VOLUME 84.5 fl (80-96); MEAN PLT VOLUME 9.9 fl (7.5-11.1); MONO % 14.3 % (3.8-10.2); NEUT % 74.2 % (42.8-82.8); PLATELET COUNT 247 K/MM3 (134-434); RBC 3.94 M/mm3 (3.60-5.2); WHITE BLOOD COUNT 10.7 K/mm3 (4.0-10.0)
[2017-09-10 09:49] LABS: INR 1.48 (0.82-1.09); PROTHROMBIN TIME (PATIENT) 16.7 SEC (9.7-13.0)
[2017-09-10 10:06] LABS: ALBUMIN 2.8 g/dl (3.4-5.0); ANION GAP 7 (8-16); BLOOD UREA NITROGEN 22 mg/dL (7-18); CALCIUM 8.9 mg/dL (8.5-10.1); CHLORIDE 100 mmol/L (98-107); CO2 31 mmol/L (21-32); CREATININE 0.9 mg/dL (0.55-1.02); GLUCOSE,RANDOM 103 mg/dL (74-106); POTASSIUM 3.6 mmol/L (3.5-5.1); SGOT/AST 23 U/L (15-37); SGPT/ALT 20 U/L (12-78); SODIUM 138 mmol/L (136-145)
[2017-09-10 10:08] LABS: ALK PHOS 93 U/L (45-117); BILIRUBIN,TOTAL 1.2 mg/dL (0.2-1.0); TOT PROT 6.6 g/dl (6.4-8.2)
[2017-09-10] MEDS ORDERED: PT OWN MED DRAWER 7, Y5N ONE (11:07)
[2017-09-10] MEDS: DOCUSATE NA 100 MG/10 ML UNIT-DOSE CUPS PO SCH (11:08)
[2017-09-10] MEDS: ESCITALOPRAM OXALATE 10 MG TABLET (FP) PO SCH (11:08)
[2017-09-10] MEDS: METOPROLOL TARTRATE 50 MG TABLET (FP) PO SCH ×2 (11:30→21:20)
[2017-09-10] MEDS: ARTIFICIAL TEARS (POLYVINYL ALCOHOL 1.4%) OPTH DROPS OU SCH ×2 (11:38→23:22)
[2017-09-10] MEDS ORDERED: ONDANSETRON 4 MG/2 ML VIAL IVPUSH PRN ×3 (11:50→18:55)
[2017-09-10] MEDS ORDERED: LACTATED RINGERS SOLUTION 1,000 ML IV SCH (12:00)
[2017-09-10] MEDS: HYDROCHLOROTHIAZIDE 12.5 MG CAPSULE (FP) PO SCH (12:30)
[2017-09-10] MEDS ORDERED: PROPOFOL 20 ML ONE (16:35)
[2017-09-10] MEDS ORDERED: SUCCINYLCHOLINE CHLORIDE 200 MG/10 ML VIAL ONE (16:35)
[2017-09-10] MEDS ORDERED: morphine SULFATE 4 MG/ML VIAL IVPUSH PRN ×2 (16:36→19:04)
--- NOTE | 2017-09-10 17:50 | OP ---
Operative Note - Note: Operative Date: 09/10/17 ([facility]) Pre-Operative Diagnosis: left IT fx Operation: left IM gamma nail Post-Operative Diagnosis: Same as Pre-op Surgeon: Drew Espinosa Meeting Facilitator: Tobias Sarmiento Anesthesiologist/STRUCTURAL DESIGN ENGINEER: Macario Ledesma Anesthesia: General Estimated Blood Loss (mls): 200 Operative Report Dictated: Yes
[2017-09-10] MEDS ORDERED: oxyCODONE HCL 5 MG TABLET PO PRN (18:01)
[2017-09-10] MEDS ORDERED: PROMETHAZINE HCL 25 MG/1 ML VIAL IVPUSH PRN (18:01)
[2017-09-10] MEDS: LACTATED RINGERS SOLUTION 1,000 ML IV SCH (19:43)
[2017-09-10] MEDS: LOSARTAN POTASSIUM 50 MG TABLET (FP) PO SCH (21:20)
[2017-09-10] MEDS: DONEPEZIL HCL 5 MG TABLET (FP) PO SCH (21:20)
[2017-09-10] MEDS: ATORVASTATIN CA 10 MG TABLET (FP) PO SCH (21:20)
[2017-09-10] MEDS ORDERED: PROMETHAZINE HCL 25 MG/1 ML VIAL IVPB PRN (22:00)
[2017-09-10] MEDS: OLANZapine 5 MG TABLET PO SCH (23:22)
[2017-09-10] MEDS ORDERED: CEFAZOLIN 1 GM in DEXTROSE 5%-WATER - 50 ML IVPB SCH (23:30)
[2017-09-10] MEDS ORDERED: CLINDAMYCIN 600MG PREMIX IVPB 600 MG/50 ML BAG IVPB SCH (23:30)
[2017-09-11] MEDS: CLINDAMYCIN 600MG PREMIX IVPB 600 MG/50 ML BAG IVPB SCH ×3 (00:08→14:51)
[2017-09-11] MEDS: LACTATED RINGERS SOLUTION 1,000 ML IV SCH ×4 (06:21→21:45)
[2017-09-11 07:44] LABS: HEMATOCRIT 27.4 % (32.4-45.2); HEMOGLOBIN 8.9 GM/dL (10.7-15.3); MCH 27.8 pg (25.7-33.7); MCHC 32.5 g/dl (32.0-36.0); MEAN CELL VOLUME 85.5 fl (80-96); PLATELET COUNT 227 K/MM3 (134-434); RDW 15.1 % (11.6-15.6); WHITE BLOOD COUNT 11.4 K/mm3 (4.0-10.0)
[2017-09-11 08:20] LABS: CHLORIDE 102 mmol/L (98-107); POTASSIUM 3.8 mmol/L (3.5-5.1); SODIUM 139 mmol/L (136-145)
--- NOTE | 2017-09-11 08:22 | SPEC ---
DATE OF OPERATION: 09/10/2017 PREOPERATIVE DIAGNOSIS: Left femur intertrochanteric hip fracture. POSTOPERATIVE DIAGNOSIS: Left femur intertrochanteric hip fracture. PROCEDURE: Left femur intramedullary nail/Gamma nail. SURGEON: Drew Espinosa M.D. MARKET STALL VENDOR: RILEY Moreira ANESTHESIOLOGIST: Macario Ledesma MD ANESTHESIA: General. BLOOD LOSS: 40 mL BLOOD GIVEN: None. FLUID REPLACEMENT: 1000 mL Plasmalyte. DRAINS: None. COMPLICATIONS: None. IMPLANTS: We put in a standard left titanium [place] G3 Gamma nail, 125-degree, 95-mm lag screw, and a 37.5-mm distal interlocking screw. INDICATION: This patient is an 86-year-old female with a preoperative diagnosis of a displaced left femur intertrochanteric hip fracture. After understanding the potential risks, complications, alternatives, and benefits of surgery versus nonsurgical treatment, the patient and her family elected to undergo this procedure. I spoke with the daughter personally, and we went over all the potential risks, complications, pros and cons. PROCEDURE: Patient was brought to the operating room. Peripheral IV placed, IV sedation given. One gram of IV Ancef was given. General anesthesia was induced. The patient had ample Webril placed around the peroneal post in both ankles. The patient was placed onto the fracture table with a slight longitudinal traction and internal rotation. X-rays were taken documenting excellent reduction of the fracture in the AP and lateral planes. Next, an incision was made over the proximal aspect of the greater trochanter. Subcutaneous hemostasis was achieved with a Bovie cautery, dissection done through the lateral fascia to the top of the greater trochanter. A Godinez elevator was used to take off the soft tissue from the starting point. Under direct visualization a partially threaded guide-wire was placed through the standard starting position, into the proximal femur, passed the fracture fragment into the medullary canal. It was documented to be in excellent position in AP, lateral and multiple oblique planes. Next, we used the proximal 17 mm cannulated reamer and put in a standard titanium [place] Gamma 3 125 degree, 180 mm trochanteric nail. This was put in cannulated fashion to appropriate depth and using the external guide in a standard fashion, first using external jig, using a threaded guide-wire, replaced the lag screw, guide pin to the lateral aspect of the femur. The prosthesis and up to the femoral neck and head, looked to be in excellent position in a center central position, perhaps slightly posterior and slightly inferior in both AP and lateral planes. We measured it at a 95 mm screw. The cannulated drill was used to drill it to this leg and then we put in a 95 mm titanium lag screw. We achieved excellent compression and overall the position of the hardware in the fracture fragments looked excellent. We locked it in place with a proximal set screw, we altered the external jig to the static position and using the standard technique put in a distal interlocking screw under direct visualization of 37.5 mm in length. This locked the nail distally. We removed the external jig. We repeated x-rays in AP, lateral and multiple oblique planes and overall I was quite happy with the position of the fracture reduction, the length of the screw, the position of the hardware. Final x-rays were taken. The area was copiously irrigated and washed out. The deep fascial layer was closed with 0 Vicryl sutures. The deep dermal layer was closed with 2-0 Vicryl. Final skin approximation was done with edenilson. The area was then washed and dried, covered with Xeroform gauze, 4 x 4 gauze, ABD and tape. Patient was taken down off the fracture table in stable condition. There were no complications during the case. Total operative time was 30 minutes. Adelina DEL [id number]
[2017-09-11 08:24] LABS: ANION GAP 8 (8-16); BLOOD UREA NITROGEN 32 mg/dL (7-18); CALCIUM 8.3 mg/dL (8.5-10.1); CO2 29 mmol/L (21-32); CREATININE 1.1 mg/dL (0.55-1.02); GLUCOSE,RANDOM 115 mg/dL (74-106)
[2017-09-11] MEDS: ACETAMINOPHEN 325 MG TABLET (FP) PO PRN ×2 (08:30→20:09)
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
[2017-09-11] MEDS: ARTIFICIAL TEARS (POLYVINYL ALCOHOL 1.4%) OPTH DROPS OU SCH ×2 (09:38→21:24)
[2017-09-11] MEDS: DOCUSATE NA 100 MG/10 ML UNIT-DOSE CUPS PO SCH (09:39)
[2017-09-11] MEDS: ESCITALOPRAM OXALATE 10 MG TABLET (FP) PO SCH (09:39)
[2017-09-11] MEDS: ENOXAPARIN NA (PORCINE) 40 MG/0.4 ML DISP.SYRIN SQ SCH (09:39)
[2017-09-11] MEDS: METOPROLOL TARTRATE 50 MG TABLET (FP) PO SCH ×2 (09:40→21:21)
[2017-09-11] MEDS: HYDROCHLOROTHIAZIDE 12.5 MG CAPSULE (FP) PO SCH (09:40)
--- NOTE | 2017-09-11 09:46 | PN ---
Progress Note (short form) - Note Progress Note: Pt seen and examined. She is on POD #1 s/p left Gamma Nail. Doing well. Alert. Following commands. No c/o pain, SOB, or tachycardia. AVSS however she is mildly tachycardic (99), and her temperature is a little higher (100F, not concerned, expected after surgery.) PE LLE looks good. Dressing CDI Good ROM at the left ankle, foot, toes Imp Overall doing well on POD #1 s/p L Gamma Rec Consider PRBC transfusion P.T. for assistance with ambulation, get OOB, OOB to chair, TTWB LLE Can restart Coumadin tomorrow morning Start DC planning, SNF likely
--- NOTE | 2017-09-11 09:51 | PN ---
Progress Note, Physician Chief Complaint: Not in distress, but underlying dementia POD #1 left hip gamma nail Hemodynamically stable History of Present Illness: Patient was seen and examined. Awake. Chart was reviewed Denies chest pain, SOB or palpitations - Current Medication List Current Medications: Active Medications Acetaminophen (Tylenol -) 650 mg PO Q6H PRN PRN Reason: FEVER Last Admin: 09/11/17 08:30 Dose: 650 mg Artificial Tears (Artificial Tears) 1 drop OU BID [facility] Last Admin: 09/11/17 09:38 Dose: 1 drop Atorvastatin Calcium (Lipitor -) 10 mg PO HS [facility] Last Admin: 09/10/17 21:20 Dose: 10 mg Docusate Sodium (Colace Liquid -) 100 mg PO DAILY [facility] Last Admin: 09/11/17 09:39 Dose: 100 mg Donepezil HCl (Aricept -) 5 mg PO HS [facility] Last Admin: 09/10/17 21:20 Dose: 5 mg Enoxaparin Sodium (Lovenox -) 40 mg SQ DAILY [facility] Last Admin: 09/11/17 09:39 Dose: 40 mg Escitalopram Oxalate (Lexapro -) 5 mg PO DAILY [facility] Last Admin: 09/11/17 09:39 Dose: 5 mg Hydrochlorothiazide (Hctz -) 12.5 mg PO DAILY [facility] Last Admin: 09/11/17 09:40 Dose: 12.5 mg Lactated Ringer's (Lactated Ringers Solution) 1,000 mls @ 75 mls/hr IV ASDIR [facility] Last Admin: 09/11/17 06:21 Dose: 75 mls/hr Clindamycin Phosphate (Cleocin 600 Mg Premix Ivpb -) 600 mg in 50 mls @ 100 mls /hr IVPB Q8H [facility]; Protocol Stop: 09/11/17 23:29 Last Admin: 09/11/17 06:48 Dose: 100 mls/hr Losartan Potassium (Cozaar -) 50 mg PO HS [facility] Last Admin: 09/10/17 21:20 Dose: 50 mg Metoprolol Tartrate (Lopressor -) 50 mg PO BID [facility] Last Admin: 09/11/17 09:40 Dose: 50 mg Morphine Sulfate (Morphine Sulfate) 2 mg IVPUSH Q4H PRN PRN Reason: PAIN LEVEL 6 - 10 Olanzapine (Zyprexa -) 5 mg PO HS [facility] Last Admin: 09/10/17 23:22 Dose: 5 mg Ondansetron HCl (Zofran Injection) 4 mg IVPUSH Q6H PRN PRN Reason: NAUSEA AND/OR VOMITING Oxycodone HCl (Roxicodone -) 5 mg PO Q4H PRN PRN Reason: PAIN LEVEL 1-5 Stop: 09/11/17 18:00 - Objective Vital Signs: Vital Signs Temperature 100.4 F H 09/11/17 08:26 Pulse Rate 99 H 09/11/17 08:26 Respiratory Rate 18 09/11/17 08:26 Blood Pressure 114/60 09/11/17 08:26 O2 Sat by Pulse Oximetry (%) 97 09/10/17 21:00 HENT: Yes: Atraumatic Neck: Yes: Supple Cardiovascular: Yes: Regular Rate and Rhythm, Murmur (2-3/6 DAMIEN), S1, S2 Respiratory: Yes: CTA Bilaterally Gastrointestinal: Yes: Normal Bowel Sounds, Soft. No: Tenderness Edema: No Labs: CBC, BMP 09/11/17 06:30 09/11/17 06:30 INR, PTT INR 1.48 (0.82-1.09) H 09/10/17 08:55 Problem List - Problems (1) Intertrochanteric fracture of left hip Code(s): S72.142A - DISPLACED INTERTROCHANTERIC FRACTURE OF LEFT FEMUR, INIT (2) Atrial fibrillation Code(s): I48.91 - UNSPECIFIED ATRIAL FIBRILLATION Qualifiers: Atrial fibrillation type: chronic Qualified Code(s): I48.2 - Chronic atrial fibrillation (3) CHF (congestive heart failure) Code(s): I50.9 - HEART FAILURE, UNSPECIFIED (4) Cerebrovascular accident (CVA) Code(s): I63.9 - CEREBRAL INFARCTION, UNSPECIFIED Qualifiers: CVA mechanism: unspecified Qualified Code(s): I63.9 - Cerebral infarction, unspecified (5) Coronary artery disease Code(s): I25.10 - ATHSCL HEART DISEASE OF [place] CORONARY ARTERY W/O ANG PCTRS Qualifiers: Coronary Disease-Associated Artery/Lesion type: [place] artery [place] vs. transplanted heart: [place] heart Associated angina: without angina Qualified Code(s): I25.10 - Atherosclerotic heart disease of [place] coronary artery without angina pectoris (6) Dementia Code(s): F03.90 - UNSPECIFIED DEMENTIA WITHOUT BEHAVIORAL DISTURBANCE Qualifiers: Dementia type: unspecified type Dementia behavioral disturbance: without behavioral disturbance Qualified Code(s): F03.90 - Unspecified dementia without behavioral disturbance (7) Diastolic dysfunction without heart failure Code(s): I51.9 - HEART DISEASE, UNSPECIFIED (8) Hyperlipidemia Code(s): E78.5 - HYPERLIPIDEMIA, UNSPECIFIED Qualifiers: Hyperlipidemia type: pure hypercholesterolemia Qualified Code(s): E78.00 - Pure hypercholesterolemia, unspecified (9) Hypertension Code(s): I10 - ESSENTIAL (PRIMARY) HYPERTENSION Qualifiers: Hypertension type: essential hypertension Qualified Code(s): I10 - Essential (primary) hypertension (10) Severe aortic valve stenosis Code(s): I35.0 - NONRHEUMATIC AORTIC (VALVE) STENOSIS Assessment/Plan 1. Left hip fracture s/p fall POD#1 gamma nail 2. Severe - previously declined TAVR 3. Cerebrovascular disease 4. PAF [id number] score of 8 5. HTN/HCVD 6. Hypercholesterolemia 7. CAD 8. LV diastolic dysfunction 9. Organic brain syndrome/dementia PLAN: 1. Post operative monitoring. Follow CBC and transfuse as needed. SO far appears stable. 2. Warfarin held. Monitor INR. Coumadin is to be restarted once cleared by Orthopedics 3. Continue Metoprolol and Losartan 4. Continue Atorvastatin 5. Eventual physical therapy and rehab 6. Previous had refused further intervention on aortic valve with TAVR Further plans are to follow João Heck MD
[2017-09-11] MEDS ORDERED: ENOXAPARIN NA (PORCINE) 40 MG/0.4 ML DISP.SYRIN SQ SCH (10:00)
--- NOTE | 2017-09-11 13:07 | PN ---
Progress Note, Physician Chief Complaint: Day #1 s/p gamma nail under GA - Current Medication List Current Medications: Active Medications Acetaminophen (Tylenol -) 650 mg PO Q6H PRN PRN Reason: FEVER Last Admin: 09/11/17 08:30 Dose: 650 mg Artificial Tears (Artificial Tears) 1 drop OU BID [facility] Last Admin: 09/11/17 09:38 Dose: 1 drop Atorvastatin Calcium (Lipitor -) 10 mg PO HS [facility] Last Admin: 09/10/17 21:20 Dose: 10 mg Docusate Sodium (Colace Liquid -) 100 mg PO DAILY [facility] Last Admin: 09/11/17 09:39 Dose: 100 mg Donepezil HCl (Aricept -) 5 mg PO HS [facility] Last Admin: 09/10/17 21:20 Dose: 5 mg Enoxaparin Sodium (Lovenox -) 40 mg SQ DAILY [facility] Last Admin: 09/11/17 09:39 Dose: 40 mg Escitalopram Oxalate (Lexapro -) 5 mg PO DAILY [facility] Last Admin: 09/11/17 09:39 Dose: 5 mg Hydrochlorothiazide (Hctz -) 12.5 mg PO DAILY [facility] Last Admin: 09/11/17 09:40 Dose: 12.5 mg Lactated Ringer's (Lactated Ringers Solution) 1,000 mls @ 75 mls/hr IV ASDIR [facility] Last Admin: 09/11/17 06:21 Dose: 75 mls/hr Clindamycin Phosphate (Cleocin 600 Mg Premix Ivpb -) 600 mg in 50 mls @ 100 mls /hr IVPB Q8H [facility]; Protocol Stop: 09/11/17 23:29 Last Admin: 09/11/17 06:48 Dose: 100 mls/hr Losartan Potassium (Cozaar -) 50 mg PO HS [facility] Last Admin: 09/10/17 21:20 Dose: 50 mg Metoprolol Tartrate (Lopressor -) 50 mg PO BID [facility] Last Admin: 09/11/17 09:40 Dose: 50 mg Morphine Sulfate (Morphine Sulfate) 2 mg IVPUSH Q4H PRN PRN Reason: PAIN LEVEL 6 - 10 Olanzapine (Zyprexa -) 5 mg PO HS [facility] Last Admin: 09/10/17 23:22 Dose: 5 mg Ondansetron HCl (Zofran Injection) 4 mg IVPUSH Q6H PRN PRN Reason: NAUSEA AND/OR VOMITING Oxycodone HCl (Roxicodone -) 5 mg PO Q4H PRN PRN Reason: PAIN LEVEL 1-5 Stop: 09/11/17 18:00 - Objective Vital Signs: Vital Signs Temperature 100.4 F H 09/11/17 08:26 Pulse Rate 99 H 09/11/17 08:26 Respiratory Rate 18 09/11/17 08:26 Blood Pressure 114/60 09/11/17 08:26 O2 Sat by Pulse Oximetry (%) 97 09/10/17 21:00 Labs: CBC, BMP 09/11/17 06:30 09/11/17 06:30 INR, PTT INR 1.48 (0.82-1.09) H 09/10/17 08:55 Assessment/Plan Pt doing well at baseline (underlying dementia). In no distress; no anesthetic issues/complications.
[2017-09-11] MEDS: ATORVASTATIN CA 10 MG TABLET (FP) PO SCH (21:21)
[2017-09-11] MEDS: LOSARTAN POTASSIUM 50 MG TABLET (FP) PO SCH (21:21)
[2017-09-11] MEDS: DONEPEZIL HCL 5 MG TABLET (FP) PO SCH (21:21)
[2017-09-11] MEDS ORDERED: PT OWN MED DRAWER 7, Y5N ONE (21:23)
[2017-09-11] MEDS: OLANZapine 5 MG TABLET PO SCH (21:24)
[2017-09-12 07:51] LABS: BASO % 0.6 % (0-2.0); EOS % 1.5 % (0-4.5); HEMOGLOBIN 7.8 GM/dL (10.7-15.3); LYMPH % 14.8 % (8-40); MCH 27.7 pg (25.7-33.7); MCHC 32.6 g/dl (32.0-36.0); MONO % 14.1 % (3.8-10.2); PLATELET COUNT 222 K/MM3 (134-434); RBC 2.82 M/mm3 (3.60-5.2); RDW 15.2 % (11.6-15.6); WHITE BLOOD COUNT 11.4 K/mm3 (4.0-10.0)
[2017-09-12 08:06] LABS: INR 1.36 (0.82-1.09); PROTHROMBIN TIME (PATIENT) 15.4 SEC (9.7-13.0)
[2017-09-12 08:17] LABS: CHLORIDE 103 mmol/L (98-107); POTASSIUM 3.7 mmol/L (3.5-5.1); SODIUM 141 mmol/L (136-145)
[2017-09-12 08:49] LABS: ALBUMIN 2.2 g/dl (3.4-5.0); ALK PHOS 80 U/L (45-117); ANION GAP 8 (8-16); BILIRUBIN,TOTAL 0.5 mg/dL (0.2-1.0); BLOOD UREA NITROGEN 55 mg/dL (7-18); CALCIUM 8.3 mg/dL (8.5-10.1); CO2 30 mmol/L (21-32); CREATININE 1.7 mg/dL (0.55-1.02); GLUCOSE,RANDOM 106 mg/dL (74-106); SGOT/AST 24 U/L (15-37); SGPT/ALT 19 U/L (12-78); TOT PROT 5.5 g/dl (6.4-8.2)
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
--- NOTE | 2017-09-12 09:55 | PN ---
Progress Note (short form) - Note Progress Note: Ortho Pt seen and examined s/p left IM gamma nail pod #2 Selected Entries 09/12/17 08:46 Temperature 98.7 F Pulse Rate 74 Respiratory 20 Rate Blood Pressure 118/42 Laboratory Tests 09/12/17 06:30 WBC 11.4 H Hgb 7.8 L D Hct 24.0 L Plt Count 222 dressing c/d/i, calf soft, nt nvi a/p PT PWB dvt ppx pain control d/c planning
[2017-09-12] MEDS: DOCUSATE NA 100 MG/10 ML UNIT-DOSE CUPS PO SCH (10:00)
[2017-09-12] MEDS ORDERED: PT OWN MED DRAWER 7, Y5N ONE ×3 (10:38→21:10)
[2017-09-12] MEDS: ARTIFICIAL TEARS (POLYVINYL ALCOHOL 1.4%) OPTH DROPS OU SCH ×2 (10:43→21:17)
[2017-09-12] MEDS: ENOXAPARIN NA (PORCINE) 40 MG/0.4 ML DISP.SYRIN SQ SCH (10:43)
[2017-09-12] MEDS: METOPROLOL TARTRATE 50 MG TABLET (FP) PO SCH ×2 (10:45→21:17)
[2017-09-12] MEDS: HYDROCHLOROTHIAZIDE 12.5 MG CAPSULE (FP) PO SCH (10:45)
[2017-09-12] MEDS: ESCITALOPRAM OXALATE 10 MG TABLET (FP) PO SCH (10:46)
[2017-09-12] MEDS: ACETAMINOPHEN 325 MG TABLET (FP) PO PRN (16:23)
[2017-09-12] MEDS: WARFARIN NA 2 MG TABLET (UD) PO SCH (18:00)
[2017-09-12] MEDS: LACTATED RINGERS SOLUTION 1,000 ML IV SCH (18:50)
[2017-09-12] MEDS: ATORVASTATIN CA 10 MG TABLET (FP) PO SCH (21:17)
[2017-09-12] MEDS: LOSARTAN POTASSIUM 50 MG TABLET (FP) PO SCH (21:17)
[2017-09-12] MEDS: DONEPEZIL HCL 5 MG TABLET (FP) PO SCH (21:17)
[2017-09-12] MEDS: OLANZapine 5 MG TABLET PO SCH (21:48)
[2017-09-13] MEDS: LACTATED RINGERS SOLUTION 1,000 ML IV SCH (06:22)
[2017-09-13 07:53] LABS: BASO % 0.4 % (0-2.0); EOS % 2.3 % (0-4.5); HEMATOCRIT 23.8 % (32.4-45.2); LYMPH % 14.9 % (8-40); MCH 28.4 pg (25.7-33.7); MCHC 33.5 g/dl (32.0-36.0); MEAN CELL VOLUME 84.8 fl (80-96); MEAN PLT VOLUME 9.7 fl (7.5-11.1); MONO % 13.7 % (3.8-10.2); NEUT % 68.7 % (42.8-82.8); PLATELET COUNT 210 K/MM3 (134-434); RBC 2.81 M/mm3 (3.60-5.2); RDW 14.6 % (11.6-15.6); WHITE BLOOD COUNT 9.3 K/mm3 (4.0-10.0)
[2017-09-13 08:13] LABS: INR 1.3 (0.82-1.09); PROTHROMBIN TIME (PATIENT) 14.7 SEC (9.7-13.0)
[2017-09-13 08:41] LABS: CHLORIDE 105 mmol/L (98-107); POTASSIUM 3.6 mmol/L (3.5-5.1); SODIUM 144 mmol/L (136-145)
[2017-09-13 08:50] LABS: ALK PHOS 86 U/L (45-117); ANION GAP 7 (8-16); BILIRUBIN,TOTAL 0.8 mg/dL (0.2-1.0); BLOOD UREA NITROGEN 49 mg/dL (7-18); CALCIUM 8.1 mg/dL (8.5-10.1); CO2 32 mmol/L (21-32); GLUCOSE,RANDOM 98 mg/dL (74-106); SGOT/AST 31 U/L (15-37); SGPT/ALT 24 U/L (12-78); TOT PROT 5.1 g/dl (6.4-8.2)
[2017-09-13] MEDS: ARTIFICIAL TEARS (POLYVINYL ALCOHOL 1.4%) OPTH DROPS OU SCH ×2 (09:34→21:48)
[2017-09-13] MEDS: ESCITALOPRAM OXALATE 10 MG TABLET (FP) PO SCH (09:35)
[2017-09-13] MEDS: HYDROCHLOROTHIAZIDE 12.5 MG CAPSULE (FP) PO SCH (09:35)
[2017-09-13] MEDS: ENOXAPARIN NA (PORCINE) 40 MG/0.4 ML DISP.SYRIN SQ SCH (09:35)
[2017-09-13] MEDS: METOPROLOL TARTRATE 50 MG TABLET (FP) PO SCH ×2 (09:35→21:47)
[2017-09-13] MEDS: DOCUSATE NA 100 MG/10 ML UNIT-DOSE CUPS PO SCH (09:35)
[2017-09-13] MEDS ORDERED: PT OWN MED DRAWER 7, Y5N ONE ×2 (09:54→21:46)
--- NOTE | 2017-09-13 10:56 | PN ---
Progress Note (short form) - Note Progress Note: Chief Complaint: Events noted, notes reviewed, denies any chest pain or dyspnea , expressive aphasia is persistent History of Present Illness: Seen and examined. Events noted, notes reviewed, denies any chest pain or dyspnea, expressive aphasia is persistent Medications: Current Medications Acetaminophen (Tylenol -) 650 mg PO Q6H PRN PRN Reason: FEVER Last Admin: 09/12/17 16:23 Dose: 650 mg Artificial Tears (Artificial Tears) 1 drop OU BID [facility] Last Admin: 09/13/17 09:34 Dose: 1 drop Atorvastatin Calcium (Lipitor -) 10 mg PO HS [facility] Last Admin: 09/12/17 21:17 Dose: 10 mg Docusate Sodium (Colace Liquid -) 100 mg PO DAILY [facility] Last Admin: 09/13/17 09:35 Dose: 100 mg Donepezil HCl (Aricept -) 5 mg PO HS [facility] Last Admin: 09/12/17 21:17 Dose: 5 mg Escitalopram Oxalate (Lexapro -) 5 mg PO DAILY [facility] Last Admin: 09/13/17 09:35 Dose: 5 mg Hydrochlorothiazide (Hctz -) 12.5 mg PO DAILY [facility] Last Admin: 09/13/17 09:35 Dose: 12.5 mg Lactated Ringer's (Lactated Ringers Solution) 1,000 mls @ 75 mls/hr IV ASDIR [facility] Last Admin: 09/13/17 06:22 Dose: 75 mls/hr Losartan Potassium (Cozaar -) 50 mg PO [facility] Last Admin: 09/12/17 21:17 Dose: 50 mg Metoprolol Tartrate (Lopressor -) 50 mg PO BID [facility] Last Admin: 09/13/17 09:35 Dose: 50 mg Morphine Sulfate (Morphine Sulfate) 2 mg IVPUSH Q4H PRN PRN Reason: PAIN LEVEL 6 - 10 Last Admin: 09/11/17 13:22 Dose: 2 mg Olanzapine (Zyprexa -) 5 mg PO [facility] Last Admin: 09/12/17 21:48 Dose: 5 mg Ondansetron HCl (Zofran Injection) 4 mg IVPUSH Q6H PRN PRN Reason: NAUSEA AND/OR VOMITING Warfarin Sodium (Coumadin -) 4 mg PO DAILY@1800 [facility] Last Admin: 09/12/17 18:00 Dose: 4 mg Vital Signs: Last Vital Signs Temp Pulse Resp BP Pulse Ox 98.7 F 77 20 113/46 94 L 09/13/17 07:40 09/13/17 07:40 09/13/17 07:40 09/13/17 07:40 09/12/17 22:00 Intake & Output 09/10/17 09/11/17 09/12/17 09/13/17 23:59 23:59 23:59 23:59 Intake Total 1050 2859 2074 Output Total 200 Balance 850 2859 2074 Constitutional: No Distress, Calm Neck: Supple Negative JVD No Bruit Respiratory: Clear to A&P Bilaterally Cardiovascular: S1 S2 Regular Rate and Rhythm Grade 3/6 DAMIEN Gastrointestinal: Soft Benign Normal Bowel Sounds Ext: No Edema Labs: CBC, BMP 09/13/17 07:00 09/13/17 07:00 Assessment/Plan ASSESSMENT: 1. Left hip fracture post fall post left IM gamma nail 2. Severe/critical aortic valve stenosis, previously declined TAVR 3. CAD angina pectoris, stable 4. LV diastolic dysfunction with chronic class I NYHA classification LV failure , compensated/euvolemic 5. Paroxysmal atrial fibrillation currently in sinus rhythm [id number] score of 8 with sub-therapeutic INR 6. History of cerebro-vascular disease with with residual deficit, expressive aphasia 7. Hypertension/hypertensive cardiovascular disease 8. Hypercholesterolemia 9. Anemia PLAN: 1. Continue Lopressor 2. Continue Losartan and HCTZ 3. Continue Lipitor 4. Continue Coumadin and maintain INR 2-3 with close monitoring of CBC, on Lovenox (DVT prophylaxis dose) 5. Initiate PT and plan to D/C to acute rehab facility Pam Pulliam M.D.
--- NOTE | 2017-09-13 14:06 | PN ---
Progress Note, Physician Chief Complaint: No new complaints History of Present Illness: 86 yo female,HTN, Dementia, afib admitted with Left Hip fracture Post Op day 3rd IM Gamma Nail - Current Medication List Current Medications: Active Medications Acetaminophen (Tylenol -) 650 mg PO Q6H PRN PRN Reason: FEVER Last Admin: 09/12/17 16:23 Dose: 650 mg Artificial Tears (Artificial Tears) 1 drop OU BID [facility] Last Admin: 09/13/17 09:34 Dose: 1 drop Atorvastatin Calcium (Lipitor -) 10 mg PO HS [facility] Last Admin: 09/12/17 21:17 Dose: 10 mg Docusate Sodium (Colace Liquid -) 100 mg PO DAILY [facility] Last Admin: 09/13/17 09:35 Dose: 100 mg Donepezil HCl (Aricept -) 5 mg PO HS [facility] Last Admin: 09/12/17 21:17 Dose: 5 mg Escitalopram Oxalate (Lexapro -) 5 mg PO DAILY [facility] Last Admin: 09/13/17 09:35 Dose: 5 mg Hydrochlorothiazide (Hctz -) 12.5 mg PO DAILY [facility] Last Admin: 09/13/17 09:35 Dose: 12.5 mg Lactated Ringer's (Lactated Ringers Solution) 1,000 mls @ 75 mls/hr IV ASDIR [facility] Last Admin: 09/13/17 06:22 Dose: 75 mls/hr Losartan Potassium (Cozaar -) 50 mg PO HS [facility] Last Admin: 09/12/17 21:17 Dose: 50 mg Metoprolol Tartrate (Lopressor -) 50 mg PO BID [facility] Last Admin: 09/13/17 09:35 Dose: 50 mg Morphine Sulfate (Morphine Sulfate) 2 mg IVPUSH Q4H PRN PRN Reason: PAIN LEVEL 6 - 10 Last Admin: 09/11/17 13:22 Dose: 2 mg Olanzapine (Zyprexa -) 5 mg PO [facility] Last Admin: 09/12/17 21:48 Dose: 5 mg Ondansetron HCl (Zofran Injection) 4 mg IVPUSH Q6H PRN PRN Reason: NAUSEA AND/OR VOMITING Warfarin Sodium (Coumadin -) 4 mg PO DAILY@1800 [facility] Last Admin: 09/12/17 18:00 Dose: 4 mg - Objective Vital Signs: Vital Signs Temperature 98.7 F 05/26/18 07:40 Pulse Rate 77 09/13/17 07:40 Respiratory Rate 20 09/13/17 07:40 Blood Pressure 113/46 09/13/17 07:40 O2 Sat by Pulse Oximetry (%) 94 L 09/12/17 22:00 Constitutional: Yes: Well Nourished, No Distress HENT: Yes: Atraumatic, Normocephalic Neck: Yes: Supple, Trachea Midline Cardiovascular: Yes: Pulse Irregular, S1, S2. No: JVD, Gallop, Murmur Respiratory: Yes: Regular, CTA Bilaterally Gastrointestinal: Yes: Normal Bowel Sounds, Soft Musculoskeletal: Yes: Other (Left Hip S/p ORIF) Edema: RUE: Trace, LLE: Trace Peripheral Pulses WNL: Yes Peripheral Pulses: Left Doralis Pedis: 1+, Right Dorsalis Pedis: 1+ Neurological: Yes: Alert, Oriented Labs: CBC, BMP 09/13/17 07:00 09/13/17 07:00 INR, PTT INR 1.30 (0.82-1.09) H 09/13/17 07:00 Problem List - Problems (1) Intertrochanteric fracture of left hip Assessment/Plan: S/p IM Clyde Nail post Op care as per orthopaedics Code(s): S72.142A - DISPLACED INTERTROCHANTERIC FRACTURE OF LEFT FEMUR, INIT (2) Atrial fibrillation Code(s): I48.91 - UNSPECIFIED ATRIAL FIBRILLATION Qualifiers: Atrial fibrillation type: chronic Qualified Code(s): I48.2 - Chronic atrial fibrillation (3) Hypertension Code(s): I10 - ESSENTIAL (PRIMARY) HYPERTENSION Qualifiers: Hypertension type: essential hypertension Qualified Code(s): I10 - Essential (primary) hypertension (4) Dementia Code(s): F03.90 - UNSPECIFIED DEMENTIA WITHOUT BEHAVIORAL DISTURBANCE Qualifiers: Dementia type: unspecified type Dementia behavioral disturbance: without behavioral disturbance Qualified Code(s): F03.90 - Unspecified dementia without behavioral disturbance (5) Diastolic dysfunction without heart failure Code(s): I51.9 - HEART DISEASE, UNSPECIFIED
[2017-09-13] MEDS: WARFARIN NA 2 MG TABLET (UD) PO SCH (17:09)
[2017-09-13] MEDS: ACETAMINOPHEN 325 MG TABLET (FP) PO PRN (18:59)
[2017-09-13] MEDS: LOSARTAN POTASSIUM 50 MG TABLET (FP) PO SCH (21:48)
[2017-09-13] MEDS: DONEPEZIL HCL 5 MG TABLET (FP) PO SCH (21:48)
[2017-09-13] MEDS: ATORVASTATIN CA 10 MG TABLET (FP) PO SCH (21:48)
[2017-09-13] MEDS: OLANZapine 5 MG TABLET PO SCH (21:48)
[2017-09-14] MEDS: LACTATED RINGERS SOLUTION 1,000 ML IV SCH (03:14)
[2017-09-14 09:34] LABS: BASO % 0.5 % (0-2.0); EOS % 2.7 % (0-4.5); HEMATOCRIT 27.2 % (32.4-45.2); HEMOGLOBIN 9.1 GM/dL (10.7-15.3); LYMPH % 17.4 % (8-40); MCH 28.5 pg (25.7-33.7); MCHC 33.5 g/dl (32.0-36.0); MEAN CELL VOLUME 85.3 fl (80-96); MEAN PLT VOLUME 9.4 fl (7.5-11.1); MONO % 12.5 % (3.8-10.2); NEUT % 66.9 % (42.8-82.8); PLATELET COUNT 279 K/MM3 (134-434); RBC 3.19 M/mm3 (3.60-5.2); RDW 14.8 % (11.6-15.6); WHITE BLOOD COUNT 8.2 K/mm3 (4.0-10.0)
[2017-09-14 09:48] LABS: INR 1.35 (0.82-1.09); PROTHROMBIN TIME (PATIENT) 15.3 SEC (9.7-13.0)
[2017-09-14] MEDS: HYDROCHLOROTHIAZIDE 12.5 MG CAPSULE (FP) PO SCH (10:07)
[2017-09-14] MEDS: ARTIFICIAL TEARS (POLYVINYL ALCOHOL 1.4%) OPTH DROPS OU SCH ×2 (10:07→21:14)
[2017-09-14 10:08] LABS: CHLORIDE 102 mmol/L (98-107); POTASSIUM 3.6 mmol/L (3.5-5.1); SODIUM 142 mmol/L (136-145)
[2017-09-14] MEDS: DOCUSATE NA 100 MG/10 ML UNIT-DOSE CUPS PO SCH (10:08)
[2017-09-14] MEDS: METOPROLOL TARTRATE 50 MG TABLET (FP) PO SCH ×2 (10:08→21:13)
[2017-09-14] MEDS: ESCITALOPRAM OXALATE 10 MG TABLET (FP) PO SCH (10:08)
--- NOTE | 2017-09-14 10:22 | PN ---
Progress Note (short form) - Note Progress Note: Chief Complaint: Events noted, notes reviewed, denies any chest pain or dyspnea , expressive aphasia is persistent, resting in bed comfortably, son at the bedside History of Present Illness: Seen and examined. Events noted, notes reviewed, denies any chest pain or dyspnea, expressive aphasia is persistent, resting in bed comfortably, son at the bedside Medications: Current Medications Acetaminophen (Tylenol -) 650 mg PO Q6H PRN PRN Reason: FEVER Last Admin: 09/13/17 18:59 Dose: 650 mg Artificial Tears (Artificial Tears) 1 drop OU BID [facility] Last Admin: 09/14/17 10:07 Dose: 1 drop Atorvastatin Calcium (Lipitor -) 10 mg PO [facility] Last Admin: 09/13/17 21:48 Dose: 10 mg Docusate Sodium (Colace Liquid -) 100 mg PO DAILY [facility] Last Admin: 09/14/17 10:08 Dose: 100 mg Donepezil HCl (Aricept -) 5 mg PO [facility] Last Admin: 09/13/17 21:48 Dose: 5 mg Escitalopram Oxalate (Lexapro -) 5 mg PO DAILY [facility] Last Admin: 09/14/17 10:08 Dose: 5 mg Hydrochlorothiazide (Hctz -) 12.5 mg PO DAILY [facility] Last Admin: 09/14/17 10:07 Dose: 12.5 mg Lactated Ringer's (Lactated Ringers Solution) 1,000 mls @ 75 mls/hr IV ASDIR [facility] Last Admin: 09/14/17 03:14 Dose: 75 mls/hr Losartan Potassium (Cozaar -) 50 mg PO [facility] Last Admin: 09/13/17 21:48 Dose: 50 mg Metoprolol Tartrate (Lopressor -) 50 mg PO BID [facility] Last Admin: 09/14/17 10:08 Dose: 50 mg Olanzapine (Zyprexa -) 5 mg PO [facility] Last Admin: 09/13/17 21:48 Dose: 5 mg Ondansetron HCl (Zofran Injection) 4 mg IVPUSH Q6H PRN PRN Reason: NAUSEA AND/OR VOMITING Warfarin Sodium (Coumadin -) 4 mg PO DAILY@1800 [facility] Last Admin: 09/13/17 17:09 Dose: 4 mg Vital Signs: Last Vital Signs Temp Pulse Resp BP Pulse Ox 98.3 F 91 H 19 144/79 96 09/14/17 08:06 09/14/17 08:06 09/14/17 08:06 09/14/17 08:06 09/13/17 22:00 Intake & Output 09/11/17 09/12/17 09/13/17 09/14/17 23:59 23:59 23:59 23:59 Intake Total 2859 2074 3570 Balance 2859 2074 3570 Constitutional: No Distress, Calm Neck: Supple Negative JVD No Bruit Respiratory: Clear to A&P Bilaterally Cardiovascular: S1 S2 Regular Rate and Rhythm Grade 3/6 DAMIEN Gastrointestinal: Soft Benign Normal Bowel Sounds Ext: No Edema Labs: CBC, BMP 09/14/17 08:37 09/14/17 08:37 INR, PTT INR 1.35 (0.82-1.09) H 09/14/17 08:37 Assessment/Plan ASSESSMENT: 1. Left hip fracture post fall post left IM gamma nail 2. Severe/critical aortic valve stenosis, previously declined TAVR 3. CAD angina pectoris, stable 4. LV diastolic dysfunction with chronic class I NYHA classification LV failure , compensated/euvolemic 5. Paroxysmal atrial fibrillation currently in sinus rhythm [id number] score of 8 with sub-therapeutic INR 6. History of cerebro-vascular disease with with residual deficit, expressive aphasia 7. Hypertension/hypertensive cardiovascular disease 8. Hypercholesterolemia 9. Anemia PLAN: 1. Continue Lopressor 2. Continue Losartan and HCTZ 3. Continue Lipitor 4. Continue Coumadin and maintain INR 2-3 with close monitoring of CBC, on Lovenox (DVT prophylaxis dose), consider bridging with Lovenox (off label but accepted) vs. IV Heparin vs. DOAC's, to be reviewed with the primary team and orthopedic team 5. Initiate PT and plan to D/C to acute rehab facility Pam Pulliam M.D.
[2017-09-14 10:42] LABS: ANION GAP 7 (8-16); BLOOD UREA NITROGEN 35 mg/dL (7-18); CALCIUM 8.5 mg/dL (8.5-10.1); CO2 33 mmol/L (21-32); CREATININE 0.8 mg/dL (0.55-1.02); GLUCOSE,RANDOM 108 mg/dL (74-106)
--- NOTE | 2017-09-14 12:34 | PN ---
Progress Note, Physician Chief Complaint: No new complaints, still some dysarthria History of Present Illness: 86 yo female,HTN, Dementia, afib admitted with Left Hip fracture Post Op day 3rd IM Gamma Nail - Current Medication List Current Medications: Active Medications Acetaminophen (Tylenol -) 650 mg PO Q6H PRN PRN Reason: FEVER Last Admin: 09/13/17 18:59 Dose: 650 mg Artificial Tears (Artificial Tears) 1 drop OU BID [facility] Last Admin: 09/14/17 10:07 Dose: 1 drop Atorvastatin Calcium (Lipitor -) 10 mg PO HS [facility] Last Admin: 09/13/17 21:48 Dose: 10 mg Docusate Sodium (Colace Liquid -) 100 mg PO DAILY [facility] Last Admin: 09/14/17 10:08 Dose: 100 mg Donepezil HCl (Aricept -) 5 mg PO [facility] Last Admin: 09/13/17 21:48 Dose: 5 mg Escitalopram Oxalate (Lexapro -) 5 mg PO DAILY [facility] Last Admin: 09/14/17 10:08 Dose: 5 mg Hydrochlorothiazide (Hctz -) 12.5 mg PO DAILY [facility] Last Admin: 09/14/17 10:07 Dose: 12.5 mg Lactated Ringer's (Lactated Ringers Solution) 1,000 mls @ 75 mls/hr IV ASDIR [facility] Last Admin: 09/14/17 03:14 Dose: 75 mls/hr Losartan Potassium (Cozaar -) 50 mg PO [facility] Last Admin: 09/13/17 21:48 Dose: 50 mg Metoprolol Tartrate (Lopressor -) 50 mg PO BID [facility] Last Admin: 09/14/17 10:08 Dose: 50 mg Olanzapine (Zyprexa -) 5 mg PO [facility] Last Admin: 09/13/17 21:48 Dose: 5 mg Ondansetron HCl (Zofran Injection) 4 mg IVPUSH Q6H PRN PRN Reason: NAUSEA AND/OR VOMITING Warfarin Sodium (Coumadin -) 4 mg PO DAILY@1800 [facility] Last Admin: 09/13/17 17:09 Dose: 4 mg - Objective Vital Signs: Vital Signs Temperature 98.3 F 09/14/17 08:06 Pulse Rate 91 H 09/14/17 08:06 Respiratory Rate 19 09/14/17 08:06 Blood Pressure 144/79 09/14/17 08:06 O2 Sat by Pulse Oximetry (%) 96 09/13/17 22:00 Constitutional: Yes: Well Nourished, No Distress HENT: Yes: Atraumatic, Normocephalic Neck: Yes: Supple, Trachea Midline Cardiovascular: Yes: Pulse Irregular, S1, S2. No: JVD, Gallop, Murmur Respiratory: Yes: Regular, CTA Bilaterally Gastrointestinal: Yes: Normal Bowel Sounds, Soft Musculoskeletal: Yes: Other (Left Hip S/p ORIF) Edema: RUE: Trace, LLE: Trace Peripheral Pulses WNL: Yes Peripheral Pulses: Left Doralis Pedis: 1+, Right Dorsalis Pedis: 1+ Neurological: Yes: Alert, Oriented Labs: CBC, BMP 09/14/17 08:37 09/14/17 08:37 INR, PTT INR 1.35 (0.82-1.09) H 09/14/17 08:37 Problem List - Problems (1) Intertrochanteric fracture of left hip Assessment/Plan: S/p IM Clyde Nail post Op care as per orthopaedics Code(s): S72.142A - DISPLACED INTERTROCHANTERIC FRACTURE OF LEFT FEMUR, INIT (2) Atrial fibrillation Code(s): I48.91 - UNSPECIFIED ATRIAL FIBRILLATION Qualifiers: Atrial fibrillation type: chronic Qualified Code(s): I48.2 - Chronic atrial fibrillation (3) Hypertension Code(s): I10 - ESSENTIAL (PRIMARY) HYPERTENSION Qualifiers: Hypertension type: essential hypertension Qualified Code(s): I10 - Essential (primary) hypertension (4) Dementia Code(s): F03.90 - UNSPECIFIED DEMENTIA WITHOUT BEHAVIORAL DISTURBANCE Qualifiers: Dementia type: unspecified type Dementia behavioral disturbance: without behavioral disturbance Qualified Code(s): F03.90 - Unspecified dementia without behavioral disturbance (5) Diastolic dysfunction without heart failure Code(s): I51.9 - HEART DISEASE, UNSPECIFIED (6) Acute blood loss anemia Assessment/Plan: H/H dropped after procrdure required transfusion now H/H stable Code(s): D62 - ACUTE POSTHEMORRHAGIC ANEMIA
[2017-09-14] MEDS: ACETAMINOPHEN 325 MG TABLET (FP) PO PRN (14:04)
[2017-09-14] MEDS: WARFARIN NA 5 MG TABLET (UD) PO SCH (17:16)
[2017-09-14] MEDS: ATORVASTATIN CA 10 MG TABLET (FP) PO SCH (21:13)
[2017-09-14] MEDS: DONEPEZIL HCL 5 MG TABLET (FP) PO SCH (21:13)
[2017-09-14] MEDS: LOSARTAN POTASSIUM 50 MG TABLET (FP) PO SCH (21:14)
[2017-09-14] MEDS: OLANZapine 5 MG TABLET PO SCH (21:14)
[2017-09-15] MEDS ORDERED: PT OWN MED DRAWER 7, Y5N ONE ×2 (05:40→09:57)
[2017-09-15 08:02] LABS: BASO % 0.8 % (0-2.0); EOS % 3.9 % (0-4.5); HEMATOCRIT 25.7 % (32.4-45.2); HEMOGLOBIN 8.6 GM/dL (10.7-15.3); LYMPH % 18.9 % (8-40); MCH 28.3 pg (25.7-33.7); MCHC 33.3 g/dl (32.0-36.0); MEAN CELL VOLUME 85.2 fl (80-96); MEAN PLT VOLUME 8.6 fl (7.5-11.1); NEUT % 63.4 % (42.8-82.8); PLATELET COUNT 281 K/MM3 (134-434); RBC 3.02 M/mm3 (3.60-5.2); WHITE BLOOD COUNT 7.6 K/mm3 (4.0-10.0)
[2017-09-15 08:20] LABS: INR 1.47 (0.82-1.09); PROTHROMBIN TIME (PATIENT) 16.6 SEC (9.7-13.0)
--- NOTE | 2017-09-15 08:24 | PN ---
Progress Note (short form) - Note Progress Note: Chief Complaint: Events noted, notes reviewed, lethargic but easily arousable, denies any chest pain or dyspnea, expressive aphasia is persistent, resting in bed comfortably, son at the bedside History of Present Illness: Seen and examined. Events noted, notes reviewed, lethargic but easily arousable , denies any chest pain or dyspnea, expressive aphasia is persistent, resting in bed comfortably, son at the bedside Medications: Current Medications Acetaminophen (Tylenol -) 650 mg PO Q6H PRN PRN Reason: FEVER Last Admin: 09/14/17 14:04 Dose: 650 mg Artificial Tears (Artificial Tears) 1 drop OU BID [facility] Last Admin: 09/14/17 21:14 Dose: 1 drop Atorvastatin Calcium (Lipitor -) 10 mg PO [facility] Last Admin: 09/14/17 21:13 Dose: 10 mg Docusate Sodium (Colace Liquid -) 100 mg PO DAILY [facility] Last Admin: 09/14/17 10:08 Dose: 100 mg Donepezil HCl (Aricept -) 5 mg PO [facility] Last Admin: 09/14/17 21:13 Dose: 5 mg Escitalopram Oxalate (Lexapro -) 5 mg PO DAILY [facility] Last Admin: 09/14/17 10:08 Dose: 5 mg Hydrochlorothiazide (Hctz -) 12.5 mg PO DAILY [facility] Last Admin: 09/14/17 10:07 Dose: 12.5 mg Lactated Ringer's (Lactated Ringers Solution) 1,000 mls @ 75 mls/hr IV ASDIR [facility] Last Admin: 09/14/17 03:14 Dose: 75 mls/hr Losartan Potassium (Cozaar -) 50 mg PO [facility] Last Admin: 09/14/17 21:14 Dose: 50 mg Metoprolol Tartrate (Lopressor -) 50 mg PO BID [facility] Last Admin: 09/14/17 21:13 Dose: 50 mg Olanzapine (Zyprexa -) 5 mg PO [facility] Last Admin: 09/14/17 21:14 Dose: 5 mg Ondansetron HCl (Zofran Injection) 4 mg IVPUSH Q6H PRN PRN Reason: NAUSEA AND/OR VOMITING Warfarin Sodium (Coumadin -) 5 mg PO DAILY@1800 [facility] Last Admin: 09/14/17 17:16 Dose: 5 mg Vital Signs: Last Vital Signs Temp Pulse Resp BP Pulse Ox 97.7 F 70 20 128/60 96 09/15/17 05:10 09/15/17 05:10 09/15/17 05:10 09/15/17 05:10 09/14/17 21:00 Intake & Output 09/12/17 09/13/17 09/14/17 09/15/17 23:59 23:59 23:59 23:59 Intake Total 2073 3570 200 900 Balance 2073 3570 200 900 Constitutional: No Distress, Calm Neck: Supple Negative JVD No Bruit Respiratory: Clear to A&P Bilaterally Cardiovascular: S1 S2 Regular Rate and Rhythm Grade 3/6 DAMIEN Gastrointestinal: Soft Benign Normal Bowel Sounds Ext: No Edema Labs: CBC, BMP 09/15/17 07:45 Hepatic Panel Total Bilirubin 0.8 mg/dL (0.2-1.0) D 09/13/17 07:00 AST 31 U/L (15-37) 09/13/17 07:00 ALT 24 U/L (12-78) 09/13/17 07:00 Alkaline Phosphatase 86 U/L (45-117) 09/13/17 07:00 Albumin 2.0 g/dl (3.4-5.0) L 09/13/17 07:00 INR, PTT INR 1.35 (0.82-1.09) H 09/14/17 08:37 Assessment/Plan ASSESSMENT: 1. Left hip fracture post fall post left IM gamma nail 2. Severe/critical aortic valve stenosis, previously declined TAVR 3. CAD angina pectoris, stable 4. LV diastolic dysfunction with chronic class I NYHA classification LV failure , compensated/euvolemic 5. Paroxysmal atrial fibrillation currently in sinus rhythm [id number] score of 8 with sub-therapeutic INR 6. History of cerebro-vascular disease with with residual deficit, expressive aphasia 7. Hypertension/hypertensive cardiovascular disease 8. Hypercholesterolemia 9. Anemia PLAN: 1. Continue Lopressor 2. Continue Losartan and HCTZ 3. Continue Lipitor 4. Continue Coumadin and maintain INR 2-3 with close monitoring of CBC, as outlined in yesterdays note consider bridging with Lovenox (off label but accepted) vs. IV Heparin vs. DOAC's, to be reviewed with the primary team and orthopedic team 5. Initiate PT and plan to D/C to acute rehab facility Pam Pulliam M.D.
[2017-09-15 08:34] LABS: ANION GAP 5 (8-16); BLOOD UREA NITROGEN 27 mg/dL (7-18); CALCIUM 8.1 mg/dL (8.5-10.1); CHLORIDE 104 mmol/L (98-107); CO2 32 mmol/L (21-32); CREATININE 0.7 mg/dL (0.55-1.02); GLUCOSE,RANDOM 98 mg/dL (74-106); POTASSIUM 3.6 mmol/L (3.5-5.1); SODIUM 141 mmol/L (136-145)
[2017-09-15] MEDS: HYDROCHLOROTHIAZIDE 12.5 MG CAPSULE (FP) PO SCH (10:51)
[2017-09-15] MEDS: ESCITALOPRAM OXALATE 10 MG TABLET (FP) PO SCH (10:51)
[2017-09-15] MEDS: METOPROLOL TARTRATE 50 MG TABLET (FP) PO SCH ×2 (10:51→21:39)
[2017-09-15] MEDS: DOCUSATE NA 100 MG/10 ML UNIT-DOSE CUPS PO SCH (10:52)
[2017-09-15] MEDS: ARTIFICIAL TEARS (POLYVINYL ALCOHOL 1.4%) OPTH DROPS OU SCH ×2 (10:52→21:40)
--- NOTE | 2017-09-15 13:51 | PN ---
Progress Note, Physician Chief Complaint: No new complaints, still some dysarthria History of Present Illness: 86 yo female,HTN, Dementia, afib admitted with Left Hip fracture Post Op day 3rd IM Gamma Nail - Current Medication List Current Medications: Active Medications Acetaminophen (Tylenol -) 650 mg PO Q6H PRN PRN Reason: FEVER Last Admin: 09/14/17 14:04 Dose: 650 mg Artificial Tears (Artificial Tears) 1 drop OU BID [facility] Last Admin: 09/15/17 10:52 Dose: 1 drop Atorvastatin Calcium (Lipitor -) 10 mg PO HS [facility] Last Admin: 09/14/17 21:13 Dose: 10 mg Docusate Sodium (Colace Liquid -) 100 mg PO DAILY [facility] Last Admin: 09/15/17 10:52 Dose: 100 mg Donepezil HCl (Aricept -) 5 mg PO HS [facility] Last Admin: 09/14/17 21:13 Dose: 5 mg Escitalopram Oxalate (Lexapro -) 5 mg PO DAILY [facility] Last Admin: 09/15/17 10:51 Dose: 5 mg Hydrochlorothiazide (Hctz -) 12.5 mg PO DAILY [facility] Last Admin: 09/15/17 10:51 Dose: 12.5 mg Lactated Ringer's (Lactated Ringers Solution) 1,000 mls @ 75 mls/hr IV ASDIR [facility] Last Admin: 09/14/17 03:14 Dose: 75 mls/hr Losartan Potassium (Cozaar -) 50 mg PO HS [facility] Last Admin: 09/14/17 21:14 Dose: 50 mg Metoprolol Tartrate (Lopressor -) 50 mg PO BID [facility] Last Admin: 09/15/17 10:51 Dose: 50 mg Olanzapine (Zyprexa -) 5 mg PO [facility] Last Admin: 09/14/17 21:14 Dose: 5 mg Ondansetron HCl (Zofran Injection) 4 mg IVPUSH Q6H PRN PRN Reason: NAUSEA AND/OR VOMITING Warfarin Sodium (Coumadin -) 5 mg PO DAILY@1800 [facility] Last Admin: 09/14/17 17:16 Dose: 5 mg - Objective Vital Signs: Vital Signs Temperature 98.7 F 09/15/17 10:00 Pulse Rate 87 09/15/17 10:00 Respiratory Rate 20 09/15/17 10:00 Blood Pressure 145/63 09/15/17 10:00 O2 Sat by Pulse Oximetry (%) 96 09/15/17 09:00 Constitutional: Yes: Well Nourished, No Distress HENT: Yes: Atraumatic, Normocephalic Neck: Yes: Supple, Trachea Midline Cardiovascular: Yes: Pulse Irregular, S1, S2. No: JVD, Gallop, Murmur Respiratory: Yes: Regular, CTA Bilaterally Gastrointestinal: Yes: Normal Bowel Sounds, Soft Musculoskeletal: Yes: Other (Left Hip S/p ORIF) Edema: RUE: Trace, LLE: Trace Peripheral Pulses WNL: Yes Peripheral Pulses: Left Doralis Pedis: 1+, Right Dorsalis Pedis: 1+ Neurological: Yes: Alert, Oriented Labs: CBC, BMP 09/15/17 07:45 09/15/17 07:45 INR, PTT INR 1.47 (0.82-1.09) H 09/15/17 07:45 Problem List - Problems (1) Intertrochanteric fracture of left hip Code(s): S72.142A - DISPLACED INTERTROCHANTERIC FRACTURE OF LEFT FEMUR, INIT (2) Atrial fibrillation Code(s): I48.91 - UNSPECIFIED ATRIAL FIBRILLATION Qualifiers: Atrial fibrillation type: chronic Qualified Code(s): I48.2 - Chronic atrial fibrillation (3) Hypertension Code(s): I10 - ESSENTIAL (PRIMARY) HYPERTENSION Qualifiers: Hypertension type: essential hypertension Qualified Code(s): I10 - Essential (primary) hypertension (4) Dementia Code(s): F03.90 - UNSPECIFIED DEMENTIA WITHOUT BEHAVIORAL DISTURBANCE Qualifiers: Dementia type: unspecified type Dementia behavioral disturbance: without behavioral disturbance Qualified Code(s): F03.90 - Unspecified dementia without behavioral disturbance (5) Diastolic dysfunction without heart failure Code(s): I51.9 - HEART DISEASE, UNSPECIFIED (6) Acute blood loss anemia Code(s): D62 - ACUTE POSTHEMORRHAGIC ANEMIA
[2017-09-15] MEDS: WARFARIN NA 5 MG TABLET (UD) PO SCH (17:58)
[2017-09-15] MEDS: LOSARTAN POTASSIUM 50 MG TABLET (FP) PO SCH (21:39)
[2017-09-15] MEDS: OLANZapine 5 MG TABLET PO SCH (21:39)
[2017-09-15] MEDS: ATORVASTATIN CA 10 MG TABLET (FP) PO SCH (21:39)
[2017-09-15] MEDS: DONEPEZIL HCL 5 MG TABLET (FP) PO SCH (21:39)
[2017-09-16 07:48] LABS: BASO % 0.9 % (0-2.0); EOS % 4.7 % (0-4.5); HEMATOCRIT 25.1 % (32.4-45.2); HEMOGLOBIN 8.3 GM/dL (10.7-15.3); LYMPH % 20.9 % (8-40); MCH 28.8 pg (25.7-33.7); MCHC 33.2 g/dl (32.0-36.0); MEAN CELL VOLUME 86.6 fl (80-96); MEAN PLT VOLUME 8.9 fl (7.5-11.1); MONO % 14.7 % (3.8-10.2); NEUT % 58.8 % (42.8-82.8); PLATELET COUNT 294 K/MM3 (134-434); RDW 14.6 % (11.6-15.6); WHITE BLOOD COUNT 7.2 K/mm3 (4.0-10.0)
--- NOTE | 2017-09-16 08:00 | PN ---
Progress Note (short form) - Note Progress Note: Chief Complaint: Events noted, notes reviewed, lethargic but easily arousable, denies any chest pain or dyspnea, expressive aphasia is persistent, son at the bedside History of Present Illness: Seen and examined. Events noted, notes reviewed, lethargic but easily arousable , denies any chest pain or dyspnea, expressive aphasia is persistent, son at the bedside Medications: Current Medications Acetaminophen (Tylenol -) 650 mg PO Q6H PRN PRN Reason: FEVER Last Admin: 09/14/17 14:04 Dose: 650 mg Artificial Tears (Artificial Tears) 1 drop OU BID [facility] Last Admin: 09/15/17 21:40 Dose: 1 drop Atorvastatin Calcium (Lipitor -) 10 mg PO HS [facility] Last Admin: 09/15/17 21:39 Dose: 10 mg Docusate Sodium (Colace Liquid -) 100 mg PO DAILY [facility] Last Admin: 09/15/17 10:52 Dose: 100 mg Donepezil HCl (Aricept -) 5 mg PO HS [facility] Last Admin: 09/15/17 21:39 Dose: 5 mg Escitalopram Oxalate (Lexapro -) 5 mg PO DAILY [facility] Last Admin: 09/15/17 10:51 Dose: 5 mg Hydrochlorothiazide (Hctz -) 12.5 mg PO DAILY [facility] Last Admin: 09/15/17 10:51 Dose: 12.5 mg Lactated Ringer's (Lactated Ringers Solution) 1,000 mls @ 75 mls/hr IV ASDIR [facility] Last Admin: 09/14/17 03:14 Dose: 75 mls/hr Losartan Potassium (Cozaar -) 50 mg PO HS [facility] Last Admin: 09/15/17 21:39 Dose: 50 mg Metoprolol Tartrate (Lopressor -) 50 mg PO BID [facility] Last Admin: 09/15/17 21:39 Dose: 50 mg Olanzapine (Zyprexa -) 5 mg PO HS [facility] Last Admin: 09/15/17 21:39 Dose: 5 mg Ondansetron HCl (Zofran Injection) 4 mg IVPUSH Q6H PRN PRN Reason: NAUSEA AND/OR VOMITING Warfarin Sodium (Coumadin -) 5 mg PO DAILY@1800 [facility] Last Admin: 09/15/17 17:58 Dose: 5 mg Vital Signs: Last Vital Signs Temp Pulse Resp BP Pulse Ox 98.4 F 75 20 140/68 96 09/16/17 07:28 09/16/17 07:28 09/16/17 07:28 09/16/17 07:28 09/15/17 20:17 Intake & Output 09/13/17 09/14/17 09/15/17 09/16/17 23:59 23:59 23:59 23:59 Intake Total 3570 200 900 Balance 3570 200 900 Constitutional: No Distress, Calm Neck: Supple Negative JVD No Bruit Respiratory: Clear to A&P Bilaterally Cardiovascular: S1 S2 Regular Rate and Rhythm Grade 3/6 DAMIEN Gastrointestinal: Soft Benign Normal Bowel Sounds Ext: No Edema Labs: CBC, BMP 09/15/17 07:45 Hepatic Panel Total Bilirubin 0.8 mg/dL (0.2-1.0) D 09/13/17 07:00 AST 31 U/L (15-37) 09/13/17 07:00 ALT 24 U/L (12-78) 09/13/17 07:00 Alkaline Phosphatase 86 U/L (45-117) 09/13/17 07:00 Albumin 2.0 g/dl (3.4-5.0) L 09/13/17 07:00 INR, PTT INR 1.35 (0.82-1.09) H 09/14/17 08:37 Blood test from this pending Assessment/Plan ASSESSMENT: 1. Left hip fracture post fall post left IM gamma nail 2. Severe/critical aortic valve stenosis, previously declined TAVR 3. CAD angina pectoris, stable 4. LV diastolic dysfunction with chronic class I NYHA classification LV failure , compensated/euvolemic 5. Paroxysmal atrial fibrillation currently in sinus rhythm [id number] score of 8 with sub-therapeutic INR 6. History of cerebro-vascular disease with with residual deficit, expressive aphasia 7. Hypertension/hypertensive cardiovascular disease 8. Hypercholesterolemia 9. Anemia PLAN: 1. Continue Lopressor 2. Continue Losartan and HCTZ 3. Continue Lipitor 4. Continue Coumadin and maintain INR 2-3 with close monitoring of CBC, as outlined in prior notes consider bridging with Lovenox (off label but accepted) vs. IV Heparin vs. DOAC's, to be reviewed with the primary team and orthopedic team 5. Initiate PT and plan to D/C to sub-acute rehab facility Pam Pulliam M.D.
[2017-09-16 08:22] LABS: INR 1.72 (0.82-1.09); PROTHROMBIN TIME (PATIENT) 19.4 SEC (9.7-13.0)
[2017-09-16 08:24] LABS: CHLORIDE 104 mmol/L (98-107); POTASSIUM 3.7 mmol/L (3.5-5.1); SODIUM 141 mmol/L (136-145)
[2017-09-16 08:38] LABS: ANION GAP 6 (8-16); BLOOD UREA NITROGEN 22 mg/dL (7-18); CO2 31 mmol/L (21-32); CREATININE 0.7 mg/dL (0.55-1.02); GLUCOSE,RANDOM 94 mg/dL (74-106)
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
[2017-09-16] MEDS ORDERED: PT OWN MED DRAWER 7, Y5N ONE ×2 (09:25→20:32)
[2017-09-16] MEDS: HYDROCHLOROTHIAZIDE 12.5 MG CAPSULE (FP) PO SCH (10:05)
[2017-09-16] MEDS: ESCITALOPRAM OXALATE 10 MG TABLET (FP) PO SCH (10:05)
[2017-09-16] MEDS: METOPROLOL TARTRATE 50 MG TABLET (FP) PO SCH ×2 (10:06→22:50)
[2017-09-16] MEDS: DOCUSATE NA 100 MG/10 ML UNIT-DOSE CUPS PO SCH (10:06)
[2017-09-16] MEDS: ACETAMINOPHEN 325 MG TABLET (FP) PO PRN (11:28)
[2017-09-16] MEDS: ARTIFICIAL TEARS (POLYVINYL ALCOHOL 1.4%) OPTH DROPS OU SCH ×2 (11:32→22:49)
--- NOTE | 2017-09-16 12:31 | PN ---
Progress Note, Physician Chief Complaint: Not in distress, but underlying dementia POD left hip gamma nail Hemodynamically stable History of Present Illness: Patient was seen and examined. Awake. Chart was reviewed Denies chest pain, SOB or palpitations Discussed with her son by bedside - Current Medication List Current Medications: Active Medications Acetaminophen (Tylenol -) 650 mg PO Q6H PRN PRN Reason: FEVER Last Admin: 09/16/17 11:28 Dose: 650 mg Artificial Tears (Artificial Tears) 1 drop OU BID [facility] Last Admin: 09/15/17 21:40 Dose: 1 drop Atorvastatin Calcium (Lipitor -) 10 mg PO HS [facility] Last Admin: 09/15/17 21:39 Dose: 10 mg Docusate Sodium (Colace Liquid -) 100 mg PO DAILY [facility] Last Admin: 09/16/17 10:06 Dose: 100 mg Donepezil HCl (Aricept -) 5 mg PO HS [facility] Last Admin: 09/15/17 21:39 Dose: 5 mg Escitalopram Oxalate (Lexapro -) 5 mg PO DAILY [facility] Last Admin: 09/16/17 10:05 Dose: 5 mg Hydrochlorothiazide (Hctz -) 12.5 mg PO DAILY [facility] Last Admin: 09/16/17 10:05 Dose: 12.5 mg Losartan Potassium (Cozaar -) 50 mg PO HS [facility] Last Admin: 09/15/17 21:39 Dose: 50 mg Metoprolol Tartrate (Lopressor -) 50 mg PO BID [facility] Last Admin: 09/16/17 10:06 Dose: 50 mg Olanzapine (Zyprexa -) 5 mg PO HS [facility] Last Admin: 09/15/17 21:39 Dose: 5 mg Ondansetron HCl (Zofran Injection) 4 mg IVPUSH Q6H PRN PRN Reason: NAUSEA AND/OR VOMITING Warfarin Sodium (Coumadin -) 5 mg PO DAILY@1800 [facility] Last Admin: 09/15/17 17:58 Dose: 5 mg - Objective Vital Signs: Vital Signs Temperature 98.4 F 09/16/17 11:00 Pulse Rate 76 09/16/17 11:00 Respiratory Rate 17 09/16/17 11:00 Blood Pressure 114/54 09/16/17 11:00 O2 Sat by Pulse Oximetry (%) 94 L 09/16/17 09:00 HENT: Yes: Atraumatic Neck: Yes: Supple Cardiovascular: Yes: Regular Rate and Rhythm, Murmur (3/6 DAMIEN), S1, S2 Respiratory: Yes: CTA Bilaterally Gastrointestinal: Yes: Normal Bowel Sounds, Soft. No: Tenderness Edema: No Labs: CBC, BMP 09/16/17 06:30 09/16/17 06:30 INR, PTT INR 1.72 (0.82-1.09) H 09/16/17 06:30 Problem List - Problems (1) Intertrochanteric fracture of left hip Code(s): S72.142A - DISPLACED INTERTROCHANTERIC FRACTURE OF LEFT FEMUR, INIT (2) Atrial fibrillation Code(s): I48.91 - UNSPECIFIED ATRIAL FIBRILLATION Qualifiers: Atrial fibrillation type: chronic Qualified Code(s): I48.2 - Chronic atrial fibrillation (3) CHF (congestive heart failure) Code(s): I50.9 - HEART FAILURE, UNSPECIFIED (4) Coronary artery disease Code(s): I25.10 - ATHSCL HEART DISEASE OF [place] CORONARY ARTERY W/O ANG PCTRS Qualifiers: Coronary Disease-Associated Artery/Lesion type: [place] artery [place] vs. transplanted heart: [place] heart Associated angina: without angina Qualified Code(s): I25.10 - Atherosclerotic heart disease of [place] coronary artery without angina pectoris (5) Dementia Code(s): F03.90 - UNSPECIFIED DEMENTIA WITHOUT BEHAVIORAL DISTURBANCE Qualifiers: Dementia type: unspecified type Dementia behavioral disturbance: without behavioral disturbance Qualified Code(s): F03.90 - Unspecified dementia without behavioral disturbance (6) Diastolic dysfunction without heart failure Code(s): I51.9 - HEART DISEASE, UNSPECIFIED (7) Hyperlipidemia Code(s): E78.5 - HYPERLIPIDEMIA, UNSPECIFIED Qualifiers: Hyperlipidemia type: pure hypercholesterolemia Qualified Code(s): E78.00 - Pure hypercholesterolemia, unspecified (8) Hypertension Code(s): I10 - ESSENTIAL (PRIMARY) HYPERTENSION Qualifiers: Hypertension type: essential hypertension Qualified Code(s): I10 - Essential (primary) hypertension (9) Severe aortic valve stenosis Code(s): I35.0 - NONRHEUMATIC AORTIC (VALVE) STENOSIS (10) Cerebrovascular accident (CVA) Code(s): I63.9 - CEREBRAL INFARCTION, UNSPECIFIED Qualifiers: CVA mechanism: unspecified Qualified Code(s): I63.9 - Cerebral infarction, unspecified Assessment/Plan 1. Left hip fracture post fall post left IM gamma nail 2. Severe/critical aortic valve stenosis, previously declined TAVR 3. CAD angina pectoris, stable 4. LV diastolic dysfunction with chronic class I NYHA classification LV failure , compensated/euvolemic 5. Paroxysmal atrial fibrillation currently in sinus rhythm [id number] score of 8 6. History of cerebrovascular disease with with residual deficit, expressive aphasia 7. Hypertension/hypertensive cardiovascular disease 8. Hypercholesterolemia 9. Anemia PLAN: 1. Continue Lopressor andLosartan and HCTZ 2. Continue Lipitor 3. Continue Coumadin and maintain INR 2-3 with close monitoring of CBC, but other option is to use NOAC if clinically feasible 4. Initiate PT and plan to D/C to sub-acute rehab facility Further plans are to follow João Heck MD
[2017-09-16] MEDS: WARFARIN NA 5 MG TABLET (UD) PO SCH (17:32)
[2017-09-16] MEDS: LOSARTAN POTASSIUM 50 MG TABLET (FP) PO SCH (22:49)
[2017-09-16] MEDS: DONEPEZIL HCL 5 MG TABLET (FP) PO SCH (22:49)
[2017-09-16] MEDS: ATORVASTATIN CA 10 MG TABLET (FP) PO SCH (22:50)
[2017-09-16] MEDS: OLANZapine 5 MG TABLET PO SCH (22:50)
[2017-09-17 09:05] LABS: BASO % 0.4 % (0-2.0); HEMATOCRIT 29.8 % (32.4-45.2); LYMPH % 17.8 % (8-40); MCH 28.4 pg (25.7-33.7); MCHC 33.4 g/dl (32.0-36.0); MEAN PLT VOLUME 8.8 fl (7.5-11.1); MONO % 13.6 % (3.8-10.2); NEUT % 64.2 % (42.8-82.8); PLATELET COUNT 312 K/MM3 (134-434); RBC 3.51 M/mm3 (3.60-5.2); RDW 15.1 % (11.6-15.6); WHITE BLOOD COUNT 7.6 K/mm3 (4.0-10.0)
[2017-09-17 09:33] LABS: ALBUMIN 2.1 g/dl (3.4-5.0); ANION GAP 4 (8-16); BILIRUBIN,TOTAL 0.7 mg/dL (0.2-1.0); BLOOD UREA NITROGEN 19 mg/dL (7-18); CALCIUM 8.4 mg/dL (8.5-10.1); CHLORIDE 103 mmol/L (98-107); CO2 33 mmol/L (21-32); CREATININE 0.8 mg/dL (0.55-1.02); GLUCOSE,RANDOM 92 mg/dL (74-106); POTASSIUM 3.9 mmol/L (3.5-5.1); SGOT/AST 35 U/L (15-37); SGPT/ALT 40 U/L (12-78); SODIUM 140 mmol/L (136-145); TOT PROT 5.2 g/dl (6.4-8.2)
[2017-09-17 09:34] LABS: ALK PHOS 95 U/L (45-117)
[2017-09-17 09:43] LABS: INR 1.9 (0.82-1.09); PROTHROMBIN TIME (PATIENT) 21.5 SEC (9.7-13.0)
--- NOTE | 2017-09-17 10:02 | DS ---
Physical Examination Vital Signs: Vital Signs Temperature 97.7 F 09/17/17 09:40 Pulse Rate 71 09/17/17 09:40 Respiratory Rate 18 09/17/17 09:40 Blood Pressure 167/65 09/17/17 09:40 O2 Sat by Pulse Oximetry (%) 94 L 09/16/17 20:49 Constitutional: Yes: Well Nourished, No Distress Eyes: Yes: Conjunctiva Clear Cardiovascular: Yes: Regular Rate and Rhythm, Murmur (3/6 systolic c/w aortic stenosis) Respiratory: Yes: CTA Bilaterally Gastrointestinal: Yes: Normal Bowel Sounds, Soft Wound/Incision: Yes: Clean/Dry Neurological: Yes: Alert, Other (expressive aphasia) Labs: CBC, BMP 09/17/17 08:00 09/17/17 08:00 Discharge Summary Reason For Visit: INTERTROCHANTERIC FRACTURE OF LEFT FEMUR Current Active Problems Acute blood loss anemia (Acute) Hospital Course: Please refer to daily notes Fracture of left hip Gamma nail surgical repair Post-operative anemia post transfusion of 2 units of PRBCs. H/O severe aortic stenosis Has refused TAVR surgery in the past. Condition: Fair - Instructions Diet, Activity, Other Instructions: See current orders Diet as tolerated Monitor swallowing capacity Physical therapy as tolerated Referrals: ON STAFF,NOT [Primary Care Provider] - Disposition: [facility] - Home Medications Comprehensive Discharge Medication List: Ambulatory Orders Olanzapine [Zyprexa -] 5 mg PO HS tablet 07/31/15 Donepezil HCl [Aricept -] 5 mg PO DAILY tablet 01/07/17 Metoprolol Tartrate [Lopressor -] 50 mg PO BID tablet 01/07/17 Acetaminophen [Tylenol] 650 mg PO QID PRN 02/06/17 Escitalopram Oxalate [Lexapro -] 5 mg PO DAILY 02/06/17 Hypromellose 0.5% Opth Soln [Artificial Tears] 1 drop OU BID 02/06/17 Losartan Potassium [Cozaar] 50 mg PO HS 02/06/17 Simvastatin [Zocor -] 20 mg PO HS 02/06/17 Hydrochlorothiazide 12.5 mg PO DAILY 09/06/17 Donepezil HCl [Aricept -] 5 mg PO HS tablet 09/17/17 Polyethylene Glycol 3350 [Miralax 119 gm Btl -] 17 gm PO DAILY PRN #1 bottle Polyvinyl Alcohol [Artificial Tears] 1 drop OU BID drops 09/17/17 Warfarin Na [Coumadin -] 5 mg PO DAILY@1800 tablet 09/17/17
[2017-09-17] MEDS ORDERED: PT OWN MED DRAWER 7, Y5N ONE (10:44)
[2017-09-17] MEDS: ESCITALOPRAM OXALATE 10 MG TABLET (FP) PO SCH (10:46)
[2017-09-17] MEDS: METOPROLOL TARTRATE 50 MG TABLET (FP) PO SCH (10:46)
[2017-09-17] MEDS: HYDROCHLOROTHIAZIDE 12.5 MG CAPSULE (FP) PO SCH (10:46)
[2017-09-17] MEDS: ARTIFICIAL TEARS (POLYVINYL ALCOHOL 1.4%) OPTH DROPS OU SCH (10:46)
[2017-09-17] MEDS: DOCUSATE NA 100 MG/10 ML UNIT-DOSE CUPS PO SCH (10:46)
[2017-09-17] MEDS: ACETAMINOPHEN 325 MG TABLET (FP) PO PRN (12:57)
[2017-09-17 14:42] VITALS: BP 112/54; PULSE 75; TEMP 98.6
== END 2017-09-17 15:41 | DRG 481 ==
LOC: JER 19:33 → JERBED 21:47 → J5S 23:16 → JSAMEDAYSX 09-10 12:00 → J6S 09-10 20:23
PROVIDERS: ADMIT Internal Medicine; ATTEND Internal Medicine
PROC: 0QS706Z Reposition Left Upper Femur with Intramedullary Internal Fixation Device, Open Approach (ICD-10-PCS; principal; 2017-09-10 13:00)
DX: S72.142A Displaced intertrochanteric fracture of left femur, initial encounter for closed fracture (principal); D62 Acute posthemorrhagic anemia; I50.1 Left ventricular failure, unspecified; Z79.01 Long term (current) use of anticoagulants; I35.0 Nonrheumatic aortic (valve) stenosis; I10 Essential (primary) hypertension; E78.5 Hyperlipidemia, unspecified; I11.0 Hypertensive heart disease with heart failure; I48.0 Paroxysmal atrial fibrillation; I25.10 Atherosclerotic heart disease of native coronary artery without angina pectoris; F03.90 Unspecified dementia, unspecified severity, without behavioral disturbance, psychotic disturbance, mood disturbance, and anxiety; Z88.0 Allergy status to penicillin; I69.320 Aphasia following cerebral infarction; I45.10 Unspecified right bundle-branch block; R94.31 Abnormal electrocardiogram [ECG] [EKG]; W01.0XXA Fall on same level from slipping, tripping and stumbling without subsequent striking against object, initial encounter; Y93.89 Activity, other specified; Y92.098 Other place in other non-institutional residence as the place of occurrence of the external cause; Y99.8 Other external cause status
CPT/HCPCS: 36415; 36430; 71045-TC-FY; 73523-TC-FY; 76000-TC-FY; 80048; 80053; 83735; 85025; 85027; 85610; 85730; 86850; 86900; 86901; 86922; 93005; 93010; 94760; 97116-GP; 97161-GP; 99281-25; P9038; P9058